=== PATIENT | male | born 1945 | race Caucasian/White ===

== ENCOUNTER 2016-06-12 14:10 | Inpatient (IN) ==
--- NOTE | 2016-06-12 14:24 | Emergency Department Note ---
Disposition Clinical Impression: Chest pain, Pleural effusion, Renal failure, CHF (congestive heart failure), Obesity, CAD (coronary artery disease), Atrial fibrillation, Elevated INR Disposition: Admitted As Inpatient Referrals: Latosha Mitchell MD [Primary Care Provider] - Forms: ED Satisfaction Letter General Adult HPI - General Chief complaint: ED Chest Pain Stated complaint: Chest Pain Time Seen by Provider: 06/12/16 14:23 Source: patient, family, EMS Limitations: no limitations - History of Present Illness HPI Narrative: 71-year-old male with a history of coronary disease previous bypass with AICD in situ with a history of CHF and currently on Coumadin reports to the emergency department complaining of shortness of breath which has been progressive over the last 2 days. He has also been experiencing intermittent left chest pain over the last few weeks. He called his primary care physician' s office and they recommended he come to the ED. The patient denies any vomiting or diarrhea or abdominal pain no syncope or unilateral leg swelling. He describes bilateral increasing edema. There is been no fall or injury noted trouble moving the arms or legs independently. No history of fever or significant cough. No confusion. The patient has had no bleeding. His AICD has not fired. The patient reports he had a cardiac catheterization about a year ago which revealed a nondistended palpable lesion. The patient's chest pain has abated. He came in by EMS. Pain Scale: 0 - Related Data Home Medications Medication Instructions Recorded Confirmed Aspirin Enteric Coated [Aspirin EC] 81 mg PO QAM 04/19/15 09/10/15 Atorvastatin [Lipitor] 40 mg PO HS 04/19/15 09/10/15 Budesonide/Formoterol 160/4.5 2 puff IH BIDR 04/19/15 09/10/15 [Symbicort] Fluticasone Propionate [Flovent 1 puff IH DAILY PRN 04/19/15 09/10/15 Hfa] HYDROcodone/Acet 5/325 mg [[place] 1 tab PO DAILY PRN 04/19/15 09/10/15 5-325 mg] Insulin ASPART [NovoLOG] 2 - 12 unit SQ TIDWM 04/19/15 09/10/15 Levothyroxine [Synthroid] 25 mcg PO QAM 04/19/15 09/10/15 Magnesium Oxide [Magnesium] 400 mg PO BID 04/19/15 09/10/15 Montelukast [Singulair] 10 mg PO DAILY 04/19/15 09/10/15 Multivit-Min/FA/Lycopen/Lutein 1 tab PO QAM 04/19/15 09/10/15 [Centrum Silver Tablet] Niacin [Niaspan] 500 mg PO HS 04/19/15 09/10/15 Nitroglycerin [Nitrostat] 0.4 mg SL AD PRN 04/19/15 09/10/15 Omeprazole [PriLOSEC] 40 mg PO QPM 04/19/15 09/10/15 Ondansetron [Zofran] 8 mg PO Q8HR PRN 04/19/15 09/10/15 Ranitidine HCl [Zantac] 150 mg PO BID 04/19/15 09/10/15 [place] Oil/[place]-3 Fatty Acids 1,000 mg PO QAM 04/19/15 09/10/15 [Fish Oil 500 mg Softgel] Warfarin [Coumadin] 7.5 mg PO 4XW 04/19/15 09/10/15 Zolpidem [Ambien] 10 mg PO HS 04/19/15 09/10/15 Furosemide [Lasix] 20 mg PO DAILY 07/11/15 09/10/15 Insulin Glargine [Lantus] 25 unit SQ BID 07/11/15 09/10/15 Ranolazine [Ranexa] 500 mg PO BID 07/11/15 09/10/15 Warfarin [Coumadin] 5 mg PO 3XW 07/11/15 09/10/15 Gluc/Miguel Angel-MSM#1/C/Epifanio/[place]/Bor 1 each PO BID 09/10/15 09/10/15 [Osteo Bi-Flex Caplet] Previous Rx's Medication Instructions Recorded Isosorbide MONOnitrate (24 HR) 120 mg PO QAM #60 tab.er.24h 04/25/15 [Imdur] Carvedilol [Coreg] 25 mg PO BID #60 tablet 04/30/15 Allergies Allergy/AdvReac Type Severity Reaction Status Date / Time codeine Allergy Difficulty Verified 04/19/15 10:03 Breathing promethazine [From Phenergan] Allergy Dizziness Verified 04/19/15 10:03 ibuprofen AdvReac Nausea Verified 04/19/15 12:02 All systems ED: reviewed and negative except as stated. Past Medical History - Past Medical History Medical history: Reports: arthritis, atrial fibrillation, cancer, CHF, coronary artery disease, diabetes, GERD, hyperlipidemia, hypertension, myocardial infarction, renal disease, thyroid disease, TIA Surgical history: Reports: angioplasty/stent, appendectomy, cholecystectomy, colostomy, coronary bypass (CABG), pacemaker/AICD Psychiatric history: Reports: no psych history - Social History Smoking Status: Never smoker Smokeless Tobacco Status: No Alcohol use: Reports: none Drug use: Reports: none Physical Exam - General Limitations: no limitations General appearance: alert, in no apparent distress - Head Head exam: atraumatic, normocephalic, normal inspection - Eye Eye exam: Present: normal appearance, PERRL, EOMI - ENT ENT exam: normal exam, normal oropharynx, mucous membranes moist, normal external ear exam - Neck Neck exam: Present: normal inspection, full ROM, trachea midline. Absent: tenderness - Chest Chest inspection: Present: symmetric chest wall rise. Absent: tenderness - Respiratory Respiratory exam: Present: normal lung sounds bilaterally. Absent: respiratory distress - Cardiovascular Cardiovascular exam: Present: regular rate, normal rhythm, normal heart sounds - Abdominal Exam Abdominal exam: Present: soft, Non-Tender. Absent: tenderness, distention, guarding, rebound, rigidity - Extremities Exam Extremities exam: Present: normal inspection, full ROM, pedal edema. Absent: tenderness, joint swelling, calf tenderness - Expanded Lower Extremity Exam Hip/Pelvis exam: Absent: tenderness Knee exam: Absent: tenderness Lower leg exam: Present: swelling. Absent: tenderness, Homans' sign Neurovascular/Tendon exam: Absent: motor deficit, sensory deficit, tendon deficit - Back Exam Back exam: Present: normal inspection, full ROM. Absent: tenderness, CVA tenderness (R), CVA tenderness (L), vertebral tenderness - Neurological Exam Neurological exam: Present: alert, oriented X3, CN II-XII intact. Absent: motor sensory deficit - Psychiatric Psychiatric exam: Present: normal affect, normal mood - Skin Skin exam: Present: warm, dry, intact, normal color. Absent: rash, cyanosis, diaphoresis, erythema, pallor, mottled Course Vital Signs Temperature 98.2 F 06/12/16 14:12 Pulse Rate 82 06/12/16 14:12 Respiratory Rate 18 06/12/16 14:12 Blood Pressure 148/92 06/12/16 14:12 O2 Sat by Pulse Oximetry 97 06/12/16 14:12 Temperature 98.2 F 06/12/16 14:12 Pulse Rate 70 06/12/16 16:50 Respiratory Rate 16 06/12/16 16:50 Blood Pressure 143/60 06/12/16 16:50 O2 Sat by Pulse Oximetry 98 06/12/16 16:50 Oxygen Delivery Oxygen Delivery Nasal Cannula Medical Decision Making - [facility] Narrative Medical decision making narrative: The patient is not febrile, his lactic acid is negative, the patient's white count is normal, he does not appear to be septic. The patient has a pleural effusion likely secondary to CHF. He has been symptomatic from a dyspnea standpoint, is also complaining of intermittent chest pain and has known CAD. The patient is anticoagulated on Coumadin, he was given aspirin in the ED as well as nitroglycerin and Lasix. Based on his multiple comorbidities, acute radiographic findings, and symptomatology including chest pain and shortness of breath, I thought it would be appropriate to admit the patient to the hospital. I discussed the case with the hospitalist on-call who has accepted the patient to their care. - Lab Data Lab results reviewed: Yes I reviewed the patient's lab results. Result diagrams: 06/12/16 14:54 06/12/16 14:54 Lab Results 06/12/16 06/12/16 06/12/16 Range/Units 14:54 14:54 14:54 WBC 9.9 (4.3-11.1) K/mcL RBC 5.39 (4.19-5.50) M/mcL Hgb 14.9 (12.9-16.9) g/dL Hct 46.3 (37.5-50.1) % MCV 85.9 (83.0-100.0) fL MCH 27.6 L (28.0-33.3) pg MCHC 32.2 (31.6-35.5) g/dL RDW 15.9 H (11.5-14.5) % Plt Count 188 (140-400) K/mcL MPV 8.5 L (9.4-12.4) fL Immature Gran % 0.4 (0-4) % Seg Neutrophils % 77.4 % Lymphocytes % 8.3 % Monocytes % 10.7 % Eosinophils % 2.6 % Basophils % 0.6 % Neutrophils # 7.7 (1.6-8.9) K/mcL Lymphocytes # 0.8 (0.6-4.6) K/mcL Monocytes # 1.1 (0.0-1.3) K/mcL Eosinophils # 0.3 (0.0-0.6) K/mcL Basophils # 0.1 (0.0-0.2) K/mcL PT 35.9 H (9.4-12.1) Seconds INR 3.2 APTT 45.8 H (26.0-36.0) Seconds Sodium (136-145) mEq/L Potassium (3.5-4.5) mEq/L Chloride (98-109) mEq/L Carbon Dioxide (19-29) mEq/L BUN (8-26) mg/dL Creatinine (0.72-1.25) mg/dL Est GFR ( Amer) (> 60) Est GFR (Non-Af Amer) (> 60) BUN/Creatinine Ratio (6-26) Glucose (70-99) mg/dL Calculated Osmolality (280-300) Lactic Acid (0.5-2.2) mmol/L Calcium (8.6-10.8) mg/dL Total Bilirubin 1.0 (0.2-1.2) mg/dL Direct Bilirubin 0.5 (0.0-0.5) mg/dL Indirect Bilirubin 0.5 (0.0-1.2) mg/dL AST 19 (5-34) Units/L ALT 18 (0-55) Units/L Alkaline Phosphatase 71 (38-126) Units/L Troponin I (0-0.03) ng/mL C-Reactive Protein 17 H (Less than 5) mg/L B-Natriuretic Peptide (0-100) pg/mL Serum Total Protein 6.7 (6.0-8.3) g/dL Albumin 3.0 L (3.5-5.0) g/dL Globulin 3.7 H (2.4-3.5) g/dL Albumin/Globulin Ratio 0.8 L (1.1-2.2) Lipase 40 (8-78) Units/L 06/12/16 06/12/16 06/12/16 Range/Units 14:54 14:54 14:54 WBC (4.3-11.1) K/mcL RBC (4.19-5.50) M/mcL Hgb (12.9-16.9) g/dL Hct (37.5-50.1) % MCV (83.0-100.0) fL MCH (28.0-33.3) pg MCHC (31.6-35.5) g/dL RDW (11.5-14.5) % Plt Count (140-400) K/mcL MPV (9.4-12.4) fL Immature Gran % (0-4) % Seg Neutrophils % % Lymphocytes % % Monocytes % % Eosinophils % % Basophils % % Neutrophils # (1.6-8.9) K/mcL Lymphocytes # (0.6-4.6) K/mcL Monocytes # (0.0-1.3) K/mcL Eosinophils # (0.0-0.6) K/mcL Basophils # (0.0-0.2) K/mcL PT (9.4-12.1) Seconds INR APTT (26.0-36.0) Seconds Sodium 138 (136-145) mEq/L Potassium 4.1 (3.5-4.5) mEq/L Chloride 103 (98-109) mEq/L Carbon Dioxide 26 (19-29) mEq/L BUN 46 H (8-26) mg/dL Creatinine 1.89 H (0.72-1.25) mg/dL Est GFR ( Amer) 43 L (> 60) Est GFR (Non-Af Amer) 36 L (> 60) BUN/Creatinine Ratio 24 (6-26) Glucose 161 H (70-99) mg/dL Calculated Osmolality 301 H (280-300) Lactic Acid (0.5-2.2) mmol/L Calcium 9.5 (8.6-10.8) mg/dL Total Bilirubin (0.2-1.2) mg/dL Direct Bilirubin (0.0-0.5) mg/dL Indirect Bilirubin (0.0-1.2) mg/dL AST (5-34) Units/L ALT (0-55) Units/L Alkaline Phosphatase (38-126) Units/L Troponin I 0.02 (0-0.03) ng/mL C-Reactive Protein (Less than 5) mg/L B-Natriuretic Peptide 886 H (0-100) pg/mL Serum Total Protein (6.0-8.3) g/dL Albumin (3.5-5.0) g/dL Globulin (2.4-3.5) g/dL Albumin/Globulin Ratio (1.1-2.2) Lipase (8-78) Units/L 06/12/16 Range/Units 16:14 WBC (4.3-11.1) K/mcL RBC (4.19-5.50) M/mcL Hgb (12.9-16.9) g/dL Hct (37.5-50.1) % MCV (83.0-100.0) fL MCH (28.0-33.3) pg MCHC (31.6-35.5) g/dL RDW (11.5-14.5) % Plt Count (140-400) K/mcL MPV (9.4-12.4) fL Immature Gran % (0-4) % Seg Neutrophils % % Lymphocytes % % Monocytes % % Eosinophils % % Basophils % % Neutrophils # (1.6-8.9) K/mcL Lymphocytes # (0.6-4.6) K/mcL Monocytes # (0.0-1.3) K/mcL Eosinophils # (0.0-0.6) K/mcL Basophils # (0.0-0.2) K/mcL PT (9.4-12.1) Seconds INR APTT (26.0-36.0) Seconds Sodium (136-145) mEq/L Potassium (3.5-4.5) mEq/L Chloride (98-109) mEq/L Carbon Dioxide (19-29) mEq/L BUN (8-26) mg/dL Creatinine (0.72-1.25) mg/dL Est GFR ( Amer) (> 60) Est GFR (Non-Af Amer) (> 60) BUN/Creatinine Ratio (6-26) Glucose (70-99) mg/dL Calculated Osmolality (280-300) Lactic Acid 0.8 (0.5-2.2) mmol/L Calcium (8.6-10.8) mg/dL Total Bilirubin (0.2-1.2) mg/dL Direct Bilirubin (0.0-0.5) mg/dL Indirect Bilirubin (0.0-1.2) mg/dL AST (5-34) Units/L ALT (0-55) Units/L Alkaline Phosphatase (38-126) Units/L Troponin I (0-0.03) ng/mL C-Reactive Protein (Less than 5) mg/L B-Natriuretic Peptide (0-100) pg/mL Serum Total Protein (6.0-8.3) g/dL Albumin (3.5-5.0) g/dL Globulin (2.4-3.5) g/dL Albumin/Globulin Ratio (1.1-2.2) Lipase (8-78) Units/L
[2016-06-12 15:03] LABS: Basophils # 0.1 K/mcL (0.0-0.2); Basophils % 0.6 %; Eosinophils # 0.3 K/mcL (0.0-0.6); Eosinophils % 2.6 %; Hematocrit 46.3 % (37.5-50.1); Hemoglobin 14.9 g/dL (12.9-16.9); Immature Granulocytes % 0.4 % (0-4); Lymphocytes # 0.8 K/mcL (0.6-4.6); Lymphocytes % 8.3 %; Mean Corpuscular HGB Conc 32.2 g/dL (31.6-35.5); Mean Corpuscular Hemoglobin 27.6 pg (28.0-33.3); Mean Corpuscular Volume 85.9 fL (83.0-100.0); Mean Platelet Volume 8.5 fL (9.4-12.4); Monocytes # 1.1 K/mcL (0.0-1.3); Monocytes % 10.7 %; Neutrophils # 7.7 K/mcL (1.6-8.9); Platelet Count 188 K/mcL (140-400); Red Blood Count 5.39 M/mcL (4.19-5.50); Red Cell Distribution Width 15.9 % (11.5-14.5); Segmented Neutrophils % 77.4 %
[2016-06-12 15:09] LABS: INR 3.2; Prothrombin Time 35.9 Seconds (9.4-12.1)
[2016-06-12 15:12] LABS: Activated Partial Thrombo Time 45.8 Seconds (26.0-36.0)
[2016-06-12 15:17] LABS: Calcium 9.5 mg/dL (8.6-10.8); Potassium 4.1 mEq/L (3.5-4.5)
[2016-06-12 15:20] LABS: Albumin/Globulin Ratio 0.8 (1.1-2.2); Bilirubin,Direct 0.5 mg/dL (0.0-0.5); Bilirubin,Indirect 0.5 mg/dL (0.0-1.2); Globulin 3.7 g/dL (2.4-3.5); Total Protein 6.7 g/dL (6.0-8.3)
[2016-06-12] MEDS ORDERED: Nitroglycerin 1 INCH/GM PACKET TP ONE (15:46)
[2016-06-12] MEDS ORDERED: Aspirin 325 MG TABLET PO ONE (15:46)
[2016-06-12] MEDS ORDERED: Furosemide 40 MG in 0.9 % Sodium Chloride 50 ML IVPB ONE (15:46)
[2016-06-12] MEDS ORDERED: Furosemide 40 MG/4 ML VIAL IVP ONE (16:02)
[2016-06-12] MEDS ORDERED: Naloxone 0.4 MG/ML INJ IVP PRN (18:33)
[2016-06-12] MEDS ORDERED: Nitroglycerin 0.4 MG TAB.SUBL SL PRN (18:36)
[2016-06-12] MEDS ORDERED: *HR* HYDROcodone/Acet 5/325 mg TABLET PO PRN (18:36)
--- NOTE | 2016-06-12 18:45 | Internal Med History&Physical ---
Date of Encounter: 06/12/16 Time of Encounter: 18:45 Assessment and Plan (1) Acute exacerbation of CHF (congestive heart failure) Current visit: Yes Status: Acute uncertain etiology but likely due to ischemia; Telemetry monitoring and trend Troponins; start IV Lasix and monitor urine output, daily weights along with fluid restriction and low sodium diet; Echocardiogram from 2 months back reviewed, no change in EF 15-20% with global hypokinesis of LV; will get repeat Echo with limited views; Cardiology consult; Qualifiers: Congestive heart failure type: systolic Qualified Code(s): I50.23 - Acute on chronic systolic (congestive) heart failure (2) Pleural effusion Current visit: Yes Status: Acute Patient likely has a left-sided transudative pleural effusion; plan for IR thoracentesis for symptomatic relief; IV diuresis as above; PRN supplemental O2; (3) Atrial fibrillation Current visit: Yes Status: Chronic continue beta-erlinda and usp anticoagulation with Coumadin; currently rate-controlled; Qualifiers: Atrial fibrillation type: chronic Qualified Code(s): I48.2 - Chronic atrial fibrillation (4) CAD (coronary artery disease) Current visit: Yes Status: Chronic continue home meds; patient is noted to have coronary atherosclerosis, not amenable to revascularization/stent placement on his recent cath per him; Qualifiers: Coronary Disease-Associated Artery/Lesion type: bypass graft [place] vs. transplanted heart: tribe heart Associated angina: with stable angina Qualified Code(s): I25.708 - Atherosclerosis of coronary artery bypass graft(s) , unspecified, with other forms of angina pectoris (5) Obesity Current visit: Yes Status: Chronic Qualifiers: Obesity type: due to excess calories Obesity severity: non-morbid Qualified Code(s): E66.09 - Other obesity due to excess calories (6) CKD (chronic kidney disease) stage 3, GFR 30-59 ml/min Current visit: Yes Status: Chronic monitor serum creatinine cloely; at risk for worsening due to diuresis; avoid contrast and new nephrotoxic agents; (7) Cardiomyopathy, ischemic Current visit: Yes Status: Chronic (8) Colon cancer Current visit: Yes Status: Inactive in remission; s/p partial colectomy and colostomy; Qualifiers: Colon location: unspecified part of colon Qualified Code(s): C18.9 - Malignant neoplasm of colon, unspecified (9) Dyslipidemia Current visit: Yes Status: Chronic (10) Hypertension Current visit: Yes Status: Chronic Qualifiers: Hypertension type: essential hypertension Qualified Code(s): I10 - Essential (primary) hypertension (11) TR on CPAP Current visit: Yes Status: Chronic resume CPAP at night; (12) Type 2 diabetes mellitus Current visit: Yes Status: Chronic Accucheck blood glucose monitoring with basal bolus insulin regimen; diabetic diet; Qualifiers: Diabetes mellitus complication status: with kidney complications Diabetes mellitus complication detail: with chronic kidney disease Diabetes mellitus superintendent terminal insulin use: with usp use Chronic kidney disease stage: stage 3 (moderate) Qualified Code(s): E11.22 - Type 2 diabetes mellitus with diabetic chronic kidney disease; N18.3 - Chronic kidney disease, stage 3 ( moderate); 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 Ellis is a 71 year old male with multiple medical problems, presents with c/ o- worsening shortness of breath for the last 2 weeks. He has been in contact with his Residential Living Assistant's office and has been recommended to present to ER for worsening symptoms. Patient reports having undergone 2 bypass surgeries and 3 stents placed, the last one about 2-3 years back. He has been doing well since then and he has no chest pain usually but does have some exertional dyspnea at baseline due to CHF.This has been getting worse for the last 2 weeks, associated with intermittent retrosternal nonradiating, mild chest pain/pressure , orthopnea, leg swelling. He reports compliance to dietary/fluid restrictions, medications. He underwent heart cath about a year ago, which showed some blockages that could not be stented per patient and his . Past Med Surg Social Fam HX - Past Medical History Medical history: arthritis, atrial fibrillation, cancer (colon cancer, in remission), CHF (ischemic cardiomyopathy), COPD, coronary artery disease, diabetes, GERD, hyperlipidemia, hypertension, myocardial infarction, renal disease, thyroid disease, TIA, other (TR) Psychiatric history: no psych history - Past Surgical History Surgical History: angioplasty/stent, appendectomy, cholecystectomy, colectomy ( partial), colostomy, coronary bypass (CABG), pacemaker/AICD, AICD - Social History Smoking Status: Never smoker Smokeless Tobacco Status: No Alcohol use: none Drug use: none Occupational status: retired Current living situation: Home, With Family Activity Level: Uses cane/walker Recent Out of Country Travel Within the Last 8 Weeks: No Exposure or Possible Exposure to Illness During Travel: No - Family History Father Family Member Ethnicity: Non- Living Status: Hx Family Cardiac Disorders: Yes Mother Adopted: No Family Member Ethnicity: Non- Living Status: Hx Family Cardiac Disorders: Yes Hx Family Respiratory Disorders: Yes Hx Family Cancer: No Hx Family GI Disorders: Yes Hx Family Endocrine Disorder: Yes Internal Medicine - H&P: Meds Aspirin Enteric Coated [Aspirin EC] 81 mg PO QAM 04/19/15 [History] Atorvastatin [Lipitor] 40 mg PO HS 04/19/15 [History] Budesonide/Formoterol 160/4.5 [Symbicort] 2 puff IH BIDR 04/19/15 [History] Fluticasone Propionate [Flovent Hfa] 1 puff IH DAILY PRN 04/19/15 [History] HYDROcodone/Acet 5/325 mg [[place] 5-325 mg] 1 tab PO DAILY PRN 04/19/15 [History] Insulin ASPART [NovoLOG] 10 - 18 unit SQ TIDWM 04/19/15 [History] Levothyroxine [Synthroid] 25 mcg PO QAM 04/19/15 [History] Magnesium Oxide [Magnesium] 400 mg PO BID 04/19/15 [History] Montelukast [Singulair] 10 mg PO QPM 04/19/15 [History] Multivit-Min/FA/Lycopen/Lutein [Centrum Silver Tablet] 1 tab PO QAM 04/19/15 [ History] Niacin [Niaspan] 500 mg PO HS 04/19/15 [History] Nitroglycerin [Nitrostat] 0.4 mg SL AD PRN 04/19/15 [History] Omeprazole [PriLOSEC] 40 mg PO QPM 04/19/15 [History] Ondansetron [Zofran] 8 mg PO Q8HR PRN 04/19/15 [History] Ranitidine HCl [Zantac] 150 mg PO BID 04/19/15 [History] [place] Oil/[place]-3 Fatty Acids [Fish Oil 500 mg Softgel] 1,000 mg PO QAM [History] Warfarin [Coumadin] 7.5 mg PO MOWEFR 04/19/15 [History] Zolpidem [Ambien] 10 mg PO HS 04/19/15 [History] Isosorbide MONOnitrate (24 HR) [Imdur] 120 mg PO QAM #60 tab.er.24h 04/25/15 [Rx ] Furosemide [Lasix] 20 mg PO QPM 07/11/15 [History] Insulin Glargine [Lantus] 25 unit SQ BID 07/11/15 [History] Ranolazine [Ranexa] 500 mg PO BID 07/11/15 [History] Warfarin [Coumadin] 5 mg PO SUTUTHSA 07/11/15 [History] Gluc/Miguel Angel-MSM#1/C/Epifanio/[place]/Bor [Osteo Bi-Flex Caplet] 1 tab PO BID 09/10/15 [ History] Carvedilol [Coreg] 37.5 mg PO BID 06/12/16 [History] Furosemide [Lasix] 40 mg PO QAM 06/12/16 [History] Sucralfate [Carafate] 1 gm PO BID 06/12/16 [History] Allergies codeine Allergy (Verified 04/19/15 10:03) Difficulty Breathing promethazine [From Phenergan] Allergy (Verified 04/19/15 10:03) Dizziness ibuprofen Adverse Reaction (Verified 04/19/15 12:02) Nausea All Systems PM: A 10-system review of systems was performed and is negative for pertinent findings except as documented above in the HPI. - Constitutional Constitutional: no chills, no fever(s), no night sweats - EENT Eyes: no change in vision, no discharge, no pain, no photophobia Ears: no ear discharge, no ear pain, no tinnitus Nose, mouth and throat: no dysphagia, no nasal discharge, no neck pain, no sore throat - Cardiovascular Cardiovascular ROS IM: chest pain, dyspnea, dyspnea on exertion, edema, orthopnea - Respiratory Respiratory: cough, no dyspnea, no wheezing, no excessive phlegm production - Gastrointestinal Gastrointestinal: no abdominal pain, no diarrhea, no hematemesis, no hematochezia, no melena, no nausea, no vomiting - Musculoskeletal Musculoskeletal ROS IM: no numbness, no tingling - Integumentary Integumentary IM: no rash, no unusual bruising - Neurological Neurological ROS: no confusion, no convulsions, no focal weakness, no numbness, no tingling, no tremor(s) - Hematologic/Lymphatic Hematologic/Lymphatic: no easy bruising - Constitutional Vitals: Temp Pulse Resp BP Pulse Ox 97.9 F 70 18 137/104 98 06/12/16 18:10 06/12/16 18:10 06/12/16 18:10 06/12/16 18:10 06/12/16 18:10 General appearance: Present: A&O X 3, answers questions appropriately - Head Head exam: Present: atraumatic, normocephalic - Neck Neck exam general surgery: Present: supple, trachea midline. Absent: lymphadenopathy - Respiratory Respiratory exam: Present: decreased breath sounds (at left base). Absent: accessory muscle use, rales, rhonchi, wheezes - Cardiovascular Cardiovascular exam: Present: irregular rhythm, +S1, +S2. Absent: diastolic murmur, gallop, rubs, systolic murmur - GI/Abdominal GI/Abdominal exam: Present: normal bowel sounds, soft, no peritoneal signs. Absent: distended, tenderness - Extremities Exam Extremities exam: Present: full ROM, pedal edema (1+ pedal edema B/L lower legs) , warm, radial pulses palpable and symetrical. Absent: calf tenderness, cyanotic - Neurological Exam Neurological exam: Present: CN II-XII intact, oriented X3, no focal deficits. Absent: pronater drift, facial droop, speech deficit - Skin Skin exam: Present: dry, intact Internal Med - H&P Results - Labs CBC & Chem 7: 06/13/16 01:10 06/13/16 01:10
[2016-06-12] MEDS: Budesonide/Formoterol 160/4.5 MDI IH SCH (20:22)
[2016-06-12] MEDS: Niacin (24 HR) 500 MG TAB.ER.24H PO SCH (20:46)
[2016-06-12] MEDS: Ranolazine 500 MG TAB.ER.12H PO SCH (20:46)
[2016-06-12] MEDS: Furosemide 40 MG/4 ML VIAL IVP SCH (20:46)
[2016-06-12] MEDS: Magnesium Oxide 400 MG TABLET PO SCH (20:46)
[2016-06-12] MEDS: [UNRECOGNIZED DRUG - OTHER] PO SCH (20:47)
[2016-06-12] MEDS ORDERED: NON-FORMULARY MEDICATION 1 EACH EACH (Insulin Glargine [Lantus] 25 UNIT) SQ SCH (21:00)
[2016-06-12] MEDS: Insulin DETEMIR 100 UNIT/ML X5UNITS SQ SCH (21:01)
[2016-06-13 01:24] LABS: Basophils # 0.1 K/mcL (0.0-0.2); Basophils % 0.6 %; Eosinophils # 0.3 K/mcL (0.0-0.6); Eosinophils % 3.4 %; Hematocrit 43.8 % (37.5-50.1); Hemoglobin 14.1 g/dL (12.9-16.9); Immature Granulocytes % 0.3 % (0-4); Lymphocytes # 1.1 K/mcL (0.6-4.6); Lymphocytes % 11.9 %; Mean Corpuscular HGB Conc 32.2 g/dL (31.6-35.5); Mean Corpuscular Hemoglobin 27.8 pg (28.0-33.3); Mean Corpuscular Volume 86.2 fL (83.0-100.0); Mean Platelet Volume 8.7 fL (9.4-12.4); Monocytes # 1.1 K/mcL (0.0-1.3); Neutrophils # 6.4 K/mcL (1.6-8.9); Platelet Count 167 K/mcL (140-400); Red Blood Count 5.08 M/mcL (4.19-5.50); Red Cell Distribution Width 15.9 % (11.5-14.5); Segmented Neutrophils % 71.8 %
[2016-06-13 01:37] LABS: Calcium 9.1 mg/dL (8.6-10.8); Magnesium 1.6 mg/dL (1.6-2.6); Phosphorous 3.9 mg/dL (2.3-4.7)
[2016-06-13] MEDS: Budesonide/Formoterol 160/4.5 MDI IH SCH ×2 (08:01→19:45)
[2016-06-13 08:39] LABS: INR 3.2; Prothrombin Time 35.7 Seconds (9.4-12.1)
--- NOTE | 2016-06-13 09:56 | Internal Med Progress Note ---
<Gaston Arthur - Last Filed: 06/13/16 17:15> Date of Encounter: 06/13/16 Time of Encounter: 09:55 - Assessment and plan (1) Acute exacerbation of CHF (congestive heart failure) Current Visit: Yes Status: Acute Assessment and plan: Pt. with worsening dyspnea on exertion x 2 -3 weeks. Significant hx of CAD s/p CABG and stents, has an AICD, Hx of HRrEF, last EF two months ago 15-20% with global hypokineses, repeat echo pending. Troponins negative Cardiology consulted. Appreciate their input. start IV Lasix and monitor I/O and daily weight fluid restriction and cardiac diet Qualifiers: Congestive heart failure type: systolic Qualified Code(s): I50.23 - Acute on chronic systolic (congestive) heart failure (2) Pleural effusion Current Visit: Yes Status: Acute Assessment and plan: Left sided pleural effusion Likely 2/2 CHF exacerbation IR consulted for thoracentesis but INR 3.2 today as patient has Afib a/c on coumadin. Will hold coumadin and plan for thoracentesis when INR is in acceptable range. Chest X-Ray 06/12/16 14:23 IMPRESSION: Opacity in the left lung base, suggestive of large pleural effusion. Mild atelectasis in the right lung base. Cardiomegaly and AICD are noted. D/ / Jone Gaspar MD / Jone Gaspar MD Interpreting Provider: Jone Gaspar MD (3) Atrial fibrillation Current Visit: Yes Status: Chronic Assessment and plan: chronic, stable, AICD in place continue Coreg 37.5 PO BID, on coumadin, but will hold as INR is supratherapeutic at 3.2 and he will likely need thoracentesis Qualifiers: Atrial fibrillation type: chronic Qualified Code(s): I48.2 - Chronic atrial fibrillation (4) CAD (coronary artery disease) Current Visit: Yes Status: Chronic Assessment and plan: Hx of CAD CABG and Stents continue home meds Qualifiers: Coronary Disease-Associated Artery/Lesion type: bypass graft [place] vs. transplanted heart: [place] heart Associated angina: with stable angina Qualified Code(s): I25.708 - Atherosclerosis of coronary artery bypass graft(s) , unspecified, with other forms of angina pectoris (5) CKD (chronic kidney disease) stage 3, GFR 30-59 ml/min Current Visit: Yes Status: Chronic Assessment and plan: chronic, stable here for CHF exacerbation and will be diuresed. May develop HARMEET on CKD. Monitor renal function closely. (6) Cardiomyopathy, ischemic Current Visit: Yes Status: Chronic (7) Dyslipidemia Current Visit: Yes Status: Chronic (8) Hypertension Current Visit: Yes Status: Chronic Qualifiers: Hypertension type: essential hypertension Qualified Code(s): I10 - Essential (primary) hypertension (9) TR on CPAP Current Visit: Yes Status: Chronic Assessment and plan: cpap at night (10) Colon cancer Current Visit: Yes Status: Inactive Assessment and plan: s/p partial colectomy w/ colostomy bag Qualifiers: Colon location: unspecified part of colon Qualified Code(s): C18.9 - Malignant neoplasm of colon, unspecified (11) DVT prophylaxis Current Visit: No Status: Acute Assessment and plan: on coumadin, INR currently 3.2 - Subjective Interval history: patient seen and examined. he has a history of CHF with his most recent EF of 10 to 15%, a fib on Coumadin, coronary artery disease status post CABG, with an AICD, and chronic kidney disease stage 3. Sitting up in bed, comfortable, conversational. He has severe orthopnea. No dyspnea at rest, but sever dyspnea with exertion. Trace b/l le edema. crackles auscultated on the left lung alfonso. Admits to sob w/exertion on laying flat, and nausea. Denies cp/ sob at rest/abd pain/vomiting/diarrhea/fever. - Constitutional Vitals: Temp Pulse Resp BP Pulse Ox 97.7 F 73 16 143/96 97 06/13/16 07:26 06/13/16 07:26 06/13/16 08:02 06/13/16 07:26 06/13/16 08:02 General appearance: Present: A&O X 3, answers questions appropriately - Head Head exam: Present: atraumatic, normocephalic - Eye Eye exam: Present: conjunctival injection, PERRL. Absent: normal appearance ( rt eye blood) - Neck Neck exam general surgery: Present: supple, trachea midline. Absent: lymphadenopathy - Respiratory Respiratory exam: Present: decreased breath sounds, rales (left lower lobe). Absent: respiratory distress - Cardiovascular Cardiovascular exam: Present: RRR (ventricular paced, AICD), +S1, +S2 - GI/Abdominal GI/Abdominal exam: Present: normal bowel sounds, soft, no peritoneal signs. Absent: distended, tenderness Additional comments: colostomy bag - Extremities Exam Extremities exam: Present: pedal edema (trace), warm, radial pulses palpable and symetrical. Absent: calf tenderness, cyanotic - Neurological Exam Neurological exam: Present: CN II-XII intact, oriented X3, no focal deficits. Absent: facial droop, speech deficit - Skin Skin exam: Present: dry, intact Internal Medicine: Result - Labs CBC & Chem 7: 06/13/16 01:10 06/13/16 01:10 Labs: Short CBC 06/13/16 Range/Units 01:10 WBC 8.9 (4.3-11.1) K/mcL Hgb 14.1 (12.9-16.9) g/dL Hct 43.8 (37.5-50.1) % Plt Count 167 (140-400) K/mcL Neutrophils # 6.4 (1.6-8.9) K/mcL BMP 06/13/16 01:10 Sodium 140 Potassium 4.0 Chloride 103 Carbon Dioxide 26 BUN 44 H Creatinine 1.95 H Glucose 164 H Calcium 9.1 Cardiac Enzymes 06/12/16 06/13/16 06/13/16 Range/Units 20:56 01:10 07:07 Troponin I 0.01 0.01 0.02 (0-0.03) ng/mL - ABG Interpretation ABG results: PT/INR, D-dimer PT 35.7 Seconds (9.4-12.1) H 06/13/16 08:26 Consult Discharge Plan - Plan Instructions: Heart Failure (DC), Atrial Fibrillation (DC), Chest Pain (DC), Diabetes Mellitus Type 2 in Adults (DC), Chronic Hypertension (DC) Referrals: Latosha Mitchell MD [Primary Care Provider] - <Vikram Krishnamurthy - Last Filed: 06/13/16 18:32> Date of Encounter: 06/13/16 - Constitutional Vitals: Temp Pulse Resp BP Pulse Ox 97.3 F L 73 16 117/77 95 06/13/16 16:00 06/13/16 16:00 06/13/16 16:00 06/13/16 16:00 06/13/16 16:00 Internal Medicine: Result - Labs CBC & Chem 7: 06/13/16 01:10 06/13/16 01:10 Labs: Short CBC 06/13/16 Range/Units 01:10 WBC 8.9 (4.3-11.1) K/mcL Hgb 14.1 (12.9-16.9) g/dL Hct 43.8 (37.5-50.1) % Plt Count 167 (140-400) K/mcL Neutrophils # 6.4 (1.6-8.9) K/mcL BMP 06/13/16 01:10 Sodium 140 Potassium 4.0 Chloride 103 Carbon Dioxide 26 BUN 44 H Creatinine 1.95 H Glucose 164 H Calcium 9.1 Cardiac Enzymes 06/12/16 06/13/16 06/13/16 Range/Units 20:56 01:10 07:07 Troponin I 0.01 0.01 0.02 (0-0.03) ng/mL - ABG Interpretation ABG results: PT/INR, D-dimer PT 35.7 Seconds (9.4-12.1) H 06/13/16 08:26 - Impressions Impressions Head CT 06/13/16 12:15 IMPRESSION: 1. No intracranial hemorrhage. No definite infarct. 2. Small focus of low attenuation in the right centrum semiovale, likely secondary to chronic small vessel ischemic disease. Given the history, further evaluation with MRI should be considered. Results of this examination were verbally communicated to Dr. Krishnamurthy at 13:00 on 06/13/2016. D/ : / 06/13/2016 12:54:53 Claude Chawla MD / earnold Interpreting Provider: Claude Chawla MD - Attending Attestation I examined this patient and my medical decision-making was reviewed with the AIRPLANE TESTER/PA/Advanced Practice Nurse/Resident Physician. I agree with the documented findings, disposition and treatment plan as described except to the extent set forth below.
[2016-06-13] MEDS: Multivit/Ca/Min/Fe/FA 1 TAB TABLET PO SCH (10:52)
[2016-06-13] MEDS: Furosemide 40 MG/4 ML VIAL IVP SCH ×2 (10:52→20:49)
[2016-06-13] MEDS: Magnesium Oxide 400 MG TABLET PO SCH ×2 (10:52→20:48)
[2016-06-13] MEDS: Ranolazine 500 MG TAB.ER.12H PO SCH ×2 (10:53→20:49)
[2016-06-13] MEDS: (Salmon Oil/Omega-3 Fatty Acids [Fish Oil 500 Mg Soft PO SCH (10:53)
[2016-06-13] MEDS: [UNRECOGNIZED DRUG - OTHER] PO SCH ×2 (10:53→20:54)
[2016-06-13] MEDS: Aspirin Enteric Coated 81 MG Tablet PO SCH (10:53)
[2016-06-13] MEDS: Isosorbide MONOnitrate (24 HR) 60 MG TAB.ER.24H PO SCH (10:53)
[2016-06-13] MEDS: Acetaminophen 325 MG TABLET PO PRN (11:04)
[2016-06-13] MEDS: Insulin DETEMIR 100 UNIT/ML X5UNITS SQ SCH ×2 (11:05→21:03)
--- NOTE | 2016-06-13 14:11 | Cardiology Consult Note ---
<Renaldo Johnson - Last Filed: 06/13/16 14:37> Date of Encounter: 06/13/16 Time of Encounter: 14:10 Assessment and Plan (1) Acute exacerbation of CHF (congestive heart failure) Current Visit: Yes Status: Acute Known EF of 15-20% on echo 04/2016. EF has been this low since April 2015-- C at that time showed occluded SVG-Ramus graft. Despite medical management, EF has remained low, s/p dual chamber ICD. Dyspnea worsening over the past 2 weeks associated with orthopnea and lower extremity edema. Large left pleural effusion on CXR. Current INR 3.2--plan for thoracentesis with INR is in acceptable range. BNP 886. Being diuresed on IV Lasix 40mg BID. Agree with IV diuresis. I/O negative -600mL so far. Recommend strict I/O, daily weights, sodium and fluid restriction. Monitor renal function closely. Currently creatinine 1.95--slightly above baseline, but does fluctuate. Qualifiers: Congestive heart failure type: systolic Qualified Code(s): I50.23 - Acute on chronic systolic (congestive) heart failure (2) Pleural effusion Current Visit: Yes Status: Acute Patient likely has a left-sided large pleural effusion on CXR; plan for IR thoracentesis for symptomatic relief; IV diuresis as above; PRN supplemental O2 ; INR supratherapeutic currently 3.2. Waiting for it to decrease. (3) Atrial fibrillation Current Visit: Yes Status: Chronic Rate controlled on BB. Anticoagulated on Coumadin. Head CT shows chronic microvascular ischemia changes. MRI to be considered. Will defer to hospitalist. Qualifiers: Atrial fibrillation type: chronic Qualified Code(s): I48.2 - Chronic atrial fibrillation (4) CAD (coronary artery disease) Current Visit: Yes Status: Chronic Known CAD--s/p 2 vessel CABG 07/2014 with occluded SVG-Ramus on [facility] 04/2015. Pt denies chest pain. Continue ASA, Statin, BB, Nitrates. Qualifiers: Coronary Disease-Associated Artery/Lesion type: bypass graft [place] vs. transplanted heart: [place] heart Associated angina: with stable angina Qualified Code(s): I25.708 - Atherosclerosis of coronary artery bypass graft(s) , unspecified, with other forms of angina pectoris (5) Cardiomyopathy, ischemic Current Visit: Yes Status: Chronic EF 15-20%. Continue BB. No SWETHA-I due to renal function. (6) CKD (chronic kidney disease) stage 3, GFR 30-59 ml/min Current Visit: Yes Status: Chronic Monitor renal function closely with diuresis. (7) ICD (implantable cardioverter-defibrillator) in place Current Visit: Yes Status: Chronic Dual chamber ICD. Follows with device clinic. Discussion w patient/family: The assessment and plan as outlined above was discussed with the patient and/or family members who expressed understanding and agreement. All questions were answered. Thank you for involving us in the care of your patient. Please call with any questions. I will discuss all the above with Dr. Brock and make changes as necessary. History of Present Illness Consult date: 06/13/16 Requesting physician: Elly Dumont Consult reason: CHF Chief complaint: dyspnea History of present illness: Mr. Ellis is a 71 year old male with PMH of CAD status post CABG 2 on 07/18/2014 , (SVG-ramus and SVG-OM), a modified maze procedure and left atrial appendage stapling, ischemic cardiomyopathy with an EF of 15% diagnosed in April 2015 now s/p dual chamber ICD, hypertension, hyperlipidemia, diabetes, atrial fibrillation on Coumadin, obstructive sleep apnea on CPAP. He presents with c/o worsening shortness of breath for the last 2 weeks associated with orthopnea and leg swelling. He reports compliance to dietary/fluid restrictions, medications. LHC April 2015 found to have 1/2 bypass grafts patent. SVG - ramus was occluded. His EF dropped from 50% to 15%. Pt has been found to have probable large left pleural effusion on CXR, plan to have thoracentesis once INR is in acceptable range. Per pt, has referral set up with Dr. Cervantes at [facility] advanced heart failure clinic. Past Med Surg Social Fam HX - Past Medical History Medical history: arthritis, atrial fibrillation, cancer (colon cancer, in remission), CHF (ischemic cardiomyopathy), COPD, coronary artery disease, diabetes, GERD, hyperlipidemia, hypertension, myocardial infarction, renal disease, thyroid disease, TIA, other (TR) Psychiatric history: no psych history - Past Surgical History Surgical History: angioplasty/stent, appendectomy, cholecystectomy, colectomy ( partial), colostomy, coronary bypass (CABG), pacemaker/AICD, AICD - Social History Smoking Status: Never smoker Smokeless Tobacco Status: No Alcohol use: none Drug use: none - Family History Father Family Member Ethnicity: Non- Living Status: Hx Family Cardiac Disorders: Yes Mother Adopted: No Family Member Ethnicity: Non- Living Status: Hx Family Cardiac Disorders: Yes Hx Family Respiratory Disorders: Yes Hx Family Cancer: No Hx Family GI Disorders: Yes Hx Family Endocrine Disorder: Yes Medications and Allergies Aspirin Enteric Coated [Aspirin EC] 81 mg PO QAM 04/19/15 [History] Atorvastatin [Lipitor] 40 mg PO HS 04/19/15 [History] Budesonide/Formoterol 160/4.5 [Symbicort] 2 puff IH BIDR 04/19/15 [History] Fluticasone Propionate [Flovent Hfa] 1 puff IH DAILY PRN 04/19/15 [History] HYDROcodone/Acet 5/325 mg [[place] 5-325 mg] 1 tab PO DAILY PRN 04/19/15 [History] Insulin ASPART [NovoLOG] 10 - 18 unit SQ TIDWM 04/19/15 [History] Levothyroxine [Synthroid] 25 mcg PO QAM 04/19/15 [History] Magnesium Oxide [Magnesium] 400 mg PO BID 04/19/15 [History] Montelukast [Singulair] 10 mg PO QPM 04/19/15 [History] Multivit-Min/FA/Lycopen/Lutein [Centrum Silver Tablet] 1 tab PO QAM 04/19/15 [ History] Niacin [Niaspan] 500 mg PO HS 04/19/15 [History] Nitroglycerin [Nitrostat] 0.4 mg SL AD PRN 04/19/15 [History] Omeprazole [PriLOSEC] 40 mg PO QPM 04/19/15 [History] Ondansetron [Zofran] 8 mg PO Q8HR PRN 04/19/15 [History] Ranitidine HCl [Zantac] 150 mg PO BID 04/19/15 [History] [place] Oil/[place]ange-3 Fatty Acids [Fish Oil 500 mg Softgel] 1,000 mg PO QAM [History] Warfarin [Coumadin] 7.5 mg PO MOWEFR 04/19/15 [History] Zolpidem [Ambien] 10 mg PO HS 04/19/15 [History] Isosorbide MONOnitrate (24 HR) [Imdur] 120 mg PO QAM #60 tab.er.24h 04/25/15 [Rx ] Furosemide [Lasix] 20 mg PO QPM 07/11/15 [History] Insulin Glargine [Lantus] 25 unit SQ BID 07/11/15 [History] Ranolazine [Ranexa] 500 mg PO BID 07/11/15 [History] Warfarin [Coumadin] 5 mg PO SUTUTHSA 07/11/15 [History] Gluc/Miguel Angel-MSM#1/C/Epifanio/Manfred/Bor [Osteo Bi-Flex Caplet] 1 tab PO BID 09/10/15 [ History] Carvedilol [Coreg] 37.5 mg PO BID 06/12/16 [History] Furosemide [Lasix] 40 mg PO QAM 06/12/16 [History] Sucralfate [Carafate] 1 gm PO BID 06/12/16 [History] Allergies codeine Allergy (Verified 04/19/15 10:03) Difficulty Breathing promethazine [From Phenergan] Allergy (Verified 04/19/15 10:03) Dizziness ibuprofen Adverse Reaction (Verified 04/19/15 12:02) Nausea All Systems Review: A 10-system review of systems was performed and is negative for pertinent findings except as documented above in the HPI. Physical Examination Vital Signs, Last 4 Hours Temp Pulse Resp BP Pulse Ox 06/13/16 11:20 97.7 F 80 16 118/79 97 Vital Signs Temp Pulse Resp BP Pulse Ox 06/13/16 11:20 97.7 F 80 16 118/79 97 06/13/16 08:02 16 97 06/13/16 07:26 97.7 F 73 18 143/96 98 06/13/16 05:54 98 06/13/16 04:00 98.1 F 70 16 111/86 98 06/13/16 00:10 98.2 F 68 16 112/87 99 06/12/16 20:23 18 97 06/12/16 18:10 97.9 F 70 18 137/104 98 06/12/16 17:55 98 06/12/16 17:31 16 134/74 06/12/16 16:50 70 16 143/60 98 06/12/16 16:10 75 16 136/107 99 06/12/16 15:06 78 20 133/89 99 Intake and Output 06/12/16 06/13/16 06/13/16 23:59 07:59 15:59 Intake Total 150 / 150 360 / 360 Output Total 1125 / 1125 Balance -975 / -975 360 / 360 Intake: Oral 150 / 150 360 / 360 Output: Catheter 1125 / 1125 Other: Meal Breakfast Percent of Meal Consumed 100% Weight 101.7 kg Blood Glucose* 130 107 177 Patient Weight 06/13/16 23:59 Weight 101.7 kg General: Conversant, No Apparent Distress HEENT: Atraumatic, Normocephaly, Mucus Membranes Moist Neck: No JVD, Normal carotid pulses Cardiac: Other (irregularly irregular ) Lungs: Other (diminished) Neuro: Alert and responsive, No focal deficits noted Abdomen: Soft, Non-Tender Skin: No rashes noted on visualized skin Musculoskeletal: No Chest Wall Tenderness Extremities: No Clubbing, No Cyanosis, Other (mild BLE edema) Results 06/13/16 01:10 06/13/16 01:10 Lab Results 06/12/16 06/13/16 06/13/16 20:56 01:10 01:10 WBC 8.9 Hgb 14.1 Hct 43.8 Plt Count 167 INR Sodium Potassium Chloride Carbon Dioxide BUN Creatinine Glucose Calcium Magnesium Troponin I 0.01 0.01 06/13/16 06/13/16 06/13/16 01:10 07:07 08:26 WBC Hgb Hct Plt Count INR 3.2 Sodium 140 Potassium 4.0 Chloride 103 Carbon Dioxide 26 BUN 44 H Creatinine 1.95 H Glucose 164 H Calcium 9.1 Magnesium 1.6 Troponin I 0.02 Short CBC 06/13/16 06/12/16 Range/Units 01:10 14:54 WBC 8.9 9.9 (4.3-11.1) K/mcL Hgb 14.1 14.9 (12.9-16.9) g/dL Hct 43.8 46.3 (37.5-50.1) % Plt Count 167 188 (140-400) K/mcL Neutrophils # 6.4 7.7 (1.6-8.9) K/mcL BMP 06/1306/12/16 Range/Units 01:10 14:54 Sodium 140 138 (136-145) mEq/L Potassium 4.0 4.1 (3.5-4.5) mEq/L Chloride 103 103 (98-109) mEq/L Carbon Dioxide 26 26 (19-29) mEq/L BUN 44 H 46 H (8-26) mg/dL Creatinine 1.95 H 1.89 H (0.72-1.25) mg/dL Glucose 164 H 161 H (70-99) mg/dL Calcium 9.1 9.5 (8.6-10.8) mg/dL Cardiac Enzymes 06/13/16 06/13/16 06/12/16 Range/Units 07:07 01:10 20:56 Troponin I 0.02 0.01 0.01 (0-0.03) ng/mL 06/12/16 Range/Units 14:54 Troponin I 0.02 (0-0.03) ng/mL Liver Function 06/12/16 Range/Units 14:54 Total Bilirubin 1.0 (0.2-1.2) mg/dL Direct Bilirubin 0.5 (0.0-0.5) mg/dL AST 19 (5-34) Units/L ALT 18 (0-55) Units/L Alkaline Phosphatase 71 (38-126) Units/L Albumin 3.0 L (3.5-5.0) g/dL Impressions Chest X-Ray 06/12/16 14:23 IMPRESSION: Opacity in the left lung base, suggestive of large pleural effusion. Mild atelectasis in the right lung base. Cardiomegaly and AICD are noted. D/ / Jone Gaspar MD / Jone Gaspar MD Interpreting Provider: Jone Gaspar MD Head CT 06/13/16 12:15 IMPRESSION: 1. No intracranial hemorrhage. No definite infarct. 2. Small focus of low attenuation in the right centrum semiovale, likely secondary to chronic small vessel ischemic disease. Given the history, further evaluation with MRI should be considered. Results of this examination were verbally communicated to Dr. Krishnamurthy at 13:00 on 06/13/2016. D/ / 06/13/2016 12:54:53 Claude Chawla MD / earno Interpreting Provider: Claude Chawla MD Active Medications Acetaminophen (Tylenol) 650 mg PO Q6HR PRN PRN Reason: Mild Pain (1-3) Stop: 12/12/16 18:34 Last Admin: 06/13/16 11:04 Dose: 650 mg Acetaminophen/Hydrocodone Bitart ([place] 5-325 Mg) 1 tab PO DAILY PRN PRN Reason: Pain Stop: 12/12/16 18:37 Aspirin (Aspirin Ec) 81 mg PO QAM [facility] Stop: 12/13/16 09:01 Last Admin: 06/13/16 10:53 Dose: 81 mg Atorvastatin Calcium (Lipitor) 40 mg PO HS [facility] Stop: 12/12/16 21:01 Last Admin: 06/12/16 20:46 Dose: 40 mg Budesonide/Formoterol Fumarate (Symbicort) 2 puff IH BIDR SRIRAM PRN Reason: Protocol Stop: 12/12/16 22:01 Last Admin: 06/13/16 08:01 Dose: 2 puff Carvedilol (Coreg) 37.5 mg PO BID SRIRAM PRN Reason: Protocol Stop: 12/12/16 21:01 Last Admin: 06/13/16 10:52 Dose: 37.5 mg Furosemide (Lasix) 40 mg IVP BID [facility] Stop: 12/12/16 21:01 Last Admin: 06/13/16 10:52 Dose: 40 mg Insulin Detemir (Levemir) 25 unit SQ BID [facility] Stop: 12/12/16 21:01 Last Admin: 06/13/16 11:05 Dose: 25 unit Isosorbide Mononitrate (Imdur) 120 mg PO QAM [facility] Stop: 12/13/16 09:01 Last Admin: 06/13/16 10:53 Dose: 120 mg Levothyroxine Sodium (Synthroid) 25 mcg PO 0630 [facility] Stop: 12/13/16 06:31 Last Admin: 06/13/16 05:05 Dose: 25 mcg Magnesium Oxide (Mag-Ox) 400 mg PO BID [facility] PRN Reason: Protocol Stop: 12/12/16 21:01 Last Admin: 06/13/16 10:52 Dose: 400 mg Montelukast Sodium (Singulair) 10 mg PO QPM [facility] Stop: 12/13/16 18:01 Multivitamins/Calcium (Thera M Plus) 1 tab PO QAM SRIRMA Stop: 12/13/16 09:01 Last Admin: 06/13/16 10:52 Dose: 1 tab Naloxone HCl (Narcan) 0.4 mg IVP Q2MIN PRN PRN Reason: Opioid Reversal Stop: 12/12/16 18:34 Niacin (Niaspan) 500 mg PO HS [facility] Stop: 12/12/16 21:01 Last Admin: 06/12/16 20:46 Dose: 500 mg Nitroglycerin (Nitroglycerin) 0.4 mg SL AD PRN PRN Reason: Chest Pain Stop: 12/12/16 18:37 Omeprazole (Prilosec) 20 mg PO DAILY@0630 SRIRAM PRN Reason: Protocol Stop: 12/13/16 06:31 Last Admin: 06/13/16 05:05 Dose: 20 mg Ondansetron HCl (Zofran) 4 mg IVP Q8HR PRN PRN Reason: Nausea And Vomiting Stop: 12/12/16 18:34 Pharmacy Profile Note (Patient Taking Own Medication) 0 each PO BID [facility] Stop: 12/12/16 21:01 Last Admin: 06/13/16 10:53 Dose: Not Given Pharmacy Profile Note (Patient Taking Own Medication) 0 each PO QAM [facility] Stop: 12/13/16 09:01 Last Admin: 06/13/16 10:53 Dose: Not Given Ranolazine (Ranexa) 500 mg PO BID [facility] Stop: 12/12/16 21:01 Last Admin: 06/13/16 10:53 Dose: 500 mg Sucralfate (Carafate) 1 gm PO BID [facility] Stop: 12/12/16 21:01 Last Admin: 06/13/16 10:51 Dose: 1 gm Zolpidem Tartrate (Ambien) 10 mg PO HS SRIRAM PRN Reason: Protocol Stop: 12/12/16 21:01 Last Admin: 06/12/16 20:46 Dose: 10 mg - Imaging and Cardiology Chest Xray: report reviewed (large left pleural effusion) Echo: report reviewed (04/2016 limited EF 15-20%.) - EKG Interpretation EKG results cardiology: personally reviewed (A-Fib), other (12 hour tele AVG HR 76, A-Fib.) Consult Discharge Plan - Plan Instructions: Heart Failure (DC), Atrial Fibrillation (DC), Chest Pain (DC), Diabetes Mellitus Type 2 in Adults (DC), Chronic Hypertension (DC) Referrals: Latosha Mitchell MD [Primary Care Provider] - <SophiajaelynKaryn - Last Filed: 06/13/16 16:06> Date of Encounter: 06/13/16 Assessment and Plan Discussion w patient/family: The assessment and plan as outlined above was discussed with the patient and/or family members who expressed understanding and agreement. All questions were answered. Thank you for involving us in the care of your patient. Please call with any questions. History of Present Illness History of present illness: Mr. Ellis is a 71 year old male All Systems Review: A 10-system review of systems was performed and is negative for pertinent findings except as documented above in the HPI. Results 06/13/16 01:10 06/13/16 01:10 Lab Results 06/12/16 06/13/16 06/13/16 20:56 01:10 01:10 WBC 8.9 Hgb 14.1 Hct 43.8 Plt Count 167 INR Sodium Potassium Chloride Carbon Dioxide BUN Creatinine Glucose Calcium Magnesium Troponin I 0.01 0.01 06/13/16 06/13/16 06/13/16 01:10 07:07 08:26 WBC Hgb Hct Plt Count INR 3.2 Sodium 140 Potassium 4.0 Chloride 103 Carbon Dioxide 26 BUN 44 H Creatinine 1.95 H Glucose 164 H Calcium 9.1 Magnesium 1.6 Troponin I 0.02 - Attending Attestation I examined this patient and my medical decision-making was reviewed with the GRAIN MILLER HELPER/PA/Advanced Practice Nurse/Resident Physician. I agree with the documented findings, disposition and treatment plan. Mr. Ellis presents with acute decompensated systolic heart failure probably in part due to dietary sodium indiscretion. He has a large left pleural effusion. The primary team has plans to perform thoracentesis when INR lowers. Otherwise, I agree with IV diuresis. Continue statin and BB.
--- NOTE | 2016-06-13 14:22 | Event Note ---
<JersonGaston Bro - Last Filed: 06/13/16 14:17> Date of Encounter: 06/13/16 Time of Encounter: 12:10 Was paged by RN for new onset facial drooping. Pt. was found to have mild left sided facial drooping. Per this is new to him. He was also previously complaining of headache. Pt. is Afib on coumadin with supratherapeutic INR currently 3.2. Pt. had symmetrical facial muscles movements, symmetrical facial sensation, no focal defecits noted. Pt. denied change in vision, n/v, CP , SOB. Will get head CT to r/o CVA. <Vikram Krishnamurthy - Last Filed: 06/13/16 18:31> Date of Encounter: 06/13/16 I examined this patient and my medical decision-making was reviewed with the TELECOMMUNICATIONS REPAIRER/PA/Advanced Practice Nurse/Resident Physician. I agree with the documented findings, disposition and treatment plan as described except to the extent set forth below. CT scan of the head was performed as continuation of the treatment from above. There was a area of low attenuation was noted. I spoke with the radiologist in person. Dr. Chawla is a radiologist extrusion machine operator. As per Dr. Chawla, this is most likely a chronic issue and unlikely any acute event. Neurology was consulted. Neurologic does not think there is a possibility of a stroke. We will follow the recommendations from neurology.
--- NOTE | 2016-06-13 15:30 | Neurology - Consult Note ---
<Brent Lucia - Last Filed: 06/13/16 15:48> Date of Encounter: 06/13/16 Time of Encounter: 15:26 Assessment and Plan (1) CVA (cerebral vascular accident) Current Visit: Yes Status: Chronic Patient reports left-sided facial droop that has been present for the last year he believes. There was concern that he had worsening of his facial droop today. Patient did have a CT scan of the head with concerns for a possible small ischemic event with recommended MRI follow-up. However his history, physical exam and CT findings suggest that this is a chronic problem. Patient has a pacemaker which precludes him from an MRI study. He is currently on Coumadin for atrial fibrillation and has a supratherapeutic INR 3.2. At this point, we will recommend no further workup from a neurologic standpoint and he is to continue his Coumadin for anticoagulation. Qualifiers: CVA mechanism: unspecified Qualified Code(s): I63.9 - Cerebral infarction, unspecified History of Present Illness Chief complaint: Possible stroke HPI: Mr. Ellis is a 71 year old male history of hypertension, hyperlipidemia, CHF, CAD, atrial fibrillation on Coumadin who initially presented to the hospital and was admitted for CHF exacerbation. Patient reports dyspnea on exertion at home which intensified to the point that required him to come to the hospital. Neurology was consulted due to possible stroke while in the hospital. Patient reports that this morning he woke up with a right sided headache described as a dull ache. He reports that it went away with some Tylenol. He states that the nurse taking care of him thought that his left-sided facial droop looked worse when she saw him again that afternoon. He reports having the left mouth droop for the last year. Due to this the patient had a CT scan which showed concern for possible ischemic event and recommended MRI. reports that he does not look that much different to her. He denies any headaches visual changes numbness tingling weakness neck pain or chest pain. He reports having a TIA in 1987 with his symptoms being expressive aphasia at that time. He currently reports that he feels back to normal. He has no other complaints. Patient is on Coumadin for atrial fibrillation with his last INR being 3.2. There was an order in for the patient to undergo an MRI of the brain however he does report having a pacemaker so this may complicate matters. Past Med Surg Social Fam HX - Past Medical History Attestation: Yes The following information was validated with the patient. Source: patient Medical history: arthritis, atrial fibrillation, cancer (colon cancer, in remission), CHF (ischemic cardiomyopathy), COPD, coronary artery disease, diabetes, GERD, hyperlipidemia, hypertension, myocardial infarction, renal disease, thyroid disease, TIA, other (TR) Psychiatric history: no psych history - Past Surgical History Surgical History: angioplasty/stent, appendectomy, cholecystectomy, colectomy ( partial), colostomy, coronary bypass (CABG), pacemaker/AICD, AICD - Social History Smoking Status: Never smoker Smokeless Tobacco Status: No Alcohol use: none Drug use: none - Family History Father Family Member Ethnicity: Non- Living Status: Hx Family Cardiac Disorders: Yes Mother Adopted: No Family Member Ethnicity: Non- Living Status: Hx Family Cardiac Disorders: Yes Hx Family Respiratory Disorders: Yes Hx Family Cancer: No Hx Family GI Disorders: Yes Hx Family Endocrine Disorder: Yes Medications and Allergies Aspirin Enteric Coated [Aspirin EC] 81 mg PO QAM 04/19/15 [History] Atorvastatin [Lipitor] 40 mg PO HS 04/19/15 [History] Budesonide/Formoterol 160/4.5 [Symbicort] 2 puff IH BIDR 04/19/15 [History] Fluticasone Propionate [Flovent Hfa] 1 puff IH DAILY PRN 04/19/15 [History] HYDROcodone/Acet 5/325 mg [[place] 5-325 mg] 1 tab PO DAILY PRN 04/19/15 [History] Insulin ASPART [NovoLOG] 10 - 18 unit SQ TIDWM 04/19/15 [History] Levothyroxine [Synthroid] 25 mcg PO QAM 04/19/15 [History] Magnesium Oxide [Magnesium] 400 mg PO BID 04/19/15 [History] Montelukast [Singulair] 10 mg PO QPM 04/19/15 [History] Multivit-Min/FA/Lycopen/Lutein [Centrum Silver Tablet] 1 tab PO QAM 04/19/15 [ History] Niacin [Niaspan] 500 mg PO HS 04/19/15 [History] Nitroglycerin [Nitrostat] 0.4 mg SL AD PRN 04/19/15 [History] Omeprazole [PriLOSEC] 40 mg PO QPM 04/19/15 [History] Ondansetron [Zofran] 8 mg PO Q8HR PRN 04/19/15 [History] Ranitidine HCl [Zantac] 150 mg PO BID 04/19/15 [History] Rochert Oil/[place]-3 Fatty Acids [Fish Oil 500 mg Softgel] 1,000 mg PO QAM [History] Warfarin [Coumadin] 7.5 mg PO MOWEFR 04/19/15 [History] Zolpidem [Ambien] 10 mg PO HS 04/19/15 [History] Isosorbide MONOnitrate (24 HR) [Imdur] 120 mg PO QAM #60 tab.er.24h 04/25/15 [Rx ] Furosemide [Lasix] 20 mg PO QPM 07/11/15 [History] Insulin Glargine [Lantus] 25 unit SQ BID 07/11/15 [History] Ranolazine [Ranexa] 500 mg PO BID 07/11/15 [History] Warfarin [Coumadin] 5 mg PO SUTUTHSA 07/11/15 [History] Gluc/Miguel Angel-MSM#1/C/Epifanio/Manfred/Bor [Osteo Bi-Flex Caplet] 1 tab PO BID 09/10/15 [ History] Carvedilol [Coreg] 37.5 mg PO BID 06/12/16 [History] Furosemide [Lasix] 40 mg PO QAM 06/12/16 [History] Sucralfate [Carafate] 1 gm PO BID 06/12/16 [History] Allergies codeine Allergy (Verified 04/19/15 10:03) Difficulty Breathing promethazine [From Phenergan] Allergy (Verified 04/19/15 10:03) Dizziness ibuprofen Adverse Reaction (Verified 04/19/15 12:02) Nausea All Systems: A 10-system review of systems was performed and is negative for pertinent findings except as documented above in the HPI. - Constitutional Constitutional ROS IM: headache(s), weakness (chronic), no fever(s) - Nose, Mouth, Throat Nose, mouth and throat: no dizziness - Cardiovascular Cardiovascular ROS IM: no chest pain - Respiratory Respiratory IM: no cough, no dyspnea - Neurological Neurological ROS: headache(s), no abnormal speech, no confusion, no focal weakness, no loss of vision, no numbness, no paresthesias, no sensory deficit, no tingling Physical Examination - Vital Signs Vital Signs: Initial Vital Signs Temp Pulse Resp BP Pulse Ox 98.2 F 82 18 148/92 97 06/12/16 14:12 06/12/16 14:12 06/12/16 14:12 06/12/16 14:12 06/12/16 14:12 - Constitutional General appearance: comfortable - Neurologic Sensorimotor examination: intact Motor examination - right side: 4/5: triceps, 5/5: deltoids, biceps, quadriceps , plantarflexion Motor examination - left side: 4/5: triceps, 5/5: deltoids, biceps, tibialis Anterior, plantarflexion Detailed sensory examination: intact Mental Status Examination: awake, alert, oriented to person, oriented to place, oriented to time, follows commands appropriately, no aphasia, no aproxia, makes eye contact Cranial nerve examination: PERRL, EOMI, sensory to face intact, mastication intact, no dysarthria, hearing is intact symmetrically Cranial Nerve Exam: facial droop: Left (slight left droop of the left mouth) Cerebellar examination: no dysmetria, performs finger to nose and heel to taylor symmetrically without ataxia Results - Laboratory Findings CBC and BMP: 06/13/16 01:10 06/13/16 01:10 Abnormal lab findings: Abnormal lab results MCH 27.8 pg (28.0-33.3) L 06/13/16 01:10 RDW 15.9 % (11.5-14.5) H 06/13/16 01:10 MPV 8.7 fL (9.4-12.4) L 06/13/16 01:10 PT 35.7 Seconds (9.4-12.1) H 06/13/16 08:26 APTT 45.8 Seconds (26.0-36.0) H 06/12/16 14:54 BUN 44 mg/dL (8-26) H 06/13/16 01:10 Creatinine 1.95 mg/dL (0.72-1.25) H 06/13/16 01:10 Est GFR ( Amer) 42 (> 60) L 06/13/16 01:10 Est GFR (Non-Af Amer) 34 (> 60) L 06/13/16 01:10 Glucose 164 mg/dL (70-99) H 06/13/16 01:10 POC Glucose 107 (58-89) H 06/13/16 07:29 Calculated Osmolality 305 (280-300) H 06/13/16 01:10 C-Reactive Protein 17 mg/L (Less than 5) H 06/12/16 14:54 B-Natriuretic Peptide 886 pg/mL (0-100) H 06/12/16 14:54 Albumin 3.0 g/dL (3.5-5.0) L 06/12/16 14:54 Globulin 3.7 g/dL (2.4-3.5) H 06/12/16 14:54 Albumin/Globulin Ratio 0.8 (1.1-2.2) L 06/12/16 14:54 - Diagnostic Findings Additional findings: CT scan head Consult Discharge Plan - Plan Instructions: Heart Failure (DC), Atrial Fibrillation (DC), Chest Pain (DC), Diabetes Mellitus Type 2 in Adults (DC), Chronic Hypertension (DC) Referrals: Latosha Mitchell MD [Primary Care Provider] - <Dacia Barrios I - Last Filed: 06/14/16 13:08> Date of Encounter: 06/13/16 Assessment and Plan (1) Facial droop Current Visit: Yes Status: Acute (2) CVA (cerebral vascular accident) Current Visit: Yes Status: Chronic agree with Dr Lucia assessment and findings. CT findings could be old, as at times it difficult to see on ct if its new of old,clinically no significant change in exam, already on coumadin with inr 3.2, dont think any other treatment options, even if its a new infarct, adding any thing else with increase risk of bleeding complication he has lot of risk factors for stroke, suggest to continue on same meds and follow cardiology recommendations. Dacia Barrios MD Qualifiers: CVA mechanism: unspecified Qualified Code(s): I63.9 - Cerebral infarction, unspecified History of Present Illness HPI: Mr. Ellis is a 71 year old male All Systems: A 10-system review of systems was performed and is negative for pertinent findings except as documented above in the HPI. Physical Examination - Vital Signs Vital Signs: Initial Vital Signs Temp Pulse Resp BP Pulse Ox 98.2 F 82 18 148/92 97 06/12/16 14:12 06/12/16 14:12 06/12/16 14:12 06/12/16 14:12 06/12/16 14:12 Results - Laboratory Findings CBC and BMP: 06/14/16 06:19 06/14/16 06:19 Abnormal lab findings: Abnormal lab results RDW 15.8 % (11.5-14.5) H 06/14/16 06:19 MPV 9.2 fL (9.4-12.4) L 06/14/16 06:19 PT 24.6 Seconds (9.4-12.1) H 06/14/16 08:36 APTT 45.8 Seconds (26.0-36.0) H 06/12/16 14:54 BUN 46 mg/dL (8-26) H 06/14/16 06:19 Creatinine 1.93 mg/dL (0.72-1.25) H 06/14/16 06:19 Est GFR ( Amer) 42 (> 60) L 06/14/16 06:19 Est GFR (Non-Af Amer) 35 (> 60) L 06/14/16 06:19 POC Glucose 126 (58-89) H 06/14/16 09:49 C-Reactive Protein 17 mg/L (Less than 5) H 06/12/16 14:54 B-Natriuretic Peptide 886 pg/mL (0-100) H 06/12/16 14:54 Albumin 3.0 g/dL (3.5-5.0) L 06/12/16 14:54 Globulin 3.7 g/dL (2.4-3.5) H 06/12/16 14:54 Albumin/Globulin Ratio 0.8 (1.1-2.2) L 06/12/16 14:54
--- NOTE | 2016-06-13 16:32 | Electrocardiograph Report ---
[facility] Test Date: 2016-06-12 Pat Name: Roman Ellis Department: 104 Room: 2NE30 Gender: M Group Billing Coordinator: ZI : 1945 Requested By: Jose Heredia Order Number: [id number] Reading MD: Medardo Rodriguez DO Measurements Intervals [place] Rate: 79 P: CO: 0 QRS: -10 QRSD: 111 T: 98 QT: 412 QTc: 447 Interpretive Statements Atrial fibrillation Possible previous anterior myocardial infarction Demand ventricular pacing noted Electronically Signed On 06-13-16 16:31:30 EST by Medardo Rodriguez DO
[2016-06-13] MEDS: Niacin (24 HR) 500 MG TAB.ER.24H PO SCH (20:48)
[2016-06-14 07:09] LABS: Calcium 9.1 mg/dL (8.6-10.8); Potassium 3.7 mEq/L (3.5-4.5)
[2016-06-14 07:23] LABS: Basophils # 0.1 K/mcL (0.0-0.2); Basophils % 0.5 %; Eosinophils # 0.3 K/mcL (0.0-0.6); Hematocrit 45.8 % (37.5-50.1); Hemoglobin 14.9 g/dL (12.9-16.9); Immature Granulocytes % 0.5 % (0-4); Lymphocytes # 1.1 K/mcL (0.6-4.6); Lymphocytes % 11.1 %; Mean Corpuscular HGB Conc 32.5 g/dL (31.6-35.5); Mean Corpuscular Volume 86.1 fL (83.0-100.0); Mean Platelet Volume 9.2 fL (9.4-12.4); Monocytes # 1.1 K/mcL (0.0-1.3); Monocytes % 11.4 %; Neutrophils # 7.1 K/mcL (1.6-8.9); Platelet Count 186 K/mcL (140-400); Red Blood Count 5.32 M/mcL (4.19-5.50); Red Cell Distribution Width 15.8 % (11.5-14.5); Segmented Neutrophils % 73.5 %
[2016-06-14 09:06] LABS: INR 2.2; Prothrombin Time 24.6 Seconds (9.4-12.1)
[2016-06-14] MEDS: Multivit/Ca/Min/Fe/FA 1 TAB TABLET PO SCH (09:44)
[2016-06-14] MEDS: Ranolazine 500 MG TAB.ER.12H PO SCH ×2 (09:44→21:43)
[2016-06-14] MEDS: Furosemide 40 MG/4 ML VIAL IVP SCH ×2 (09:45→21:48)
[2016-06-14] MEDS: (Salmon Oil/Omega-3 Fatty Acids [Fish Oil 500 Mg Soft PO SCH (09:45)
[2016-06-14] MEDS: Insulin DETEMIR 100 UNIT/ML X5UNITS SQ SCH ×2 (09:45→21:58)
[2016-06-14] MEDS: [UNRECOGNIZED DRUG - OTHER] PO SCH ×2 (09:45→21:42)
[2016-06-14] MEDS: Magnesium Oxide 400 MG TABLET PO SCH ×2 (09:45→21:42)
[2016-06-14] MEDS: Aspirin Enteric Coated 81 MG Tablet PO SCH (09:45)
[2016-06-14] MEDS: Isosorbide MONOnitrate (24 HR) 60 MG TAB.ER.24H PO SCH (09:45)
[2016-06-14] MEDS ORDERED: *HR* Warfarin 5 MG TABLET PO SCH (10:30)
--- NOTE | 2016-06-14 10:30 | Internal Med Progress Note ---
Date of Encounter: 06/15/16 Time of Encounter: 10:26 - Assessment and plan (1) Acute exacerbation of CHF (congestive heart failure) Current Visit: Yes Status: Acute Assessment and plan: Pt. with worsening dyspnea on exertion x 2 -3 weeks. Significant hx of CAD s/p CABG and stents, has an AICD, Hx of HRrEF, last EF two months ago 15-20% with global hypokineses, repeat echo pending. Troponins negative Cardiology consulted. Appreciate their input. start IV Lasix and monitor I/O and daily weight fluid restriction and cardiac diet 06/14/2016 Balance : negative 1260 creat 1.93 eating well no orthopnea/PND will continue present treatment. home soon Qualifiers: Qualified Code(s): I50.23 - Acute on chronic systolic (congestive) heart failure (2) Facial droop Current Visit: Yes Status: Acute Assessment and plan: noted that patient had facial droop yesterday and CT head was done along with neuro opinion. Unlikely CVA/TIA will repeat CT head in 24 hours. (3) Atrial fibrillation Current Visit: Yes Status: Chronic Assessment and plan: chronic, stable, AICD in place continue Coreg 37.5 PO BID, on coumadin, but will hold as INR is supratherapeutic at 3.2 and he will likely need thoracentesis 06/14/2016 will restart coumadin as his INR is 2.2 Qualifiers: Qualified Code(s): I48.2 - Chronic atrial fibrillation (4) CAD (coronary artery disease) Current Visit: Yes Status: Chronic Assessment and plan: Hx of CAD CABG and Stents continue home meds Qualifiers: Qualified Code(s): I25.708 - Atherosclerosis of coronary artery bypass graft( s), unspecified, with other forms of angina pectoris (5) Cardiomyopathy, ischemic Current Visit: Yes Status: Chronic Assessment and plan: EF 15-20%. Continue BB. No SWETHA-I due to renal function. (6) DVT prophylaxis Current Visit: No Status: Acute Assessment and plan: on coumadin, INR 2.2 - Subjective Interval history: patient seen and examined. no new complaints. - Constitutional Vitals: Temp Pulse Resp BP Pulse Ox 98.2 F 72 16 142/97 98 06/14/16 07:21 06/14/16 07:21 06/14/16 07:21 06/14/16 07:21 06/14/16 07:21 General appearance: Present: A&O X 3, answers questions appropriately - Head Head exam: Present: atraumatic, normocephalic - Eye Eye exam: Present: PERRL, conjuntiva pink, sclera anicteric Pupils: Present: PERRL - Neck Neck exam general surgery: Present: supple, trachea midline. Absent: lymphadenopathy - Respiratory Respiratory exam: Present: CTAB. Absent: accessory muscle use, rales, rhonchi, wheezes - Cardiovascular Cardiovascular exam: Present: RRR, +S1, +S2. Absent: diastolic murmur, gallop, rubs, systolic murmur - GI/Abdominal GI/Abdominal exam: Present: normal bowel sounds, soft, no peritoneal signs. Absent: distended, tenderness - Extremities Exam Extremities exam: Present: warm, radial pulses palpable and symetrical. Absent : calf tenderness, cyanotic, pedal edema - Neurological Exam Neurological exam: Present: CN II-XII intact, oriented X3, no focal deficits. Absent: pronater drift, facial droop, speech deficit - Skin Skin exam: Present: dry, intact Internal Medicine: Result - Labs CBC & Chem 7: 06/15/16 09:43 06/15/16 09:43 Labs: Short CBC 06/14/16 Range/Units 06:19 WBC 9.7 (4.3-11.1) K/mcL Hgb 14.9 (12.9-16.9) g/dL Hct 45.8 (37.5-50.1) % Plt Count 186 (140-400) K/mcL Neutrophils # 7.1 (1.6-8.9) K/mcL BMP 06/14/16 06:19 Sodium 139 Potassium 3.7 Chloride 103 Carbon Dioxide 29 BUN 46 H Creatinine 1.93 H Glucose 91 Calcium 9.1 discussed briefly with patient. - ABG Interpretation ABG results: PT/INR, D-dimer PT 24.6 Seconds (9.4-12.1) H 06/14/16 08:36 - Impressions Impressions Head CT 06/13/16 12:15 IMPRESSION: 1. No intracranial hemorrhage. No definite infarct. 2. Small focus of low attenuation in the right centrum semiovale, likely secondary to chronic small vessel ischemic disease. Given the history, further evaluation with MRI should be considered. Results of this examination were verbally communicated to Dr. Krishnamurthy at 13:00 on 06/13/2016. D/ / 06/13/2016 12:54:53 [facility] Interpreting Provider: Claude Chawla MD Consult Discharge Plan - Plan Instructions: Heart Failure (DC), Atrial Fibrillation (DC), Chest Pain (DC), Diabetes Mellitus Type 2 in Adults (DC), Chronic Hypertension (DC) Referrals: Latosha Mitchell MD [Primary Care Provider] -
--- NOTE | 2016-06-14 10:33 | Cardiology Progress Note ---
<Abhinav Petersen - Last Filed: 06/14/16 10:53> Date of Encounter: 06/14/16 Time of Encounter: 10:30 Assessment and Plan Discussion w patient/family: The assessment and plan as outlined above was discussed with the patient and/or family members who expressed understanding and agreement. All questions were answered. Thank you for involving us in the care of your patient. Please call with any questions. Subjective Principal diagnosis: CHF Interval history: Seen by Dr. Brock. Objective Vital Signs, Last 4 Hours Temp Pulse Resp BP Pulse Ox 06/14/16 07:21 98.2 F 72 16 142/97 98 Results 06/14/16 06:19 06/14/16 06:19 Lab Results Laboratory Tests 06/12/16 06/12/16 06/12/16 14:54 14:54 14:54 INR Creatinine 1.89 H Est GFR (Non-Af Amer) 36 L Magnesium AST 19 ALT 18 Troponin I 0.02 B-Natriuretic Peptide 06/12/16 06/12/16 06/13/16 14:54 20:56 01:10 INR Creatinine Est GFR (Non-Af Amer) Magnesium AST ALT Troponin I 0.01 0.01 B-Natriuretic Peptide 886 H 06/13/16 06/13/16 06/14/16 01:10 07:07 06:19 INR Creatinine 1.93 H Est GFR (Non-Af Amer) 35 L Magnesium 1.6 AST ALT Troponin I 0.02 B-Natriuretic Peptide 06/14/16 08:36 INR 2.2 Creatinine Est GFR (Non-Af Amer) Magnesium AST ALT Troponin I B-Natriuretic Peptide ITS Impressions Chest X-Ray 06/12/16 14:23 IMPRESSION: Opacity in the left lung base, suggestive of large pleural effusion. Mild atelectasis in the right lung base. Cardiomegaly and AICD are noted. D/ / Jone Gaspar MD / Jone Gaspar MD Interpreting Provider: Jone Gaspar MD Head CT 06/13/16 12:15 IMPRESSION: 1. No intracranial hemorrhage. No definite infarct. 2. Small focus of low attenuation in the right centrum semiovale, likely secondary to chronic small vessel ischemic disease. Given the history, further evaluation with MRI should be considered. Results of this examination were verbally communicated to Dr. Krishnamurthy at 13:00 on 06/13/2016. D/ / 06/13/2016 12:54:53 Claude [facility] MD / [facility] Interpreting Provider: Claude Chawla MD Intake & Output 06/11/16 06/12/16 06/13/16 06/14/16 23:59 23:59 23:59 23:59 Intake Total 990 / 990 240 / 240 Output Total 1775 / 1775 1500 / 1500 Balance -785 / -785 -1260 / -1260 Weight 102.058 kg 101.7 kg 101.5 kg Active Medications Acetaminophen (Tylenol) 650 mg PO Q6HR PRN PRN Reason: Mild Pain (1-3) Stop: 12/12/16 18:34 Last Admin: 06/13/16 11:04 Dose: 650 mg Acetaminophen/Hydrocodone Bitart ([place] 5-325 Mg) 1 tab PO DAILY PRN PRN Reason: Pain Stop: 12/12/16 18:37 Aspirin (Aspirin Ec) 81 mg PO QAM [facility] Stop: 12/13/16 09:01 Last Admin: 06/14/16 09:45 Dose: 81 mg Atorvastatin Calcium (Lipitor) 40 mg PO HS [facility] Stop: 12/12/16 21:01 Last Admin: 06/13/16 20:49 Dose: 40 mg Budesonide/Formoterol Fumarate (Symbicort) 2 puff IH BIDR SRIRAM PRN Reason: Protocol Stop: 12/12/16 22:01 Last Admin: 06/13/16 19:45 Dose: 2 puff Carvedilol (Coreg) 37.5 mg PO BID SRIRAM PRN Reason: Protocol Stop: 12/12/16 21:01 Last Admin: 06/14/16 09:43 Dose: 37.5 mg Furosemide (Lasix) 40 mg IVP BID [facility] Stop: 12/12/16 21:01 Last Admin: 06/14/16 09:45 Dose: 40 mg Insulin Detemir (Levemir) 25 unit SQ BID [facility] Stop: 12/12/16 21:01 Last Admin: 06/14/16 09:45 Dose: 25 unit Isosorbide Mononitrate (Imdur) 120 mg PO QAM [facility] Stop: 12/13/16 09:01 Last Admin: 06/14/16 09:45 Dose: 120 mg Levothyroxine Sodium (Synthroid) 25 mcg PO 0630 [facility] Stop: 12/13/16 06:31 Last Admin: 06/14/16 06:13 Dose: 25 mcg Magnesium Oxide (Mag-Ox) 400 mg PO BID [facility] PRN Reason: Protocol Stop: 12/12/16 21:01 Last Admin: 06/14/16 09:45 Dose: 400 mg Montelukast Sodium (Singulair) 10 mg PO QPM [facility] Stop: 12/13/16 18:01 Last Admin: 06/13/16 17:38 Dose: 10 mg Multivitamins/Calcium (Thera M Plus) 1 tab PO QAM [facility] Stop: 12/13/16 09:01 Last Admin: 06/14/16 09:44 Dose: 1 tab Naloxone HCl (Narcan) 0.4 mg IVP Q2MIN PRN PRN Reason: Opioid Reversal Stop: 12/12/16 18:34 Niacin (Niaspan) 500 mg PO HS [facility] Stop: 12/12/16 21:01 Last Admin: 06/13/16 20:48 Dose: 500 mg Nitroglycerin (Nitroglycerin) 0.4 mg SL AD PRN PRN Reason: Chest Pain Stop: 12/12/16 18:37 Omeprazole (Prilosec) 20 mg PO DAILY@0630 [facility] PRN Reason: Protocol Stop: 12/13/16 06:31 Last Admin: 06/14/16 06:12 Dose: 20 mg Ondansetron HCl (Zofran) 4 mg IVP Q8HR PRN PRN Reason: Nausea And Vomiting Stop: 12/12/16 18:34 Pharmacy Profile Note (Patient Taking Own Medication) 0 each PO BID [facility] Stop: 12/12/16 21:01 Last Admin: 06/14/16 09:45 Dose: Not Given Pharmacy Profile Note (Patient Taking Own Medication) 0 each PO QAM [facility] Stop: 12/13/16 09:01 Last Admin: 06/14/16 09:45 Dose: Not Given Ranolazine (Ranexa) 500 mg PO BID [facility] Stop: 12/12/16 21:01 Last Admin: 06/14/16 09:44 Dose: 500 mg Sucralfate (Carafate) 1 gm PO BID [facility] Stop: 12/12/16 21:01 Last Admin: 06/14/16 09:44 Dose: 1 gm Warfarin Sodium (Coumadin) 5 mg PO SUTUTHSA [facility] Stop: 12/14/16 10:31 Warfarin Sodium (Coumadin) 7.5 mg PO MOWEFR [facility] Stop: 12/16/16 10:25 Zolpidem Tartrate (Ambien) 10 mg PO HS [facility] PRN Reason: Protocol Stop: 12/12/16 21:01 Last Admin: 06/13/16 20:49 Dose: 10 mg - Imaging and Cardiology Chest Xray: report reviewed Consult Discharge Plan - Plan Instructions: Heart Failure (DC), Atrial Fibrillation (DC), Chest Pain (DC), Diabetes Mellitus Type 2 in Adults (DC), Chronic Hypertension (DC) Referrals: Latosha Mitchell MD [Primary Care Provider] - <Karyn Brock - Last Filed: 06/14/16 11:25> Date of Encounter: 06/14/16 Assessment and Plan (1) Acute exacerbation of CHF (congestive heart failure) Current Visit: Yes Status: Acute Mr. Ellis presents with acute systolic heart failure exacerbation. EF is known to be 15-20% on echo 04/2016 which was also previously seen in April 2015. LHC at that time showed occluded SVG-Ramus graft. Despite medical management, EF has remained low. He is s/p dual chamber ICD. He is feeling better today and is net negative 2L. Recommend continuing IV diuresis. He is already on aspirin, statin, BB, Imdur and ranexa. He is presumably not on ACEI/ARB due to fluctuating renal dysfunction. Qualifiers: Congestive heart failure type: systolic Qualified Code(s): I50.23 - Acute on chronic systolic (congestive) heart failure (2) Atrial fibrillation Current Visit: Yes Status: Chronic Patient is rate controlled on BB. His coumadin is on hold for thoracentesis- large left pleural effusion. Qualifiers: Atrial fibrillation type: chronic Qualified Code(s): I48.2 - Chronic atrial fibrillation Discussion w patient/family: Plan of care was discussed with the patient and his . Subjective Interval history: Mr. Ellis has no new complaints today. In fact, his breathing has somewhat improved. Objective Vital Signs, Last 4 Hours Temp Pulse Resp BP Pulse Ox 06/14/16 10:57 16 98 06/14/16 10:46 97.5 F L 76 17 116/96 94 L 06/14/16 08:00 96 06/14/16 07:21 98.2 F 72 16 142/97 98 General: Conversant, No Apparent Distress HEENT: Mucus Membranes Moist Cardiac: Reg Rate and Rhythm, Normal S1 and S2, No Murmur Lungs: Other (diminished breath sounds over left) Neuro: Alert and responsive, No focal deficits noted Abdomen: Soft, Other (bowel sounds present) Extremities: Other (Bilateral LE edema) Results 06/14/16 06:19 06/14/16 06:19 Lab Results 06/14/16 06/14/16 06/14/16 06:19 06:19 08:36 WBC 9.7 Hgb 14.9 Hct 45.8 Plt Count 186 INR 2.2 Sodium 139 Potassium 3.7 Chloride 103 Carbon Dioxide 29 BUN 46 H Creatinine 1.93 H Glucose 91 Calcium 9.1 - Imaging and Cardiology Chest Xray: report reviewed - EKG Interpretation EKG results cardiology: other (24h telemetry was reviewed; average heart rate 79 bpm, occasional PVCs or aberrancy in setting of AF)
[2016-06-14] MEDS: Budesonide/Formoterol 160/4.5 MDI IH SCH ×2 (10:55→19:49)
[2016-06-14] MEDS: Niacin (24 HR) 500 MG TAB.ER.24H PO SCH (21:42)
[2016-06-14] MEDS: Acetaminophen 325 MG TABLET PO PRN (21:43)
[2016-06-14] MEDS: Artificial Tears SOLN 15 ML BOTTLE RIGHT EYE SCH ×2 (21:45→21:46)
[2016-06-15] MEDS: Isosorbide MONOnitrate (24 HR) 60 MG TAB.ER.24H PO SCH (09:18)
[2016-06-15] MEDS: Artificial Tears SOLN 15 ML BOTTLE RIGHT EYE SCH ×4 (09:18→22:15)
[2016-06-15] MEDS: Aspirin Enteric Coated 81 MG Tablet PO SCH (09:21)
[2016-06-15] MEDS: Ranolazine 500 MG TAB.ER.12H PO SCH ×2 (09:21→22:09)
[2016-06-15] MEDS: [UNRECOGNIZED DRUG - OTHER] PO SCH ×2 (09:22→22:10)
[2016-06-15] MEDS: Multivit/Ca/Min/Fe/FA 1 TAB TABLET PO SCH (09:22)
[2016-06-15] MEDS: Furosemide 40 MG/4 ML VIAL IVP SCH ×2 (09:22→22:17)
[2016-06-15] MEDS: Magnesium Oxide 400 MG TABLET PO SCH ×2 (09:22→21:59)
[2016-06-15] MEDS: (Salmon Oil/Omega-3 Fatty Acids [Fish Oil 500 Mg Soft PO SCH (09:23)
[2016-06-15] MEDS: Insulin DETEMIR 100 UNIT/ML X5UNITS SQ SCH ×2 (09:28→22:16)
[2016-06-15 10:20] LABS: Basophils # 0.1 K/mcL (0.0-0.2); Basophils % 0.5 %; Eosinophils # 0.3 K/mcL (0.0-0.6); Eosinophils % 2.7 %; Immature Granulocytes % 0.4 % (0-4); Lymphocytes # 0.9 K/mcL (0.6-4.6); Lymphocytes % 8.6 %; Mean Corpuscular HGB Conc 31.9 g/dL (31.6-35.5); Mean Corpuscular Hemoglobin 27.5 pg (28.0-33.3); Mean Corpuscular Volume 86.1 fL (83.0-100.0); Monocytes # 1.1 K/mcL (0.0-1.3); Monocytes % 10.2 %; Neutrophils # 8.3 K/mcL (1.6-8.9); Platelet Count 190 K/mcL (140-400); Red Blood Count 5.46 M/mcL (4.19-5.50); Segmented Neutrophils % 77.6 %
[2016-06-15 10:26] LABS: INR 1.8; Prothrombin Time 19.4 Seconds (9.4-12.1)
[2016-06-15 10:33] LABS: Calcium 9.2 mg/dL (8.6-10.8); Potassium 3.6 mEq/L (3.5-4.5)
[2016-06-15] MEDS: Budesonide/Formoterol 160/4.5 MDI IH SCH ×2 (10:37→20:17)
--- NOTE | 2016-06-15 11:01 | Cardiology Progress Note ---
Date of Encounter: 06/15/16 Time of Encounter: 11:00 Assessment and Plan Discussion w patient/family: [facility] would not allow me to complete A&P section. See below for A&P: Assessment and Plan (1) Acute exacerbation of CHF (congestive heart failure) Current Visit: Yes Status: Acute Mr. Ellis presents with acute systolic heart failure exacerbation. EF is known to be 15-20% on echo 04/2016 which was also previously seen in April 2015. LHC at that time showed occluded SVG-Ramus graft. Despite medical management, EF has remained low. He is s/p dual chamber ICD. He is continues to feel better today and is net negative 2575 according to medical records. On IV Lasix 40mg IV BID-- recommend continuing IV diuresis. His kidney function remains around baseline. On aspirin, statin, BB, Imdur and ranexa. He is presumably not on ACEI/ARB due to fluctuating renal dysfunction. Discussed and reviewed with Dr. Brock, will continue to follow. Qualifiers: Congestive heart failure type: systolic Qualified Code(s): I50.23 - Acute on chronic systolic (congestive) heart failure (2) Atrial fibrillation Current Visit: Yes Status: Chronic Patient is rate controlled on BB. His coumadin is on hold for thoracentesis- large left pleural effusion. INR down to 1.8. Has R scleral hemorrhage which developed a few days prior to hospitalization with coughing. Reports brief episode of bright red blood in [place] bag is now resolved. We'll need to continue to monitor closely prior to resumption of Coumadin. Qualifiers: Atrial fibrillation type: chronic Qualified Code(s): I48.2 - Chronic atrial fibrillation The assessment and plan as outlined above was discussed with the patient and/or family members who expressed understanding and agreement. All questions were answered. Thank you for involving us in the care of your patient. Please call with any questions. Subjective Principal diagnosis: CHF Interval history: Patient reports shortness of breath and lower extremity swelling has improved. He denies any chest pain or palpitations. Reports noticing bright red blood in his [place] yesterday that has now resolved. Objective Vital Signs, Last 4 Hours Temp Pulse Resp BP Pulse Ox 06/15/16 07:21 97.6 F 81 16 117/79 99 General: Conversant, No Apparent Distress HEENT: Atraumatic, Normocephaly, Mucus Membranes Moist Cardiac: No Murmur, Other (Irregular irregular) Lungs: Other (Diminished bilateral bases) Neuro: Alert and responsive, No focal deficits noted Abdomen: Soft, Non-Tender, Other (Has colostomy bag) Skin: No rashes noted on visualized skin Extremities: Other (Trace bilateral nonpitting lower extremity edema) Results 06/15/16 09:43 06/15/16 09:43 Lab Results Laboratory Tests 06/12/16 06/12/16 06/12/16 14:54 14:54 14:54 INR Creatinine 1.89 H Est GFR (Non-Af Amer) 36 L Troponin I 0.02 B-Natriuretic Peptide 886 H 06/12/16 06/13/16 06/13/16 20:56 01:10 07:07 INR Creatinine Est GFR (Non-Af Amer) Troponin I 0.01 0.01 0.02 B-Natriuretic Peptide 06/15/16 06/15/16 09:43 09:43 INR 1.8 Creatinine 1.97 H Est GFR (Non-Af Amer) 34 L Troponin I B-Natriuretic Peptide Impressions Head CT 06/14/16 12:30 IMPRESSION: 1. No significant change. D/ / David Calvo MD / David Calvo MD Interpreting Provider: David Calvo MD Intake & Output 06/12/16 06/13/16 06/14/16 06/15/16 23:59 23:59 23:59 23:59 Intake Total 990 / 990 1170 / 1170 240 / 240 Output Total 1775 / 1775 2350 / 2350 850 / 850 Balance -785 / -785 -1180 / -1180 -610 / -610 Weight 102.058 kg 101.7 kg 101.5 kg Active Medications Acetaminophen (Tylenol) 650 mg PO Q6HR PRN PRN Reason: Mild Pain (1-3) Stop: 12/12/16 18:34 Last Admin: 06/14/16 21:43 Dose: 650 mg Acetaminophen/Hydrocodone Bitart ([place] 5-325 Mg) 1 tab PO DAILY PRN PRN Reason: Pain Stop: 12/12/16 18:37 Artificial Tears (Akwa Tears) 1 drop RIGHT EYE QID [facility] PRN Reason: Protocol Stop: 12/14/16 18:01 Last Admin: 06/15/16 09:18 Dose: 1 drop Aspirin (Aspirin Ec) 81 mg PO QAM [facility] Stop: 12/13/16 09:01 Last Admin: 06/15/16 09:21 Dose: 81 mg Atorvastatin Calcium (Lipitor) 40 mg PO HS [facility] Stop: 12/12/16 21:01 Last Admin: 06/14/16 21:41 Dose: 40 mg Budesonide/Formoterol Fumarate (Symbicort) 2 puff IH BIDR [facility] PRN Reason: Protocol Stop: 12/12/16 22:01 Last Admin: 06/15/16 10:37 Dose: 2 puff Carvedilol (Coreg) 37.5 mg PO BID [facility] PRN Reason: Protocol Stop: 12/12/16 21:01 Last Admin: 06/15/16 09:21 Dose: 37.5 mg Furosemide (Lasix) 40 mg IVP BID [facility] Stop: 12/12/16 21:01 Last Admin: 06/15/16 09:22 Dose: 40 mg Insulin Detemir (Levemir) 25 unit SQ BID [facility] Stop: 12/12/16 21:01 Last Admin: 06/15/16 09:28 Dose: 25 unit Isosorbide Mononitrate (Imdur) 120 mg PO QAM [facility] Stop: 12/13/16 09:01 Last Admin: 06/15/16 09:18 Dose: 120 mg Levothyroxine Sodium (Synthroid) 25 mcg PO 0630 [facility] Stop: 12/13/16 06:31 Last Admin: 06/15/16 05:53 Dose: 25 mcg Magnesium Oxide (Mag-Ox) 400 mg PO BID [facility] PRN Reason: Protocol Stop: 12/12/16 21:01 Last Admin: 06/15/16 09:22 Dose: 400 mg Montelukast Sodium (Singulair) 10 mg PO QPM [facility] Stop: 12/13/16 18:01 Last Admin: 06/14/16 17:48 Dose: 10 mg Multivitamins/Calcium (Thera M Plus) 1 tab PO QAM [facility] Stop: 12/13/16 09:01 Last Admin: 06/15/16 09:22 Dose: 1 tab Naloxone HCl (Narcan) 0.4 mg IVP Q2MIN PRN PRN Reason: Opioid Reversal Stop: 12/12/16 18:34 Niacin (Niaspan) 500 mg PO HS [facility] Stop: 12/12/16 21:01 Last Admin: 06/14/16 21:42 Dose: 500 mg Nitroglycerin (Nitroglycerin) 0.4 mg SL AD PRN PRN Reason: Chest Pain Stop: 12/12/16 18:37 Omeprazole (Prilosec) 20 mg PO DAILY@0630 [facility] PRN Reason: Protocol Stop: 12/13/16 06:31 Last Admin: 06/15/16 05:53 Dose: 20 mg Ondansetron HCl (Zofran) 4 mg IVP Q8HR PRN PRN Reason: Nausea And Vomiting Stop: 12/12/16 18:34 Pharmacy Profile Note (Patient Taking Own Medication) 0 each PO BID [facility] Stop: 12/12/16 21:01 Last Admin: 06/15/16 09:22 Dose: Not Given Pharmacy Profile Note (Patient Taking Own Medication) 0 each PO QAM [facility] Stop: 12/13/16 09:01 Last Admin: 06/15/16 09:23 Dose: Not Given Ranolazine (Ranexa) 500 mg PO BID [facility] Stop: 12/12/16 21:01 Last Admin: 06/15/16 09:21 Dose: 500 mg Sucralfate (Carafate) 1 gm PO BID [facility] Stop: 12/12/16 21:01 Last Admin: 06/15/16 09:21 Dose: 1 gm Zolpidem Tartrate (Ambien) 10 mg PO [facility] PRN Reason: Protocol Stop: 12/12/16 21:01 Last Admin: 06/14/16 21:39 Dose: 10 mg - EKG Interpretation EKG results cardiology: other (avg hr 82, afib on tele past 24 hrs) - VTE Documentation of Mechanical Device: Intermittent pneumatic compression device Consult Discharge Plan - Plan Instructions: Heart Failure (DC), Atrial Fibrillation (DC), Chest Pain (DC), Diabetes Mellitus Type 2 in Adults (DC), Chronic Hypertension (DC) Referrals: Latosha Mitchell MD [Primary Care Provider] -
--- NOTE | 2016-06-15 13:18 | Internal Med Progress Note ---
Date of Encounter: 06/15/16 Time of Encounter: 13:16 - Assessment and plan (1) Acute exacerbation of CHF (congestive heart failure) Current Visit: Yes Status: Acute Assessment and plan: Pt. with worsening dyspnea on exertion x 2 -3 weeks. Significant hx of CAD s/p CABG and stents, has an AICD, Hx of HRrEF, last EF two months ago 15-20% with global hypokineses, repeat echo pending. Troponins negative Cardiology consulted. Appreciate their input. start IV Lasix and monitor I/O and daily weight fluid restriction and cardiac diet 06/14/2016 Balance : negative 1260 creat 1.93 eating well no orthopnea/PND will continue present treatment. home soon 06/15/2016. Negative balance: 1060 mL Creatinine 1.95, potassium 3.6 Cardiology on the board. No new issues. Scheduled for thoracentesis tomorrow. Possible home tomorrow. Qualifiers: Qualified Code(s): I50.23 - Acute on chronic systolic (congestive) heart failure (2) Facial droop Current Visit: Yes Status: Acute Assessment and plan: noted that patient had facial droop yesterday and CT head was done along with neuro opinion. Unlikely CVA/TIA will repeat CT head in 24 hours. 06/15/2015. Repeat CT in 24 hours shows no infarct. I personally discussed this case with neurologist. There is definitely no stroke. (3) Atrial fibrillation Current Visit: Yes Status: Chronic Assessment and plan: chronic, stable, AICD in place continue Coreg 37.5 PO BID, on coumadin, but will hold as INR is supratherapeutic at 3.2 and he will likely need thoracentesis 06/14/2016 will restart coumadin as his INR is 2.2 Qualifiers: Qualified Code(s): I48.2 - Chronic atrial fibrillation (4) CAD (coronary artery disease) Current Visit: Yes Status: Chronic Assessment and plan: Hx of CAD CABG and Stents continue home meds Qualifiers: Qualified Code(s): I25.708 - Atherosclerosis of coronary artery bypass graft( s), unspecified, with other forms of angina pectoris (5) Cardiomyopathy, ischemic Current Visit: Yes Status: Chronic Assessment and plan: EF 15-20%. Continue BB. No SWETHA-I due to renal function. (6) DVT prophylaxis Current Visit: No Status: Acute Assessment and plan: on coumadin, INR 2.2 - Subjective Interval history: patient seen and examined. no new complaints. 06/15/2016. Patient seen and examined. Comfortably lying in bed. No new complaints. His at bedside and appreciate the treatment so far. - Constitutional Vitals: Temp Pulse Resp BP Pulse Ox 97.5 F L 70 16 128/78 97 06/15/16 11:27 06/15/16 11:27 06/15/16 11:27 06/15/16 11:27 06/15/16 11:27 General appearance: Present: A&O X 3, answers questions appropriately - Head Head exam: Present: atraumatic, normocephalic - Eye Eye exam: Present: PERRL, conjuntiva pink, sclera anicteric Pupils: Present: PERRL - Neck Neck exam general surgery: Present: supple, trachea midline. Absent: lymphadenopathy - Respiratory Respiratory exam: Present: CTAB. Absent: accessory muscle use, rales, rhonchi, wheezes - Cardiovascular Cardiovascular exam: Present: RRR, +S1, +S2. Absent: diastolic murmur, gallop, rubs, systolic murmur - GI/Abdominal GI/Abdominal exam: Present: normal bowel sounds, soft, no peritoneal signs. Absent: distended, tenderness - Extremities Exam Extremities exam: Present: warm, radial pulses palpable and symetrical. Absent : calf tenderness, cyanotic, pedal edema - Neurological Exam Neurological exam: Present: CN II-XII intact, oriented X3, no focal deficits. Absent: pronater drift, facial droop, speech deficit - Skin Skin exam: Present: dry, intact Internal Medicine: Result - Labs CBC & Chem 7: 06/15/16 09:43 06/15/16 09:43 Labs: Short CBC 06/15/16 Range/Units 09:43 WBC 10.7 (4.3-11.1) K/mcL Hgb 15.0 (12.9-16.9) g/dL Hct 47.0 (37.5-50.1) % Plt Count 190 (140-400) K/mcL Neutrophils # 8.3 (1.6-8.9) K/mcL BMP 06/15/16 09:43 Sodium 138 Potassium 3.6 Chloride 101 Carbon Dioxide 25 BUN 47 H Creatinine 1.97 H Glucose 163 H Calcium 9.2 - ABG Interpretation ABG results: PT/INR, D-dimer PT 19.4 Seconds (9.4-12.1) H 06/15/16 09:43 - Impressions Impressions Head CT 06/14/16 12:30 IMPRESSION: 1. No significant change. D/ / David Calvo MD / David Calvo MD Interpreting Provider: David Calvo MD - VTE Documentation of Mechanical Device: Intermittent pneumatic compression device Consult Discharge Plan - Plan Instructions: Heart Failure (DC), Atrial Fibrillation (DC), Chest Pain (DC), Diabetes Mellitus Type 2 in Adults (DC), Chronic Hypertension (DC) Referrals: Latosha Mitchell MD [Primary Care Provider] -
[2016-06-15 16:32] LABS: INR 1.7; Prothrombin Time 18.1 Seconds (9.4-12.1)
[2016-06-15] MEDS: Niacin (24 HR) 500 MG TAB.ER.24H PO SCH (22:11)
[2016-06-15] MEDS: Acetaminophen 325 MG TABLET PO PRN (22:12)
[2016-06-16 05:13] LABS: Basophils # 0.1 K/mcL (0.0-0.2); Basophils % 0.5 %; Eosinophils # 0.3 K/mcL (0.0-0.6); Eosinophils % 3.4 %; Hematocrit 44.1 % (37.5-50.1); Hemoglobin 14.3 g/dL (12.9-16.9); Immature Granulocytes % 0.9 % (0-4); Lymphocytes % 10.1 %; Mean Corpuscular HGB Conc 32.4 g/dL (31.6-35.5); Mean Corpuscular Hemoglobin 27.8 pg (28.0-33.3); Mean Corpuscular Volume 85.8 fL (83.0-100.0); Mean Platelet Volume 8.9 fL (9.4-12.4); Monocytes % 10.9 %; Neutrophils # 7.1 K/mcL (1.6-8.9); Platelet Count 171 K/mcL (140-400); Red Blood Count 5.14 M/mcL (4.19-5.50); Red Cell Distribution Width 15.9 % (11.5-14.5); Segmented Neutrophils % 74.2 %
[2016-06-16 05:26] LABS: Albumin 2.6 g/dL (3.5-5.0); Albumin/Globulin Ratio 0.8 (1.1-2.2); Bilirubin,Total 1.4 mg/dL (0.2-1.2); Calcium 8.8 mg/dL (8.6-10.8); Globulin 3.4 g/dL (2.4-3.5); Potassium 3.6 mEq/L (3.5-4.5)
--- NOTE | 2016-06-16 08:52 | Cardiology Progress Note ---
Date of Encounter: 06/16/16 Time of Encounter: 09:30 Assessment and Plan (1) Acute exacerbation of CHF (congestive heart failure) Current Visit: Yes Status: Acute Per Cardiology: Presented with acute systolic heart failure exacerbation. EF is known to be 15- 20% on echo 04/2016 which was also previously seen in April 2015. LHC at that time showed occluded SVG-- Ramus graft. Despite medical management, EF has remained low. He is s/p dual chamber ICD. He is continues to feel better today and is net negative 3820 according medical records. He reports baseline weight about 225 pounds. Wts. reviewed and currently 223.5 pounds, was 224 pounds on admission according to records. On IV Lasix 40mg IV BID, his kidney function remains around baseline. Home dose of Lasix was 40 mg by mouth every morning and 20 mg by mouth every evening. Will DC IV Lasix and start 40 mg by mouth twice a day. Planned thoracentesis today. On aspirin, statin, BB, Imdur and ranexa. He is presumably not on ACEI/ARB due to fluctuating renal dysfunction. We'll sign off, reconsult as needed, follow-up as outpatient. Qualifiers: Congestive heart failure type: systolic Qualified Code(s): I50.23 - Acute on chronic systolic (congestive) heart failure (2) Atrial fibrillation Current Visit: Yes Status: Chronic Per Cardiology: Patient is rate controlled on BB. His coumadin is on hold for thoracentesis- large left pleural effusion. INR down to 1.7 last pm. Has R scleral hemorrhage which developed a few days prior to hospitalization with coughing. Reports brief episode of bright red blood in [place] bag is now resolved. We'll need to continue to monitor closely prior to resumption of Coumadin. Qualifiers: Atrial fibrillation type: chronic Qualified Code(s): I48.2 - Chronic atrial fibrillation (3) Facial droop Current Visit: Yes Status: Acute Per Cardiology: Appears resolved. Head CT -. Management per primary service. Discussion w patient/family: The assessment and plan as outlined above was discussed with the patient and/or family members who expressed understanding and agreement. All questions were answered. Thank you for involving us in the care of your patient. Please call with any questions. Subjective Principal diagnosis: CHF Interval history: Patient reports shortness of breath and lower extremity swelling has improved. He denies any chest pain or palpitations. Reports pending thoracentesis today. Objective Vital Signs, Last 4 Hours Temp Pulse Resp BP Pulse Ox 06/16/16 07:42 97.8 F 74 16 130/84 100 06/16/16 06:03 97.8 F 68 16 129/54 99 General: Conversant, No Apparent Distress HEENT: Atraumatic, Normocephaly Cardiac: No Murmur, Other (Irregular irregular) Lungs: Other (Slightly diminished basis, clear to all lobes) Neuro: Alert and responsive, No focal deficits noted Abdomen: Soft, Non-Tender Skin: No rashes noted on visualized skin Extremities: Other (+1 nonpitting edema to bilateral lower extremities) Results 06/16/16 04:40 06/16/16 04:40 Lab Results Intake & Output 06/13/16 06/14/16 06/15/16 06/16/16 23:59 23:59 23:59 23:59 Intake Total 990 / 990 1170 / 1170 720 / 720 360 / 360 Output Total 1775 / 1775 2350 / 2350 1700 / 1700 875 / 875 Balance -785 / -785 -1180 / -1180 -980 / -980 -515 / -515 Weight 101.7 kg 101.5 kg 101.6 kg ITS Impressions Chest X-Ray 06/12/16 14:23 IMPRESSION: Opacity in the left lung base, suggestive of large pleural effusion. Mild atelectasis in the right lung base. Cardiomegaly and AICD are noted. D/ / Jone Gaspar MD / Jone Gaspar MD Interpreting Provider: Jone Gaspar MD Head CT 06/13/16 12:15 IMPRESSION: 1. No intracranial hemorrhage. No definite infarct. 2. Small focus of low attenuation in the right centrum semiovale, likely secondary to chronic small vessel ischemic disease. Given the history, further evaluation with MRI should be considered. Results of this examination were verbally communicated to Dr. Krishnamurthy at 13:00 on 06/13/2016. D/ / 06/13/2016 12:54:53 Claude Chawla MD / earnold Interpreting Provider: Claude Chawla MD Head CT 06/14/16 12:30 IMPRESSION: 1. No significant change. D/ / David Calvo MD / David Calvo MD Interpreting Provider: David Calvo MD Active Medications Acetaminophen (Tylenol) 650 mg PO Q6HR PRN PRN Reason: Mild Pain (1-3) Stop: 12/12/16 18:34 Last Admin: 06/15/16 22:12 Dose: 650 mg Acetaminophen/Hydrocodone Bitart ([place] 5-325 Mg) 1 tab PO DAILY PRN PRN Reason: Pain Stop: 12/12/16 18:37 Artificial Tears (Akwa Tears) 1 drop RIGHT EYE QID [facility] PRN Reason: Protocol Stop: 12/14/16 18:01 Last Admin: 06/15/16 22:15 Dose: 1 drop Aspirin (Aspirin Ec) 81 mg PO QAM [facility] Stop: 12/13/16 09:01 Last Admin: 06/15/16 09:21 Dose: 81 mg Atorvastatin Calcium (Lipitor) 40 mg PO HS [facility] Stop: 12/12/16 21:01 Last Admin: 06/15/16 21:59 Dose: 40 mg Budesonide/Formoterol Fumarate (Symbicort) 2 puff IH BIDR [facility] PRN Reason: Protocol Stop: 12/12/16 22:01 Last Admin: 06/15/16 20:17 Dose: 2 puff Carvedilol (Coreg) 37.5 mg PO BID [facility] PRN Reason: Protocol Stop: 12/12/16 21:01 Last Admin: 06/15/16 21:58 Dose: 37.5 mg Furosemide (Lasix) 40 mg IVP BID [facility] Stop: 12/12/16 21:01 Last Admin: 06/15/16 22:17 Dose: 40 mg Insulin Detemir (Levemir) 25 unit SQ BID [facility] Stop: 12/12/16 21:01 Last Admin: 06/15/16 22:16 Dose: 25 unit Isosorbide Mononitrate (Imdur) 120 mg PO QAM [facility] Stop: 12/13/16 09:01 Last Admin: 06/15/16 09:18 Dose: 120 mg Levothyroxine Sodium (Synthroid) 25 mcg PO 0630 [facility] Stop: 12/13/16 06:31 Last Admin: 06/16/16 06:27 Dose: 25 mcg Magnesium Oxide (Mag-Ox) 400 mg PO BID [facility] PRN Reason: Protocol Stop: 12/12/16 21:01 Last Admin: 06/15/16 21:59 Dose: 400 mg Montelukast Sodium (Singulair) 10 mg PO QPM [facility] Stop: 12/13/16 18:01 Last Admin: 06/15/16 17:54 Dose: 10 mg Multivitamins/Calcium (Thera M Plus) 1 tab PO QAM [facility] Stop: 12/13/16 09:01 Last Admin: 06/15/16 09:22 Dose: 1 tab Naloxone HCl (Narcan) 0.4 mg IVP Q2MIN PRN PRN Reason: Opioid Reversal Stop: 12/12/16 18:34 Niacin (Niaspan) 500 mg PO HS [facility] Stop: 12/12/16 21:01 Last Admin: 06/15/16 22:11 Dose: 500 mg Nitroglycerin (Nitroglycerin) 0.4 mg SL AD PRN PRN Reason: Chest Pain Stop: 12/12/16 18:37 Omeprazole (Prilosec) 20 mg PO DAILY@0630 [facility] PRN Reason: Protocol Stop: 12/13/16 06:31 Last Admin: 06/16/16 06:26 Dose: 20 mg Ondansetron HCl (Zofran) 4 mg IVP Q8HR PRN PRN Reason: Nausea And Vomiting Stop: 12/12/16 18:34 Pharmacy Profile Note (Patient Taking Own Medication) 0 each PO BID [facility] Stop: 12/12/16 21:01 Last Admin: 06/15/16 22:10 Dose: Not Given Pharmacy Profile Note (Patient Taking Own Medication) 0 each PO QAM [facility] Stop: 12/13/16 09:01 Last Admin: 06/15/16 09:23 Dose: Not Given Ranolazine (Ranexa) 500 mg PO BID [facility] Stop: 12/12/16 21:01 Last Admin: 06/15/16 22:09 Dose: 500 mg Sucralfate (Carafate) 1 gm PO BID [facility] Stop: 12/12/16 21:01 Last Admin: 06/15/16 22:13 Dose: 1 gm Zolpidem Tartrate (Ambien) 10 mg PO HS [facility] PRN Reason: Protocol Stop: 12/12/16 21:01 Last Admin: 06/15/16 21:57 Dose: 10 mg - EKG Interpretation EKG results cardiology: other (Atrial fibrillation 70s on telemetry) - VTE Documentation of Mechanical Device: Intermittent pneumatic compression device Consult Discharge Plan - Plan Instructions: Heart Failure (DC), Atrial Fibrillation (DC), Chest Pain (DC), Diabetes Mellitus Type 2 in Adults (DC), Chronic Hypertension (DC) Referrals: Latosha Mitchell MD [Primary Care Provider] -
[2016-06-16] MEDS: Ranolazine 500 MG TAB.ER.12H PO SCH ×2 (09:58→21:04)
[2016-06-16] MEDS: Aspirin Enteric Coated 81 MG Tablet PO SCH (09:58)
[2016-06-16] MEDS: Furosemide 40 MG/4 ML VIAL IVP SCH (09:58)
[2016-06-16] MEDS: Isosorbide MONOnitrate (24 HR) 60 MG TAB.ER.24H PO SCH (09:58)
[2016-06-16] MEDS: Multivit/Ca/Min/Fe/FA 1 TAB TABLET PO SCH (09:59)
[2016-06-16] MEDS: Artificial Tears SOLN 15 ML BOTTLE RIGHT EYE SCH ×4 (09:59→21:04)
[2016-06-16] MEDS: Magnesium Oxide 400 MG TABLET PO SCH ×2 (09:59→21:04)
[2016-06-16] MEDS: (Salmon Oil/Omega-3 Fatty Acids [Fish Oil 500 Mg Soft PO SCH (10:02)
[2016-06-16] MEDS: Insulin DETEMIR 100 UNIT/ML X5UNITS SQ SCH ×2 (10:02→21:04)
[2016-06-16] MEDS: [UNRECOGNIZED DRUG - OTHER] PO SCH (10:02)
[2016-06-16] MEDS ORDERED: *HR* Warfarin 7.5 MG TABLET PO SCH (10:24)
[2016-06-16] MEDS: Budesonide/Formoterol 160/4.5 MDI IH SCH ×2 (11:18→20:57)
--- NOTE | 2016-06-16 12:55 | Pulmonology Consult Note ---
Date of Encounter: 06/16/16 Time of Encounter: 12:53 Assessment and Plan (1) Pleural effusion Current Visit: Yes Status: Acute Chest x-ray reveals a large left-sided pleural effusion. Differential includes infection, malignancy, underlying systemic disorder such as heart failure renal disease. Given the patient's severe systolic heart failure, this is the most likely underlying cause. Discussed thoracentesis with the patient including the risk and benefits and he is agreed to proceed, we will consult interventional radiology for this procedure. I do believe this will give the patient some symptomatic relief and also send the fluid for analysis. Would also agree with aggressive treatment of the patient's underlying comorbidities including heart failure. (2) TR on CPAP Current Visit: Yes Status: Chronic Patient reports obstructive sleep apnea treated with CPAP at home. He states he is On CPAP. Continue with CPAP, hospital and at discharge, patient should follow-up to monitor compliance. (3) Restrictive lung disease Current Visit: Yes Status: Acute Patient had PFTs in 2013 which revealed a restrictive lung disorder. The patient was initially evaluated for amiodarone toxicity at he been on amiodarone for 4-5 years prior to these PFTs being performed. Patient had a CT scan at that time that did not reveal fibrosis so amiodarone toxicity appears less likely, regardless he has been off amiodarone since that time. Most likely caused this time appears to be obesity as further workup by physical fitness teacher did not reveal any other cause. Patient does use Symbicort twice a day and a rescue inhaler rarely. Patient should have repeat PFTs outpatient for further characterization of this restrictive lung disease. History of Present Illness Consult date: 06/16/16 Requesting physician: Rigoberto Lyle Reason for consult: dyspnea Chief complaint: Dyspnea History of present illness: Patient is a 71-year-old male with history of severe systolic heart failure who presents with shortness of breath. Patient states his shortness of breath is gradually getting worse, he states worse with exertion. He also reports a dry cough. He states he is unable to get anything up. Patient states that since he has been in the hospital received treatment he does feel little better. He denies any fever, chills, chest pain, nausea, vomiting, diarrhea, lower extremity swelling. Past Med Surg Social Fam HX - Past Medical History Medical history: arthritis, atrial fibrillation, cancer (colon cancer, in remission), CHF (ischemic cardiomyopathy), COPD, coronary artery disease, diabetes, GERD, hyperlipidemia, hypertension, myocardial infarction, renal disease, thyroid disease, TIA, other (TR) Psychiatric history: no psych history - Past Surgical History Surgical History: angioplasty/stent, appendectomy, cholecystectomy, colectomy ( partial), colostomy, coronary bypass (CABG), pacemaker/AICD, AICD - Social History Smoking Status: Never smoker Smokeless Tobacco Status: No Alcohol use: none Drug use: none - Family History Father Family Member Ethnicity: Non- Living Status: Hx Family Cardiac Disorders: Yes Mother Adopted: No Family Member Ethnicity: Non- Living Status: Hx Family Cardiac Disorders: Yes Hx Family Respiratory Disorders: Yes Hx Family Cancer: No Hx Family GI Disorders: Yes Hx Family Endocrine Disorder: Yes Medications and Allergies Aspirin Enteric Coated [Aspirin EC] 81 mg PO QAM 04/19/15 [History] Atorvastatin [Lipitor] 40 mg PO HS 04/19/15 [History] Budesonide/Formoterol 160/4.5 [Symbicort] 2 puff IH BIDR 04/19/15 [History] Fluticasone Propionate [Flovent Hfa] 1 puff IH DAILY PRN 04/19/15 [History] HYDROcodone/Acet 5/325 mg [[place] 5-325 mg] 1 tab PO DAILY PRN 04/19/15 [History] Insulin ASPART [NovoLOG] 10 - 18 unit SQ TIDWM 04/19/15 [History] Levothyroxine [Synthroid] 25 mcg PO QAM 04/19/15 [History] Magnesium Oxide [Magnesium] 400 mg PO BID 04/19/15 [History] Montelukast [Singulair] 10 mg PO QPM 04/19/15 [History] Multivit-Min/FA/Lycopen/Lutein [Centrum Silver Tablet] 1 tab PO QAM 04/19/15 [ History] Niacin [Niaspan] 500 mg PO HS 04/19/15 [History] Nitroglycerin [Nitrostat] 0.4 mg SL AD PRN 04/19/15 [History] Omeprazole [PriLOSEC] 40 mg PO QPM 04/19/15 [History] Ondansetron [Zofran] 8 mg PO Q8HR PRN 04/19/15 [History] Ranitidine HCl [Zantac] 150 mg PO BID 04/19/15 [History] Ida Oil/Kiefer-3 Fatty Acids [Fish Oil 500 mg Softgel] 1,000 mg PO QAM [History] Warfarin [Coumadin] 7.5 mg PO MOWEFR 04/19/15 [History] Zolpidem [Ambien] 10 mg PO HS 04/19/15 [History] Isosorbide MONOnitrate (24 HR) [Imdur] 120 mg PO QAM #60 tab.er.24h 04/25/15 [Rx ] Furosemide [Lasix] 20 mg PO QPM 07/11/15 [History] Insulin Glargine [Lantus] 25 unit SQ BID 07/11/15 [History] Ranolazine [Ranexa] 500 mg PO BID 07/11/15 [History] Warfarin [Coumadin] 5 mg PO SUTUTHSA 07/11/15 [History] Gluc/Miguel Angel-MSM#1/C/Epifanio/Manfred/Bor [Osteo Bi-Flex Caplet] 1 tab PO BID 09/10/15 [ History] Carvedilol [Coreg] 37.5 mg PO BID 06/12/16 [History] Furosemide [Lasix] 40 mg PO QAM 06/12/16 [History] Sucralfate [Carafate] 1 gm PO BID 06/12/16 [History] Allergies codeine Allergy (Verified 04/19/15 10:03) Difficulty Breathing promethazine [From Phenergan] Allergy (Verified 04/19/15 10:03) Dizziness ibuprofen Adverse Reaction (Verified 04/19/15 12:02) Nausea All Systems: A 10-system review of systems was performed and is negative for pertinent findings except as documented above in the HPI. - Constitutional Constitutional: no chills, no fever(s) - EENT Nose, mouth and throat: no sinus pain, no sinus pressure - Cardiovascular Cardiovascular: dyspnea, dyspnea on exertion, no chest pain - Respiratory Respiratory: cough, dyspnea, no hemoptysis, no wheezing, no chest congestion, no excessive phlegm production, no change in phlegm color - Gastrointestinal Gastrointestinal: no abdominal pain, no diarrhea, no nausea, no vomiting - Genitourinary Genitourinary: no dysuria - Musculoskeletal Musculoskeletal: no weakness, no numbness, no tingling - Neurological Neurological: no convulsions, no dizziness, no focal weakness, no syncope - Hematologic/Lymphatic Hematologic/Lymphatic: no easy bleeding, no easy bruising Physical Examination Vital Signs: Vital Signs, Last 4 Hours Temp Pulse Resp BP Pulse Ox 06/16/16 11:22 97.3 F L 75 15 135/95 98 06/16/16 11:18 16 100 06/16/16 10:14 100 General appearance: no acute distress ENT: oropharynx moist Effort: normal Auscultation: left: diminished breath sounds (Posteriorly) Percussion: left: dull, right: not dull Cardiovascular: irregular rhythm Gastrointestinal: normoactive bowel sounds, soft, non-tender, non-distended Extremities: no cyanosis, no clubbing, edema (1+) normal mental status, non-focal exam Results - Laboratory Findings CBC and BMP: 06/16/16 04:40 06/16/16 04:40 PT/INR, D-dimer PT 18.1 Seconds (9.4-12.1) H 06/15/16 16:08 Abnormal lab findings: Abnormal lab results MCH 27.8 pg (28.0-33.3) L 06/16/16 04:40 RDW 15.9 % (11.5-14.5) H 06/16/16 04:40 MPV 8.9 fL (9.4-12.4) L 06/16/16 04:40 PT 18.1 Seconds (9.4-12.1) H 06/15/16 16:08 APTT 45.8 Seconds (26.0-36.0) H 06/12/16 14:54 BUN 51 mg/dL (8-26) H 06/16/16 04:40 Creatinine 1.98 mg/dL (0.72-1.25) H 06/16/16 04:40 Est GFR ( Amer) 41 (> 60) L 06/16/16 04:40 Est GFR (Non-Af Amer) 34 (> 60) L 06/16/16 04:40 Glucose 114 mg/dL (70-99) H 06/16/16 04:40 POC Glucose 235 (58-89) H 06/15/16 20:10 Calculated Osmolality 301 (280-300) H 06/16/16 04:40 Total Bilirubin 1.4 mg/dL (0.2-1.2) H 06/16/16 04:40 C-Reactive Protein 17 mg/L (Less than 5) H 06/12/16 14:54 B-Natriuretic Peptide 886 pg/mL (0-100) H 06/12/16 14:54 Albumin 2.6 g/dL (3.5-5.0) L 06/16/16 04:40 Albumin/Globulin Ratio 0.8 (1.1-2.2) L 06/16/16 04:40 - Clinical Findings Intake & Output: Intake & Output 06/15/16 06/16/16 06/16/16 23:59 07:59 15:59 Intake Total 240 / 240 0 / 0 360 / 360 Output Total 0 / 0 875 / 875 Balance 240 / 240 -875 / -875 360 / 360 Weight 101.6 kg Consult Discharge Plan - Plan Instructions: Heart Failure (DC), Atrial Fibrillation (DC), Chest Pain (DC), Diabetes Mellitus Type 2 in Adults (DC), Chronic Hypertension (DC) Referrals: Latosha Mitchell MD [Primary Care Provider] - 06/25/16 1:30 pm
[2016-06-16 13:20] LABS: INR 1.5; Prothrombin Time 16.5 Seconds (9.4-12.1)
[2016-06-16] MEDS ORDERED: Dextrose Gel 15 GM PO PRN ×2 (13:56)
[2016-06-16] MEDS ORDERED: *HR* Dextrose 50 % in Water (Syg) 50 ML SYRINGE IVP PRN (13:56)
[2016-06-16] MEDS ORDERED: D5% in Water 1,000 ML IV PRN (13:56)
--- NOTE | 2016-06-16 14:20 | Internal Med Progress Note ---
<Rigoberto Lyle - Last Filed: 06/16/16 14:18> Date of Encounter: 06/16/16 Time of Encounter: 13:30 - Assessment and plan (1) Acute exacerbation of CHF (congestive heart failure) Current Visit: Yes Status: Acute Assessment and plan: Pt. with worsening dyspnea on exertion x 2 -3 weeks Significant hx of CAD s/p CABG and stents, has an AICD Hx of HRrEF, last EF two months ago 15-20% with global hypokineses, repeat echo pending. Troponins negative Cardiology following and appreciate recommendations on continued management/care Continue IV Lasix and monitor I/O and daily weight fluid restriction and cardiac diet 06/14/2016 Balance : negative 1260 creat 1.93 eating well no orthopnea/PND will continue present treatment. home soon 06/15/2016 Negative balance: 1060 mL Creatinine 1.95, potassium 3.6 Cardiology on the board. No new issues. Scheduled for thoracentesis tomorrow. 06/16/16 Net -3.1 L Fluid balance so far Creatinine 1.98, potassium 3.6 Cardiology following Thoracentesis plan for today Possible home tomorrow Qualifiers: Congestive heart failure type: systolic Qualified Code(s): I50.23 - Acute on chronic systolic (congestive) heart failure (2) Facial droop Current Visit: Yes Status: Acute Assessment and plan: noted that patient had facial droop on 06/13/[address] head was done along with neuro consult. Unlikely CVA/TIA Repeat head CT performed on 06/14/16 did not show any significant change or infarct Per neurology no stroke occurred (3) Atrial fibrillation Current Visit: No Status: Chronic Assessment and plan: On Coumadin normally, currently subtherapeutic. We will continue home Coumadin (currently on hold given planned thoracentesis today) We will start subcutaneous heparin until patient therapeutic on INR Qualifiers: Atrial fibrillation type: chronic Qualified Code(s): I48.2 - Chronic atrial fibrillation (4) CAD (coronary artery disease) Current Visit: No Status: Chronic Qualifiers: Coronary Disease-Associated Artery/Lesion type: bypass graft [place] vs. transplanted heart: [place] heart Associated angina: angina presence unspecified Qualified Code(s): I25.810 - Atherosclerosis of coronary artery bypass graft(s) without angina pectoris (5) Cardiomyopathy, ischemic Current Visit: Yes Status: Chronic Assessment and plan: EF 15-20%. Continue BB. No SWETHA-I due to renal function. (6) DVT prophylaxis Current Visit: No Status: Acute Assessment and plan: On Coumadin for atrial fibrillation, subtherapeutic INR. Coumadin being held for thoracentesis later this afternoon. We will add subcutaneous heparin 5000 units twice a day after patient procedure today when cleared by pulmonology Continue Coumadin until therapeutic - Subjective Interval history: Patient reports that he is comfortable at this time. He reports some continued shortness of breath, but states overall has been some improvement. He denies cough, denies pleuritic chest pain. He reports that he had a momentary twinge of chest pain, but it went away in less than a couple seconds. He denies fever/ chills, denies abdominal pain, denies nausea or vomiting. - Constitutional Vitals: Temp Pulse Resp BP Pulse Ox 97.3 F L 75 15 135/95 98 06/16/16 11:22 06/16/16 11:22 06/16/16 11:22 06/16/16 11:22 06/16/16 11:22 General appearance: Present: A&O X 3, answers questions appropriately Exam: General: Cooperative, pleasant, no acute distress, alert and oriented 3, answers questions appropriately Head: Normocephalic, atraumatic Eye: Conjunctiva pink, sclera anicteric, EOMI, PERRL Neck: Supple, trachea midline Respiratory: No accessory muscle usage, decreased breath sounds on the left lower and middle lobe of lung, no wheezes/rhonchi/rales appreciated Cardiovascular: Normal rate, regular rhythm, S1 and S2 present, no murmurs/rubs/ gallops/clicks appreciated GI/abdominal: Nondistended, nontender, soft, normal bowel sounds, no peritoneal signs Extremities: No calf tenderness, noncyanotic, no pedal edema appreciated, warm, lower extremity pulses palpable and symmetrical Neurological: Alert and oriented 3, no facial droop, no focal deficits Skin: Dry, intact, normal color Internal Medicine: Result - Labs CBC & Chem 7: 06/16/16 04:40 06/16/16 04:40 Labs: Short CBC 06/16/16 Range/Units 04:40 WBC 9.5 (4.3-11.1) K/mcL Hgb 14.3 (12.9-16.9) g/dL Hct 44.1 (37.5-50.1) % Plt Count 171 (140-400) K/mcL Neutrophils # 7.1 (1.6-8.9) K/mcL BMP 06/16/16 04:40 Sodium 138 Potassium 3.6 Chloride 102 Carbon Dioxide 27 BUN 51 H Creatinine 1.98 H Glucose 114 H Calcium 8.8 Liver Function 06/16/16 Range/Units 04:40 Total Bilirubin 1.4 H (0.2-1.2) mg/dL AST 16 (5-34) Units/L ALT 12 (0-55) Units/L Alkaline Phosphatase 66 (38-126) Units/L Albumin 2.6 L (3.5-5.0) g/dL - ABG Interpretation ABG results: PT/INR, D-dimer PT 16.5 Seconds (9.4-12.1) H 06/16/16 13:05 - VTE Documentation of Mechanical Device: Intermittent pneumatic compression device Consult Discharge Plan - Plan Instructions: Heart Failure (DC), Atrial Fibrillation (DC), Chest Pain (DC), Diabetes Mellitus Type 2 in Adults (DC), Chronic Hypertension (DC) Referrals: Latosha Mitchell MD [Primary Care Provider] - 06/25/16 1:30 pm <Vikram Krishnamurthy P - Last Filed: 06/16/16 18:21> - Assessment and plan (1) Acute exacerbation of CHF (congestive heart failure) Current Visit: Yes Status: Acute Qualifiers: Congestive heart failure type: systolic Qualified Code(s): I50.23 - Acute on chronic systolic (congestive) heart failure (2) Facial droop Current Visit: Yes Status: Acute (3) Atrial fibrillation Current Visit: Yes Status: Chronic Qualifiers: Atrial fibrillation type: chronic Qualified Code(s): I48.2 - Chronic atrial fibrillation (4) CAD (coronary artery disease) Current Visit: Yes Status: Chronic Qualifiers: Coronary Disease-Associated Artery/Lesion type: bypass graft [place] vs. transplanted heart: [place] heart Associated angina: with stable angina Qualified Code(s): I25.708 - Atherosclerosis of coronary artery bypass graft(s) , unspecified, with other forms of angina pectoris (5) Cardiomyopathy, ischemic Current Visit: Yes Status: Chronic (6) DVT prophylaxis Current Visit: No Status: Acute - Constitutional Vitals: Temp Pulse Resp BP Pulse Ox 98.1 F 56 15 113/77 98 06/16/16 15:00 06/16/16 15:00 06/16/16 15:00 06/16/16 15:00 06/16/16 15:00 Internal Medicine: Result - Labs CBC & Chem 7: 06/16/16 04:40 06/16/16 16:51 Labs: Short CBC 06/16/16 Range/Units 04:40 WBC 9.5 (4.3-11.1) K/mcL Hgb 14.3 (12.9-16.9) g/dL Hct 44.1 (37.5-50.1) % Plt Count 171 (140-400) K/mcL Neutrophils # 7.1 (1.6-8.9) K/mcL BMP 06/16/16 06/16/16 04:40 16:51 Sodium 138 138 Potassium 3.6 3.7 Chloride 102 103 Carbon Dioxide 27 26 BUN 51 H 52 H Creatinine 1.98 H 1.99 H Glucose 114 H 175 H Calcium 8.8 8.8 Liver Function 06/16/16 06/16/16 Range/Units 04:40 16:51 Total Bilirubin 1.4 H 1.1 (0.2-1.2) mg/dL AST 16 18 (5-34) Units/L ALT 12 16 (0-55) Units/L Alkaline Phosphatase 66 71 (38-126) Units/L Albumin 2.6 L 2.5 L (3.5-5.0) g/dL - ABG Interpretation ABG results: PT/INR, D-dimer PT 16.5 Seconds (9.4-12.1) H 06/16/16 13:05 - Impressions Impressions Chest CT 06/16/16 17:00 IMPRESSION: 1. Moderate to large left pleural effusion, without definite loculations. It causes extensive compressive atelectasis of the left lung. Layering hyperdensity within the effusion suggests proteinaceous or hemorrhagic contents. 2. Moderate cardiomegaly. 3. Evidence of prior granulomatous disease. D/ / 06/16/2016 18:07:04 Jose Cisse MD / yrn Interpreting Provider: Jose Cisse MD - Attending Attestation I examined this patient and my medical decision-making was reviewed with the SALES EFFECTIVENESS MANAGER/PA/Advanced Practice Nurse/Resident Physician. I agree with the documented findings, disposition and treatment plan as described except to the extent set forth below.
--- NOTE | 2016-06-16 16:38 | IR Procedure Note ---
Date of procedure: 06/16/16 Consent Obtained: Verbal consent, Written consent Timeout: Correct patient and procedure verified, Correct site verified, Time out performed, Skin prep completed Local anesthetic: Lidocaine 1% Indications: left pleural effusion Procedure Performed: thoracentesis Site/Technique: left Results/Findings: small complex left effusion, trace fluid able to be aspirated Estimated blood loss (cc): 1 Complications: None; Tolerated procedure well Post Procedure Treatment Plan: CXR pending
[2016-06-16 17:38] LABS: Albumin 2.5 g/dL (3.5-5.0); Albumin/Globulin Ratio 0.7 (1.1-2.2); Bilirubin,Total 1.1 mg/dL (0.2-1.2); Calcium 8.8 mg/dL (8.6-10.8); Globulin 3.6 g/dL (2.4-3.5); Potassium 3.7 mEq/L (3.5-4.5); Total Protein 6.1 g/dL (6.0-8.3)
[2016-06-16] MEDS: Furosemide 40 MG TABLET PO SCH (18:13)
[2016-06-16] MEDS: Niacin (24 HR) 500 MG TAB.ER.24H PO SCH (21:04)
[2016-06-17] MEDS: Ondansetron 4 MG/2 ML VIAL IVP PRN ×2 (03:25→14:58)
[2016-06-17 05:14] LABS: Basophils # 0.1 K/mcL (0.0-0.2); Basophils % 0.5 %; Eosinophils # 0.5 K/mcL (0.0-0.6); Eosinophils % 4.8 %; Hematocrit 44.1 % (37.5-50.1); Hemoglobin 14.1 g/dL (12.9-16.9); Immature Granulocytes % 0.5 % (0-4); Lymphocytes # 0.8 K/mcL (0.6-4.6); Lymphocytes % 7.9 %; Mean Corpuscular Hemoglobin 27.3 pg (28.0-33.3); Mean Corpuscular Volume 85.3 fL (83.0-100.0); Mean Platelet Volume 8.9 fL (9.4-12.4); Monocytes # 1.1 K/mcL (0.0-1.3); Monocytes % 11.2 %; Neutrophils # 7.4 K/mcL (1.6-8.9); Platelet Count 176 K/mcL (140-400); Red Blood Count 5.17 M/mcL (4.19-5.50); Red Cell Distribution Width 15.9 % (11.5-14.5); Segmented Neutrophils % 75.1 %
[2016-06-17 05:17] LABS: INR 1.5
[2016-06-17 05:30] LABS: Albumin 2.7 g/dL (3.5-5.0); Albumin/Globulin Ratio 0.8 (1.1-2.2); Bilirubin,Total 1.6 mg/dL (0.2-1.2); Calcium 8.9 mg/dL (8.6-10.8); Globulin 3.4 g/dL (2.4-3.5); Potassium 3.6 mEq/L (3.5-4.5); Total Protein 6.1 g/dL (6.0-8.3)
[2016-06-17] MEDS: Budesonide/Formoterol 160/4.5 MDI IH SCH ×2 (08:01→19:47)
--- NOTE | 2016-06-17 08:38 | Internal Med Progress Note ---
<Rigoberto Lyle - Last Filed: 06/17/16 10:12> Date of Encounter: 06/17/16 Time of Encounter: 08:30 - Assessment and plan (1) Acute exacerbation of CHF (congestive heart failure) Current Visit: Yes Status: Acute Assessment and plan: Pt. with worsening dyspnea on exertion x 2 -3 weeks Significant hx of CAD s/p CABG and stents, has an AICD Hx of HRrEF, last EF two months ago 15-20% with global hypokineses, repeat echo pending. Troponins negative C Medardo cardiac diet Cardiology has signed off We will continue by mouth Lasix 06/14/2016 Balance : negative 1260 creat 1.93 eating well no orthopnea/PND will continue present treatment. home soon 06/15/2016 Negative balance: 1060 mL Creatinine 1.95, potassium 3.6 Cardiology on the board. No new issues. Scheduled for thoracentesis tomorrow. 06/16/16 Net -3.1 L Fluid balance so far Creatinine 1.98, potassium 3.6 Cardiology following Thoracentesis plan for today Possible home tomorrow 06/17/16 Net -3.8 L fluid balance so far Creatinine 1.90 potassium Cardiology stop IV Lasix and will start oral Lasix 40 mg, they have signed off and will follow as outpatient Thoracentesis attempted yesterday but could not be performed due to loculated nature of patient pleural effusion We will reassess with possible pulmonology consultation for possible need of inpatient evaluation of pleural effusion Qualifiers: Congestive heart failure type: systolic Qualified Code(s): I50.23 - Acute on chronic systolic (congestive) heart failure (2) Facial droop Current Visit: Yes Status: Acute Assessment and plan: noted that patient had facial droop on 06/13/[address] head was done along with neuro consult. Unlikely CVA/TIA Repeat head CT performed on 06/14/16 did not show any significant change or infarct Per neurology no stroke occurred (3) Atrial fibrillation Current Visit: No Status: Chronic Assessment and plan: On Coumadin normally, currently subtherapeutic with INR 1.5 We will continue home Coumadin We will start subcutaneous heparin until patient therapeutic on INR Qualifiers: Atrial fibrillation type: chronic Qualified Code(s): I48.2 - Chronic atrial fibrillation (4) CAD (coronary artery disease) Current Visit: No Status: Chronic Qualifiers: Coronary Disease-Associated Artery/Lesion type: bypass graft [place] vs. transplanted heart: [place] heart Associated angina: angina presence unspecified Qualified Code(s): I25.810 - Atherosclerosis of coronary artery bypass graft(s) without angina pectoris (5) Cardiomyopathy, ischemic Current Visit: Yes Status: Chronic Assessment and plan: EF 15-20%. Continue BB. No SWETHA-I due to renal function. AICD in place, cardiology will follow as outpatient (6) DVT prophylaxis Current Visit: No Status: Acute Assessment and plan: On Coumadin for atrial fibrillation, subtherapeutic INR. Coumadin being held for thoracentesis later this afternoon. We will add subcutaneous heparin 5000 units twice a day after patient procedure today when cleared by pulmonology Continue Coumadin until therapeutic - Subjective Interval history: Patient reports he is doing well today. He states he is on his baseline turns breathing and overall state of health. He states he has not having increased difficulty breathing as fact sitting comfortably without supplemental oxygen. He denies chest pain, denies shortness of breath, denies fever/chills, denies cough. - Constitutional Vitals: Temp Pulse Resp BP Pulse Ox 98.4 F 73 15 132/85 98 06/17/16 06:00 06/17/16 06:00 06/17/16 08:01 06/17/16 06:00 06/17/16 08:01 General appearance: Present: A&O X 3, answers questions appropriately Exam: General: Cooperative, pleasant, no acute distress, alert and oriented 3, answers questions appropriately Head: Normocephalic, atraumatic Eye: Conjunctiva pink, sclera anicteric, EOMI, PERRL Neck: Supple, trachea midline Respiratory: No accessory muscle usage, decreased breath sounds left lower and middle lung alfonso, no wheezes/rhonchi/rales appreciated Cardiovascular: Regular rate and rhythm, S1 and S2 present, no murmurs/rubs/ gallops/clicks appreciated GI/abdominal: Nondistended, nontender, soft, normal bowel sounds, no peritoneal signs Extremities: No calf tenderness, noncyanotic, 1+ pedal edema appreciated, warm, lower extremity pulses palpable and symmetrical Neurological: Alert and oriented 3, no facial droop, no focal deficits Skin: Dry, intact, normal color Internal Medicine: Result - Labs CBC & Chem 7: 06/17/16 05:00 06/17/16 05:00 Labs: Short CBC 06/17/16 Range/Units 05:00 WBC 9.9 (4.3-11.1) K/mcL Hgb 14.1 (12.9-16.9) g/dL Hct 44.1 (37.5-50.1) % Plt Count 176 (140-400) K/mcL Neutrophils # 7.4 (1.6-8.9) K/mcL BMP 06/16/16 06/17/16 16:51 05:00 Sodium 138 141 Potassium 3.7 3.6 Chloride 103 102 Carbon Dioxide 26 31 H BUN 52 H 54 H Creatinine 1.99 H 1.90 H Glucose 175 H 134 H Calcium 8.8 8.9 Liver Function 06/16/16 06/17/16 Range/Units 16:51 05:00 Total Bilirubin 1.1 1.6 H (0.2-1.2) mg/dL AST 18 20 (5-34) Units/L ALT 16 15 (0-55) Units/L Alkaline Phosphatase 71 67 (38-126) Units/L Albumin 2.5 L 2.7 L (3.5-5.0) g/dL - ABG Interpretation ABG results: PT/INR, D-dimer PT 16.0 Seconds (9.4-12.1) H 06/17/16 05:00 - Impressions Impressions Chest CT 06/16/16 17:00 IMPRESSION: 1. Moderate to large left pleural effusion, without definite loculations. It causes extensive compressive atelectasis of the left lung. Layering hyperdensity within the effusion suggests proteinaceous or hemorrhagic contents. 2. Moderate cardiomegaly. 3. Evidence of prior granulomatous disease. D/ / 06/16/2016 18:07:04 Jose Cisse MD / yrn Interpreting Provider: Jose Cisse MD Chest X-Ray 06/16/16 17:08 IMPRESSION: No pneumothorax visible, status post left thoracentesis. D/ / Chris Limon MD / Chris Limon MD Interpreting Provider: Chris Limon MD - VTE Documentation of Mechanical Device: Intermittent pneumatic compression device Consult Discharge Plan - Plan Instructions: Heart Failure (DC), Atrial Fibrillation (DC), Chest Pain (DC), Diabetes Mellitus Type 2 in Adults (DC), Chronic Hypertension (DC) Referrals: Latosha Mitchell MD [Primary Care Provider] - 06/25/16 1:30 pm <Vikram Krishnamurthy P - Last Filed: 06/17/16 16:49> - Assessment and plan (1) Acute exacerbation of CHF (congestive heart failure) Current Visit: Yes Status: Acute Qualifiers: Congestive heart failure type: systolic Qualified Code(s): I50.23 - Acute on chronic systolic (congestive) heart failure (2) Facial droop Current Visit: Yes Status: Acute (3) Atrial fibrillation Current Visit: Yes Status: Chronic Qualifiers: Atrial fibrillation type: chronic Qualified Code(s): I48.2 - Chronic atrial fibrillation (4) CAD (coronary artery disease) Current Visit: Yes Status: Chronic Qualifiers: Coronary Disease-Associated Artery/Lesion type: bypass graft [place] vs. transplanted heart: [place] heart Associated angina: with stable angina Qualified Code(s): I25.708 - Atherosclerosis of coronary artery bypass graft(s) , unspecified, with other forms of angina pectoris (5) Cardiomyopathy, ischemic Current Visit: Yes Status: Chronic (6) DVT prophylaxis Current Visit: No Status: Acute - Constitutional Vitals: Temp Pulse Resp BP Pulse Ox 97.9 F 87 16 107/79 95 06/17/16 16:01 06/17/16 16:01 06/17/16 16:01 06/17/16 16:01 06/17/16 16:01 Internal Medicine: Result - Labs CBC & Chem 7: 06/17/16 05:00 06/17/16 05:00 Labs: Short CBC 06/17/16 Range/Units 05:00 WBC 9.9 (4.3-11.1) K/mcL Hgb 14.1 (12.9-16.9) g/dL Hct 44.1 (37.5-50.1) % Plt Count 176 (140-400) K/mcL Neutrophils # 7.4 (1.6-8.9) K/mcL BMP 06/16/16 06/17/16 16:51 05:00 Sodium 138 141 Potassium 3.7 3.6 Chloride 103 102 Carbon Dioxide 26 31 H BUN 52 H 54 H Creatinine 1.99 H 1.90 H Glucose 175 H 134 H Calcium 8.8 8.9 Liver Function 06/16/16 06/17/16 Range/Units 16:51 05:00 Total Bilirubin 1.1 1.6 H (0.2-1.2) mg/dL AST 18 20 (5-34) Units/L ALT 16 15 (0-55) Units/L Alkaline Phosphatase 71 67 (38-126) Units/L Albumin 2.5 L 2.7 L (3.5-5.0) g/dL - ABG Interpretation ABG results: PT/INR, D-dimer PT 16.0 Seconds (9.4-12.1) H 06/17/16 05:00 - Impressions Impressions Chest CT 06/16/16 17:00 IMPRESSION: 1. Moderate to large left pleural effusion, without definite loculations. It causes extensive compressive atelectasis of the left lung. Layering hyperdensity within the effusion suggests proteinaceous or hemorrhagic contents. 2. Moderate cardiomegaly. 3. Evidence of prior granulomatous disease. D/ / 06/16/2016 18:07:04 Jose Cisse MD / yrn Interpreting Provider: Jose Cisse MD Chest X-Ray 06/16/16 17:08 IMPRESSION: No pneumothorax visible, status post left thoracentesis. D/ / Chris Limon MD / Chris Limon MD Interpreting Provider: Chris Limon MD Thoracentesis Ultrasound 06/17/16 00:00 IMPRESSION: Successful ultrasound guided thoracentesis. D/ / Mirta Enriquez MD / Mirta Enriquez MD Interpreting Provider: Mirta Enriquez MD Chest X-Ray 06/17/16 14:37 IMPRESSION: 1. Persistent though decreased left pleural effusion status post left thoracentesis with no definite left pneumothorax. 2. Persistent though decreased left basilar atelectasis and/or pneumonia. 3. Pulmonary vascular congestion and moderate cardiomegaly. D/ / Valentin Galvin MD / Valentin Galvin MD Interpreting Provider: Valentin Galvin MD - Attending Attestation I examined this patient and my medical decision-making was reviewed with the TERMITE CONTROL SERVICER/PA/Advanced Practice Nurse/Resident Physician. I agree with the documented findings, disposition and treatment plan as described except to the extent set forth below.
[2016-06-17] MEDS: Ranolazine 500 MG TAB.ER.12H PO SCH ×2 (09:15→22:03)
[2016-06-17] MEDS: Insulin DETEMIR 100 UNIT/ML X5UNITS SQ SCH ×2 (09:15→22:02)
[2016-06-17] MEDS: Magnesium Oxide 400 MG TABLET PO SCH ×2 (09:16→22:04)
[2016-06-17] MEDS: Multivit/Ca/Min/Fe/FA 1 TAB TABLET PO SCH (09:16)
[2016-06-17] MEDS: Aspirin Enteric Coated 81 MG Tablet PO SCH (09:16)
[2016-06-17] MEDS: Furosemide 40 MG TABLET PO SCH ×2 (09:16→18:18)
[2016-06-17] MEDS: Isosorbide MONOnitrate (24 HR) 60 MG TAB.ER.24H PO SCH (09:16)
[2016-06-17] MEDS: Artificial Tears SOLN 15 ML BOTTLE RIGHT EYE SCH ×4 (09:17→22:03)
[2016-06-17] MEDS ORDERED: *HR* HYDROcodone/Acet 5/325 mg TABLET PO PRN (14:48)
--- NOTE | 2016-06-17 14:51 | IR Procedure Note ---
Date of procedure: 06/17/16 Consent Obtained: Written consent Timeout: Correct patient and procedure verified, Correct site verified, Time out performed, Skin prep completed Indications: left effusion Procedure Performed: thoracentesis Site/Technique: lt, 8F sheath Results/Findings: 1.5 liters of bloody fluid removed Estimated blood loss (cc): 2 Complications: None; Tolerated procedure well Post Procedure Treatment Plan: CXR
[2016-06-17] MEDS: GLUCOSAMINE PO SCH ×2 (14:58→22:04)
[2016-06-17] MEDS: CHONDROITIN PO SCH ×2 (14:58→22:04)
[2016-06-17] MEDS: FISH OIL/OMEGA-3 PO SCH (14:58)
[2016-06-17] MEDS ORDERED: GuaiFENesin Liq 200 MG/10 ML UDC PO PRN (18:38)
[2016-06-17 18:59] LABS: RBC,Pleural Fluid 0.127 M/mcL
[2016-06-17 20:12] LABS: Appearance of Pleural Fl Bloody (Clear)
[2016-06-17 20:28] LABS: Glucose,Pleural Fluid 155 mg/dL (No Ref Range); LDH,Pleural Fluid 413 Units/L (No Ref Range)
[2016-06-17 20:31] LABS: Total Protein,Pleural Fluid 3.9 g/dL (No Ref Range)
[2016-06-17] MEDS: Niacin (24 HR) 500 MG TAB.ER.24H PO SCH (22:02)
[2016-06-17] MEDS: *HR* Heparin 5,000 UNIT/ML VIAL SQ SCH (22:04)
[2016-06-18 05:36] LABS: INR 1.4; Prothrombin Time 15.6 Seconds (9.4-12.1)
[2016-06-18 07:18] LABS: Basophils # 0.1 K/mcL (0.0-0.2); Basophils % 0.5 %; Eosinophils # 0.6 K/mcL (0.0-0.6); Eosinophils % 5.6 %; Hematocrit 44.5 % (37.5-50.1); Hemoglobin 14.3 g/dL (12.9-16.9); Immature Granulocytes % 0.5 % (0-4); Lymphocytes % 9.4 %; Mean Corpuscular HGB Conc 32.1 g/dL (31.6-35.5); Mean Corpuscular Hemoglobin 27.7 pg (28.0-33.3); Mean Corpuscular Volume 86.1 fL (83.0-100.0); Mean Platelet Volume 8.9 fL (9.4-12.4); Monocytes # 1.1 K/mcL (0.0-1.3); Monocytes % 10.4 %; Neutrophils # 7.5 K/mcL (1.6-8.9); Platelet Count 177 K/mcL (140-400); Red Blood Count 5.17 M/mcL (4.19-5.50); Red Cell Distribution Width 15.9 % (11.5-14.5); Segmented Neutrophils % 73.6 %
[2016-06-18 07:26] LABS: Calcium 8.7 mg/dL (8.6-10.8); Potassium 3.6 mEq/L (3.5-4.5)
[2016-06-18] MEDS: Aspirin Enteric Coated 81 MG Tablet PO SCH (07:48)
[2016-06-18] MEDS: Magnesium Oxide 400 MG TABLET PO SCH ×2 (07:48→20:35)
[2016-06-18] MEDS: Furosemide 40 MG TABLET PO SCH ×2 (07:48→17:06)
[2016-06-18] MEDS: Ranolazine 500 MG TAB.ER.12H PO SCH ×2 (07:48→20:35)
[2016-06-18] MEDS: CHONDROITIN PO SCH ×2 (07:49→20:33)
[2016-06-18] MEDS: Artificial Tears SOLN 15 ML BOTTLE RIGHT EYE SCH ×4 (07:49→20:34)
[2016-06-18] MEDS: Isosorbide MONOnitrate (24 HR) 60 MG TAB.ER.24H PO SCH (07:49)
[2016-06-18] MEDS: *HR* Heparin 5,000 UNIT/ML VIAL SQ SCH ×2 (07:49→20:36)
[2016-06-18] MEDS: GLUCOSAMINE PO SCH ×2 (07:49→20:33)
[2016-06-18] MEDS: Multivit/Ca/Min/Fe/FA 1 TAB TABLET PO SCH (07:49)
[2016-06-18] MEDS: FISH OIL/OMEGA-3 PO SCH (07:50)
[2016-06-18] MEDS: Budesonide/Formoterol 160/4.5 MDI IH SCH ×2 (08:10→20:16)
--- NOTE | 2016-06-18 10:25 | Internal Med Progress Note ---
<Rigoberto Lyle - Last Filed: 06/18/16 10:19> Date of Encounter: 06/18/16 Time of Encounter: 09:10 - Assessment and plan (1) Acute exacerbation of CHF (congestive heart failure) Current Visit: Yes Status: Acute Assessment and plan: Pt. with worsening dyspnea on exertion x 2 -3 weeks Significant hx of CAD s/p CABG and stents, has an AICD Hx of HRrEF, last EF two months ago 15-20% with global hypokineses, repeat echo pending. Troponins negative C Medardo cardiac diet Cardiology has signed off We will continue by mouth Lasix 06/14/2016 Balance : negative 1260 creat 1.93 eating well no orthopnea/PND will continue present treatment. home soon 06/15/2016 Negative balance: 1060 mL Creatinine 1.95, potassium 3.6 Cardiology on the board. No new issues. Scheduled for thoracentesis tomorrow. 06/16/16 Net -3.1 L Fluid balance so far Creatinine 1.98, potassium 3.6 Cardiology following Thoracentesis plan for today Possible home tomorrow 06/17/16 Net -3.8 L fluid balance so far Creatinine 1.90 potassium Cardiology stop IV Lasix and will start oral Lasix 40 mg, they have signed off and will follow as outpatient Thoracentesis attempted yesterday but could not be performed due to loculated nature of patient pleural effusion We will reassess with possible pulmonology consultation for possible need of inpatient evaluation of pleural effusion 06/18/16 Net -4.2 L so far Creatinine 1.86 potassium 3.6 Patient doing well on by mouth Lasix, will continue Thoracentesis resulted grossly bloody fluid exudative and quality basal much criteria Will obtain chest x-ray and a free space has occurred will obtain CT to further evaluate patient's lung Will wait for cytology from thoracentesis Qualifiers: Congestive heart failure type: systolic Qualified Code(s): I50.23 - Acute on chronic systolic (congestive) heart failure (2) Atrial fibrillation Current Visit: No Status: Chronic Assessment and plan: On Coumadin normally, currently subtherapeutic with INR 1.4 We will continue home Coumadin We will start subcutaneous heparin until patient therapeutic on INR Qualifiers: Atrial fibrillation type: chronic Qualified Code(s): I48.2 - Chronic atrial fibrillation (3) Facial droop Current Visit: Yes Status: Resolved Assessment and plan: noted that patient had facial droop on 06/13/[address] head was done along with neuro consult. Unlikely CVA/TIA Repeat head CT performed on 06/14/16 did not show any significant change or infarct Per neurology no stroke occurred (4) CAD (coronary artery disease) Current Visit: No Status: Chronic Qualifiers: Coronary Disease-Associated Artery/Lesion type: bypass graft [place] vs. transplanted heart: [place] heart Associated angina: angina presence unspecified Qualified Code(s): I25.810 - Atherosclerosis of coronary artery bypass graft(s) without angina pectoris (5) Cardiomyopathy, ischemic Current Visit: Yes Status: Chronic Assessment and plan: EF 15-20%. Continue BB. No SWETHA-I due to renal function. AICD in place, cardiology will follow as outpatient (6) DVT prophylaxis Current Visit: No Status: Acute Assessment and plan: On Coumadin for atrial fibrillation, subtherapeutic INR. Coumadin being held for thoracentesis later this afternoon. We will add subcutaneous heparin 5000 units twice a day after patient procedure today when cleared by pulmonology Continue Coumadin until therapeutic - Subjective Interval history: Patient is doing well this morning, reports he is breathing better than he has been after the procedure yesterday. He states he initially had a significant cough causing him discomfort after the procedure, but as of last site improved and he has limited a cough today. He denies other chest pain, shortness of breath, fever/chills, abdominal pain, nausea or vomiting. - Constitutional Vitals: Temp Pulse Resp BP Pulse Ox 97.6 F 77 16 132/86 98 06/18/16 07:20 06/18/16 07:20 06/18/16 08:11 06/18/16 07:20 06/18/16 08:11 General appearance: Present: A&O X 3, answers questions appropriately Exam: General: Cooperative, pleasant, no acute distress, alert and oriented 3, answers questions appropriately Head: Normocephalic, atraumatic Eye: Conjunctiva pink, sclera anicteric, EOMI, PERRL Neck: Supple, trachea midline Respiratory: No accessory muscle usage, increased air movement in left lung today, rales auscultated left lung Cardiovascular: Regular rhythm, S1 and S2 present, no murmurs/rubs/gallops/ clicks appreciated GI/abdominal: Nondistended, nontender, soft, normal bowel sounds, no peritoneal signs Extremities: No calf tenderness, noncyanotic, no pedal edema appreciated, warm, lower extremity pulses palpable and symmetrical Neurological: Alert and oriented 3, no facial droop, no focal deficits Skin: Dry, intact, normal color Internal Medicine: Result - Labs CBC & Chem 7: 06/18/16 05:10 06/18/16 05:10 Labs: Short CBC 06/18/16 Range/Units 05:10 WBC 10.2 (4.3-11.1) K/mcL Hgb 14.3 (12.9-16.9) g/dL Hct 44.5 (37.5-50.1) % Plt Count 177 (140-400) K/mcL Neutrophils # 7.5 (1.6-8.9) K/mcL BMP 06/18/16 05:10 Sodium 140 Potassium 3.6 Chloride 104 Carbon Dioxide 26 BUN 50 H Creatinine 1.86 H Glucose 101 H Calcium 8.7 - ABG Interpretation ABG results: PT/INR, D-dimer PT 15.6 Seconds (9.4-12.1) H 06/18/16 05:10 - Impressions Impressions Thoracentesis Ultrasound 06/17/16 00:00 IMPRESSION: Successful ultrasound guided thoracentesis. D/ / Mirta Enriquez MD / Mirta Enriquez MD Interpreting Provider: Mirta Enriquez MD Chest X-Ray 06/17/16 14:37 IMPRESSION: 1. Persistent though decreased left pleural effusion status post left thoracentesis with no definite left pneumothorax. 2. Persistent though decreased left basilar atelectasis and/or pneumonia. 3. Pulmonary vascular congestion and moderate cardiomegaly. D/ / Valentin Galvin MD / Valentin Galvin MD Interpreting Provider: Valentin Galvin MD - VTE Documentation of Mechanical Device: Intermittent pneumatic compression device Consult Discharge Plan - Plan Instructions: Heart Failure (DC), Atrial Fibrillation (DC), Chest Pain (DC), Diabetes Mellitus Type 2 in Adults (DC), Chronic Hypertension (DC) Referrals: Latosha Mitchell MD [Primary Care Provider] - 06/25/16 1:30 pm <Vikram Krishnamurthy P - Last Filed: 06/18/16 18:02> - Assessment and plan (1) Acute exacerbation of CHF (congestive heart failure) Current Visit: Yes Status: Acute Qualifiers: Congestive heart failure type: systolic Qualified Code(s): I50.23 - Acute on chronic systolic (congestive) heart failure (2) Facial droop Current Visit: Yes Status: Resolved (3) Atrial fibrillation Current Visit: Yes Status: Chronic Qualifiers: Atrial fibrillation type: chronic Qualified Code(s): I48.2 - Chronic atrial fibrillation (4) CAD (coronary artery disease) Current Visit: Yes Status: Chronic Qualifiers: Coronary Disease-Associated Artery/Lesion type: bypass graft [place] vs. transplanted heart: [place] heart Associated angina: with stable angina Qualified Code(s): I25.708 - Atherosclerosis of coronary artery bypass graft(s) , unspecified, with other forms of angina pectoris (5) Cardiomyopathy, ischemic Current Visit: Yes Status: Chronic (6) DVT prophylaxis Current Visit: No Status: Acute - Constitutional Vitals: Temp Pulse Resp BP Pulse Ox 98.1 F 75 16 125/95 100 06/18/16 15:51 06/18/16 15:51 06/18/16 15:51 06/18/16 15:51 06/18/16 15:51 Internal Medicine: Result - Labs CBC & Chem 7: 06/18/16 05:10 06/18/16 05:10 Labs: Short CBC 06/18/16 Range/Units 05:10 WBC 10.2 (4.3-11.1) K/mcL Hgb 14.3 (12.9-16.9) g/dL Hct 44.5 (37.5-50.1) % Plt Count 177 (140-400) K/mcL Neutrophils # 7.5 (1.6-8.9) K/mcL BMP 06/18/16 05:10 Sodium 140 Potassium 3.6 Chloride 104 Carbon Dioxide 26 BUN 50 H Creatinine 1.86 H Glucose 101 H Calcium 8.7 - ABG Interpretation ABG results: PT/INR, D-dimer PT 15.6 Seconds (9.4-12.1) H 06/18/16 05:10 - Impressions Impressions Chest X-Ray 06/18/16 10:25 IMPRESSION: Tiny 2-3 mm superior medial left apical pneumothorax, following thoracentesis 1 day earlier. Moderate left lower lobe airspace disease however there is improved aeration, following removal of the large amount of the pleural effusion. The findings were sent to the Radiology Results Communication Center at 3:43 pm on 06/18/2016to be communicated to a licensed caregiver. D/ / Clifford Sanderson MD / Clifford Sanderson MD Interpreting Provider: Clifford Sanderson MD - Attending Attestation I examined this patient and my medical decision-making was reviewed with the PRODUCT LINE MANAGER/PA/Advanced Practice Nurse/Resident Physician. I agree with the documented findings, disposition and treatment plan as described except to the extent set forth below. CT chest tomorrow. Pulmonary consult tomorrow.
[2016-06-18] MEDS: Insulin DETEMIR 100 UNIT/ML X5UNITS SQ SCH ×2 (13:01→22:14)
--- NOTE | 2016-06-18 13:28 | Electrocardiograph Report ---
[facility] Test Date: 2016-06-18 Pat Name: NAOMI GLASS Department: 111 Room: 2NE30 Gender: M [employer]: [facility] : 1945 Requested By: Vikram Krishnamurthy Order Number: [id number] Reading MD: Jeanette Soto Measurements Intervals [place] Rate: 76 P: CO: 0 QRS: 22 QRSD: 108 T: 82 QT: 420 QTc: 451 Interpretive Statements ATRIAL FIBRILLATION WITH ABERRANT CONDUCTION OR VENTRICULAR PREMATURE COMPLEXES POSSIBLE ANTERIOR MYOCARDIAL INFARCTION, PROBABLY OLD ABNORMAL RHYTHM ECG Electronically Signed On 06-18-16 13:27:00 EST by Jeanette Soto
[2016-06-18] MEDS: Niacin (24 HR) 500 MG TAB.ER.24H PO SCH (20:35)
[2016-06-19 05:15] LABS: Basophils % 0.4 %; Eosinophils # 0.5 K/mcL (0.0-0.6); Eosinophils % 4.7 %; Hematocrit 44.1 % (37.5-50.1); Hemoglobin 14.2 g/dL (12.9-16.9); Immature Granulocytes % 0.5 % (0-4); Lymphocytes % 9.7 %; Mean Corpuscular HGB Conc 32.2 g/dL (31.6-35.5); Mean Corpuscular Hemoglobin 27.9 pg (28.0-33.3); Mean Corpuscular Volume 86.6 fL (83.0-100.0); Mean Platelet Volume 8.7 fL (9.4-12.4); Monocytes # 1.1 K/mcL (0.0-1.3); Monocytes % 11.2 %; Neutrophils # 7.3 K/mcL (1.6-8.9); Platelet Count 160 K/mcL (140-400); Red Blood Count 5.09 M/mcL (4.19-5.50); Red Cell Distribution Width 15.8 % (11.5-14.5); Segmented Neutrophils % 73.5 %
[2016-06-19 05:17] LABS: INR 1.4; Prothrombin Time 14.7 Seconds (9.4-12.1)
[2016-06-19 05:31] LABS: Calcium 8.7 mg/dL (8.6-10.8); Potassium 3.8 mEq/L (3.5-4.5)
[2016-06-19] MEDS: Furosemide 40 MG TABLET PO SCH ×2 (08:07→17:08)
[2016-06-19] MEDS: Aspirin Enteric Coated 81 MG Tablet PO SCH (08:07)
[2016-06-19] MEDS: Isosorbide MONOnitrate (24 HR) 60 MG TAB.ER.24H PO SCH (08:08)
[2016-06-19] MEDS: Magnesium Oxide 400 MG TABLET PO SCH ×2 (08:09→20:04)
[2016-06-19] MEDS: Ranolazine 500 MG TAB.ER.12H PO SCH ×2 (08:09→20:04)
[2016-06-19] MEDS: *HR* Heparin 5,000 UNIT/ML VIAL SQ SCH ×2 (08:09→20:05)
[2016-06-19] MEDS: Multivit/Ca/Min/Fe/FA 1 TAB TABLET PO SCH (08:09)
[2016-06-19] MEDS: Insulin DETEMIR 100 UNIT/ML X5UNITS SQ SCH ×2 (08:10→20:05)
[2016-06-19] MEDS: Artificial Tears SOLN 15 ML BOTTLE RIGHT EYE SCH ×4 (08:10→20:05)
[2016-06-19] MEDS: GLUCOSAMINE PO SCH ×2 (08:11→20:07)
[2016-06-19] MEDS: FISH OIL/OMEGA-3 PO SCH (08:11)
[2016-06-19] MEDS: CHONDROITIN PO SCH ×2 (08:11→20:07)
--- NOTE | 2016-06-19 11:24 | Internal Med Progress Note ---
<Rigoberto Lyle - Last Filed: 06/19/16 15:39> Date of Encounter: 06/19/16 Time of Encounter: 08:30 - Assessment and plan (1) Pleural effusion Current Visit: Yes Status: Acute Assessment and plan: Left sided pleural effusion. Underwent thoracentesis on 06/17/16, analysis of pleural fluid was grossly bloody and exudative in quality by light criteria. Patient reports breathing better after thoracentesis We will obtain CT of chest Await pathology report on pleural fluid We will consult pulmonology and appreciate recommendations for continued management/care (2) Acute exacerbation of CHF (congestive heart failure) Current Visit: Yes Status: Chronic Assessment and plan: Pt. with worsening dyspnea on exertion x 2 -3 weeks Significant hx of CAD s/p CABG and stents, has an AICD Hx of HRrEF, last EF two months ago 15-20% with global hypokineses, repeat echo pending. Troponins negative Increased amount of PVCs seen on telemetry and EKG, patient asymptomatic We will reconsult cardiology in regards to concern for recent increase in PVCs Net -5.5 L so far Continue by mouth Lasix Creatinine mildly improving at 1.78 potassium 3.8 Patient doing well on by mouth Lasix, will continue Thoracentesis resulted grossly bloody fluid, exudativein quality by light's criteria Will obtain CT chest today Will wait for cytology from thoracentesis Qualifiers: Congestive heart failure type: systolic Qualified Code(s): I50.23 - Acute on chronic systolic (congestive) heart failure (3) Atrial fibrillation Current Visit: No Status: Chronic Assessment and plan: On Coumadin normally, currently subtherapeutic with INR 1.4 We will continue home Coumadin We will start subcutaneous heparin until patient therapeutic on INR Qualifiers: Atrial fibrillation type: chronic Qualified Code(s): I48.2 - Chronic atrial fibrillation (4) Facial droop Current Visit: Yes Status: Resolved Assessment and plan: noted that patient had facial droop on 06/13/[address] head was done along with neuro consult. Unlikely CVA/TIA Repeat head CT performed on 06/14/16 did not show any significant change or infarct Per neurology no stroke occurred (5) CAD (coronary artery disease) Current Visit: No Status: Chronic Qualifiers: Coronary Disease-Associated Artery/Lesion type: bypass graft [place] vs. transplanted heart: [place] heart Associated angina: angina presence unspecified Qualified Code(s): I25.810 - Atherosclerosis of coronary artery bypass graft(s) without angina pectoris (6) Cardiomyopathy, ischemic Current Visit: Yes Status: Chronic Assessment and plan: EF 15-20%. Continue BB. No SWETHA-I due to renal function. AICD in place, cardiology will follow as outpatient (7) DVT prophylaxis Current Visit: No Status: Acute Assessment and plan: On Coumadin for atrial fibrillation, subtherapeutic INR. Coumadin being held for thoracentesis later this afternoon. We will add subcutaneous heparin 5000 units twice a day after patient procedure today when cleared by pulmonology Continue Coumadin until therapeutic - Subjective Interval history: Patient reports continuing to do well. He has no complaints of shortness of breath or chest pain today. Though he does state he has continued coughing even reports having coughed up some blood earlier today. He denies fever/ chills he denies abdominal pain, he denies nausea or vomiting. - Constitutional Vitals: Temp Pulse Resp BP Pulse Ox 97.9 F 92 16 116/74 93 L 06/19/16 07:00 06/19/16 07:00 06/19/16 07:00 06/19/16 07:00 06/19/16 07:00 General appearance: Present: A&O X 3, answers questions appropriately Exam: General: Cooperative, pleasant, no acute distress, alert and oriented 3, answers questions appropriately Head: Normocephalic, atraumatic Eye: Conjunctiva pink, sclera anicteric, EOMI, PERRL Neck: Supple, trachea midline Respiratory: No accessory muscle usage, slightly decreased breath sounds over left lung, Rales auscultated left lung Cardiovascular: Regular rate, irregular rhythm, S1 and S2 present, no murmurs/ rubs/gallops/clicks appreciated GI/abdominal: Nondistended, nontender, soft, normal bowel sounds, no peritoneal signs Extremities: No calf tenderness, noncyanotic, trace pedal edema appreciated, warm, lower extremity pulses palpable and symmetrical Neurological: Alert and oriented 3, no facial droop, no focal deficits Skin: Dry, intact, normal color Internal Medicine: Result - Labs CBC & Chem 7: 06/19/16 04:58 06/19/16 04:58 Labs: Short CBC 06/19/16 Range/Units 04:58 WBC 9.9 (4.3-11.1) K/mcL Hgb 14.2 (12.9-16.9) g/dL Hct 44.1 (37.5-50.1) % Plt Count 160 (140-400) K/mcL Neutrophils # 7.3 (1.6-8.9) K/mcL BMP 06/19/16 04:58 Sodium 143 Potassium 3.8 Chloride 105 Carbon Dioxide 29 BUN 46 H Creatinine 1.78 H Glucose 115 H Calcium 8.7 - ABG Interpretation ABG results: PT/INR, D-dimer PT 14.7 Seconds (9.4-12.1) H 06/19/16 04:58 - Impressions Impressions Chest X-Ray 06/18/16 10:25 IMPRESSION: Tiny 2-3 mm superior medial left apical pneumothorax, following thoracentesis 1 day earlier. Moderate left lower lobe airspace disease however there is improved aeration, following removal of the large amount of the pleural effusion. The findings were sent to the Radiology Results Communication [facility] at 3:43 pm on 06/18/2016to be communicated to a licensed caregiver. D/ / Clifford Sanderson MD / Clifford Sanderson MD Interpreting Provider: Clifford Sanderson MD - VTE Documentation of Mechanical Device: Intermittent pneumatic compression device Consult Discharge Plan - Plan Instructions: Heart Failure (DC), Atrial Fibrillation (DC), Chest Pain (DC), Diabetes Mellitus Type 2 in Adults (DC), Chronic Hypertension (DC) Referrals: Latosha Mitchell MD [Primary Care Provider] - 06/25/16 1:30 pm <Vikram Krishnamurthy P - Last Filed: 06/19/16 18:42> - Assessment and plan (1) Acute exacerbation of CHF (congestive heart failure) Current Visit: Yes Status: Chronic Qualifiers: Congestive heart failure type: systolic Qualified Code(s): I50.23 - Acute on chronic systolic (congestive) heart failure (2) Facial droop Current Visit: Yes Status: Resolved (3) Atrial fibrillation Current Visit: Yes Status: Chronic Qualifiers: Atrial fibrillation type: chronic Qualified Code(s): I48.2 - Chronic atrial fibrillation (4) CAD (coronary artery disease) Current Visit: Yes Status: Chronic Qualifiers: Coronary Disease-Associated Artery/Lesion type: bypass graft [place] vs. transplanted heart: [place] heart Associated angina: with stable angina Qualified Code(s): I25.708 - Atherosclerosis of coronary artery bypass graft(s) , unspecified, with other forms of angina pectoris (5) Cardiomyopathy, ischemic Current Visit: Yes Status: Chronic (6) DVT prophylaxis Current Visit: No Status: Acute - Constitutional Vitals: Temp Pulse Resp BP Pulse Ox 98.1 F 64 16 124/72 97 06/19/16 15:00 06/19/16 15:00 06/19/16 15:00 06/19/16 15:00 06/19/16 15:00 Internal Medicine: Result - Labs CBC & Chem 7: 06/19/16 04:58 06/19/16 04:58 Labs: Short CBC 06/19/16 Range/Units 04:58 WBC 9.9 (4.3-11.1) K/mcL Hgb 14.2 (12.9-16.9) g/dL Hct 44.1 (37.5-50.1) % Plt Count 160 (140-400) K/mcL Neutrophils # 7.3 (1.6-8.9) K/mcL BMP 06/19/16 04:58 Sodium 143 Potassium 3.8 Chloride 105 Carbon Dioxide 29 BUN 46 H Creatinine 1.78 H Glucose 115 H Calcium 8.7 - ABG Interpretation ABG results: PT/INR, D-dimer PT 14.7 Seconds (9.4-12.1) H 06/19/16 04:58 - Impressions Impressions Chest CT 06/19/16 13:30 IMPRESSION: 1. Status post left thoracentesis. Small hydropneumothorax persists. Of note, high density is seen in the residual pleural effusion, likely representing blood products. 2. Lingular and left base compressive atelectasis. 3. Severe atherosclerosis. 4. Cardiomegaly. D/ / 06/19/2016 14:46:24 Debra Thakur MD / agatha Interpreting Provider: Debra Thakur MD - Attending Attestation I examined this patient and my medical decision-making was reviewed with the METAL BENDING MACHINE OPERATOR/PA/Advanced Practice Nurse/Resident Physician. I agree with the documented findings, disposition and treatment plan as described except to the extent set forth below.
[2016-06-19] MEDS: Budesonide/Formoterol 160/4.5 MDI IH SCH ×2 (11:25→19:52)
[2016-06-19] MEDS: Acetaminophen 325 MG TABLET PO PRN (11:34)
--- NOTE | 2016-06-19 15:13 | Cardiology Progress Note ---
Date of Encounter: 06/19/16 Time of Encounter: 15:10 Assessment and Plan (1) PVCs (premature ventricular contractions) Current Visit: Yes Status: Chronic Reconsulted for frequent PVCs on tele. Pt asymptomatic--denies chest pain, dizziness or lightheadedness. Known EF 15-20%. Referred to [facility] advanced heart failure clinic. On high dose BB Coreg 37.5mg BID. ICD in place for primary prevention. Per pt, he has always been told that he has frequent PVCs. No changes to meds and no further cardiac work-up necessary at this time. Continue high dose BB. Cardiology signing off. Follow-up with Dr. Rodriguez as outpt and with [facility] heart failure clinic as planned. (2) Acute exacerbation of CHF (congestive heart failure) Current Visit: Yes Status: Acute Per Cardiology: Presented with acute systolic heart failure exacerbation. EF is known to be 15- 20% on echo 04/2016 which was also previously seen in April 2015. LHC at that time showed occluded SVG-- Ramus graft. Despite medical management, EF has remained low. He is s/p dual chamber ICD. He is continues to feel better and is net negative -5160mL. Symptoms now near baseline. On aspirin, statin, BB, Imdur and ranexa. He is presumably not on ACEI/ARB due to fluctuating renal dysfunction. Qualifiers: Qualified Code(s): I50.23 - Acute on chronic systolic (congestive) heart failure (3) Pleural effusion Current Visit: Yes Status: Acute Left-sided large pleural effusion on CXR on presentation s/p thoracentesis --1.5L of bloody fluid removed. (4) Atrial fibrillation Current Visit: Yes Status: Chronic Per Cardiology: Patient is rate controlled on BB. H&H stable. Would recommend resuming Coumadin when able. Qualifiers: Qualified Code(s): I48.2 - Chronic atrial fibrillation (5) CAD (coronary artery disease) Current Visit: Yes Status: Chronic Known CAD--s/p 2 vessel CABG 07/2014 with occluded SVG-Ramus on LHC 04/2015. Pt denies chest pain. Continue ASA, Statin, BB, Nitrates. Qualifiers: Qualified Code(s): I25.708 - Atherosclerosis of coronary artery bypass graft( s), unspecified, with other forms of angina pectoris (6) Cardiomyopathy, ischemic Current Visit: Yes Status: Chronic EF 15-20%. Continue BB. No SWETHA-I due to renal function. ICD in place. (7) CKD (chronic kidney disease) stage 3, GFR 30-59 ml/min Current Visit: Yes Status: Chronic Near baseline. (8) ICD (implantable cardioverter-defibrillator) in place Current Visit: Yes Status: Chronic Dual chamber ICD. Follows with device clinic. Discussion w patient/family: The assessment and plan as outlined above was discussed with the patient and/or family members who expressed understanding and agreement. All questions were answered. Thank you for involving us in the care of your patient. Please call with any questions. I will discuss all the above with Dr. Herzog and make changes as necessary. Subjective Principal diagnosis: CHF Interval history: Cardiology has been reconsulted for frequent PVCs. Pt is asymptomatic. Reports he is feeling much better than he did on presentation. He had a thoracentesis 03/24 and 1.5 L of bloody fluid was removed. Cumulative I/O -5160mL. Denies chest pain or palpitations, dizziness or lightheadedness. Dyspnea and lower extremity edema at baseline. Objective Vital Signs, Last 4 Hours Resp Pulse Ox 06/19/16 11:25 16 95 Vital Signs Temp Pulse Resp BP Pulse Ox 06/19/16 11:25 16 95 06/19/16 07:00 97.9 F 92 16 116/74 93 L 06/19/16 03:00 97.9 F 79 20 120/88 18 L 06/18/16 20:16 16 97 06/18/16 15:51 98.1 F 75 16 125/95 100 Intake and Output 06/18/16 06/19/16 06/19/16 23:59 07:59 15:59 Intake Total 120 / 120 360 / 360 Output Total 1100 / 1100 300 / 300 Balance -980 / -980 -300 / -300 360 / 360 Intake: Oral 120 / 120 360 / 360 Output: Catheter 1100 / 1100 300 / 300 Other: Meal Dinner Lunch Percent of Meal Consumed 95% 100% Weight 100.1 kg Blood Glucose* 251 95 174 Patient Weight 06/19/16 23:59 Weight 100.1 kg General: Conversant, No Apparent Distress HEENT: Atraumatic, Normocephaly, Mucus Membranes Moist Neck: No JVD, Normal carotid pulses Cardiac: Other (irregularly irregular) Lungs: Other (diminished) Neuro: Alert and responsive, No focal deficits noted Abdomen: Soft, Non-Tender Skin: No rashes noted on visualized skin Musculoskeletal: No Chest Wall Tenderness Extremities: Other (mild LE edema) Results 06/19/16 04:58 06/19/16 04:58 Lab Results 06/19/16 06/19/16 06/19/16 04:58 04:58 04:58 WBC 9.9 Hgb 14.2 Hct 44.1 Plt Count 160 INR 1.4 Sodium 143 Potassium 3.8 Chloride 105 Carbon Dioxide 29 BUN 46 H Creatinine 1.78 H Glucose 115 H Calcium 8.7 - Imaging and Cardiology Chest Xray: report reviewed Echo: report reviewed - EKG Interpretation EKG results cardiology: other (12 hour tele AVG 80, A-Fib, frequent PVCs.) - VTE Documentation of Mechanical Device: Intermittent pneumatic compression device Consult Discharge Plan - Plan Instructions: Heart Failure (DC), Atrial Fibrillation (DC), Chest Pain (DC), Diabetes Mellitus Type 2 in Adults (DC), Chronic Hypertension (DC) Referrals: Latosha Mitchell MD [Primary Care Provider] - 06/25/16 1:30 pm
--- NOTE | 2016-06-19 15:52 | Pulmonology Consult Note ---
Date of Encounter: 06/19/16 Time of Encounter: 15:52 Assessment and Plan (1) Pleural effusion Current Visit: Yes Status: Acute Exudative Lymphocytic predominant sanguinous exudate effusion in the context of a long-standing pleural effusion which I feel is possibly related to patient's history of CABG and is on the spectrum of lung entrapment/trapped lung less likely trauma related to procedure caused bloody effusion. OBviously malignancy remains in differentail to to my interpretation (pending final radiology read) no obvious mass in LLL s/p drainage. Status post drainage there is evidence of a small pneumothorax ex vacuo which I would treat conservatively. We will follow-up cytology which is pending interpretation If cytology negative could consider repeat thoracentesis down the road. (2) Hemoptysis Current Visit: Yes Status: Acute monitor for further episodes if so keep NPO could consider bronch (3) Acute exacerbation of CHF (congestive heart failure) Current Visit: Yes Status: Chronic defer to primary team/cardiology for ongoing mngt Qualifiers: Congestive heart failure type: systolic Qualified Code(s): I50.23 - Acute on chronic systolic (congestive) heart failure (4) Atrial fibrillation Current Visit: Yes Status: Chronic rate controlled considering restarting LTA would hold full anticoagulation pending results of cytology (or bridge with heparin) for possible repeat procedure Qualifiers: Atrial fibrillation type: chronic Qualified Code(s): I48.2 - Chronic atrial fibrillation (5) TR on CPAP Current Visit: Yes Status: Chronic continual CPAP nightly (long standing diagnosis of TR) (6) Hx of CABG Current Visit: No Status: Chronic History of Present Illness Consult date: 06/19/16 Requesting physician: Vikram Krishnamurthy Reason for consult: pleural effusion Chief complaint: Shortness of breath History of present illness: This is a 71-year-old gentleman who was admitted with acutely decompensated chronic systolic heart failure noted to have a large left pleural effusion status post IR guided drainage yesterday. Pleural effusion was notable for exudative lymphocytic predominant and was empirically bloody per report. Pulmonology was consulted to further evaluate this pleural effusion. Patient has a history of colon cancer greater than 15 years in remission status post resection by Dr. padron at this hospital he has a permanent colostomy for which he cares for. He is a lifelong nonsmoker no significant industrial/ environmental exposures no other history of malignancy outside of colorectal cancer or significant family history of lung cancer. He denies weight loss fevers chills fatigue or night sweats. Additionally earlier this morning the patient noticed that he had a coughing paroxysm and which he may have coughed up some blood. This is not happening subsequently and this may have been related to having eaten salsa at the same time and he was unclear if he coughed up salsa or blood. Past Med Surg Social Fam HX - Past Medical History Medical history: arthritis, atrial fibrillation, cancer (colon cancer, in remission), CHF (ischemic cardiomyopathy), COPD, coronary artery disease, diabetes, GERD, hyperlipidemia, hypertension, myocardial infarction, renal disease, thyroid disease, TIA, other (TR) Psychiatric history: no psych history - Past Surgical History Surgical History: angioplasty/stent, appendectomy, cholecystectomy, colectomy ( partial), colostomy, coronary bypass (CABG), pacemaker/AICD, AICD - Social History Smoking Status: Never smoker Smokeless Tobacco Status: No Alcohol use: none Drug use: none - Family History Father Family Member Ethnicity: Non- Living Status: Hx Family Cardiac Disorders: Yes Mother Adopted: No Family Member Ethnicity: Non- Living Status: Hx Family Cardiac Disorders: Yes Hx Family Respiratory Disorders: Yes Hx Family Cancer: No Hx Family GI Disorders: Yes Hx Family Endocrine Disorder: Yes Medications and Allergies Aspirin Enteric Coated [Aspirin EC] 81 mg PO QAM 04/19/15 [History] Atorvastatin [Lipitor] 40 mg PO HS 04/19/15 [History] Budesonide/Formoterol 160/4.5 [Symbicort] 2 puff IH BIDR 04/19/15 [History] Fluticasone Propionate [Flovent Hfa] 1 puff IH DAILY PRN 04/19/15 [History] HYDROcodone/Acet 5/325 mg [[place] 5-325 mg] 1 tab PO DAILY PRN 04/19/15 [History] Insulin ASPART [NovoLOG] 10 - 18 unit SQ TIDWM 04/19/15 [History] Levothyroxine [Synthroid] 25 mcg PO QAM 04/19/15 [History] Magnesium Oxide [Magnesium] 400 mg PO BID 04/19/15 [History] Montelukast [Singulair] 10 mg PO QPM 04/19/15 [History] Multivit-Min/FA/Lycopen/Lutein [Centrum Silver Tablet] 1 tab PO QAM 04/19/15 [ History] Niacin [Niaspan] 500 mg PO HS 04/19/15 [History] Nitroglycerin [Nitrostat] 0.4 mg SL AD PRN 04/19/15 [History] Omeprazole [PriLOSEC] 40 mg PO QPM 04/19/15 [History] Ondansetron [Zofran] 8 mg PO Q8HR PRN 04/19/15 [History] Ranitidine HCl [Zantac] 150 mg PO BID 04/19/15 [History] [place] Oil/[place]-3 Fatty Acids [Fish Oil 500 mg Softgel] 1,000 mg PO QAM [History] Warfarin [Coumadin] 7.5 mg PO MOWEFR 04/19/15 [History] Zolpidem [Ambien] 10 mg PO HS 04/19/15 [History] Isosorbide MONOnitrate (24 HR) [Imdur] 120 mg PO QAM #60 tab.er.24h 04/25/15 [Rx ] Furosemide [Lasix] 20 mg PO QPM 07/11/15 [History] Insulin Glargine [Lantus] 25 unit SQ BID 07/11/15 [History] Ranolazine [Ranexa] 500 mg PO BID 07/11/15 [History] Warfarin [Coumadin] 5 mg PO SUTUTHSA 07/11/15 [History] Gluc/Miguel Angel-MSM#1/C/Epifanio/Manfred/Bor [Osteo Bi-Flex Caplet] 1 tab PO BID 09/10/15 [ History] Carvedilol [Coreg] 37.5 mg PO BID 06/12/16 [History] Furosemide [Lasix] 40 mg PO QAM 06/12/16 [History] Sucralfate [Carafate] 1 gm PO BID 06/12/16 [History] Allergies codeine Allergy (Verified 04/19/15 10:03) Difficulty Breathing promethazine [From Phenergan] Allergy (Verified 04/19/15 10:03) Dizziness ibuprofen Adverse Reaction (Verified 04/19/15 12:02) Nausea All Systems: A 10-system review of systems was performed and is negative for pertinent findings except as documented above in the HPI. Physical Examination General appearance: no acute distress Eyes: nonicteric ENT: oropharynx moist Neck: supple Effort: normal Auscultation: left: diminished breath sounds, right: rales Cardiovascular: regular rate and rhythm Gastrointestinal: normoactive bowel sounds, other (colostomy is full of gas and stool ) Extremities: no cyanosis, no clubbing, edema Musculoskeletal: no deformities normal mental status, non-focal exam mood appropriate Results - Laboratory Findings CBC and BMP: 06/19/16 04:58 06/19/16 04:58 PT/INR, D-dimer PT 14.7 Seconds (9.4-12.1) H 06/19/16 04:58 Abnormal lab findings: Abnormal lab results MCH 27.9 pg (28.0-33.3) L 06/19/16 04:58 RDW 15.8 % (11.5-14.5) H 06/19/16 04:58 MPV 8.7 fL (9.4-12.4) L 06/19/16 04:58 PT 14.7 Seconds (9.4-12.1) H 06/19/16 04:58 APTT 45.8 Seconds (26.0-36.0) H 06/12/16 14:54 BUN 46 mg/dL (8-26) H 06/19/16 04:58 Creatinine 1.78 mg/dL (0.72-1.25) H 06/19/16 04:58 Est GFR ( Amer) 46 (> 60) L 06/19/16 04:58 Est GFR (Non-Af Amer) 38 (> 60) L 06/19/16 04:58 Glucose 115 mg/dL (70-99) H 06/19/16 04:58 POC Glucose 241 (58-89) H 06/18/16 16:50 Calculated Osmolality 309 (280-300) H 06/19/16 04:58 Total Bilirubin 1.6 mg/dL (0.2-1.2) H 06/17/16 05:00 C-Reactive Protein 17 mg/L (Less than 5) H 06/12/16 14:54 B-Natriuretic Peptide 886 pg/mL (0-100) H 06/12/16 14:54 Albumin 2.7 g/dL (3.5-5.0) L 06/17/16 05:00 Albumin/Globulin Ratio 0.8 (1.1-2.2) L 06/17/16 05:00 Pleural Appearance Bloody (Clear) A 06/13/16 12:10 Pleural RBC 0.127 M/mcL (0.000-0.002) H 06/13/16 12:10 - Microbiology Findings Microbiology Findings: Microbiology, Last 48 Hours 06/13/16 12:10 Body Fluid Culture - Preliminary Pleural Fluid - Clinical Findings Intake & Output: Intake & Output 06/18/16 06/19/16 06/19/16 23:59 07:59 15:59 Intake Total 120 / 120 360 / 360 Output Total 1100 / 1100 300 / 300 Balance -980 / -980 -300 / -300 360 / 360 Weight 100.1 kg Consult Discharge Plan - Plan Instructions: Heart Failure (DC), Atrial Fibrillation (DC), Chest Pain (DC), Diabetes Mellitus Type 2 in Adults (DC), Chronic Hypertension (DC) Referrals: Latosha Mitchell MD [Primary Care Provider] - 06/25/16 1:30 pm
--- NOTE | 2016-06-19 16:13 | Electrocardiograph Report ---
[facility] Test Date: 2016-06-19 Pat Name: NAOMI GLASS Department: 111 Room: 2NE30 Gender: M Personal Secretary: JAH : [id number] Requested By: Vikram Krishnamurthy Order Number: [id number] Reading MD: Albin Herzog MD Measurements Intervals [place] Rate: 80 P: [place]: 0 QRS: 77 QRSD: 157 T: -78 QT: 465 QTc: 500 Interpretive Statements ATRIAL FIBRILLATION WITH ABERRANT CONDUCTION OR PVCS DEMAND VENTRICULAR PACING Electronically Signed On 06-19-16 16:12:32 EST by Albin Herzog MD
[2016-06-19] MEDS: Niacin (24 HR) 500 MG TAB.ER.24H PO SCH (20:04)
[2016-06-20 05:12] LABS: Basophils # 0.1 K/mcL (0.0-0.2); Basophils % 0.6 %; Eosinophils # 0.4 K/mcL (0.0-0.6); Hematocrit 41.7 % (37.5-50.1); Hemoglobin 13.5 g/dL (12.9-16.9); INR 1.3; Immature Granulocytes % 0.4 % (0-4); Lymphocytes # 0.8 K/mcL (0.6-4.6); Lymphocytes % 8.3 %; Mean Corpuscular HGB Conc 32.4 g/dL (31.6-35.5); Mean Corpuscular Volume 86.5 fL (83.0-100.0); Mean Platelet Volume 8.8 fL (9.4-12.4); Monocytes # 1.1 K/mcL (0.0-1.3); Monocytes % 11.3 %; Neutrophils # 7.3 K/mcL (1.6-8.9); Platelet Count 169 K/mcL (140-400); Prothrombin Time 14.2 Seconds (9.4-12.1); Red Blood Count 4.82 M/mcL (4.19-5.50); Red Cell Distribution Width 15.8 % (11.5-14.5); Segmented Neutrophils % 75.4 %
[2016-06-20 05:59] LABS: Calcium 8.8 mg/dL (8.6-10.8); Potassium 4.1 mEq/L (3.5-4.5)
--- NOTE | 2016-06-20 07:29 | Pulmonology Progress Note ---
Date of Encounter: 06/20/16 Time of Encounter: 07:26 Assessment and Plan (1) Pleural effusion Current Visit: Yes Status: Acute CHF with history of CABG. Exudative lymphocytic HIgh LDH all c/w bloody effusion and can be c/w with CABG effusion. Repeat CT after imaging w/o evidence of tumor on left side. F/u Pleural fluid cytology. Will need to f/u CT scan. Possible Serial THoracentesis for comfort. (2) Hemoptysis Current Visit: Yes Status: Acute no further episodes cont to monitor (3) Acute exacerbation of CHF (congestive heart failure) Current Visit: Yes Status: Chronic mngt per Cards and primary service Qualifiers: Congestive heart failure type: systolic Qualified Code(s): I50.23 - Acute on chronic systolic (congestive) heart failure (4) Atrial fibrillation Current Visit: Yes Status: Chronic on LTA could be restarted after official read on cytology from pleural effusion stable primary service to mng Qualifiers: Atrial fibrillation type: chronic Qualified Code(s): I48.2 - Chronic atrial fibrillation (5) TR on CPAP Current Visit: Yes Status: Chronic cont nightly PAP (6) Hx of CABG Current Visit: No Status: Chronic Subjective Principal diagnosis: CHF Interval history: Did well overnight No further episodes of hemoptysis breathing much improved after thoracentesis Objective PUL Vital signs: Last Vital Signs Temp 97.6 F 06/20/16 06:59 Pulse 83 06/20/16 06:59 Resp 20 06/20/16 06:59 BP 140/90 06/20/16 06:59 Pulse Ox 99 06/20/16 06:59 General appearance: no acute distress Neck: supple Effort: normal Auscultation: bilateral: diminished breath sounds, rales Cardiovascular: irregular rhythm Gastrointestinal: soft, non-tender Extremities: edema Results - Laboratory Findings CBC and BMP: 06/20/16 04:49 06/20/16 04:49 PT/INR, D-dimer PT 14.2 Seconds (9.4-12.1) H 06/20/16 04:49 Abnormal lab findings: Abnormal lab results RDW 15.8 % (11.5-14.5) H 06/20/16 04:49 MPV 8.8 fL (9.4-12.4) L 06/20/16 04:49 PT 14.2 Seconds (9.4-12.1) H 06/20/16 04:49 APTT 45.8 Seconds (26.0-36.0) H 06/12/16 14:54 BUN 41 mg/dL (8-26) H 06/20/16 04:49 Creatinine 1.85 mg/dL (0.72-1.25) H 06/20/16 04:49 Est GFR ( Amer) 44 (> 60) L 06/20/16 04:49 Est GFR (Non-Af Amer) 36 (> 60) L 06/20/16 04:49 Glucose 113 mg/dL (70-99) H 06/20/16 04:49 POC Glucose 258 (58-89) H 06/19/16 20:12 Calculated Osmolality 303 (280-300) H 06/20/16 04:49 Total Bilirubin 1.6 mg/dL (0.2-1.2) H 06/17/16 05:00 C-Reactive Protein 17 mg/L (Less than 5) H 06/12/16 14:54 B-Natriuretic Peptide 886 pg/mL (0-100) H 06/12/16 14:54 Albumin 2.7 g/dL (3.5-5.0) L 06/17/16 05:00 Albumin/Globulin Ratio 0.8 (1.1-2.2) L 06/17/16 05:00 Pleural Appearance Bloody (Clear) A 06/13/16 12:10 Pleural RBC 0.127 M/mcL (0.000-0.002) H 06/13/16 12:10 - Microbiology Findings Microbiology Findings: Microbiology, Last 48 Hours 06/13/16 12:10 Body Fluid Culture - Final Pleural Fluid - Diagnostic Findings Chest x-ray: report reviewed CT scan - chest: image reviewed - Clinical Findings Intake & Output: Intake & Output 06/19/16 06/19/16 06/20/16 15:59 23:59 07:59 Intake Total 360 / 360 760 / 760 300 / 300 Output Total 850 / 850 600 / 600 Balance 360 / 360 -90 / -90 -300 / -300 Weight 102.1 kg - VTE Documentation of Mechanical Device: Intermittent pneumatic compression device Consult Discharge Plan - Plan Instructions: Heart Failure (DC), Atrial Fibrillation (DC), Chest Pain (DC), Diabetes Mellitus Type 2 in Adults (DC), Chronic Hypertension (DC) Referrals: Latosha Mitchell MD [Primary Care Provider] - 06/25/16 1:30 pm
[2016-06-20] MEDS: Furosemide 40 MG TABLET PO SCH (09:28)
[2016-06-20] MEDS: Aspirin Enteric Coated 81 MG Tablet PO SCH (09:29)
[2016-06-20] MEDS: Isosorbide MONOnitrate (24 HR) 60 MG TAB.ER.24H PO SCH (09:30)
[2016-06-20] MEDS: Magnesium Oxide 400 MG TABLET PO SCH (09:31)
[2016-06-20] MEDS: Multivit/Ca/Min/Fe/FA 1 TAB TABLET PO SCH (09:31)
[2016-06-20] MEDS: GLUCOSAMINE PO SCH (09:31)
[2016-06-20] MEDS: Ranolazine 500 MG TAB.ER.12H PO SCH (09:31)
[2016-06-20] MEDS: CHONDROITIN PO SCH (09:31)
[2016-06-20] MEDS: FISH OIL/OMEGA-3 PO SCH (09:32)
[2016-06-20] MEDS: *HR* Heparin 5,000 UNIT/ML VIAL SQ SCH (09:43)
[2016-06-20] MEDS: Insulin DETEMIR 100 UNIT/ML X5UNITS SQ SCH (09:43)
[2016-06-20] MEDS: Artificial Tears SOLN 15 ML BOTTLE RIGHT EYE SCH ×2 (09:45→13:43)
--- NOTE | 2016-06-20 09:45 | Internal Med Progress Note ---
<Rigoberto Lyle - Last Filed: 06/20/16 09:41> Date of Encounter: 06/20/16 Time of Encounter: 09:30 - Assessment and plan (1) Pleural effusion Status: Acute Assessment and plan: Left sided pleural effusion. Underwent thoracentesis on 06/17/16, analysis of pleural fluid was grossly bloody and exudative in quality by light criteria. Patient reports breathing better after thoracentesis. Awaiting final pathology No alarming adenopathy found in chest CT Await pathology report on pleural fluid Pulmonology following and appreciate recommendations for continued management/ care (2) Acute exacerbation of CHF (congestive heart failure) Status: Chronic Assessment and plan: Pt. with worsening dyspnea on exertion x 2 -3 weeks prior to presentation Significant hx of CAD s/p CABG and stents, has an AICD Hx of HRrEF, last EF two months ago 15-20% with global hypokineses Troponins negative Increased amount of PVCs seen on telemetry and EKG, patient asymptomatic Patient seen by cardiology yesterday, alarmed by increased number of PVCs will continue current management and follow-up as scheduled Net -5.5 L so far Continue by mouth Lasix Creatinine stable with mild fluctuations in serum creatinine around 1.8 ( baseline) Patient doing well on by mouth Lasix, will continue Thoracentesis resulted grossly bloody fluid, exudativein quality by light's criteria Will wait for cytology from thoracentesis Qualifiers: Congestive heart failure type: systolic Qualified Code(s): I50.23 - Acute on chronic systolic (congestive) heart failure (3) Atrial fibrillation Status: Chronic Assessment and plan: On Coumadin normally, currently subtherapeutic with INR 1.3 We will continue consider restarting home Coumadin We will start subcutaneous heparin until patient therapeutic on INR Qualifiers: Atrial fibrillation type: chronic Qualified Code(s): I48.2 - Chronic atrial fibrillation (4) Facial droop Status: Resolved Assessment and plan: noted that patient had facial droop on 06/13/[address] head was done along with neuro consult. Unlikely CVA/TIA Repeat head CT performed on 06/14/16 did not show any significant change or infarct Per neurology no stroke occurred (5) CAD (coronary artery disease) Status: Chronic Qualifiers: Coronary Disease-Associated Artery/Lesion type: bypass graft [place] vs. transplanted heart: [place] heart Associated angina: angina presence unspecified Qualified Code(s): I25.810 - Atherosclerosis of coronary artery bypass graft(s) without angina pectoris (6) Cardiomyopathy, ischemic Status: Chronic Assessment and plan: EF 15-20%. Continue BB. No SWETHA-I due to renal function. AICD in place, cardiology will follow as outpatient (7) DVT prophylaxis Status: Acute Assessment and plan: On Coumadin for atrial fibrillation, subtherapeutic INR. We will add subcutaneous heparin 5000 units twice a day We will consider continuation of outpatient Coumadin - Subjective Interval history: Patient reports continuing to do well today. He is having no shortness of breath, and reports minimal cough. He thinks it yesterday when he had the one episode of hemoptysis that there was actually salsa that he was coughing up. He reports no subjective fever/chills, reports no chest pain, reports no shortness of breath, reports no abdominal pain, reports no nausea or vomiting. - Constitutional Vitals: Temp Pulse Resp BP Pulse Ox 97.6 F 83 20 140/90 99 06/20/16 06:59 06/20/16 06:59 06/20/16 06:59 06/20/16 06:59 06/20/16 06:59 General appearance: Present: A&O X 3, answers questions appropriately Exam: General: Cooperative, pleasant, no acute distress, alert and oriented 3, answers questions appropriately Head: Normocephalic, atraumatic Eye: Conjunctiva pink, sclera anicteric, EOMI, PERRL Neck: Supple, trachea midline Respiratory: No accessory muscle usage, decreased breath sounds in left lung, slight Rales auscultated on left side, increased air movement overall Cardiovascular: Regular rate and rhythm, S1 and S2 present, no murmurs/rubs/ gallops/clicks appreciated GI/abdominal: Nondistended, nontender, soft, normal bowel sounds, no peritoneal signs Extremities: No calf tenderness, noncyanotic, no pedal edema appreciated, warm, lower extremity pulses palpable and symmetrical Neurological: Alert and oriented 3, no facial droop, no focal deficits Skin: Dry, intact, normal color Internal Medicine: Result - Labs CBC & Chem 7: 06/20/16 04:49 06/20/16 04:49 Labs: Short CBC 06/20/16 Range/Units 04:49 WBC 9.6 (4.3-11.1) K/mcL Hgb 13.5 (12.9-16.9) g/dL Hct 41.7 (37.5-50.1) % Plt Count 169 (140-400) K/mcL Neutrophils # 7.3 (1.6-8.9) K/mcL BMP 06/20/16 04:49 Sodium 141 Potassium 4.1 Chloride 104 Carbon Dioxide 29 BUN 41 H Creatinine 1.85 H Glucose 113 H Calcium 8.8 - ABG Interpretation ABG results: PT/INR, D-dimer PT 14.2 Seconds (9.4-12.1) H 06/20/16 04:49 - Impressions Impressions Chest CT 06/19/16 13:30 IMPRESSION: 1. Status post left thoracentesis. Small hydropneumothorax persists. Of note, high density is seen in the residual pleural effusion, likely representing blood products. 2. Lingular and left base compressive atelectasis. 3. Severe atherosclerosis. 4. Cardiomegaly. D/ / 06/19/2016 14:46:24 Debra Thakur MD / [facility] Interpreting Provider: Debra Thakur MD - VTE Documentation of Mechanical Device: Intermittent pneumatic compression device Consult Discharge Plan - Plan Instructions: Warfarin (By mouth), Heart Failure (DC), Atrial Fibrillation (DC) , Chest Pain (DC), Diabetes Mellitus Type 2 in Adults (DC), Ischemic Stroke (DC) , Ischemic Stroke (GEN), Chronic Hypertension (DC) Additional Instructions: Continue home medications Follow-up with PCP as scheduled Follow-up with pulmonology for continued management/care and culture results Follow-up with cardiology per normal routine Follow-up with Coumadin clinic as scheduled Follow-up with neurology for concerns of episode of facial drooping Return to emergency room if return of shortness breath, continued hemoptysis, development of chest pain, increased palpitations, lightheadedness or dizziness Referrals: Marco Solano CNP [Advanced Practice Nurse] - 07/14/16 3:00 pm Latosha Mitchell MD [Primary Care Provider] - 06/25/16 1:30 pm <Vikram Krishnamurthy P - Last Filed: 06/20/16 18:27> - Assessment and plan (1) Acute exacerbation of CHF (congestive heart failure) Status: Chronic Qualifiers: Congestive heart failure type: systolic Qualified Code(s): I50.23 - Acute on chronic systolic (congestive) heart failure (2) Facial droop Status: Resolved (3) Atrial fibrillation Status: Chronic Qualifiers: Atrial fibrillation type: chronic Qualified Code(s): I48.2 - Chronic atrial fibrillation (4) CAD (coronary artery disease) Status: Chronic Qualifiers: Coronary Disease-Associated Artery/Lesion type: bypass graft [place] vs. transplanted heart: [place] heart Associated angina: with stable angina Qualified Code(s): I25.708 - Atherosclerosis of coronary artery bypass graft(s) , unspecified, with other forms of angina pectoris (5) Cardiomyopathy, ischemic Status: Chronic (6) DVT prophylaxis Status: Acute - Constitutional Vitals: Temp Pulse Resp BP Pulse Ox 97.6 F 80 16 140/83 99 06/20/16 06:59 06/20/16 11:00 06/20/16 11:17 06/20/16 11:00 06/20/16 11:17 Internal Medicine: Result - Labs CBC & Chem 7: 06/20/16 04:49 06/20/16 04:49 Labs: Short CBC 06/20/16 Range/Units 04:49 WBC 9.6 (4.3-11.1) K/mcL Hgb 13.5 (12.9-16.9) g/dL Hct 41.7 (37.5-50.1) % Plt Count 169 (140-400) K/mcL Neutrophils # 7.3 (1.6-8.9) K/mcL BMP 06/20/16 04:49 Sodium 141 Potassium 4.1 Chloride 104 Carbon Dioxide 29 BUN 41 H Creatinine 1.85 H Glucose 113 H Calcium 8.8 - ABG Interpretation ABG results: PT/INR, D-dimer PT 14.2 Seconds (9.4-12.1) H 06/20/16 04:49 - Impressions Impressions Thoracentesis Ultrasound 06/16/16 00:00 IMPRESSION: Successful ultrasound guided thoracentesis. D/ / Jose Cisse MD / Jose Cisse MD Interpreting Provider: Jose Cisse MD Chest CT 06/16/16 17:00 IMPRESSION: 1. Moderate to large left pleural effusion, without definite loculations. It causes extensive compressive atelectasis of the left lung. A small amount of layering hyperdensity within the effusion suggests proteinaceous or hemorrhagic contents. 2. Moderate cardiomegaly. 3. Evidence of prior granulomatous disease. D/ / 06/16/2016 18:07:04 Jose Cisse MD / yrn Interpreting Provider: Jose Cisse MD - Attending Attestation I examined this patient and my medical decision-making was reviewed with the SECRETARY OF STATE/PA/Advanced Practice Nurse/Resident Physician. I agree with the documented findings, disposition and treatment plan as described except to the extent set forth below.
[2016-06-20] MEDS: Budesonide/Formoterol 160/4.5 MDI IH SCH (11:17)
[2016-06-20 11:49] VITALS: BP 140/83
--- NOTE | 2016-06-20 15:57 | Discharge Summary ---
<DarielaRigoberto - Last Filed: 06/20/16 16:56> Date of Encounter: 06/20/16 Time of Encounter: 11:30 - Discharge Diagnosis (1) Pleural effusion Priority: Primary Status: Acute (2) Acute exacerbation of CHF (congestive heart failure) Priority: Primary Status: Chronic Qualifiers: Congestive heart failure type: systolic Qualified Code(s): I50.23 - Acute on chronic systolic (congestive) heart failure (3) Atrial fibrillation Priority: Primary Status: Chronic Qualifiers: Atrial fibrillation type: chronic Qualified Code(s): I48.2 - Chronic atrial fibrillation (4) Facial droop Priority: Secondary Status: Resolved (5) CAD (coronary artery disease) Priority: Secondary Status: Chronic Qualifiers: Coronary Disease-Associated Artery/Lesion type: bypass graft [place] vs. transplanted heart: [place] heart Associated angina: angina presence unspecified Qualified Code(s): I25.810 - Atherosclerosis of coronary artery bypass graft(s) without angina pectoris (6) Cardiomyopathy, ischemic Priority: Secondary Status: Chronic (7) DVT prophylaxis Priority: Secondary Status: Acute - Discharge Medications Home Medications: Aspirin Enteric Coated [Aspirin EC] 81 mg PO QAM 04/19/15 [History] Atorvastatin [Lipitor] 40 mg PO HS 04/19/15 [History] Budesonide/Formoterol 160/4.5 [Symbicort] 2 puff IH BIDR 04/19/15 [History] Fluticasone Propionate [Flovent Hfa] 1 puff IH DAILY PRN 04/19/15 [History] HYDROcodone/Acet 5/325 mg [[place] 5-325 mg] 1 tab PO DAILY PRN 04/19/15 [History] Insulin ASPART [NovoLOG] 10 - 18 unit SQ TIDWM 04/19/15 [History] Levothyroxine [Synthroid] 25 mcg PO QAM 04/19/15 [History] Magnesium Oxide [Magnesium] 400 mg PO BID 04/19/15 [History] Montelukast [Singulair] 10 mg PO QPM 04/19/15 [History] Multivit-Min/FA/Lycopen/Lutein [Centrum Silver Tablet] 1 tab PO QAM 04/19/15 [ History] Niacin [Niaspan] 500 mg PO HS 04/19/15 [History] Nitroglycerin [Nitrostat] 0.4 mg SL AD PRN 04/19/15 [History] Omeprazole [PriLOSEC] 40 mg PO QPM 04/19/15 [History] Ondansetron [Zofran] 8 mg PO Q8HR PRN 04/19/15 [History] Ranitidine HCl [Zantac] 150 mg PO BID 04/19/15 [History] [place] Oil/[place]-3 Fatty Acids [Fish Oil 500 mg Softgel] 1,000 mg PO QAM [History] Warfarin [Coumadin] 7.5 mg PO MOWEFR 04/19/15 [History] Zolpidem [Ambien] 10 mg PO HS 04/19/15 [History] Isosorbide MONOnitrate (24 HR) [Imdur] 120 mg PO QAM #60 tab.er.24h 04/25/15 [Rx ] Furosemide [Lasix] 20 mg PO QPM 07/11/15 [History] Insulin Glargine [Lantus] 25 unit SQ BID 07/11/15 [History] Ranolazine [Ranexa] 500 mg PO BID 07/11/15 [History] Warfarin [Coumadin] 5 mg PO SUTUTHSA 07/11/15 [History] Gluc/Miguel Angel-MSM#1/C/Epifanio/Manfred/Bor [Osteo Bi-Flex Caplet] 1 tab PO BID 09/10/15 [ History] Carvedilol [Coreg] 37.5 mg PO BID 06/12/16 [History] Furosemide [Lasix] 40 mg PO QAM 06/12/16 [History] Sucralfate [Carafate] 1 gm PO BID 06/12/16 [History] Patient Taking Own Medication 0 each PO DAILY each 06/20/16 [Rx] Patient Taking Own Medication 1 each PO BID each 06/20/16 [Rx] Warfarin [Coumadin] 5 mg PO SUTUTHSA tablet 06/20/16 [Rx] Warfarin [Coumadin] 7.5 mg PO MOWEFR tablet 06/20/16 [Rx] Allergies/Adverse Reactions: Allergies codeine Allergy (Verified 04/19/15 10:03) Difficulty Breathing promethazine [From Phenergan] Allergy (Verified 04/19/15 10:03) Dizziness ibuprofen Adverse Reaction (Verified 11/12/15 12:02) Nausea Procedures/tests Complete & Pending: Procedures Performed prior 72 hours Category Date Time Status CT chest wo con [CT] Routine Cat Scan 06/19/16 13:30 Completed ECG 12 lead ECG [ECG] Routine Y 06/18/16 12:00 Completed ECG 12 lead ECG [ECG] Routine Y 06/19/16 04:55 Completed Date of admission: 06/12/16 18:33 Primary care physician: Latosha Mitchell, Consults: 06/13/16 11:29 Consult to Cardiology [CONS] Routine Comment: Consulting Provider: Cardiology [facility] Reason for Consult: Dr. Soto patient with AICD, HRrEF (10-15%), Afib ( on coumadin), CAD s/p CABG and stents, admitted for SOB. Severe orthopnea. Large Left sided pleural effusion Call Completed: No 06/13/16 14:19 Consult to Neurology [CONS] Routine Consulting Provider: [facility] Reason for Consult: Worsening left facial droop. Possible small ischemia on CT head. Call Completed: Yes 06/16/16 11:49 Consult to Pulmonology [CONS] Routine Consulting Provider: [facility] Reason for Consult: Concern for pleural effusion. Concern for thoracentesis Call Completed: Yes 06/16/16 15:31 Consult to Interventional Radiology [CONS] Routine Consulting Provider: [facility]iology [facility] Reason for Consult: In need of thoracentesis Call Completed: Yes 06/17/16 13:03 Consult to Interventional Radiology [CONS] Routine Consulting Provider: [facility] Reason for Consult: Patient needs CT-guided thoracentesis Call Completed: Yes 06/19/16 11:14 Consult to Pulmonology [CONS] Routine Consulting Provider: [facility] Reason for Consult: Concern for possible cancer, with exudative/hemorrhagic thora, history of cancer Call Completed: Yes 06/19/16 14:41 Consult to Cardiology [CONS] Routine Comment: Consulting Provider: Card[facility] Reason for Consult: Concern for increased load of PVCs, he has been asymptomatic. Call Completed: Yes Discharging clinician: Rigoberto Lyle Anticipated date of discharge: 06/20/16 - Patient Status Disposition: Home, Self-Care Condition: Good Functional capacity at discharge: independent ambulation Overall status at discharge: patient is progressing back to baseline - Discharge Instructions Instructions: Warfarin (By mouth), Heart Failure (DC), Atrial Fibrillation (DC) , Chest Pain (DC), Diabetes Mellitus Type 2 in Adults (DC), Ischemic Stroke (DC) , Ischemic Stroke (GEN), Chronic Hypertension (DC) Follow Up With: Marco Solano CNP [Advanced Practice Nurse] - 07/14/16 3:00 pm Latosha Mitchell MD [Primary Care Provider] - 06/25/16 1:30 pm Additional Instructions: Continue home medications Follow-up with PCP as scheduled Follow-up with pulmonology for continued management/care and culture results Follow-up with cardiology per normal routine Follow-up with Coumadin clinic as scheduled Follow-up with neurology for concerns of episode of facial drooping Return to emergency room if return of shortness breath, continued hemoptysis, development of chest pain, increased palpitations, lightheadedness or dizziness - Diet and Activity Activity: increase activity as tolerated Diet: advance to your usual diet, low fat, low cholesterol, low salt diet Interval History: Patient reports he is doing well today, no concerns. He states his cough is much improved and the one episode where his cuff up to read yesterday he attributes to salsa. Is chills, no chest, no shortness of breath. He is doing well overall and hospital exam. Hospital course: Mr. Ellis is a 71 year old male who presented to [facility] with chief concern: Acute Exacerbation of CHF and Pleural Effusion Comorbidities would include: arthritis, atrial fibrillation, cancer (colon cancer, in remission), CHF (ischemic cardiomyopathy), COPD, coronary artery disease, diabetes, GERD, hyperlipidemia, hypertension, myocardial infarction, renal disease, thyroid disease, TIA, other (TR) @ Hospital course: Mr. Ellis originally presented to the hospital of the with acute shortness of breath for 2-3 weeks prior to presentation. He was aggressively diuresed and a total of 5.5 L were successfully diuresis from the patient. During the process of diuresis, patient reported some facial drooping. He was evaluated by CT scan (MRI could not be obtained because of patient pacemaker/AICD) and he was seen by neurology. Was determined that he had not suffered a stroke and patient symptoms resolved shortly after presentation. Patient reported improvement in many of his breathing symptoms, but he continued to have persistent pleural effusion located on the left side of his chest. He underwent thoracentesis on 06/17/16 and 1.5 L of grossly bloody fluid was successfully removed. This fluid was exudative in character after analysis and sent for cytology. Although preliminary reports show no abnormal/atypical cells, final pathology has not yet returned. After the thoracentesis, there were increased number of PVCs noted on telemetry and EKG, cardiology was reconsulted and they determined that these were nonsignificant given patient current medications and that he artery has a pacemaker in place. As of 06/20/16 patient is a/stable for discharge with follow-up with cardiology, pulmonology, neurology, his PCP, in Coumadin clinic. @ At time of discharge, patient was clinically improved, hemodynamically stable, progressing to baseline, and agreeable with plan of care. Patient was advised to seek immediate medical attention for any new or worsening symptoms including but not limited to fever, chills, chest pain, chest pressure, dyspnea, cough, abdominal pain, nausea, vomiting, diarrhea, bloody stool, urine and the patient voiced understanding. Patient will follow-up with primary care physician: - Time Spent with Patient Total time spent providing and/or coordinating discharge services: - Constitutional Vitals: Temp Pulse Resp BP Pulse Ox 97.6 F 80 16 140/83 99 06/20/16 06:59 06/20/16 11:00 06/20/16 11:17 06/20/16 11:00 06/20/16 11:17 General appearance: Present: A&O X 3, answers questions appropriately Exam: General: Cooperative, pleasant, no acute distress, alert and oriented 3, answers questions appropriately Head: Normocephalic, atraumatic Eye: Conjunctiva pink, sclera anicteric, EOMI, PERRL Neck: Supple, trachea midline Respiratory: No accessory muscle usage, decreased air movement auscultated in left lung, rales auscultated, increased air movement overall Cardiovascular: Regular rate and rhythm, S1 and S2 present, no murmurs/rubs/ gallops/clicks appreciated GI/abdominal: Nondistended, nontender, soft, normal bowel sounds, no peritoneal signs Extremities: No calf tenderness, noncyanotic, trace pedal edema appreciated, warm, lower extremity pulses palpable and symmetrical Neurological: Alert and oriented 3, no facial droop, no focal deficits Skin: Dry, intact, normal color - VTE Documentation of Mechanical Device: Intermittent pneumatic compression device <Vikram Krishnamurthy P - Last Filed: 06/20/16 18:28> - Discharge Diagnosis (1) Acute exacerbation of CHF (congestive heart failure) Status: Chronic Qualifiers: Congestive heart failure type: systolic Qualified Code(s): I50.23 - Acute on chronic systolic (congestive) heart failure (2) Facial droop Status: Resolved (3) Atrial fibrillation Status: Chronic Qualifiers: Atrial fibrillation type: chronic Qualified Code(s): I48.2 - Chronic atrial fibrillation (4) CAD (coronary artery disease) Status: Chronic Qualifiers: Coronary Disease-Associated Artery/Lesion type: bypass graft [place] vs. transplanted heart: [place] heart Associated angina: with stable angina Qualified Code(s): I25.708 - Atherosclerosis of coronary artery bypass graft(s) , unspecified, with other forms of angina pectoris (5) Cardiomyopathy, ischemic Status: Chronic (6) DVT prophylaxis Status: Acute Procedures/tests Complete & Pending: Procedures Performed prior 72 hours Category Date Time Status CT chest wo con [CT] Routine Cat Scan 06/19/16 13:30 Completed ECG 12 lead ECG [ECG] Routine Y 06/18/16 12:00 Completed ECG 12 lead ECG [ECG] Routine Y 06/19/16 04:55 Completed Date of admission: 06/12/16 18:33 Primary care physician: Latosha Mitchell, Consults: 06/13/16 11:29 Consult to Cardiology [CONS] Routine Comment: Consulting Provider: Cardiology [facility] Reason for Consult: Dr. Soto patient with AICD, HRrEF (10-15%), Afib ( on coumadin), CAD s/p CABG and stents, admitted for SOB. Severe orthopnea. Large Left sided pleural effusion Call Completed: No 06/13/16 14:19 Consult to Neurology [CONS] Routine Consulting Provider: [facility] Reason for Consult: Worsening left facial droop. Possible small ischemia on CT head. Call Completed: Yes 06/16/16 11:49 Consult to Pulmonology [CONS] Routine Consulting Provider: [facility] Reason for Consult: Concern for pleural effusion. Concern for thoracentesis Call Completed: Yes 06/16/16 15:31 Consult to Interventional Radiology [CONS] Routine Consulting Provider: [facility] Reason for Consult: In need of thoracentesis Call Completed: Yes 06/17/16 13:03 Consult to Interventional Radiology [CONS] Routine Consulting Provider: Radiology [facility] Reason for Consult: Patient needs CT-guided thoracentesis Call Completed: Yes 06/19/16 11:14 Consult to Pulmonology [CONS] Routine Consulting Provider: [facility] Reason for Consult: Concern for possible cancer, with exudative/hemorrhagic thora, history of cancer Call Completed: Yes 06/19/16 14:41 Consult to Cardiology [CONS] Routine Comment: Consulting Provider: Cardiology [facility] Reason for Consult: Concern for increased load of PVCs, he has been asymptomatic. Call Completed: Yes Hospital course: Mr. Ellis is a 71 year old male - Time Spent with Patient Total time spent providing and/or coordinating discharge services: - Constitutional Vitals: Temp Pulse Resp BP Pulse Ox 97.6 F 80 16 140/83 99 06/20/16 06:59 06/20/16 11:00 06/20/16 11:17 06/20/16 11:00 06/20/16 11:17 - Attending Attestation I examined this patient and my medical decision-making was reviewed with the [employer]ER/PA/Advanced Practice Nurse/Resident Physician. I agree with the documented findings, disposition and treatment plan as described except to the extent set forth below. Follow-up with cardiology, pulmonology, neurology and primary care physician.
[2016-06-20] MEDS ORDERED: Warfarin perPT PO PRN (18:00)
[2016-06-20] MEDS ORDERED: *HR* Warfarin 7.5 MG TABLET PO SCH (18:00)
[2016-06-21] MEDS ORDERED: *HR* Warfarin 5 MG TABLET PO SCH (18:00)
== END 2016-06-20 18:00 | disposition home or self-care (01) | DRG 291 ==
LOC: 2NENU 14:10 → EMEROO 14:10 → 2NENU 17:49
PROVIDERS: ADMIT Internal Medicine; ATTEND Internal Medicine

== ENCOUNTER 2017-09-25 06:25 | Observation (INO) ==
[2017-09-25] MEDS ORDERED: *HR* FentaNYL (PF) 100 MCG/2 ML VIAL IVP ONE (06:34)
[2017-09-25] MEDS ORDERED: 0.9 % Sodium Chloride 1,000 ML IVC ONE (06:35)
--- NOTE | 2017-09-25 06:39 | Emergency Department Note ---
Disposition Clinical Impression: Nausea and vomiting Abdominal pain Qualifiers: Abdominal location: unspecified location Qualified Code(s): R10.9 - Unspecified abdominal pain Disposition: Still a Patient Condition: Undetermined Forms: ED Satisfaction Letter, Work/School Release Time of Disposition: 06:41 Abdominal Pain HPI - General Chief Complaint: ED Abdominal Pain Stated Complaint: Abd pain Time Seen by Provider: 09/25/17 06:26 Source: patient, EMS Mode of arrival: ambulatory Limitations: no limitations Nursing Notes Reviewed: Yes Vital Signs Reviewed: Yes - History of Present Illness HPI Narrative: Patient is a 72-year-old male with past medical history of A. fib, pacemaker defibrillator placement, previous colon cancer with ostomy and multiple previous bowel surgeries, cholecystectomy. He presents today due to lower abdominal pain that he is constantly a sharp shooting pain that radiates into his back. He also has had nausea and vomiting. Denies any history of aneurysms. He also admits to coughing up phlegm and some mild shortness of breath. Denies any overt chest pain. Denies any fevers, diarrhea, blood in the stool. He states that his surgeon is Dr. Velazquez has performed most of his abdominal surgeries in the past. Pain Scale: 9 - Related Data Home Medications Medication Instructions Recorded Confirmed Aspirin Enteric Coated [Aspirin EC] 81 mg PO QAM 04/19/15 06/12/16 Atorvastatin [Lipitor] 40 mg PO HS 04/19/15 06/12/16 Budesonide/Formoterol 160/4.5 2 puff IH BIDR 04/19/15 06/12/16 [Symbicort] Fluticasone Propionate [Flovent 1 puff IH DAILY PRN 04/19/15 06/12/16 Hfa] HYDROcodone/Acet 5/325 mg [[place] 1 tab PO DAILY PRN 04/19/15 06/12/16 5-325 mg] Insulin ASPART [NovoLOG] 10 - 18 unit SQ TIDWM 04/19/15 06/12/16 Levothyroxine [Synthroid] 25 mcg PO QAM 04/19/15 06/12/16 Magnesium Oxide [Magnesium] 400 mg PO BID 04/19/15 06/12/16 Montelukast [Singulair] 10 mg PO QPM 04/19/15 06/12/16 Multivit-Min/FA/Lycopen/Lutein 1 tab PO QAM 04/19/15 06/12/16 [Centrum Silver Tablet] Niacin [Niaspan] 500 mg PO HS 04/19/15 06/12/16 Nitroglycerin [Nitrostat] 0.4 mg SL AD PRN 04/19/15 06/12/16 Omeprazole [PriLOSEC] 40 mg PO QPM 04/19/15 06/12/16 Ondansetron [Zofran] 8 mg PO Q8HR PRN 04/19/15 06/12/16 Ranitidine HCl [Zantac] 150 mg PO BID 04/19/15 06/12/16 [place] Oil/[place]-3 Fatty Acids 1,000 mg PO QAM 04/19/15 06/12/16 [Fish Oil 500 mg Softgel] Warfarin [Coumadin] 7.5 mg PO MOWEFR 04/19/15 06/12/16 Zolpidem [Ambien] 10 mg PO HS 04/19/15 06/12/16 Furosemide [Lasix] 20 mg PO QPM 07/11/15 06/12/16 Insulin Glargine [Lantus] 25 unit SQ BID 07/11/15 06/12/16 Ranolazine [Ranexa] 500 mg PO BID 07/11/15 06/12/16 Warfarin [Coumadin] 5 mg PO SUTUTHSA 07/11/15 06/12/16 Gluc/Miguel Angel-MSM#1/C/Epifanio/[place]/Bor 1 tab PO BID 09/10/15 06/12/16 [Osteo Bi-Flex Caplet] Carvedilol [Coreg] 37.5 mg PO BID 06/12/16 06/12/16 Furosemide [Lasix] 40 mg PO QAM 06/12/16 06/12/16 Sucralfate [Carafate] 1 gm PO BID 06/12/16 06/12/16 Previous Rx's Medication Instructions Recorded Isosorbide MONOnitrate (24 HR) 120 mg PO QAM #60 tab.er.24h 04/25/15 [Imdur] Patient Taking Own Medication 0 each PO DAILY each 06/20/16 Patient Taking Own Medication 1 each PO BID each 06/20/16 Warfarin [Coumadin] 5 mg PO SUTUTHSA tablet 06/20/16 Warfarin [Coumadin] 7.5 mg PO MOWEFR tablet 06/20/16 Allergies Allergy/AdvReac Type Severity Reaction Status Date / Time codeine Allergy Difficulty Verified 04/19/15 10:03 Breathing promethazine [From Phenergan] Allergy Dizziness Verified 04/19/15 10:03 ibuprofen AdvReac Nausea Verified 04/19/15 12:02 All systems ED: reviewed and negative except as stated. Constitutional: Denies: fever Cardiovascular: Denies: chest pain Respiratory: Reports: cough, dyspnea, sputum production Gastrointestinal: Reports: abdominal pain, nausea, vomiting. Denies: diarrhea, constipation, hematemesis, melena, hematochezia Genitourinary: Denies: urgency, dysuria, frequency, hematuria Neurological: Denies: headache, weakness, numbness, paresthesias Abdominal Pain PMH - Past Medical History Medical history: Reports: arthritis, atrial fibrillation, cancer, CHF, coronary artery disease, diabetes, GERD, hyperlipidemia, hypertension, myocardial infarction, renal disease, thyroid disease, TIA Psychiatric history: Reports: no psych history - Social History Smoking status: Never smoker Alcohol use: Reports: none Drug use: Reports: none Physical Exam - General Limitations: no limitations General appearance: alert - Head Head exam: atraumatic, normocephalic, normal inspection - Eye Eye exam: Present: normal appearance, PERRL, EOMI - ENT ENT exam: normal exam, normal oropharynx, mucous membranes moist - Neck Neck exam: Present: normal inspection, full ROM, trachea midline - Chest Chest inspection: Present: normal inspection, symmetric chest wall rise - Respiratory Respiratory exam: Present: normal lung sounds bilaterally - Cardiovascular Cardiovascular exam: Present: regular rate, normal rhythm, normal heart sounds - Abdominal Exam Abdominal exam: Present: soft, tenderness (Tenderness of the suprapubic region and bilateral lower quadrants), other (Ostomy located on left side of her abdomen, pink, appears viable, mild amount of stool in ostomy bag). Absent: distention, guarding, rebound, rigidity, Richards's sign, Rovsing's sign, tenderness at McBurney's Point - Extremities Exam Extremities exam: Present: normal inspection, full ROM. Absent: tenderness, pedal edema - Neurological Exam Neurological exam: Present: alert, oriented X3 - Psychiatric Psychiatric exam: Present: normal affect, normal mood - Skin Skin exam: Present: warm, dry, intact, normal color Course Course Narrative: Patient normally hypertensive, likely secondary to pain. Rest of vitals within normal limits. Patient has had multiple abdominal surgeries in the past. He presented with abdominal pain and nausea and vomiting. Currently concern for bowel structure in. Patient was given Zofran by EMS squad and states that his nausea is controlled at this time. We will give the patient and offer pain control. Also obtain basic labs, LFTs, lipase, chest x-ray to assess for sputum production and possible pneumonia, CT abdomen and pelvis to assess for bowel obstruction, urinalysis to assess for UTI. Will sign out to Dr. Lopez and Dr. Hunt for further care. Vital Signs Temperature 98.7 F 09/25/17 06:30 Pulse Rate 75 09/25/17 06:30 Respiratory Rate 20 09/25/17 06:30 Blood Pressure 144/87 09/25/17 06:30 O2 Sat by Pulse Oximetry 99 09/25/17 06:30 Temperature 98.7 F 09/25/17 06:30 Pulse Rate 75 09/25/17 06:30 Respiratory Rate 20 09/25/17 06:30 Blood Pressure 144/87 09/25/17 06:30 O2 Sat by Pulse Oximetry 99 09/25/17 06:30 Oxygen Delivery Oxygen Delivery Room Air Abdominal Pain - MDM Narrative Medical decision making narrative: Patient normally hypertensive, likely secondary to pain. Rest of vitals within normal limits. Patient has had multiple abdominal surgeries in the past. He presented with abdominal pain and nausea and vomiting. Currently concern for bowel structure in. Patient was given Zofran by EMS squad and states that his nausea is controlled at this time. We will give the patient and offer pain control. Also obtain basic labs, LFTs, lipase, chest x-ray to assess for sputum production and possible pneumonia, CT abdomen and pelvis to assess for bowel obstruction, urinalysis to assess for UTI. Will sign out to Dr. Lopez and Dr. Hunt for further care. - Medical Records Medical records reviewed: Yes I reviewed the patient's medical records. S.B.AJodi - S.B.A.Delfino. Situation: Demographics, MOA Background: Presenting Complaint, Relevant PMH, Meds, & Allergies Assessment: Vital Signs, Course and respsone to treatment, Exam Concerns, Patient/Family Expectation, Pertinant Lab Results, Outstanding Labs Recommendation: Barrier(s) to disposition, Recommendation based on pending studies, treatments, or consults S.B.A.R. Report Given to: Dr. Hunt and Dr. Lopez Attestation Statement - Attestation Attestation: DR Garcia note: Pt seen in conjunction w/ resident Dr Koroma; Please see his chart for complete documentation; I spent face to face time w/ the patient and agree w/ the pt's treatment and disposition; patient concerning for small bowel obstruction. Multiple prior surgeries. We will have imaging and blood work to rule out surgical emergency. Will be signed out to the day shift attending. Care transferred in stable condition.
[2017-09-25 06:51] LABS: Bilirubin,Urine Negative (Negative); Blood,Urine Small (Negative); Clarity,Urine Cloudy (Clear); Color,Urine Yellow (Yellow); Glucose,Urine (UA) Normal (Normal); Ketones,Urine Negative (Negative); Leukocyte Esterase,Urine Large (Negative); Nitrite,Urine Negative (Negative); Protein,Urine 100 mg/dL (Neg-Trace); Specific Gravity,Urine 1.018 (1.010-1.025); Urobilinogen,Urine Normal (Normal)
[2017-09-25 06:54] LABS: Bacteria,Urine Many per hpf (None-Few); Hyaline Casts,Urine None Seen per lpf (None-Few); Squamous Epithelial Cell,Urine Few per lpf (None-Few); WBC,Urine TNTC per hpf (0-3)
[2017-09-25 07:32] LABS: Basophils % 0.4 %; Eosinophils # 0.1 K/mcL (0.0-0.6); Eosinophils % 1.2 %; Hematocrit 44.6 % (37.5-50.1); Hemoglobin 14.3 g/dL (12.9-16.9); Immature Granulocytes % 0.5 % (0-4); Lymphocytes # 0.6 K/mcL (0.6-4.6); Lymphocytes % 5.9 %; Mean Corpuscular HGB Conc 32.1 g/dL (31.6-35.5); Mean Corpuscular Hemoglobin 27.8 pg (28.0-33.3); Mean Corpuscular Volume 86.6 fL (83.0-100.0); Mean Platelet Volume 9.3 fL (9.4-12.4); Monocytes # 0.8 K/mcL (0.0-1.3); Monocytes % 7.9 %; Neutrophils # 8.5 K/mcL (1.6-8.9); Platelet Count 154 K/mcL (140-400); Red Blood Count 5.15 M/mcL (4.19-5.50); Red Cell Distribution Width 15.9 % (11.5-14.5); Segmented Neutrophils % 84.1 %
[2017-09-25 08:10] LABS: Troponin I < 0.03 ng/mL (< 0.04)
[2017-09-25 08:11] LABS: Alanine Aminotransferase 15 Units/L (7-52); Albumin 3.6 g/dL (3.5-5.7); Albumin/Globulin Ratio 1.4 (1.1-2.2); Alkaline Phosphatase 49 Units/L (34-104); Aspartate Amino Transferase 17 Units/L (13-39); BUN/Creatinine Ratio 20 (6-26); Bilirubin,Direct 0.3 mg/dL (0.0-0.2); Bilirubin,Indirect 0.6 mg/dL (0.0-1.2); Bilirubin,Total 0.9 mg/dL (0.3-1.0); Blood Urea Nitrogen 42 mg/dL (8-23); Carbon Dioxide 24 mEq/L (23-29); Chloride 106 mEq/L (98-107); Globulin 2.6 g/dL (2.4-3.5); Glucose 185 mg/dL (70-105); Lipase 35 Units/L (11-82); Osmolality,Calculated 305 (280-300); Potassium 4.3 mEq/L (3.5-5.1); Sodium 140 mEq/L (136-145); Total Protein 6.2 g/dL (6.4-8.9); eGFR For African Americans 39 (> 60); eGFR For Non-African Americans 32 (> 60)
--- NOTE | 2017-09-25 08:29 | Emergency Department Note ---
Disposition Clinical Impression: Ileus Abdominal pain Qualifiers: Abdominal location: unspecified location Qualified Code(s): R10.9 - Unspecified abdominal pain Nausea and vomiting Qualifiers: Vomiting Intractability: non-intractable Disposition: Admitted As Inpatient Condition: Undetermined Referrals: Latosha Mitchell MD [Primary Care Provider] - Time of Disposition: 10:48 General Adult HPI - General Chief complaint: ED Abdominal Pain Stated complaint: Abd pain Time Seen by Provider: 09/25/17 06:26 Source: patient, EMS Mode of arrival: ambulatory Limitations: no limitations Nursing Notes Reviewed: Yes Vital Signs Reviewed: Yes - History of Present Illness HPI Narrative: Abdominal pain in his right lower quadrant as well as his suprapubic area that is also in his lower back. He describes the pain is all around not necessarily radiates. Has had a decrease in stool output none since last night. One episode of nausea and vomiting this morning. Did get some mild relief with Tylenol but the pain returned. 10 out of 10. He describes it as a "hot poker" sensation Pain Scale: 9 - Related Data Home Medications Medication Instructions Recorded Confirmed Aspirin Enteric Coated [Aspirin EC] 81 mg PO QAM 04/19/15 06/12/16 Atorvastatin [Lipitor] 40 mg PO HS 04/19/15 06/12/16 HYDROcodone/Acet 5/325 mg [[place] 1 tab PO DAILY PRN 04/19/15 06/12/16 5-325 mg] Levothyroxine [Synthroid] 25 mcg PO QAM 04/19/15 06/12/16 Magnesium Oxide [Magnesium] 400 mg PO BID 04/19/15 06/12/16 Montelukast [Singulair] 10 mg PO QPM 04/19/15 06/12/16 Multivit-Min/FA/Lycopen/Lutein 1 tab PO QAM 04/19/15 06/12/16 [Centrum Silver Tablet] Niacin [Niaspan] 500 mg PO HS 04/19/15 06/12/16 Nitroglycerin [Nitrostat] 0.4 mg SL AD PRN 04/19/15 06/12/16 Omeprazole [PriLOSEC] 40 mg PO QPM 04/19/15 06/12/16 Ondansetron [Zofran] 8 mg PO Q8HR PRN 04/19/15 06/12/16 Ranitidine HCl [Zantac] 150 mg PO BID 04/19/15 06/12/16 [place]/Only-3 Fatty Acids 1,000 mg PO QAM 04/19/15 06/12/16 [Fish Oil 500 mg Softgel] Furosemide [Lasix] 20 mg PO QPM 07/11/15 06/12/16 Insulin Glargine [Lantus] 25 unit SQ BID 07/11/15 06/12/16 Gluc/Miguel Angel-MSM#1/C/Epifanio/[place]/Bor 1 tab PO BID 09/10/15 06/12/16 [Osteo Bi-Flex Caplet] Carvedilol [Coreg] 37.5 mg PO BID 06/12/16 06/12/16 Furosemide [Lasix] 40 mg PO QAM 06/12/16 06/12/16 Albuterol Sulfate [Proair Hfa] 2 puff IH Q4H PRN 09/25/17 09/25/17 Budesonide/Formoterol 80/4.5 2 puff IH BID 09/25/17 09/25/17 [Symbicort 80/4.5] Cholecalciferol (D-3) [Vitamin D] 3,000 unit PO QAM 09/25/17 09/25/17 Insulin LISPRO [Humalog Kwikpen 12 unit SQ TID PRN 09/25/17 09/25/17 U-100] Lisinopril 2.5 mg PO QAM 09/25/17 09/25/17 Warfarin [Coumadin] 5 mg PO MOFR 09/25/17 09/25/17 Warfarin [Coumadin] 7.5 mg PO SUTUWETHSA 09/25/17 09/25/17 traZODone [TraZODone] 50 mg PO HS 09/25/17 09/25/17 Previous Rx's Medication Instructions Recorded Isosorbide MONOnitrate (24 HR) 120 mg PO QAM #60 tab.er.24h 04/25/15 [Imdur] Allergies Allergy/AdvReac Type Severity Reaction Status Date / Time codeine Allergy Difficulty Verified 04/19/15 10:03 Breathing promethazine [From Phenergan] Allergy Dizziness Verified 04/19/15 10:03 ibuprofen AdvReac Nausea Verified 04/19/15 12:02 All systems ED: reviewed and negative except as stated. Constitutional: Denies: fever Cardiovascular: Denies: chest pain Respiratory: Reports: cough, dyspnea, sputum production Gastrointestinal: Reports: abdominal pain, nausea, vomiting. Denies: diarrhea, constipation, hematemesis, melena, hematochezia Genitourinary: Denies: urgency, dysuria, frequency, hematuria Neurological: Denies: headache, weakness, numbness, paresthesias Past Medical History - Past Medical History Attestation: Yes The following information was validated with the patient. Source: patient Medical history: Reports: arthritis, atrial fibrillation, cancer, CHF, coronary artery disease, diabetes, GERD, hyperlipidemia, hypertension, myocardial infarction, renal disease, thyroid disease, TIA Surgical history: Reports: angioplasty/stent, appendectomy, cholecystectomy, colostomy, coronary bypass (CABG), pacemaker/AICD Psychiatric history: Reports: no psych history - Social History Smoking Status: Never smoker Smokeless Tobacco Status: No Alcohol use: Reports: none Drug use: Reports: none Physical Exam - General Limitations: no limitations General appearance: alert, in no apparent distress - Head Head exam: atraumatic, normocephalic, normal inspection - Eye Eye exam: Present: normal appearance, PERRL, EOMI. Absent: scleral icterus - ENT ENT exam: normal exam, normal oropharynx, mucous membranes moist - Neck Neck exam: Present: normal inspection, full ROM, trachea midline - Chest Chest inspection: Present: normal inspection, symmetric chest wall rise. Absent : tenderness - Respiratory Respiratory exam: Present: normal lung sounds bilaterally. Absent: respiratory distress, wheezes, accessory muscle use - Cardiovascular Cardiovascular exam: Present: regular rate, normal rhythm, normal heart sounds - Abdominal Exam Abdominal exam: Present: soft, distention, scar (Extensive scarring to abdomen.) , other (Ostomy. Appears to be perfusing appropriately.). Absent: rigidity - Extremities Exam Extremities exam: Present: normal inspection, normal capillary refill. Absent: tenderness, pedal edema - Back Exam Back exam: Present: normal inspection. Absent: CVA tenderness (R), CVA tenderness (L) - Neurological Exam Neurological exam: Present: alert, oriented X3 - Psychiatric Psychiatric exam: Present: normal affect, normal mood - Skin Skin exam: Present: warm, dry, intact, normal color. Absent: rash, cyanosis Course Course Narrative: Male patient presenting to the emergency department complaining of lower abdominal pain. Does have an extensive abdominal surgery history by Dr. padron. States that he has had a small bowel obstructive before and this feels about the same. Also has an ostomy at this time. Reports decreased output since last night. Did get some relief with Tylenol last night. However the pain was very significant this morning. He states it did still hurt all night. At times it was a 10 out of 10. He reports his right lower quadrant and suprapubic area. His abdomen is distended but soft on palpation. He does not grimace to pain on deep palpation. He does have a large amount of scarring to his abdomen from previous surgeries. His ostomy is pink and appears to be perfusing adequately however there is no stool in his bag. Patient's vitals are stable. He is not febrile he is not tachycardic. Patient's lab work is unremarkable however he does have a UTI. CT of his abdomen shows possible ileus versus small bowel obstruction. Due to patient's significant medical history and abdominal surgeries we will admit patient to the hospital. We will start antibiotics for his UTI. We will consult Dr. padron as he is his surgeon. - Reevaluation(s) Reevaluation #1: Patient admitted to the hospital. He did subsequently ended up having a soft bowel movement in his ostomy while here in the emergency department. We have started patient on Rocephin for his UTI. He states he has not had a history of this previously. No signs of obstructing renal colliculi on his CT abdomen. - Consultations Consultation #1: I spoke with Dr. padron. He is requesting we admitted to the hospitalist and have him as a consult her. I feel this is reasonable. He states another option would be to discharge patient home and have him follow-up with him on Thursday however we discussed the patient's comorbid conditions and he expressed understanding that we are here visualizing the patient and he is giving a consult over the phone so he is agreeable with admission. Time: 08:53 Consultation #2: Dr Luther accepted Pt in stable condiition. Time: 09:08 Vital Signs Temperature 98.7 F 09/25/17 06:30 Pulse Rate 75 09/25/17 06:30 Respiratory Rate 20 09/25/17 06:30 Blood Pressure 144/87 09/25/17 06:30 O2 Sat by Pulse Oximetry 99 09/25/17 06:30 Temperature 98.7 F 09/25/17 06:30 Pulse Rate 82 09/25/17 10:31 Respiratory Rate 18 09/25/17 10:31 Blood Pressure 126/93 09/25/17 10:31 O2 Sat by Pulse Oximetry 97 09/25/17 10:31 Oxygen Delivery Oxygen Delivery Room Air Medical Decision Making - Medical Records Medical records reviewed: Yes I reviewed the patient's medical records. - Lab Data Lab results reviewed: Yes I reviewed the patient's lab results. Result diagrams: 09/25/17 07:19 09/25/17 07:19 Lab Results 09/25/17 09/25/17 09/25/17 Range/Units 06:35 07:19 07:19 WBC 10.1 (4.3-11.1) K/mcL RBC 5.15 (4.19-5.50) M/mcL Hgb 14.3 (12.9-16.9) g/dL Hct 44.6 (37.5-50.1) % MCV 86.6 (83.0-100.0) fL MCH 27.8 L (28.0-33.3) pg MCHC 32.1 (31.6-35.5) g/dL RDW 15.9 H (11.5-14.5) % Plt Count 154 (140-400) K/mcL MPV 9.3 L (9.4-12.4) fL Immature Gran % 0.5 (0-4) % Seg Neutrophils % 84.1 % Lymphocytes % 5.9 % Monocytes % 7.9 % Eosinophils % 1.2 % Basophils % 0.4 % Neutrophils # 8.5 (1.6-8.9) K/mcL Lymphocytes # 0.6 (0.6-4.6) K/mcL Monocytes # 0.8 (0.0-1.3) K/mcL Eosinophils # 0.1 (0.0-0.6) K/mcL Basophils # 0.0 (0.0-0.2) K/mcL Sodium 140 (136-145) mEq/L Potassium 4.3 (3.5-5.1) mEq/L Chloride 106 (98-107) mEq/L Carbon Dioxide 24 (23-29) mEq/L BUN 42 H (8-23) mg/dL Creatinine 2.06 H (0.70-1.30) mg/dL Est GFR ( Amer) 39 L (> 60) Est GFR (Non-Af Amer) 32 L (> 60) BUN/Creatinine Ratio 20 (6-26) Glucose 185 H (70-105) mg/dL POC Glucose (70-99) mg/dL Calculated Osmolality 305 H (280-300) Lactic Acid (0.5-2.2) mmol/L Calcium 9.0 (8.6-10.3) mg/dL Total Bilirubin 0.9 (0.3-1.0) mg/dL Direct Bilirubin 0.3 H (0.0-0.2) mg/dL Indirect Bilirubin 0.6 (0.0-1.2) mg/dL AST 17 (13-39) Units/L ALT 15 (7-52) Units/L Alkaline Phosphatase 49 (34-104) Units/L Troponin I < 0.03 (< 0.04) ng/mL Serum Total Protein 6.2 L (6.4-8.9) g/dL Albumin 3.6 (3.5-5.7) g/dL Globulin 2.6 (2.4-3.5) g/dL Albumin/Globulin Ratio 1.4 (1.1-2.2) Lipase 35 (11-82) Units/L Urine Color Yellow (Yellow) Urine Clarity Cloudy A (Clear) Urine pH 6.0 (5.0-8.0) pH Units Ur Specific [place] 1.018 (1.010-1.025) Urine Protein 100 H (Neg-Trace) mg/dL Urine Glucose (UA) Normal (Normal) mg/dL Urine Ketones Negative (Negative) mg/dL Urine Blood Small H (Negative) Urine Nitrite Negative (Negative) Urine Bilirubin Negative (Negative) Urine Urobilinogen Normal (Normal) mg/dL Ur Leukocyte Esterase Large H (Negative) Urine Microscopic RBC 5-15 H (0-3) per hpf Urine Microscopic WBC TNTC H (0-3) per hpf Ur Squamous Epith Cells Few (None-Few) per lpf Urine Bacteria Many H (None-Few) per hpf Hyaline Casts None Seen (None-Few) per lpf Ur Culture Indicated? YES A (NO) 09/25/17 09/25/17 Range/Units 08:44 08:47 WBC (4.3-11.1) K/mcL RBC (4.19-5.50) M/mcL Hgb (12.9-16.9) g/dL Hct (37.5-50.1) % MCV (83.0-100.0) fL MCH (28.0-33.3) pg MCHC (31.6-35.5) g/dL RDW (11.5-14.5) % Plt Count (140-400) K/mcL MPV (9.4-12.4) fL Immature Gran % (0-4) % Seg Neutrophils % % Lymphocytes % % Monocytes % % Eosinophils % % Basophils % % Neutrophils # (1.6-8.9) K/mcL Lymphocytes # (0.6-4.6) K/mcL Monocytes # (0.0-1.3) K/mcL Eosinophils # (0.0-0.6) K/mcL Basophils # (0.0-0.2) K/mcL Sodium (136-145) mEq/L Potassium (3.5-5.1) mEq/L Chloride (98-107) mEq/L Carbon Dioxide (23-29) mEq/L BUN (8-23) mg/dL Creatinine (0.70-1.30) mg/dL Est GFR ( Amer) (> 60) Est GFR (Non-Af Amer) (> 60) BUN/Creatinine Ratio (6-26) Glucose (70-105) mg/dL POC Glucose 194 H (70-99) mg/dL Calculated Osmolality (280-300) Lactic Acid 1.2 (0.5-2.2) mmol/L Calcium (8.6-10.3) mg/dL Total Bilirubin (0.3-1.0) mg/dL Direct Bilirubin (0.0-0.2) mg/dL Indirect Bilirubin (0.0-1.2) mg/dL AST (13-39) Units/L ALT (7-52) Units/L Alkaline Phosphatase (34-104) Units/L Troponin I (< 0.04) ng/mL Serum Total Protein (6.4-8.9) g/dL Albumin (3.5-5.7) g/dL Globulin (2.4-3.5) g/dL Albumin/Globulin Ratio (1.1-2.2) Lipase (11-82) Units/L Urine Color (Yellow) Urine Clarity (Clear) Urine pH (5.0-8.0) pH Units Ur Specific [place] (1.010-1.025) Urine Protein (Neg-Trace) mg/dL Urine Glucose (UA) (Normal) mg/dL Urine Ketones (Negative) mg/dL Urine Blood (Negative) Urine Nitrite (Negative) Urine Bilirubin (Negative) Urine Urobilinogen (Normal) mg/dL Ur Leukocyte Esterase (Negative) Urine Microscopic RBC (0-3) per hpf Urine Microscopic WBC (0-3) per hpf Ur Squamous Epith Cells (None-Few) per lpf Urine Bacteria (None-Few) per hpf Hyaline Casts (None-Few) per lpf Ur Culture Indicated? (NO) - Radiology Data Radiology results reviewed: Yes I reviewed the patient's radiology results. Chest X-Ray 09/25/17 06:34 IMPRESSION: Stable cardiomegaly, chronic bibasilar scarring. D/ / Diego Vallejo MD / Diego Vallejo MD Interpreting Provider: Diego Vallejo MD Abdomen/Pelvis CT 09/25/17 06:35 IMPRESSION: Mildly dilated small bowel loops measuring up to 3.5 cm, without focal transition point. This could be related to a focal ileus or partial obstruction. Postsurgical changes related to left hemicolectomy and diverting left abdominal colostomy. No postoperative complication is identified. Severe atherosclerotic disease with coronary involvement. Trace bilateral pleural effusions with bibasilar atelectasis. D/ / Diego Vallejo MD / Diego Vallejo MD Interpreting Provider: Diego Vallejo MD
[2017-09-25] MEDS ORDERED: cefTRIAXone 1,000 MG in Water for inj. (sterile) 20 ML 10 ML IVP ONE (08:41)
[2017-09-25] MEDS ORDERED: OXYCODONE Oral CONC 10 MG/0.5 ML ORAL.SYG SL PRN ×2 (11:04)
[2017-09-25] MEDS ORDERED: Naloxone 0.4 MG/ML INJ IVP PRN (11:04)
[2017-09-25] MEDS ORDERED: *HR* FentaNYL (PF) 100 MCG/2 ML VIAL IVP PRN (11:04)
[2017-09-25] MEDS ORDERED: Ondansetron 4 MG/2 ML VIAL IVP PRN (11:04)
[2017-09-25] MEDS ORDERED: Albuterol 2.5 MG/3 ML NEBULIZER IH PRN (11:14)
[2017-09-25] MEDS ORDERED: Nitroglycerin 0.4 MG TAB.SUBL SL PRN (11:14)
[2017-09-25] MEDS ORDERED: 0.9 % Sodium Chloride 1,000 ML IVC SCH ×2 (11:15→12:15)
[2017-09-25] MEDS ORDERED: D5% in Water 1,000 ML IVC PRN (11:15)
[2017-09-25] MEDS ORDERED: Dextrose Gel 15 GM/37.5 ML TUBE PO PRN ×2 (11:15)
[2017-09-25] MEDS ORDERED: *HR* Dextrose 50 % in Water (Syg) 50 ML SYRINGE IVP PRN (11:15)
--- NOTE | 2017-09-25 11:24 | Internal Med History&Physical ---
Date of Encounter: 09/25/17 Time of Encounter: 11:24 Internal Medicine - H&P: HPI Chief complaint: Abdominal Pain, Nausea, Vomiting Admitted From: Emergency Dept Plans for Post Hospital Care: Home History of present illness: Mr. Ellis is a 72 year old white male with PMH of colon cancer s/p total colectomy who presented to ED this morning with abdominal pain, nausea, vomiting , and decreased output through colostomy. He states that he went to bed last night and woke up this morning with severe pain. Pain is located in his lower abdomen and is "sharp" and radiating into his back. He denies any fever, chills , chest pain, SOB, hematochezia, melena, diarrhea, or dysuria. In the ED, CT abdomen/pelvis showed mildly dilated small bowel loops measuing up to 3.5 cm, possibly related to focal ileus or partial SBO. During my interview, patient states that his abdominal pain is completely resolved. He states that he also has no more nausea or vomiting. He states that he has started to notice some stool starting to come into his ostomy bag a little while ago. He has no other complaints at this time. Past Med Surg Social Fam HX - Past Medical History Attestation: Yes The following information was validated with the patient. Source: patient Medical history: arthritis, atrial fibrillation, cancer, CHF, coronary artery disease, diabetes, GERD, hyperlipidemia, hypertension, myocardial infarction, renal disease, thyroid disease, TIA Psychiatric history: no psych history - Past Surgical History Surgical History: angioplasty/stent, appendectomy, cholecystectomy, colostomy, coronary bypass (CABG), pacemaker/AICD - Social History Smoking Status: Never smoker Smokeless Tobacco Status: No Alcohol use: none Drug use: none - Family History Father Family Member Ethnicity: Non- Living Status: Hx Family Cardiac Disorders: Yes Mother Adopted: No Family Member Ethnicity: Non- Living Status: Hx Family Cardiac Disorders: Yes Hx Family Respiratory Disorders: Yes Hx Family Cancer: No Hx Family GI Disorders: Yes Hx Family Endocrine Disorder: Yes Internal Medicine - H&P: Meds Aspirin Enteric Coated [Aspirin EC] 81 mg PO QAM 04/19/15 [History] Atorvastatin [Lipitor] 40 mg PO HS 04/19/15 [History] HYDROcodone/Acet 5/325 mg [[place] 5-325 mg] 1 tab PO DAILY PRN 04/19/15 [History] Levothyroxine [Synthroid] 25 mcg PO QAM 04/19/15 [History] Magnesium Oxide [Magnesium] 400 mg PO BID 04/19/15 [History] Montelukast [Singulair] 10 mg PO QPM 04/19/15 [History] Multivit-Min/FA/Lycopen/Lutein [Centrum Silver Tablet] 1 tab PO QAM 04/19/15 [ History] Niacin [Niaspan] 500 mg PO HS 04/19/15 [History] Nitroglycerin [Nitrostat] 0.4 mg SL AD PRN 04/19/15 [History] Omeprazole [PriLOSEC] 40 mg PO QPM 04/19/15 [History] Ondansetron [Zofran] 8 mg PO Q8HR PRN 04/19/15 [History] Ranitidine HCl [Zantac] 150 mg PO BID 04/19/15 [History] [place] Oil/[place]-3 Fatty Acids [Fish Oil 500 mg Softgel] 1,000 mg PO QAM [History] Isosorbide MONOnitrate (24 HR) [Imdur] 120 mg PO QAM #60 tab.er.24h 04/25/15 [Rx ] Furosemide [Lasix] 20 mg PO QPM 07/11/15 [History] Insulin Glargine [Lantus] 42 unit SQ BID 07/11/15 [History] Gluc/Miguel Angel-MSM#1/C/Epifanio/Manfred/Bor [Osteo Bi-Flex Caplet] 1 tab PO BID 09/10/15 [ History] Carvedilol [Coreg] 50 mg PO BID 06/12/16 [History] Furosemide [Lasix] 40 mg PO QAM 06/12/16 [History] Albuterol Sulfate [Proair Hfa] 2 puff IH Q4H PRN 09/25/17 [History] Budesonide/Formoterol 80/4.5 [Symbicort 80/4.5] 2 puff IH BID 09/25/17 [History ] Cholecalciferol (D-3) [Vitamin D] 3,000 unit PO QAM 09/25/17 [History] Insulin LISPRO [Humalog Kwikpen U-100] 12 unit SQ TID PRN 09/25/17 [History] Lisinopril 2.5 mg PO QAM 09/25/17 [History] Warfarin [Coumadin] 5 mg PO MOFR 09/25/17 [History] Warfarin [Coumadin] 7.5 mg PO SUTUWETHSA 09/25/17 [History] traZODone [TraZODone] 50 mg PO HS 09/25/17 [History] 3 Allergy/AdvReac Type Severity Reaction Status Date / Time codeine Allergy Difficulty Verified 04/19/15 10:03 Breathing promethazine [From Phenergan] Allergy Dizziness Verified 04/19/15 10:03 ibuprofen AdvReac Nausea Verified 04/19/15 12:02 - Constitutional Constitutional: anorexia, no chills, no fatigue, no fever(s), no lethargy, no malaise, no weakness, no weight gain, no weight loss - EENT Eyes: no blurry vision, no diplopia, no loss of vision, no pain, no other visual disturbances Nose, mouth and throat: no dry mouth, no dysphagia, no mouth lesions, no mouth pain, no nasal congestion, no nasal discharge, no sinus pain, no sore throat - Cardiovascular Cardiovascular ROS IM: no chest pain, no diaphoresis, no dyspnea, no dyspnea on exertion, no edema, no lightheadedness, no palpitations, no syncope - Respiratory Respiratory: no cough, no dyspnea, no hemoptysis, no dyspnea on exertion, no wheezing, no chest congestion - Gastrointestinal Gastrointestinal: abdominal pain, change in bowel habits, nausea, vomiting, no dysphagia, no heartburn, no hematemesis, no hematochezia, no melena - Genitourinary Genitourinary ROS male: no difficulty urinating, no dysuria, no hematuria, no urinary frequency - Musculoskeletal Musculoskeletal ROS IM: no arthralgias, no joint swelling, no muscle weakness, no myalgias - Integumentary Integumentary IM: no erythema, no rash, no skin ulcer, no jaundice - Neurological Neurological ROS: no abnormal gait, no abnormal speech, no behavioral changes, no confusion, no dizziness, no focal weakness, no headache(s), no vertigo, no weakness - Psychiatric Psychiatric: no anxiety, no behavioral changes, no confusion, no depression, no hallucinations - Endocrine Endocrine IM: no cold intolerance, no fatigue, no heat intolerance, no polydipsia, no polyphagia, no polyuria - Constitutional Vitals: Temp Pulse Resp BP Pulse Ox 98.7 F 82 18 126/93 97 09/25/17 06:30 09/25/17 10:31 09/25/17 10:31 09/25/17 10:31 09/25/17 10:31 General appearance: Present: cooperative, A&O X 3, pleasant, no acute distress, obese, answers questions appropriately - Head Head exam: Present: atraumatic, normocephalic - Eye Eye exam: Present: EOMI, PERRL. Absent: conjunctival injection, nystagmus, scleral icterus - ENT ENT exam: Present: mucous membranes moist, normal external ear exam, normal oropharynx - Neck Neck exam general surgery: Present: supple, trachea midline. Absent: lymphadenopathy, tenderness, thyromegaly - Respiratory Respiratory exam: Present: CTAB. Absent: accessory muscle use, rales, rhonchi, wheezes Additional comments: Normal WOB - Cardiovascular Cardiovascular exam: Present: RRR, +S1, +S2. Absent: diastolic murmur, gallop, rubs, systolic murmur Additional comments: No BLE edema - GI/Abdominal GI/Abdominal exam: Present: distended (Mild distension), normal bowel sounds, soft, tenderness. Absent: guarding, hepatomegaly, mass, rebound, splenomegaly Additional comments: Mild TTP diffusely across abdomen, ostomy in place in LLQ without surrounding erythema, pain, or induration - Extremities Exam Extremities exam: Present: normal capillary refill. Absent: calf tenderness, cyanotic, joint swelling, pedal edema, tenderness - Neurological Exam Neurological exam: Present: alert, CN II-XII intact, oriented X3, no focal deficits, strengths equal and symetr throughout. Absent: facial droop, speech deficit - Psychiatric Psychiatric exam: Present: normal affect, normal mood. Absent: anxious, depressed - Skin Skin exam: Present: dry, intact, warm. Absent: cyanosis, rash Internal Med - H&P Results - Labs CBC & Chem 7: 09/25/17 07:19 09/25/17 07:19 - Assessment and plan (1) Partial small bowel obstruction Current Visit: No Status: Suspected Assessment and plan: Admit inpatient. Surgery consulted; appreciate input. Patient states that pain and N/V are now resolved. He also states that he has started to notice good amount of stool moving into ostomy now. Looks to be resolving. Will hold off on NG tube for now as improving, but will defer definitive placement to surgery. Start NPO, IVF, pain control with oxycodone SL and fentanyl IV PRN, and N/V control with IV zofran PRN. Perform ostomy irrigation per surgery. Will await further recommendations from surgery. (2) Ileus Current Visit: Yes Status: Suspected Assessment and plan: Managment as per above. (3) Abdominal pain Current Visit: Yes Status: Acute Assessment and plan: Pain control as per above. Qualifiers: Abdominal location: generalized Qualified Code(s): R10.84 - Generalized abdominal pain (4) Nausea and vomiting Current Visit: Yes Status: Acute Assessment and plan: Anti-emetics as per above. Qualifiers: Vomiting type: unspecified Vomiting Intractability: non-intractable Qualified Code(s): R11.2 - Nausea with vomiting, unspecified (5) Acute cystitis with hematuria Current Visit: Yes Status: Acute Assessment and plan: Continue IV rocephin 1 gram daily. Follow up on urine culture. (6) Restrictive lung disease Current Visit: Yes Status: Chronic Assessment and plan: Continue home medications. Start albuterol nebs Q4H PRN SOB. (7) Atrial fibrillation Current Visit: Yes Status: Chronic Assessment and plan: Restart home medications once taking PO. Qualifiers: Atrial fibrillation type: chronic Qualified Code(s): I48.2 - Chronic atrial fibrillation (8) CAD (coronary artery disease) Current Visit: Yes Status: Chronic Assessment and plan: Restart home medications once taking PO. Qualifiers: Coronary Disease-Associated Artery/Lesion type: bypass graft [place] vs. transplanted heart: [place] heart Associated angina: angina presence unspecified Qualified Code(s): I25.810 - Atherosclerosis of coronary artery bypass graft(s) without angina pectoris (9) CKD (chronic kidney disease) stage 3, GFR 30-59 ml/min Current Visit: Yes Status: Chronic Assessment and plan: Creatinine at baseline. Avoid nephrotoxins. Continue to monitor. Repeat BMP in AM. (10) Hypertension Current Visit: Yes Status: Chronic Assessment and plan: Resume home medications tomorrow. Will start hydralazine PRN while NPO. Qualifiers: Hypertension type: essential hypertension Qualified Code(s): I10 - Essential (primary) hypertension (11) TR on CPAP Current Visit: Yes Status: Chronic Assessment and plan: Continue home CPAP QHS at home settings. (12) Colon cancer Current Visit: Yes Status: Chronic Assessment and plan: S/P total colectomy. Keep heme/onc and surgery follow up as outpatient. Qualifiers: Colon location: unspecified part of colon Qualified Code(s): C18.9 - Malignant neoplasm of colon, unspecified (13) HLD (hyperlipidemia) Current Visit: Yes Status: Chronic Assessment and plan: Restart home medications once taking PO. Qualifiers: Hyperlipidemia type: mixed hyperlipidemia Qualified Code(s): E78.2 - Mixed hyperlipidemia (14) DVT prophylaxis Current Visit: Yes Status: Acute Assessment and plan: On coumadin at home. Will check coag panel. Will continue PO coumadin if taking PO tomorrow; otherwise will start heparin drip. (15) Type II diabetes mellitus Current Visit: Yes Status: Chronic Assessment and plan: Hold home insulin while NPO. Start accuchecks and low dose SSI Q6H. 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 Diabetes mellitus complication status: with kidney complications Diabetes mellitus complication detail: with chronic kidney disease Chronic kidney disease stage : stage 3 (moderate) Qualified Code(s): E11.22 - Type 2 diabetes mellitus with diabetic chronic kidney disease; N18.3 - Chronic kidney disease, stage 3 ( moderate); N18.3 - Chronic kidney disease, stage 3 (moderate); Z79.4 - senior care (current) use of insulin; Z79.4 - meterman (current) use of insulin; Z79.4 - senior care (current) use of insulin; Z79.4 - senior care (current) use of insulin (16) Obesity Current Visit: Yes Status: Chronic Assessment and plan: Advised on lifestyle modifications. Qualifiers: Obesity type: due to excess calories Obesity classification: unspecified obesity classification Serious obesity comorbidity presence: unspecified whether serious comorbidity present Qualified Code(s): E66.09 - Other obesity due to excess calories (17) CHF (congestive heart failure) Current Visit: Yes Status: Acute Assessment and plan: Euvolemic. Will restart home medications when tolerating PO. Qualifiers: Heart failure type: unspecified Heart failure chronicity: unspecified Qualified Code(s): I50.9 - Heart failure, unspecified - Time Spent With Patient Total time spent is greater than 50% in coordination of care (as documented) at patient's floor/unit and/or counseling patient: 25 - 35 minutes
[2017-09-25 13:15] LABS: INR 2.5; Prothrombin Time 27.6 Seconds (9.4-12.1)
[2017-09-25 13:18] LABS: Activated Partial Thrombo Time 40.5 Seconds (26.0-36.0)
[2017-09-25] MEDS: Pantoprazole 40 MG VIAL IVP SCH (13:20)
[2017-09-25] MEDS: Famotidine 20 MG/2 ML VIAL IVP SCH ×2 (13:20→18:11)
[2017-09-25] MEDS: Insulin LISPRO 300 UNITS/3 ML VIAL SQ SCH ×2 (13:20→18:18)
--- NOTE | 2017-09-25 16:11 | General Surgery Consult Note ---
Date of Encounter: 09/25/17 Time of Encounter: 16:00 History of Present Illness Reason for consult: abdominal pain Requesting physician: Ivett Lopez History of present illness: Surgical Consultation placed for this 72 yo patient after he presented to the ED with approx 24 hour history progressive abd pain, with nausea/vomiting and lack of colostomy output. This patient is well known to me having presented in 1998 with colon cancer. The patient has required additional transabdominal surgeries including emergent surgery to address a disrupted ileocolonic anastomosis with subsequent end colostomy. The patient has required surgery to repair hernias including relocation of his end colostomy. Most recent hernia repair, 07/12/2015, for an incarcerated ventral hernia. Patient has undergone repeated colonoscopies for continued surveillance of his colon cancer. These multiple transabdominal procedures placement risk for developing a bowel obstruction, however, the current CT of the abdomen and pelvis obtained on presentation to the emergency department is more consistent with an ileus. Past medical history is notable for atrial fibrillation, pacemaker/AICD; diabetes, hypertension; CAD with history of prior MS; hyperlipidemia; chronic renal disease; and history of stroke; the patient is chronically anticoagulated with warfarin Surgical history includes those mentioned in the history of present illness, coronary bypass 2; angioplasty with coronary stents; appendectomy; cholecystectomy; colon resection for cancer as noted; additional transabdominal surgeries to address a disrupted ileocolonic anastomosis; pacer/AICD. Multiple colonoscopies. Allergies: Codeine, promethazine, ibuprofen On physical examination: Obese age-appropriate male resting comfortably in his hospital bed. Shortly after presenting to the emergency department the colostomy discharged a large soft bowel movement followed by several semisolid bowel movements filling the ostomy appliance 2-3 times. With this "decompression" the patient's abdominal pain resolved and the patient is no longer complaining of nausea with no recurrent emesis. On examination the patient is age-appropriate in no acute distress He is afebrile, most recently 97.6; pulse 64, respirations 16, blood pressure 130/76. SPO2 on room air 96% Lungs were clear bilaterally; no abdominal pain with deep inspiration Cardiac: Rate was slightly irregular; with heart rate ranging 64-82 Abdomen is obese, protuberant, soft, nontender. There was no detected rebound or peritoneal signs. A healthy-appearing colostomy is evident in th upper anterior abdominal wall. Brown stool is evident within the appliance. Bowel sounds are active. Laboratories reviewed: White count 10.1, hemoglobin 14.3, hematocrit 44.6. Differential was unremarkable PT 27.6, INR 2.5 Electrolytes were normal - sodium 140, potassium 4.3, chloride 106, bicarbonate 24. BUN 42, creatinine 2.06 (BUN and creatinine are essentially baseline with review of labs dating back to 04/2017. Hemoglobin A1c as of 09/17/17 8.6. Lactic acid 1.2; LFTs were within normal range except direct bilirubin 0.3. Urinalysis notable for specific gravity 1.018, protein 100, large leukocyte esterase, 5-15 RBC/hpf; too numerous to count WBC/hpf CT abdomen/pelvis was reviewed with [facility]. Impression: 72-year-old male admitted after presenting to [facility] ED with acute abdominal pain, nausea/vomiting. The acute symptoms have resolved with resumption of colostomy function. It appears that the patient had an ileus, likely triggered by a UTI as evidenced by the abnormal urinalysis that has responded to intervention initiated in the ED. The patient is voicing no complaints at this time. Recommendations: Allow diet - diabetic diet has been ordered Resume/continue the patient's home meds Continue antibiotics for a presumptive UTI pending microbiology results If no recurrent abdominal pain, nausea or vomiting - may discharge home in a.m. I have discussed this in detail with the patient and his was in attendance. In agreement with this treatment plan. I will follow along with you and make further recommendations as the patient condition dictates. At present time the patient does not require surgical intervention. Past Med Surg Social Fam HX - Past Medical History Medical history: arthritis, atrial fibrillation, cancer, CHF, coronary artery disease, diabetes, GERD, hyperlipidemia, hypertension, myocardial infarction, renal disease, thyroid disease, TIA, other Psychiatric history: no psych history - Past Surgical History Surgical History: angioplasty/stent, appendectomy, cholecystectomy, colostomy, coronary bypass (CABG), herniorrhaphy, pacemaker/AICD - Social History Smoking Status: Never smoker Smokeless Tobacco Status: No Alcohol use: none Drug use: none - Family History Father Family Member Ethnicity: Non- Living Status: Hx Family Cardiac Disorders: Yes Mother Adopted: No Family Member Ethnicity: Non- Living Status: Hx Family Cardiac Disorders: Yes Hx Family Respiratory Disorders: Yes Hx Family Cancer: No Hx Family GI Disorders: Yes Hx Family Endocrine Disorder: Yes Medications and Allergies Aspirin Enteric Coated [Aspirin EC] 81 mg PO QAM 04/19/15 [History] Atorvastatin [Lipitor] 40 mg PO HS 04/19/15 [History] HYDROcodone/Acet 5/325 mg [[place] 5-325 mg] 1 tab PO DAILY PRN 04/19/15 [History] Levothyroxine [Synthroid] 25 mcg PO QAM 04/19/15 [History] Magnesium Oxide [Magnesium] 400 mg PO BID 04/19/15 [History] Montelukast [Singulair] 10 mg PO QPM 04/19/15 [History] Multivit-Min/FA/Lycopen/Lutein [Centrum Silver Tablet] 1 tab PO QAM 04/19/15 [ History] Niacin [Niaspan] 500 mg PO HS 04/19/15 [History] Nitroglycerin [Nitrostat] 0.4 mg SL AD PRN 04/19/15 [History] Omeprazole [PriLOSEC] 40 mg PO QPM 04/19/15 [History] Ondansetron [Zofran] 8 mg PO Q8HR PRN 04/19/15 [History] Ranitidine HCl [Zantac] 150 mg PO BID 04/19/15 [History] [place] Oil/[place]-3 Fatty Acids [Fish Oil 500 mg Softgel] 1,000 mg PO QAM [History] Isosorbide MONOnitrate (24 HR) [Imdur] 120 mg PO QAM #60 tab.er.24h 04/25/15 [Rx ] Furosemide [Lasix] 20 mg PO QPM 07/11/15 [History] Insulin Glargine [Lantus] 42 unit SQ BID 07/11/15 [History] Gluc/Miguel Angel-MSM#1/C/Epifanio/Manfred/Bor [Osteo Bi-Flex Caplet] 1 tab PO BID 09/10/15 [ History] Carvedilol [Coreg] 50 mg PO BID 06/12/16 [History] Furosemide [Lasix] 40 mg PO QAM 06/12/16 [History] Albuterol Sulfate [Proair Hfa] 2 puff IH Q4H PRN 09/25/17 [History] Budesonide/Formoterol 80/4.5 [Symbicort 80/4.5] 2 puff IH BID 09/25/17 [History ] Cholecalciferol (D-3) [Vitamin D] 3,000 unit PO QAM 09/25/17 [History] Insulin LISPRO [Humalog Kwikpen U-100] 12 unit SQ TID PRN 09/25/17 [History] Lisinopril 2.5 mg PO QAM 09/25/17 [History] Warfarin [Coumadin] 5 mg PO MOFR 09/25/17 [History] Warfarin [Coumadin] 7.5 mg PO SUTUWETHSA 09/25/17 [History] traZODone [TraZODone] 50 mg PO HS 09/25/17 [History] 3 Allergy/AdvReac Type Severity Reaction Status Date / Time codeine Allergy Difficulty Verified 04/19/15 10:03 Breathing promethazine [From Phenergan] Allergy Dizziness Verified 04/19/15 10:03 ibuprofen AdvReac Nausea Verified 04/19/15 12:02 Review of Systems All systems PM: The remainder of the systems were reviewed and are negative General Surgery Exam Initial Vital Signs Temp Pulse Resp BP Pulse Ox 98.7 F 75 20 144/87 99 09/25/17 06:30 09/25/17 06:30 09/25/17 06:30 09/25/17 06:30 09/25/17 06:30 Exam Initial Vital Signs Temp Pulse Resp BP Pulse Ox 98.7 F 75 20 144/87 99 09/25/17 06:30 09/25/17 06:30 09/25/17 06:30 09/25/17 06:30 09/25/17 06:30 Results - Labs 09/25/17 07:19 09/25/17 07:19 Abnormal lab results MCH 27.8 pg (28.0-33.3) L 09/25/17 07:19 RDW 15.9 % (11.5-14.5) H 09/25/17 07:19 MPV 9.3 fL (9.4-12.4) L 09/25/17 07:19 PT 27.6 Seconds (9.4-12.1) H 09/25/17 11:26 APTT 40.5 Seconds (26.0-36.0) H 09/25/17 11:26 BUN 42 mg/dL (8-23) H 09/25/17 07:19 Creatinine 2.06 mg/dL (0.70-1.30) H 09/25/17 07:19 Est GFR ( Amer) 39 (> 60) L 09/25/17 07:19 Est GFR (Non-Af Amer) 32 (> 60) L 09/25/17 07:19 Glucose 185 mg/dL (70-105) H 09/25/17 07:19 POC Glucose 199 mg/dL (70-99) H 09/25/17 12:45 Calculated Osmolality 305 (280-300) H 09/25/17 07:19 Direct Bilirubin 0.3 mg/dL (0.0-0.2) H 09/25/17 07:19 Serum Total Protein 6.2 g/dL (6.4-8.9) L 09/25/17 07:19 Urine Clarity Cloudy (Clear) A 09/25/17 06:35 Urine Protein 100 mg/dL (Neg-Trace) H 09/25/17 06:35 Urine Blood Small (Negative) H 09/25/17 06:35 Ur Leukocyte Esterase Large (Negative) H 09/25/17 06:35 Urine Microscopic RBC 5-15 per hpf (0-3) H 09/25/17 06:35 Urine Microscopic WBC TNTC per hpf (0-3) H 09/25/17 06:35 Urine Bacteria Many per hpf (None-Few) H 09/25/17 06:35 Ur Culture Indicated? YES (NO) A 09/25/17 06:35 All other labs normal. Consult Discharge Plan - Plan Referrals: Latosha Mitchell MD [Primary Care Provider] -
[2017-09-25] MEDS ORDERED: Furosemide 20 MG TABLET PO SCH (18:00)
[2017-09-25] MEDS ORDERED: *HR* Warfarin 5 MG TABLET PO SCH (18:00)
[2017-09-25] MEDS ORDERED: traZODone 50 MG TABLET PO SCH (21:00)
[2017-09-25] MEDS ORDERED: (Gluc/Chon-Msm#1/C/Mang/Bos/Bor [Osteo Bi-Flex Caplet PO SCH (21:00)
[2017-09-25] MEDS ORDERED: Niacin (24 HR) 500 MG TAB.ER.24H PO SCH (21:00)
[2017-09-25] MEDS: Magnesium Oxide 400 MG TABLET PO SCH (21:26)
[2017-09-25] MEDS: Budesonide/Formoterol 80/4.5 MDI IH SCH (22:17)
[2017-09-26] MEDS: Insulin LISPRO 300 UNITS/3 ML VIAL SQ SCH ×2 (02:40→06:35)
[2017-09-26 05:50] LABS: Basophils % 0.5 %; Eosinophils # 0.2 K/mcL (0.0-0.6); Eosinophils % 2.7 %; Hematocrit 41.1 % (37.5-50.1); Immature Granulocytes % 0.4 % (0-4); Lymphocytes # 0.9 K/mcL (0.6-4.6); Lymphocytes % 15.2 %; Mean Corpuscular HGB Conc 31.6 g/dL (31.6-35.5); Mean Corpuscular Hemoglobin 27.8 pg (28.0-33.3); Mean Platelet Volume 9.4 fL (9.4-12.4); Monocytes # 0.8 K/mcL (0.0-1.3); Monocytes % 14.2 %; Neutrophils # 3.8 K/mcL (1.6-8.9); Platelet Count 125 K/mcL (140-400); Red Blood Count 4.67 M/mcL (4.19-5.50); Red Cell Distribution Width 16.1 % (11.5-14.5)
[2017-09-26 05:55] LABS: INR 2.8; Prothrombin Time 30.9 Seconds (9.4-12.1)
[2017-09-26 05:58] LABS: Activated Partial Thrombo Time 39.8 Seconds (26.0-36.0)
[2017-09-26] MEDS ORDERED: *HR* Enoxaparin 30 MG/0.3 ML SYRINGE SQ SCH (06:00)
[2017-09-26 06:12] LABS: Calcium 8.5 mg/dL (8.6-10.3); Potassium 4.2 mEq/L (3.5-5.1)
[2017-09-26] MEDS ORDERED: Levothyroxine 25 MCG TABLET PO SCH (06:30)
[2017-09-26] MEDS: Famotidine 20 MG/2 ML VIAL IVP SCH (06:34)
[2017-09-26] MEDS: Magnesium Oxide 400 MG TABLET PO SCH (08:27)
[2017-09-26] MEDS: Pantoprazole 40 MG VIAL IVP SCH (08:28)
[2017-09-26] MEDS: Budesonide/Formoterol 80/4.5 MDI IH SCH (08:50)
[2017-09-26] MEDS ORDERED: (Salmon Oil/Omega-3 Fatty Acids [Fish Oil 500 Mg Soft PO SCH (09:00)
[2017-09-26] MEDS ORDERED: Cholecalciferol (D-3) 1,000 UNIT TABLET PO SCH (09:00)
[2017-09-26] MEDS ORDERED: Multivit/Ca/Min/Fe/FA 1 TAB TABLET PO SCH (09:00)
[2017-09-26] MEDS ORDERED: Aspirin Enteric Coated 81 MG Tablet PO SCH (09:00)
[2017-09-26] MEDS ORDERED: Furosemide 40 MG TABLET PO SCH (09:00)
[2017-09-26] MEDS ORDERED: Isosorbide MONOnitrate (24 HR) 60 MG TAB.ER.24H PO SCH (09:00)
[2017-09-26] MEDS ORDERED: cefTRIAXone 1,000 MG in Water for inj. (sterile) 20 ML 10 ML IVP SCH (09:00)
--- NOTE | 2017-09-26 09:34 | General Surgery Progress Note ---
Date of Encounter: 09/26/17 Time of Encounter: 09:30 Subjective Patient reports: feels better, tolerating a regular diet Narrative: General Surgery - patient feeling better; tolerating diet without recurrent abdominal pain. No cramping, nausea, or vomiting. Has remained afebrile, most recently 97.7. Pulse 59, respirations 16, blood pressure 143/88. Abdomen: Soft, nontender with active bowel sounds. Colostomy functioning well output overnight has diminished - it is likely return to baseline after spontaneous decompression following a transient ileus. There are no persisting signs or symptoms of a bowel obstruction. Recommendations: Discharge home. Patient may resume/continue regular diet and his home meds Continue antibiotics for presumed UTI, urine cultures not yet resulted Surgical follow-up as needed. The patient and his are aware of these recommendations. Objective Vital Signs - Last 8 Hours Temp Pulse Resp BP Pulse Ox 09/26/17 08:51 16 99 09/26/17 07:45 97.7 F 59 16 143/88 99 09/26/17 03:53 97.8 F 62 16 142/88 98 Intake and Output 09/25/17 09/26/17 09/26/17 23:59 07:59 15:59 Intake Total 200 / 200 300 / 300 Output Total 200 / 200 0 / 0 Balance 0 / 0 300 / 300 Intake: Oral 200 / 200 300 / 300 Output: Urine 200 / 200 0 / 0 Stool 0 / 0 Other: # Bowel Movements 0 Weight 115.7 kg Blood Glucose* 222 201 Patient Weight 09/26/17 23:59 Weight 115.7 kg - Labs 09/26/17 05:23 09/26/17 05:23 Diabetes panel 09/26/17 Range/Units 05:23 Sodium 139 (136-145) mEq/L Potassium 4.2 (3.5-5.1) mEq/L Chloride 107 (98-107) mEq/L Carbon Dioxide 27 (23-29) mEq/L BUN 36 H (8-23) mg/dL Creatinine 2.02 H (0.70-1.30) mg/dL Glucose 204 H (70-105) mg/dL Calcium 8.5 L (8.6-10.3) mg/dL Calcium panel 09/26/17 Range/Units 05:23 Calcium 8.5 L (8.6-10.3) mg/dL Pituitary panel 09/26/17 Range/Units 05:23 Sodium 139 (136-145) mEq/L Potassium 4.2 (3.5-5.1) mEq/L Chloride 107 (98-107) mEq/L Carbon Dioxide 27 (23-29) mEq/L BUN 36 H (8-23) mg/dL Creatinine 2.02 H (0.70-1.30) mg/dL Glucose 204 H (70-105) mg/dL Calcium 8.5 L (8.6-10.3) mg/dL Adrenal panel 09/26/17 Range/Units 05:23 Sodium 139 (136-145) mEq/L Potassium 4.2 (3.5-5.1) mEq/L Chloride 107 (98-107) mEq/L Carbon Dioxide 27 (23-29) mEq/L BUN 36 H (8-23) mg/dL Creatinine 2.02 H (0.70-1.30) mg/dL Glucose 204 H (70-105) mg/dL Calcium 8.5 L (8.6-10.3) mg/dL Consult Discharge Plan - Plan Referrals: Latosha Mitchell MD [Primary Care Provider] -
[2017-09-26 10:34] VITALS: BP 132/78
--- NOTE | 2017-09-26 10:46 | Discharge Summary ---
<Angela Gilliland - Last Filed: 09/26/17 15:10> Date of Encounter: 09/26/17 Time of Encounter: 10:44 - Discharge Diagnosis (1) Acute cystitis with hematuria Priority: Secondary Status: Acute (2) Nausea and vomiting Priority: Secondary Status: Acute Qualifiers: Vomiting type: unspecified Vomiting Intractability: non-intractable Qualified Code(s): R11.2 - Nausea with vomiting, unspecified (3) Abdominal pain Priority: Primary Status: Acute Qualifiers: Abdominal location: generalized Qualified Code(s): R10.84 - Generalized abdominal pain (4) Partial small bowel obstruction Priority: Primary Status: Suspected (5) Ileus Priority: Secondary Status: Suspected (6) Colon cancer Priority: Secondary Status: Chronic Qualifiers: Colon location: unspecified part of colon Qualified Code(s): C18.9 - Malignant neoplasm of colon, unspecified (7) Restrictive lung disease Priority: Secondary Status: Chronic (8) HLD (hyperlipidemia) Priority: Secondary Status: Chronic Qualifiers: Hyperlipidemia type: mixed hyperlipidemia Qualified Code(s): E78.2 - Mixed hyperlipidemia (9) CHF (congestive heart failure) Priority: Secondary Status: Chronic Qualifiers: Heart failure type: unspecified Heart failure chronicity: unspecified Qualified Code(s): I50.9 - Heart failure, unspecified (10) Type II diabetes mellitus Priority: Secondary Status: Chronic Qualifiers: Diabetes mellitus senior living insulin use: with senior living use Diabetes mellitus complication status: with kidney complications Diabetes mellitus complication detail: with chronic kidney disease Chronic kidney disease stage : stage 3 (moderate) Qualified Code(s): E11.22 - Type 2 diabetes mellitus with diabetic chronic kidney disease; N18.3 - Chronic kidney disease, stage 3 ( moderate); N18.3 - Chronic kidney disease, stage 3 (moderate); Z79.4 - FDC (current) use of insulin; Z79.4 - exterminator (current) use of insulin; Z79.4 - exterminator (current) use of insulin; Z79.4 - FDC (current) use of insulin (11) CAD (coronary artery disease) Priority: Secondary Status: Chronic Qualifiers: Coronary Disease-Associated Artery/Lesion type: bypass graft [place] vs. 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 (12) CKD (chronic kidney disease) stage 3, GFR 30-59 ml/min Priority: Secondary Status: Chronic (13) Hypertension Priority: Secondary Status: Chronic Qualifiers: Hypertension type: essential hypertension Qualified Code(s): I10 - Essential (primary) hypertension (14) TR on CPAP Priority: Secondary Status: Chronic (15) Atrial fibrillation Priority: Secondary Status: Chronic Qualifiers: Atrial fibrillation type: chronic Qualified Code(s): I48.2 - Chronic atrial fibrillation (16) DVT prophylaxis Priority: Secondary Status: Acute (17) Obesity Priority: Secondary Status: Chronic Qualifiers: Obesity type: due to excess calories Obesity classification: unspecified obesity classification Serious obesity comorbidity presence: unspecified whether serious comorbidity present Qualified Code(s): E66.09 - Other obesity due to excess calories Hospital course: Mr. Ellis is a 72 year old male with PMH of colon cancer S/P total colectomy who presented to the ED for complaints of abdominal pain, and/V, and decreased colostomy output. On arrival, patient was afebrile, hemodynamically stable, and saturating 99% on room air. His workup in the ED consisted of blood work, urinalysis, and imaging with CXR and CT abdomen pelvis. CBC unremarkable, INR 2.5, and chemistry with creatinine 2.06 which appears to be around his baseline. UA notable for positive blood, large leukocyte esterase, WBCs too numerous to count, and many urine bacteria. CXR showed stable cardiomegaly and chronic scarring of bilateral lung bases. CT revealed small bowel loops mildly dilated up to 3.5 cm without focal transition point, interpreted as possibly related to a focal ileus or partial obstruction. General surgery was consulted for recommendations. Urine sample sent for urine culture. Preliminary result of gram-negative cristina. IV Rocephin was started for empiric antibiotic therapy of acute cystitis. After presenting to the emergency department, patient's abdomen was "decompressed" after passage of large soft bowel through the colostomy--relieved his abdominal pain. On day of discharge patient reported no further cramping, nausea, or vomiting and was tolerating regular diet without abdominal pain. General surgery felt that there were no persisting signs or symptoms of bowel obstruction and recommended the patient be discharged to home with surgical follow-up as needed. Patient was hemodynamically stable and afebrile throughout his stay. Temp 97.6 F, blood pressure 132/78, pulse 60, 98% oxygen saturation room air. Patient was deemed to be medically stable and safe for discharge to home and was given a prescription for enough Keflex to finish his 5 day antibiotic course. - Time Spent with Patient Total time spent providing and/or coordinating discharge services: - Discharge Medications Prescriptions: cephALEXin [Keflex] 500 mg PO BID 3 Days #6 capsule Home Medications: Aspirin Enteric Coated [Aspirin EC] 81 mg PO QAM 04/19/15 [History] Atorvastatin [Lipitor] 40 mg PO HS 04/19/15 [History] HYDROcodone/Acet 5/325 mg [[place] 5-325 mg] 1 tab PO DAILY PRN 04/19/15 [History] Levothyroxine [Synthroid] 25 mcg PO QAM 04/19/15 [History] Magnesium Oxide [Magnesium] 400 mg PO BID 04/19/15 [History] Montelukast [Singulair] 10 mg PO QPM 04/19/15 [History] Multivit-Min/FA/Lycopen/Lutein [Centrum Silver Tablet] 1 tab PO QAM 04/19/15 [ History] Niacin [Niaspan] 500 mg PO HS 04/19/15 [History] Nitroglycerin [Nitrostat] 0.4 mg SL AD PRN 04/19/15 [History] Omeprazole [PriLOSEC] 40 mg PO QPM 04/19/15 [History] Ondansetron [Zofran] 8 mg PO Q8HR PRN 04/19/15 [History] Ranitidine HCl [Zantac] 150 mg PO BID 04/19/15 [History] [place] Oil/[place]-3 Fatty Acids [Fish Oil 500 mg Softgel] 1,000 mg PO QAM [History] Isosorbide MONOnitrate (24 HR) [Imdur] 120 mg PO QAM #60 tab.er.24h 04/25/15 [Rx ] Furosemide [Lasix] 20 mg PO QPM 07/11/15 [History] Insulin Glargine [Lantus] 42 unit SQ BID 07/11/15 [History] Gluc/Miguel Angel-MSM#1/C/Epifanio/[place]/Bor [Osteo Bi-Flex Caplet] 1 tab PO BID 09/10/15 [ History] Carvedilol [Coreg] 50 mg PO BID 06/12/16 [History] Furosemide [Lasix] 40 mg PO QAM 06/12/16 [History] Albuterol Sulfate [Proair Hfa] 2 puff IH Q4H PRN 09/25/17 [History] Budesonide/Formoterol 80/4.5 [Symbicort 80/4.5] 2 puff IH BID 09/25/17 [History ] Cholecalciferol (D-3) [Vitamin D] 3,000 unit PO QAM 09/25/17 [History] Insulin LISPRO [Humalog Kwikpen U-100] 12 unit SQ TID PRN 09/25/17 [History] Lisinopril 2.5 mg PO QAM 09/25/17 [History] Warfarin [Coumadin] 5 mg PO MOFR 09/25/17 [History] Warfarin [Coumadin] 7.5 mg PO SUTUWETHSA 09/25/17 [History] traZODone [TraZODone] 50 mg PO HS 09/25/17 [History] cephALEXin [Keflex] 500 mg PO BID 3 Days #6 capsule 09/26/17 [Rx] Allergies/Adverse Reactions: 3 Allergy/AdvReac Type Severity Reaction Status Date / Time codeine Allergy Difficulty Verified 04/19/15 10:03 Breathing promethazine [From Phenergan] Allergy Dizziness Verified 04/19/15 10:03 ibuprofen AdvReac Nausea Verified 04/19/15 12:02 Date of admission: 09/25/17 11:04 Primary care physician: Latosha Mitchell, Consults: 09/25/17 12:15 Consult to Wound Care [CONS] Stat Reason for Consult: colostomy irrigation for possible ileus Time Notified: 12:16 Call Completed: Yes Discharging clinician: Angela Gilliland Anticipated date of discharge: 09/26/17 - Constitutional Vitals: Temp Pulse Resp BP Pulse Ox 97.6 F 60 16 132/78 98 09/26/17 10:29 09/26/17 10:29 09/26/17 10:29 09/26/17 10:29 09/26/17 10:29 General appearance: Present: cooperative, A&O X 3, pleasant, no acute distress, obese, answers questions appropriately - Other Additional findings: General: AAOx3, No acute distress, sitting comfortably in bed HEENT: EOMI, moist mucus membranes, non traumatic, normocephalic Neck: Supple Cardio: RRR, no murmurs, S1/S2 Pulm: CTAB, no wheezing, rhonchi, rales. Normal respiratory effort. Abdomen: soft, nontender, BS+, no rebound, rigidity, guarding, distention Extremities: No lower extremitiy edema, spontaneous movement of extremities Neuro: AAOx3, no focal neurological deficit, mentation intact, CN II-XII intact grossly MSK: Strength 5/5 throughout Psych: Appropriate mood and affect. Answers questions appropriately. Cooperative with exam - Patient Status Disposition: Home, Self-Care Condition: Good Functional capacity at discharge: independent ambulation Overall status at discharge: patient is progressing back to baseline - Discharge Instructions Follow Up With: Latosha Mitchell MD [Primary Care Provider] - - Diet and Activity Activity: resume usual activities as tolerated Diet: diabetic diet, low salt diet <Tania Khan - Last Filed: 09/27/17 09:17> Date of Encounter: 09/26/17 - Discharge Diagnosis (1) Hypertension Status: Chronic Qualifiers: Hypertension type: essential hypertension Qualified Code(s): I10 - Essential (primary) hypertension (2) CKD (chronic kidney disease) stage 3, GFR 30-59 ml/min Status: Chronic (3) Atrial fibrillation Status: Chronic Qualifiers: Atrial fibrillation type: chronic Qualified Code(s): I48.2 - Chronic atrial fibrillation (4) CAD (coronary artery disease) Status: Chronic Qualifiers: Coronary Disease-Associated Artery/Lesion type: bypass graft [place] vs. 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 (5) TR on CPAP Status: Chronic (6) DVT prophylaxis Status: Acute (7) Partial small bowel obstruction Status: Suspected (8) Colon cancer Status: Chronic Qualifiers: Colon location: unspecified part of colon Qualified Code(s): C18.9 - Malignant neoplasm of colon, unspecified (9) Restrictive lung disease Status: Chronic (10) Abdominal pain Status: Acute Qualifiers: Abdominal location: generalized Qualified Code(s): R10.84 - Generalized abdominal pain (11) Nausea and vomiting Status: Acute Qualifiers: Vomiting type: unspecified Vomiting Intractability: non-intractable Qualified Code(s): R11.2 - Nausea with vomiting, unspecified (12) Ileus Status: Suspected (13) HLD (hyperlipidemia) Status: Chronic Qualifiers: Hyperlipidemia type: mixed hyperlipidemia Qualified Code(s): E78.2 - Mixed hyperlipidemia (14) Acute cystitis with hematuria Status: Acute (15) CHF (congestive heart failure) Status: Chronic Qualifiers: Heart failure type: unspecified Heart failure chronicity: unspecified Qualified Code(s): I50.9 - Heart failure, unspecified (16) Type II diabetes mellitus Status: Chronic Qualifiers: Diabetes mellitus exterminator insulin use: with exterminator use Diabetes mellitus complication status: with kidney complications Diabetes mellitus complication detail: with chronic kidney disease Chronic kidney disease stage : stage 3 (moderate) Qualified Code(s): E11.22 - Type 2 diabetes mellitus with diabetic chronic kidney disease; N18.3 - Chronic kidney disease, stage 3 ( moderate); N18.3 - Chronic kidney disease, stage 3 (moderate); Z79.4 - FDC (current) use of insulin; Z79.4 - exterminator (current) use of insulin; Z79.4 - FDC (current) use of insulin; Z79.4 - exterminator (current) use of insulin (17) Obesity Status: Chronic Qualifiers: Obesity type: due to excess calories Obesity classification: unspecified obesity classification Serious obesity comorbidity presence: unspecified whether serious comorbidity present Qualified Code(s): E66.09 - Other obesity due to excess calories Hospital course: Mr. Ellis is a 72 year old male - Time Spent with Patient Total time spent providing and/or coordinating discharge services: Date of admission: 09/25/17 11:04 Primary care physician: Latosha Mitchell, Consults: 09/25/17 12:15 Consult to Wound Care [CONS] Stat Reason for Consult: colostomy irrigation for possible ileus Time Notified: 12:16 Call Completed: Yes - Constitutional Vitals: Temp Pulse Resp BP Pulse Ox 97.6 F 60 16 132/78 98 09/26/17 10:29 09/26/17 10:29 09/26/17 10:29 09/26/17 10:29 09/26/17 10:29 - Attending Attestation I examined this patient and my medical decision-making was reviewed with the Resident Physician Dr. Gilliland. I agree with the documented findings, disposition and treatment plan as described except to the extent set forth below. Mr. Ellis is a 72 year old male with PMH of colon cancer S/P total colectomy who presented to the ED for complaints of abdominal pain, and/V, and decreased colostomy output. CT revealed small bowel loops mildly dilated up to 3.5 cm without focal transition point, interpreted as possibly related to a focal ileus or partial obstruction. Pt is alert, awake this morning. denied any abdominal pain and his colostomy is working well too. No fever / chills. Tolerating PO intake well. Gen: A, A, O x 3 Abd: Soft, NT, BS+ a/p 1. Acute partial SBO resolved recommend to continue soft diet for a couple of days 2. Acute UTI UA - abnormal his Urine cx from past grew E. Coli Will d/c him home on Keflex
[2017-09-26] MEDS ORDERED: *HR* Warfarin 7.5 MG TABLET PO SCH (18:00)
== END 2017-09-26 13:30 | disposition home or self-care (01) | DRG 389 ==
LOC: EMEROO 06:25 → 3ANU 06:25
PROVIDERS: ADMIT Family Medicine; ATTEND Family Medicine

== ENCOUNTER 2017-10-08 02:28 | Observation (INO) ==
--- NOTE | 2017-10-08 02:44 | Emergency Department Note ---
Disposition Clinical Impression: Chest pain Qualifiers: Chest pain type: unspecified Qualified Code(s): R07.9 - Chest pain, unspecified Disposition: Admitted As Inpatient Condition: Good Time of Disposition: 03:56 Chest Pain HPI - General Chief Complaint: ED Chest Pain Stated Complaint: CP Time Seen by Provider: 10/08/17 02:33 Vital Signs Reviewed: Yes Nursing Notes Reviewed: Yes - History of Present Illness Severity scale (1-10): 2 - Related Data Home Medications Medication Instructions Recorded Confirmed Albuterol Sulfate [Proair Hfa] 1 puff IH Q4HR PRN 10/08/17 10/08/17 Aspirin 81 mg PO DAILY 10/08/17 10/08/17 Atorvastatin [Lipitor] 40 mg PO HS 10/08/17 10/08/17 Budesonide/Formoterol 80/4.5 2 gm IH BIDR 10/08/17 10/08/17 [Symbicort 80/4.5] Carvedilol [Coreg] 50 mg PO BID 10/08/17 10/08/17 Cholecalciferol (D-3) [Vitamin D] 3,000 unit PO DAILY 10/08/17 10/08/17 Furosemide [Lasix] 40 mg PO BID 10/08/17 10/08/17 Glucosamine/D3/[place] Ele 1 each PO BID 10/08/17 10/08/17 [Osteo Bi-Flex Tablet] Hydrocodone/Acetaminophen 1 tab PO Q6HR PRN 10/08/17 10/08/17 [Hydrocodone-Acetamin 5-300 mg] Insulin Glargine [Lantus] 44 unit SQ BID 10/08/17 10/08/17 Insulin LISPRO [Humalog] 0 unit SQ TIDWM 10/08/17 10/08/17 Isosorbide MONOnitrate (24 HR) 120 mg PO DAILY 10/08/17 10/08/17 [Imdur] Levothyroxine [Synthroid] 25 mcg PO 0630 10/08/17 10/08/17 Lisinopril 2.5 mg PO DAILY 10/08/17 10/08/17 Mag Oxide/D3/[place] Rt Xt 1 each PO BID 10/08/17 10/08/17 [Magnesium-Vit D3-Turmeric Tab] Montelukast [Singulair] 10 mg PO DAILY 10/08/17 10/08/17 Multivitamin/Iron/Folic Acid 1 each PO DAILY 10/08/17 10/08/17 [Centrum Complete Multivit Tab] Niacin [Plain Niacin] 500 mg PO DAILY 10/08/17 10/08/17 [place]-3/Dha/Epa/Fish Oil [Fish Oil 1 each PO DAILY 10/08/17 10/08/17 1,000 mg Softgel] Omeprazole [PriLOSEC] 40 mg PO DAILY 10/08/17 10/08/17 Ondansetron [Zofran ODT] 8 mg SL Q8H PRN 10/08/17 10/08/17 Ranitidine HCl [Zantac] 150 mg PO BID 10/08/17 10/08/17 Warfarin [Coumadin] 5 mg PO 1800 10/08/17 10/08/17 traZODone [TraZODone] 50 mg PO HS 10/08/17 10/08/17 Allergies Allergy/AdvReac Type Severity Reaction Status Date / Time codeine Allergy Difficulty Verified 04/19/15 10:03 Breathing promethazine [From Phenergan] Allergy Dizziness Verified 04/19/15 10:03 ibuprofen AdvReac Nausea Verified 04/19/15 12:02 All systems ED: reviewed and negative except as stated. Constitutional: Denies: fever, chills ENT ED: Denies: congestion Cardiovascular: Reports: chest pain. Denies: palpitations, syncope Respiratory: Denies: cough, dyspnea Gastrointestinal: Denies: abdominal pain, nausea, vomiting, diarrhea Musculoskeletal: Reports: other (Numbness sensation in his left foot. Does have a history of diabetic neuropathy. Consistent with that.). Denies: back pain, neck pain Neurological: Reports: headache Chest Pain PMH - Past Medical History Medical history: Reports: arthritis, atrial fibrillation, cancer, CHF, coronary artery disease, diabetes, GERD, hyperlipidemia, hypertension, myocardial infarction, renal disease, thyroid disease, TIA, other Surgical history: Reports: angioplasty/stent, appendectomy, cholecystectomy, colostomy, coronary bypass (CABG), herniorrhaphy, pacemaker/AICD Psychiatric history: Reports: no psych history - Social History Smoking Status: Never smoker Alcohol use: Reports: none Drug use: Reports: none Physical Exam - General Limitations: no limitations General appearance: alert, in no apparent distress - Head Head exam: atraumatic, normocephalic, normal inspection - Eye Eye exam: Present: normal appearance, PERRL, EOMI - ENT ENT exam: normal exam, normal oropharynx, mucous membranes moist - Neck Neck exam: Present: normal inspection, full ROM, trachea midline - Chest Chest inspection: Present: normal inspection, symmetric chest wall rise - Respiratory Respiratory exam: Present: normal lung sounds bilaterally - Cardiovascular Cardiovascular exam: Present: regular rate, normal rhythm, normal heart sounds - Abdominal Exam Abdominal exam: Present: soft, Non-Tender, other (Ostomy bag). Absent: tenderness, distention, guarding, rebound, rigidity - Extremities Exam Extremities exam: Present: normal inspection, full ROM, pedal edema (Mild bilateral), other (Good sensation to both lower extremities.). Absent: tenderness - Neurological Exam Neurological exam: Present: alert, oriented X3 - Psychiatric Psychiatric exam: Present: normal affect, normal mood - Skin Skin exam: Present: warm, dry, intact, normal color Course Course Narrative: Male patient presenting to emergency department complaining of chest pain. States it woke him from his sleep. States it is in the left side of his chest. Started out on the right side and radiated inset into the left side of his chest. He states that when he woke up he noticed his left leg was tingling however he can feel me touch it. He states he is ambulating without difficulty. He is mentating appropriately. Denies any shortness of breath at this time. States the pain was a 4 out of 10 prior to getting in the ambulance. He was given nitroglycerin as well as 4 baby aspirin. He states his pain as a 2 out of 10 at this time. He does have a history of bypass surgery. He is resting comfortably at this time. We will get a chest x-ray EKG and basic lab workup. - Reevaluation(s) Reevaluation #1: Patient states he is still having some mild chest discomfort on the left side. We will place a triple a in place at this time. He did receive aspirin by EMS prior to arrival here. On conversation with him he states that he has been feeling "funny over the past couple weeks. He describes this as an increasing fatigue whenever he tried to walk around. He states that his ejection fraction is around 15%. We will admit patient to the hospital for ACS rule out. Time: 03:53 - Consultations Consultation #1: Dr Bourne accepted Pt in stable condition. Time: 03:52 Vital Signs Temperature 97.7 F 10/08/17 02:32 Pulse Rate 69 10/08/17 02:32 Respiratory Rate 18 10/08/17 02:32 Blood Pressure 142/85 10/08/17 02:32 O2 Sat by Pulse Oximetry 98 10/08/17 02:32 Temperature 97.4 F L 10/09/17 03:20 Pulse Rate 60 10/09/17 03:20 Respiratory Rate 16 10/09/17 03:20 Blood Pressure 163/50 10/09/17 03:20 O2 Sat by Pulse Oximetry 95 10/09/17 03:20 Oxygen Delivery Oxygen Delivery Room Air Chest Pain - Medical Records Medical records reviewed: Yes I reviewed the patient's medical records. - Lab Data Lab results reviewed: Yes I reviewed the patient's lab results. Result diagrams: 10/08/17 02:35 10/08/17 02:35 Lab Results 10/08/17 10/08/17 10/08/17 Range/Units 02:35 02:35 02:35 WBC 7.5 (4.3-11.1) K/mcL RBC 5.13 (4.19-5.50) M/mcL Hgb 14.3 (12.9-16.9) g/dL Hct 44.4 (37.5-50.1) % MCV 86.5 (83.0-100.0) fL MCH 27.9 L (28.0-33.3) pg MCHC 32.2 (31.6-35.5) g/dL RDW 15.8 H (11.5-14.5) % Plt Count 166 (140-400) K/mcL MPV 9.6 (9.4-12.4) fL Immature Gran % 0.3 (0-4) % Seg Neutrophils % 67.7 % Lymphocytes % 15.4 % Monocytes % 13.6 % Eosinophils % 2.3 % Basophils % 0.7 % Neutrophils # 5.1 (1.6-8.9) K/mcL Lymphocytes # 1.2 (0.6-4.6) K/mcL Monocytes # 1.0 (0.0-1.3) K/mcL Eosinophils # 0.2 (0.0-0.6) K/mcL Basophils # 0.1 (0.0-0.2) K/mcL PT 26.6 H (9.4-12.1) Seconds INR 2.4 APTT 38.6 H (26.0-36.0) Seconds Sodium 137 (136-145) mEq/L Potassium 4.6 (3.5-5.1) mEq/L Chloride 101 (98-107) mEq/L Carbon Dioxide 27 (23-29) mEq/L BUN 50 H (8-23) mg/dL Creatinine 2.30 H (0.70-1.30) mg/dL Est GFR ( Amer) 34 L (> 60) Est GFR (Non-Af Amer) 28 L (> 60) BUN/Creatinine Ratio 22 (6-26) Glucose 226 H (70-105) mg/dL Calculated Osmolality 304 H (280-300) Calcium 9.3 (8.6-10.3) mg/dL Troponin I < 0.03 (< 0.04) ng/mL - Radiology Data Radiology results reviewed: Yes I reviewed the patient's radiology results. Chest X-Ray 10/08/17 02:40 IMPRESSION: Stable chest. D/ / Nawaf Batista MD / Nawaf Batista MD Interpreting Provider: Nawaf Batista MD - EKG Data EKG attestation: Yes I reviewed and interpreted this EKG. EKG results narrative: Ventricularly paced rhythm at a rate of 64. QRS duration is 158. QTC is 455. QTC is 465. Patient does not meet is globose a criteria. No changes from previous EKG dated 05/29/2017. Attestation Statement - Attestation Attestation: I examined this patient and my medical decision-making was reviewed with the Resident Physician. I agree with the documented findings, disposition and treatment plan as described except to the extent set forth below. Findings consistent with chest pain. Patient has known low ejection fraction. Patient multiple risk factors. We will proceed with admission for further evaluation of chest pain and cardiac evaluation.
[2017-10-08 02:50] LABS: Basophils # 0.1 K/mcL (0.0-0.2); Basophils % 0.7 %; Eosinophils # 0.2 K/mcL (0.0-0.6); Eosinophils % 2.3 %; Hematocrit 44.4 % (37.5-50.1); Hemoglobin 14.3 g/dL (12.9-16.9); Immature Granulocytes % 0.3 % (0-4); Lymphocytes # 1.2 K/mcL (0.6-4.6); Lymphocytes % 15.4 %; Mean Corpuscular HGB Conc 32.2 g/dL (31.6-35.5); Mean Corpuscular Hemoglobin 27.9 pg (28.0-33.3); Mean Corpuscular Volume 86.5 fL (83.0-100.0); Mean Platelet Volume 9.6 fL (9.4-12.4); Monocytes % 13.6 %; Neutrophils # 5.1 K/mcL (1.6-8.9); Platelet Count 166 K/mcL (140-400); Red Blood Count 5.13 M/mcL (4.19-5.50); Red Cell Distribution Width 15.8 % (11.5-14.5); Segmented Neutrophils % 67.7 %
[2017-10-08 02:55] LABS: INR 2.4; Prothrombin Time 26.6 Seconds (9.4-12.1)
[2017-10-08 02:58] LABS: Activated Partial Thrombo Time 38.6 Seconds (26.0-36.0)
[2017-10-08 03:04] LABS: BUN/Creatinine Ratio 22 (6-26); Blood Urea Nitrogen 50 mg/dL (8-23); Calcium 9.3 mg/dL (8.6-10.3); Carbon Dioxide 27 mEq/L (23-29); Chloride 101 mEq/L (98-107); Glucose 226 mg/dL (70-105); Osmolality,Calculated 304 (280-300); Potassium 4.6 mEq/L (3.5-5.1); Sodium 137 mEq/L (136-145); eGFR For African Americans 34 (> 60); eGFR For Non-African Americans 28 (> 60)
[2017-10-08 03:05] LABS: Troponin I < 0.03 ng/mL (< 0.04)
[2017-10-08] MEDS ORDERED: Nitroglycerin 1 INCH/GM PACKET TP ONE (03:49)
--- NOTE | 2017-10-08 04:04 | Internal Med History&Physical ---
Date of Encounter: 10/08/17 Time of Encounter: 03:59 Internal Medicine - H&P: HPI Chief complaint: chest pain Admitted From: Emergency Dept Plans for Post Hospital Care: Home History of present illness: Mr. Ellis is a 72 year old male who was recently discharged in September after a stay for SBO and UTI, with PMH of ICM s/p ICD and CABG last [facility] in 2014 with severe 3 vessel disease with 1 of 2 patent bypass graft with an occluded SVG- Ramus. At the time was recommended aggressive medical management. Also history of colon cancer s/p colectomy, CKD3, diabetes, GERD, hyperlipidemia, hypertension, afib on anticoagulation, hypothyroidism. The patient states that he went to bed last night around 11 without any chest pain. He woke up around 1 feeling chest pressure in the mid chest patient to the right show he also experienced diaphoresis and dyspnea as well. The pain at that time was about 5 out of 10 and he took sublingual nitroglycerin that brought down the pain to around 2. EMS were called and the gave him 4 baby aspirin and more sublingual nitroglycerin. Upon arrival to the ED he was hemodynamically stable but he again continued to complain of chest pressure and was given more sublingual nitroglycerin and eventually a nitroglycerin patch was put on. By the time I went down to evaluate the patient is chest pain was at most a 1. The patient says that when he woke up he felt left lower extremity numbness from the knee to the ankle laterally. This resolved within a minute. No other neurological complaints such as dysarthria, facial droop, tingling or numbness in other parts of his body, or weakness. He denies fever, chills, nausea, vomiting, abdominal pain, urinary symptoms, diarrhea, constipation. In the emergency department an EKG was done which was ventricular paced rhythm with no ST or T- wave abnormalities. First set of troponins were not elevated. Past Med Surg Social Fam HX - Past Medical History Medical history: arthritis, atrial fibrillation, cancer, CHF, coronary artery disease, diabetes, GERD, hyperlipidemia, hypertension, myocardial infarction, renal disease, thyroid disease, TIA, other Psychiatric history: no psych history - Past Surgical History Surgical History: angioplasty/stent, appendectomy, cholecystectomy, colostomy, coronary bypass (CABG), herniorrhaphy, pacemaker/AICD - Social History Smoking Status: Never smoker Smokeless Tobacco Status: No Alcohol use: none Drug use: none - Family History Father Family Member Ethnicity: Non- Living Status: Hx Family Cardiac Disorders: Yes Mother Adopted: No Family Member Ethnicity: Non- Living Status: Hx Family Cardiac Disorders: Yes Hx Family Respiratory Disorders: Yes Hx Family Cancer: No Hx Family GI Disorders: Yes Hx Family Endocrine Disorder: Yes Internal Medicine - H&P: Meds Albuterol Sulfate [Proair Hfa] 1 puff IH Q4HR PRN 10/08/17 [History] Aspirin 81 mg PO DAILY 10/08/17 [History] Atorvastatin [Lipitor] 40 mg PO HS 10/08/17 [History] Budesonide/Formoterol 80/4.5 [Symbicort 80/4.5] 2 gm IH BIDR 10/08/17 [History] Carvedilol [Coreg] 50 mg PO BID 10/08/17 [History] Cholecalciferol (D-3) [Vitamin D] 3,000 unit PO DAILY 10/08/17 [History] Furosemide [Lasix] 40 mg PO BID 10/08/17 [History] Glucosamine/D3/Boswellia Ele [Osteo Bi-Flex Tablet] 1 each PO BID 10/08/17 [ History] Hydrocodone/Acetaminophen [Hydrocodone-Acetamin 5-300 mg] 1 tab PO Q6HR PRN 08/23 [History] Insulin Glargine [Lantus] 44 unit SQ BID 10/08/17 [History] Insulin LISPRO [Humalog] 0 unit SQ TIDWM 10/08/17 [History] Isosorbide MONOnitrate (24 HR) [Imdur] 120 mg PO DAILY 10/08/17 [History] Levothyroxine [Synthroid] 25 mcg PO 0630 10/08/17 [History] Lisinopril 2.5 mg PO DAILY 10/08/17 [History] Mag Oxide/D3/Turmeric Rt Xt [Magnesium-Vit D3-Turmeric Tab] 1 each PO BID [History] Montelukast [Singulair] 10 mg PO DAILY 10/08/17 [History] Multivitamin/Iron/Folic Acid [Centrum Complete Multivit Tab] 1 each PO DAILY 08/23 [History] Niacin [Plain Niacin] 500 mg PO DAILY 10/08/17 [History] [place]-3/Dha/Epa/Fish Oil [Fish Oil 1,000 mg Softgel] 1 each PO DAILY 10/08/17 [ History] Omeprazole [PriLOSEC] 40 mg PO DAILY 10/08/17 [History] Ondansetron [Zofran ODT] 8 mg SL Q8H PRN 10/08/17 [History] Ranitidine HCl [Zantac] 150 mg PO BID 10/08/17 [History] Warfarin [Coumadin] 5 mg PO 1800 10/08/17 [History] traZODone [TraZODone] 50 mg PO HS 10/08/17 [History] 3 Allergy/AdvReac Type Severity Reaction Status Date / Time codeine Allergy Difficulty Verified 04/19/15 10:03 Breathing promethazine [From Phenergan] Allergy Dizziness Verified 04/19/15 10:03 ibuprofen AdvReac Nausea Verified 04/19/15 12:02 All Systems PM: A 10-system review of systems was performed and is negative for pertinent findings except as documented above in the HPI. Review of systems: All systems reviewed are negative except for as mentioned above - Constitutional Vitals: Temp Pulse Resp BP Pulse Ox 97.7 F 60 16 119/72 96 10/08/17 02:32 10/08/17 03:29 10/08/17 03:29 10/08/17 03:29 10/08/17 03:29 Exam: GEN: NAD HEENT: AT, NC, No cyanosis, oral mucosa is moist, No JVD Lymphatics: No lymphadenoapthy Eyes: Extrocular muscles intact, anicteric CVS:RRR. S1, S2, No m/r/g RESP: CTAB ABD: Soft, NT, ND, +BS. Surgical scar noted. Colostomy noted with normal color stool. EXT: No edema, No rashes, 2+ DP NEURO: Nonfocal, CN II-XII intact, No focal motor or sensory deficits Psych: Cooperative, Not anxious or depressed Internal Med - H&P Results - Labs CBC & Chem 7: 10/08/17 02:35 10/08/17 02:35 Labs: Short CBC 10/08/17 Range/Units 02:35 WBC 7.5 (4.3-11.1) K/mcL Hgb 14.3 (12.9-16.9) g/dL Hct 44.4 (37.5-50.1) % Plt Count 166 (140-400) K/mcL Neutrophils # 5.1 (1.6-8.9) K/mcL BMP 10/08/17 02:35 Sodium 137 Potassium 4.6 Chloride 101 Carbon Dioxide 27 BUN 50 H Creatinine 2.30 H Glucose 226 H Calcium 9.3 Cardiac Enzymes 10/08/17 Range/Units 02:35 Troponin I < 0.03 (< 0.04) ng/mL - Impressions ITS Impressions Chest X-Ray 10/08/17 02:40 IMPRESSION: Stable chest. D/ / Nawaf Batista MD / Nawaf Batista MD Interpreting Provider: Nawaf Batista MD - Assessment and plan (1) Chest pain Current Visit: No Status: Acute Assessment and plan: Admit the patient to telemetry. Multiple risk factors. Nothing by mouth. Stress test this morning. Trend cardiac enzymes. Patient received 324 mg of aspirin prior to arrival. Continue with home aspirin and statin. No need to repeat hemoglobin A1c or lipid panel is still recently checked. Qualifiers: Chest pain type: unspecified Qualified Code(s): R07.9 - Chest pain, unspecified (2) Leg numbness Current Visit: No Status: Acute Assessment and plan: This was brief on the left lower extremity from the knee down to the left ankle laterally and lasted for a minute. He has no focal deficits on examination. No need for CT had for now. The patient says that his glucose has been uncontrolled at home. A1c checked on 09/17 was 8.6. If symptoms recur consider a CT head. (3) Chronic kidney disease (CKD) Current Visit: No Status: Acute Assessment and plan: Continue to monitor. This is chronic Qualifiers: Chronic kidney disease stage: stage 3 (moderate) Qualified Code(s): N18.3 - Chronic kidney disease, stage 3 (moderate) (4) Atrial fibrillation Current Visit: No Status: Chronic Assessment and plan: Continue Coreg and beta erlinda. Patient has a paced rhythm. Qualifiers: Atrial fibrillation type: chronic Qualified Code(s): I48.2 - Chronic atrial fibrillation (5) CAD (coronary artery disease) Current Visit: No Status: Chronic Assessment and plan: Continue home cardiac meds. Patient is on aspirin, statin, beta erlinda, Imdur , lisinopril. Qualifiers: Coronary Disease-Associated Artery/Lesion type: bypass graft [place] vs. transplanted heart: [place] heart Associated angina: angina presence unspecified Qualified Code(s): I25.810 - Atherosclerosis of coronary artery bypass graft(s) without angina pectoris (6) Cardiomyopathy, ischemic Current Visit: No Status: Chronic Assessment and plan: Continue home cardiac meds. Known EF of around 15%. (7) HLD (hyperlipidemia) Current Visit: No Status: Chronic Assessment and plan: Continue statin Qualifiers: Hyperlipidemia type: mixed hyperlipidemia Qualified Code(s): E78.2 - Mixed hyperlipidemia (8) Hypertension Current Visit: No Status: Chronic Assessment and plan: Resume home antihypertensives. Qualifiers: Hypertension type: essential hypertension Qualified Code(s): I10 - Essential (primary) hypertension (9) Type II diabetes mellitus Current Visit: No Status: Chronic Assessment and plan: Insulin sliding scale. Accu-Cheks. 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: with longterm use Diabetes mellitus complication status: with kidney complications Diabetes mellitus complication detail: with chronic kidney disease Chronic kidney disease stage : stage 3 (moderate) Qualified Code(s): E11.22 - Type 2 diabetes mellitus with diabetic chronic kidney disease; N18.3 - Chronic kidney disease, stage 3 ( moderate); N18.3 - Chronic kidney disease, stage 3 (moderate); Z79.4 - terminal block assembler (current) use of insulin; Z79.4 - terminal block assembler (current) use of insulin; Z79.4 - terminal block assembler (current) use of insulin; Z79.4 - long-term (current) use of insulin (10) DVT prophylaxis Current Visit: No Status: Acute Assessment and plan: The patient is on Coumadin. - Time Spent With Patient Total time spent is greater than 50% in coordination of care (as documented) at patient's floor/unit and/or counseling patient:
[2017-10-08] MEDS ORDERED: Nitroglycerin 0.4 MG TAB.SUBL SL PRN (04:05)
[2017-10-08] MEDS ORDERED: Acetaminophen 325 MG TABLET PO PRN (04:07)
[2017-10-08] MEDS ORDERED: Naloxone 0.4 MG/ML INJ IVP PRN (04:07)
[2017-10-08] MEDS: Levothyroxine 25 MCG TABLET PO SCH (05:19)
[2017-10-08] MEDS ORDERED: Regadenoson 0.4 MG/5 ML SYRINGE IVP ONE (05:41)
[2017-10-08] MEDS ORDERED: Famotidine 20 MG TABLET PO SCH (07:30)
[2017-10-08] MEDS ORDERED: INSULIN GLARGINE 44 UNIT SQ SCH (09:00)
[2017-10-08] MEDS ORDERED: Budesonide/Formoterol 80/4.5 MDI IH SCH (10:00)
[2017-10-08] MEDS: Furosemide 20 MG TABLET PO SCH ×2 (13:52→17:57)
[2017-10-08] MEDS: Aspirin 81 MG TAB.CHEW PO SCH (13:52)
[2017-10-08] MEDS: Multivit/Ca/Min/Fe/FA 1 TAB TABLET PO SCH (13:52)
[2017-10-08] MEDS: Niacin (24 HR) 500 MG TAB.ER.24H PO SCH (13:52)
[2017-10-08] MEDS: Insulin DETEMIR 100 UNIT/ML X5UNITS SQ SCH ×2 (13:52→20:06)
[2017-10-08] MEDS: Isosorbide MONOnitrate (24 HR) 60 MG TAB.ER.24H PO SCH (13:52)
[2017-10-08] MEDS: Cholecalciferol (D-3) 1,000 UNIT TABLET PO SCH (13:52)
--- NOTE | 2017-10-08 16:15 | Electrocardiograph Report ---
[address] [place], [place] [address] Test Date: 2017-10-08 Pat Name: Roman Ellis Department: 103 Room: 3B24 Gender: M Automation Developer: KASI : 1945 Requested By: Ivett Lopez Order Number: [id number] Reading MD: Karyn Brock Measurements Intervals [place] Rate: 64 P: TN: 0 QRS: 113 QRSD: 158 T: -25 QT: 455 QTc: 465 Interpretive Statements ELECTRONIC VENTRICULAR PACEMAKER ABNORMAL RHYTHM ECG Electronically Signed On 10-08-2017 16:13:51 EDT by Karyn Brock
--- NOTE | 2017-10-08 16:45 | Internal Med Progress Note ---
Date of Encounter: 10/08/17 Time of Encounter: 16:36 - Assessment and plan (1) Chest pain Current Visit: Yes Status: Acute Assessment and plan: Patient with significant cardiac history including, HTN, HLD, DM, atrial fibrillation on anticoagulation, ICD, 2 vessel CABG with only 1 of 2 patent bypass graft and an occluded SVG ramus. Severely reduced ejection fraction and global hypokinesis, EF 15% Presented overnight with chest pain in the mid chest with diaphoresis and dyspnea. Chest pain improved with nitroglycerin shortly returned eventually the patient was placed on a nitroglycerin patch with chest pain resolving. Serial troponins were obtained and negative 3. Underwent stage I of today's stress test today. Will undergo stress test tomorrow. Cardiac diet for now, nothing by mouth after midnight Continuous telemetry, continue aspirin and statin No need to repeat hemoglobin A1c or lipid panel is still recently checked Consult cardiology pending results of the second stress test Qualifiers: Chest pain type: unspecified Qualified Code(s): R07.9 - Chest pain, unspecified (2) Cardiomyopathy, ischemic Current Visit: No Status: Chronic Assessment and plan: LVEF 15-20%. Mild to moderately dilated left ventricle. Severe global left ventricular systolic dysfunction. Mildly dilated right ventricle with mildly reduced systolic function. Continue home cardiac medications (3) Leg numbness Current Visit: Yes Status: Acute Assessment and plan: Left lower extremity leg numbness radiating from the left knee down to left ankle laterally. Numbness is intermittent. No focal neurological deficits on examination Continue to monitor (4) Hypertension Current Visit: Yes Status: Chronic Assessment and plan: History of hypertension, currently stable, Resume home antihypertensives and continue to monitor. Qualifiers: Hypertension type: essential hypertension Qualified Code(s): I10 - Essential (primary) hypertension (5) CAD (coronary artery disease) Current Visit: Yes Status: Chronic Assessment and plan: Continue cardiac meds. Patient is on aspirin, statin, beta erlinda, Imdur, and lisinopril. Qualifiers: Coronary Disease-Associated Artery/Lesion type: bypass graft [place] vs. transplanted heart: [place] heart Associated angina: angina presence unspecified Qualified Code(s): I25.810 - Atherosclerosis of coronary artery bypass graft(s) without angina pectoris (6) Atrial fibrillation Current Visit: Yes Status: Chronic Assessment and plan: Rate control, continue anticoagulation, Coumadin with pharmacy to dose Qualifiers: Atrial fibrillation type: chronic Qualified Code(s): I48.2 - Chronic atrial fibrillation (7) HLD (hyperlipidemia) Current Visit: Yes Status: Chronic Assessment and plan: Continue statin Qualifiers: Hyperlipidemia type: mixed hyperlipidemia Qualified Code(s): E78.2 - Mixed hyperlipidemia (8) Type II diabetes mellitus Current Visit: Yes Status: Chronic Assessment and plan: Continue sliding scale and Accu-Cheks. 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 Continue to monitor renal function. Patient making adequate amount of urine (10) DVT prophylaxis Current Visit: Yes Status: Acute Assessment and plan: Continue Coumadin - Time Spent With Patient Total time spent is greater than 50% in coordination of care (as documented) at patient's floor/unit and/or counseling patient: Greater than 35 minutes - Subjective Interval history: Mr. Ellis is a 72 year old male who was recently discharged in September after a stay for SBO and UTI, with PMH of ICM s/p ICD and CABG last [facility] in 2014 with severe 3 vessel disease with 1 of 2 patent bypass graft with an occluded SVG- Ramus. At the time was recommended aggressive medical management. Also, has history of CKD stage III, colon cancer S/P cholectomy, GERD, HTN, HLD, A. fib on anticoagulation, hypothyroidism. Presented overnight due to chest pressure in the mid chest with diaphoresis and dyspnea. Initial EKG showed no ST elevation, depression or T-wave abnormalities. - Constitutional Vitals: Temp Pulse Resp BP Pulse Ox 97.4 F L 60 14 143/85 98 10/08/17 07:15 10/08/17 13:50 10/08/17 13:50 10/08/17 13:50 10/08/17 13:50 General appearance: Present: cooperative, A&O X 3, morbidly obese, no acute distress, answers questions appropriately - Head Head exam: Present: atraumatic, normocephalic - Eye Eye exam: Present: PERRL, conjuntiva pink, sclera anicteric Pupils: Present: PERRL - Neck Neck exam general surgery: Present: supple, trachea midline. Absent: lymphadenopathy - Respiratory Respiratory exam: Present: CTAB. Absent: accessory muscle use, rales, rhonchi, wheezes - Cardiovascular Cardiovascular exam: Present: RRR, +S1, +S2. Absent: diastolic murmur, gallop, rubs, systolic murmur - GI/Abdominal GI/Abdominal exam: Present: normal bowel sounds, soft, no peritoneal signs. Absent: distended, tenderness - Extremities Exam Extremities exam: Present: warm, radial pulses palpable and symmetrical. Absent : calf tenderness, cyanotic, pedal edema - Neurological Exam Neurological exam: Present: CN II-XII intact, oriented X3, no focal deficits. Absent: pronater drift, facial droop, speech deficit - Skin Skin exam: Present: dry, intact Internal Medicine: Result - Labs CBC & Chem 7: 10/08/17 02:35 10/08/17 02:35 Labs: Cardiac Enzymes 10/08/17 Range/Units 07:58 Troponin I < 0.03 (< 0.04) ng/mL - ABG Interpretation ABG results: PT/INR, D-dimer PT 26.6 Seconds (9.4-12.1) H 10/08/17 02:35 Consult Discharge Plan - Plan Referrals: Latosha Mitchell MD [Primary Care Provider] -
[2017-10-08] MEDS ORDERED: Dextrose Gel 15 GM/37.5 ML TUBE PO PRN ×2 (17:42)
[2017-10-08] MEDS ORDERED: D5% in Water 1,000 ML IVC PRN (17:42)
[2017-10-08] MEDS ORDERED: *HR* Dextrose 50 % in Water (Syg) 50 ML SYRINGE IVP PRN (17:42)
[2017-10-08] MEDS: Insulin LISPRO 300 UNITS/3 ML VIAL SQ SCH (17:58)
[2017-10-08] MEDS ORDERED: Warfarin perPT PO PRN (18:00)
[2017-10-08] MEDS ORDERED: *HR* Warfarin 7.5 MG TABLET PO ONE (18:00)
[2017-10-08] MEDS ORDERED: traZODone 50 MG TABLET PO SCH (21:00)
[2017-10-08] MEDS ORDERED: Insulin LISPRO 300 UNITS/3 ML VIAL SQ SCH (21:00)
[2017-10-08] MEDS: Budesonide/Formoterol 80/4.5 MDI IH SCH (21:08)
[2017-10-09] MEDS: Levothyroxine 25 MCG TABLET PO SCH (05:57)
[2017-10-09 06:03] LABS: INR 2.8; Prothrombin Time 30.7 Seconds (9.4-12.1)
[2017-10-09] MEDS: Budesonide/Formoterol 80/4.5 MDI IH SCH (07:45)
[2017-10-09] MEDS: Isosorbide MONOnitrate (24 HR) 60 MG TAB.ER.24H PO SCH (08:49)
[2017-10-09] MEDS: Cholecalciferol (D-3) 1,000 UNIT TABLET PO SCH (08:50)
[2017-10-09] MEDS: Aspirin 81 MG TAB.CHEW PO SCH (08:50)
[2017-10-09] MEDS: Furosemide 20 MG TABLET PO SCH (08:51)
[2017-10-09] MEDS: Multivit/Ca/Min/Fe/FA 1 TAB TABLET PO SCH (08:51)
[2017-10-09] MEDS: Niacin (24 HR) 500 MG TAB.ER.24H PO SCH (08:51)
[2017-10-09] MEDS: Insulin DETEMIR 100 UNIT/ML X5UNITS SQ SCH (08:52)
[2017-10-09] MEDS: Insulin LISPRO 300 UNITS/3 ML VIAL SQ SCH ×2 (08:52→12:11)
[2017-10-09] MEDS ORDERED: Famotidine 20 MG TABLET PO SCH (09:00)
--- NOTE | 2017-10-09 11:16 | Internal Med Progress Note ---
Date of Encounter: 10/09/17 Time of Encounter: 10:35 - Assessment and plan (1) Chest pain Current Visit: Yes Status: Acute Assessment and plan: Presented with chest pain, significant cardiac history including, HTN, HLD, DM, atrial fibrillation on anticoagulation, ICD, 2 vessel CABG with only 1 of 2 patent bypass graft and an occluded SVG ramus. Severely reduced ejection fraction and global hypokinesis, EF 15%. Due to history and presentation patient is ACS rule out. Has remained chest pain free throughout this stay. Serial troponins were obtained and negative 3. Requiring today's stress, Underwent stage I of today's stress test yesterday and stage II of stress test today-awaiting stress test result Continuous telemetry, continue aspirin and statin Consult cardiology pending results of the second stress test If stress test negative today patient may be suitable for discharge this afternoon. (2) Cardiomyopathy, ischemic Current Visit: No Status: Chronic Assessment and plan: LVEF 15-20%. Mild to moderately dilated left ventricle. Severe global left ventricular systolic dysfunction. Mildly dilated right ventricle with mildly reduced systolic function. Continue home cardiac medications (3) Leg numbness Current Visit: Yes Status: Acute Assessment and plan: Improving No focal neurological deficits Continue to monitor (4) Hypertension Current Visit: Yes Status: Chronic Assessment and plan: Has remained stable throughout this stay. Resume home antihypertensives and continue to monitor. Qualifiers: Hypertension type: essential hypertension Qualified Code(s): I10 - Essential (primary) hypertension (5) CAD (coronary artery disease) Current Visit: Yes Status: Chronic Assessment and plan: Continue cardiac medications Qualifiers: Coronary Disease-Associated Artery/Lesion type: bypass graft [place] vs. transplanted heart: [place] heart Associated angina: angina presence unspecified Qualified Code(s): I25.810 - Atherosclerosis of coronary artery bypass graft(s) without angina pectoris (6) Atrial fibrillation Current Visit: Yes Status: Chronic Assessment and plan: Has remained rate controlled throughout this stay., continue anticoagulation, Coumadin with pharmacy to dose Qualifiers: Atrial fibrillation type: chronic Qualified Code(s): I48.2 - Chronic atrial fibrillation (7) HLD (hyperlipidemia) Current Visit: Yes Status: Chronic Assessment and plan: Continue statin Qualifiers: Hyperlipidemia type: mixed hyperlipidemia Qualified Code(s): E78.2 - Mixed hyperlipidemia (8) Type II diabetes mellitus Current Visit: Yes Status: Chronic Assessment and plan: Continue sliding scale insulin coverage Qualifiers: Diabetes mellitus assisted insulin use: with assisted use Diabetes mellitus complication status: with kidney complications Diabetes mellitus complication detail: with chronic kidney disease Chronic kidney disease stage : stage 3 (moderate) Qualified Code(s): E11.22 - Type 2 diabetes mellitus with diabetic chronic kidney disease; N18.3 - Chronic kidney disease, stage 3 ( moderate); N18.3 - Chronic kidney disease, stage 3 (moderate); Z79.4 - roasterman (current) use of insulin; Z79.4 - roasterman (current) use of insulin; Z79.4 - roasterman (current) use of insulin; Z79.4 - senior living (current) use of insulin (9) CKD (chronic kidney disease), stage IV Current Visit: Yes Status: Chronic Assessment and plan: Chronic kidney disease stage IV, BUN, creatinine and a GFR at patient's baseline. Continue to monitor renal function. Continuing to make adequate amount of urine (10) DVT prophylaxis Current Visit: Yes Status: Acute Assessment and plan: Continue Coumadin - Time Spent With Patient Total time spent is greater than 50% in coordination of care (as documented) at patient's floor/unit and/or counseling patient: 25 - 35 minutes - Subjective Interval history: Mr. Ellis is a 72 year old male who was recently discharged in September after a stay for SBO and UTI, with PMH of ICM s/p ICD and CABG last [facility] in 2014 with severe 3 vessel disease with 1 of 2 patent bypass graft with an occluded SVG- Ramus. At the time was recommended aggressive medical management. Also, has history of CKD stage III, colon cancer S/P cholectomy, GERD, HTN, HLD, A. fib on anticoagulation, hypothyroidism. Presented overnight due to chest pressure in the mid chest with diaphoresis and dyspnea. Initial EKG showed no ST elevation, depression or T-wave abnormalities. Patient seen and examined at bedside. Patient is agitated because he is nothing by mouth following a stress test this morning. Denies any current chest pain, underwent stage II of stress test today. Remains hemodynamically stable. Reporting no additional concerns. - Constitutional Vitals: Temp Pulse Resp BP Pulse Ox 97.7 F 60 18 144/87 96 10/09/17 10:49 10/09/17 10:49 10/09/17 10:49 10/09/17 10:49 10/09/17 10:49 General appearance: Present: cooperative, A&O X 3, morbidly obese, no acute distress, answers questions appropriately - Head Head exam: Present: atraumatic, normocephalic - Eye Eye exam: Present: PERRL, conjuntiva pink, sclera anicteric Pupils: Present: PERRL - Neck Neck exam general surgery: Present: supple, trachea midline. Absent: lymphadenopathy - Respiratory Respiratory exam: Present: CTAB. Absent: accessory muscle use, rales, rhonchi, wheezes - Cardiovascular Cardiovascular exam: Present: RRR, +S1, +S2. Absent: diastolic murmur, gallop, rubs, systolic murmur - GI/Abdominal GI/Abdominal exam: Present: normal bowel sounds, soft, no peritoneal signs. Absent: distended, tenderness - Extremities Exam Extremities exam: Present: warm, radial pulses palpable and symmetrical. Absent : calf tenderness, cyanotic, pedal edema - Neurological Exam Neurological exam: Present: CN II-XII intact, oriented X3, no focal deficits. Absent: pronater drift, facial droop, speech deficit - Psychiatric Psychiatric exam: Present: agitated - Skin Skin exam: Present: dry, intact Internal Medicine: Result - Labs CBC & Chem 7: 10/08/17 02:35 10/08/17 02:35 - ABG Interpretation ABG results: PT/INR, D-dimer PT 30.7 Seconds (9.4-12.1) H 10/09/17 05:29 Consult Discharge Plan - Plan Referrals: Latosha Mitchell MD [Primary Care Provider] - 10/16/17 1:30 pm (You will see Dr. Escobar due to Dr. Mitchell being out of office. )
[2017-10-09 14:55] VITALS: BP 127/77
--- NOTE | 2017-10-09 16:47 | Cardiology Consult Note ---
<AlexRenaldo wynn Delfino - Last Filed: 10/09/17 16:44> Date of Encounter: 10/09/17 Time of Encounter: 16:44 Assessment and Plan (1) Abnormal stress test Current Visit: Yes Status: Acute Stress test completed, 2 day study--Perfusion imaging showed evidence of apical anterolateral infarct with trivial periinfarct ischemia. Fixed mild inferior defect with mild hypokinesis maybe artifact or hibernating myocardium. Gated EF = 34%. There is no evidence of TID. The LV is dilated. Known hx of CAD s/p CABG. C 06/24/2014 and demonstrated 1/2 patent bypass grafts (SVG to ramus was occluded). Overall low risk study with only trivial augie-infarct ischemia. Discussed options of medical management vs invasive evaluation--[facility], which is complicated by his CKD (Creatinine 2.30) and being anticoagulated on Coumadin with current INR 2.8. R/B/A to all options were discussed. Pt prefers to try medical management with close outpt follow-up, which is reasonable. Pt has been chest pain free >24 hours, negative troponin. Continue ASA, Statin, BB, Imdur. Will Add Ranexa 500mg BID, discount card given. Anticipate sign off once seen and evaluated by Dr. Brock and will coordinate outpt follow-up in 1-2 weeks. Pt instructed that if he has recurrent chest pain not relieved by nitro, report back to ED. (2) PAF (paroxysmal atrial fibrillation) Current Visit: Yes Status: Acute (3) Ischemic cardiomyopathy Current Visit: Yes Status: Acute Limited TTE 01/2017 LVEF 15-20%. Mild to moderately dilated left ventricle. Severe global left ventricular systolic dysfunction. Atypical septal motion consistent with paced rhythm. Mildly dilated right ventricle with mildly reduced systolic function. Continue BB and ACEi. Euvolemic on exam. ICD in place. (4) CAD (coronary artery disease) Current Visit: Yes Status: Chronic As above, hx CABG, known occluded SVG-Ramus. Continue ASA, Statin, BB, nitrates. Adding Ranexa. Qualifiers: Coronary Disease-Associated Artery/Lesion type: bypass graft [place] vs. transplanted heart: [place] heart Associated angina: angina presence unspecified Qualified Code(s): I25.810 - Atherosclerosis of coronary artery bypass graft(s) without angina pectoris Discussion w patient/family: The assessment and plan as outlined above was discussed with the patient and/or family members who expressed understanding and agreement. All questions were answered. Thank you for involving us in the care of your patient. Please call with any questions. I will discuss all the above with Dr. Brock and make changes as necessary. History of Present Illness Consult date: 10/09/17 Requesting physician: Shaheed Hinkle Consult reason: abnormal stress Chief complaint: chest pressure History of present illness: Mr. Ellis is a 72 year old male with PMH of CAD, prior CABG, CKD, AF on Coumadin , cardiac pacemaker, HTN, and DM. He was originally diagnosed with severe CAD in 2013, but initially declined surgery ([place]). In July 2014, he changed his mind and elected to proceed with surgery. A 2V CABG was performed on 07/18/2014 (SVG-Ramus, SVG-OM). A modified Maze procedure was performed and the left atrial appendage was stapled. Initially, his heart function was preserved with an ejection fraction of 50% (per echocardiogram in September 2014). However, he was diagnosed with a severe cardiomyopathy / EF 15% in April 2015. A left heart catheterization was performed on 04/24/2015 and demonstrated 1/2 patent bypass grafts (SVG to ramus was occluded). Despite medical therapy, a repeat echocardiogram on 06/25/2015 demonstrated a persistently low EF of 15-20 %. Pacemaker upgraded to dual chamber ICD placed on 09/11/2015. He was evaluated by the advanced heart failure therapy physicians at [facility]. Medical therapy was recommended. Pt presented to ED with complaints of chest pressure and right leg numbness/ tingling around 1 AM two nights ago, associated with diaphoresis and dyspnea. Chest pressure improved with SL nitro, relieved after he was given additional SL nitro via EMS, then nitro patch applied in ED. Troponins negative. He been chest pain free for over 24 hours. Stress test completed, 2 day study-- Perfusion imaging showed evidence of apical anterolateral infarct with trivial periinfarct ischemia. Fixed mild inferior defect with mild hypokinesis maybe artifact or hibernating myocardium. Pharmacologic ECG was non diagnostic for ischemia. Patient had no chest pain with stress. Gated EF = 34%. There is no evidence of TID. The LV is dilated. Cardiology consulted for further recs. Past Med Surg Social Fam HX - Past Medical History Medical history: arthritis, atrial fibrillation, cancer, CHF, coronary artery disease, diabetes, GERD, hyperlipidemia, hypertension, myocardial infarction, renal disease, thyroid disease, TIA, other Psychiatric history: no psych history - Past Surgical History Surgical History: angioplasty/stent, appendectomy, cholecystectomy, colostomy, coronary bypass (CABG), herniorrhaphy, pacemaker/AICD - Social History Smoking Status: Never smoker Smokeless Tobacco Status: No Alcohol use: none Drug use: none - Family History Father Family Member Ethnicity: Non- Living Status: Hx Family Cardiac Disorders: Yes Mother Adopted: No Family Member Ethnicity: Non- Living Status: Hx Family Cardiac Disorders: Yes Hx Family Respiratory Disorders: Yes Hx Family Cancer: No Hx Family GI Disorders: Yes Hx Family Endocrine Disorder: Yes Medications and Allergies Aspirin 81 mg PO QAM 10/08/17 [History] Atorvastatin [Lipitor] 40 mg PO HS 10/08/17 [History] Budesonide/Formoterol 80/4.5 [Symbicort 80/4.5] 2 puff IH BIDR 10/08/17 [ History] Carvedilol [Coreg] 50 mg PO BID 10/08/17 [History] Cholecalciferol (D-3) [Vitamin D] 3,000 unit PO QAM 10/08/17 [History] Furosemide [Lasix] 40 mg PO QAM 10/08/17 [History] Glucosamine/D3/Boswellia Ele [Osteo Bi-Flex Tablet] 1 tab PO BID 10/08/17 [ History] Hydrocodone/Acetaminophen [Hydrocodone-Acetamin 5-300 mg] 1 tab PO Q6HR PRN 08/23 [History] Insulin Glargine [Lantus] 44 unit SQ BID 10/08/17 [History] Insulin LISPRO [Humalog] 0 unit SQ TIDWM PRN 10/08/17 [History] Isosorbide MONOnitrate (24 HR) [Imdur] 120 mg PO DAILY 10/08/17 [History] Levothyroxine [Synthroid] 25 mcg PO 0630 10/08/17 [History] Lisinopril 2.5 mg PO QAM 10/08/17 [History] Montelukast [Singulair] 10 mg PO DAILY 10/08/17 [History] Multivitamin/Iron/Folic Acid [Centrum Complete Multivit Tab] 1 tab PO QAM [History] Niacin [Plain Niacin] 500 mg PO DAILY 10/08/17 [History] [place]-3/Dha/Epa/Fish Oil [Fish Oil 1,000 mg Softgel] 1,000 mg PO QAM 10/08/17 [ History] Omeprazole [PriLOSEC] 40 mg PO DAILY 10/08/17 [History] Ondansetron [Zofran ODT] 8 mg SL Q8H PRN 10/08/17 [History] Ranitidine HCl [Zantac] 150 mg PO BID 10/08/17 [History] Warfarin [Coumadin] 5 mg PO MOFR 10/08/17 [History] traZODone [TraZODone] 50 mg PO HS 10/08/17 [History] Furosemide [Lasix] 20 mg PO DAILY PRN 10/09/17 [History] Magnesium Oxide [Magnesium] 400 mg PO BID 10/09/17 [History] Nitroglycerin [Nitrostat] 0.4 mg SL Q5M PRN 10/09/17 [History] Ranolazine [Ranexa] 500 mg PO BID #60 tab.er.12h 10/09/17 [Rx] Warfarin [Coumadin] 7.5 mg PO SUTUWETHSA 10/09/17 [History] 3 Allergy/AdvReac Type Severity Reaction Status Date / Time codeine Allergy Difficulty Verified 10/09/17 11:42 Breathing promethazine [From Phenergan] Allergy Dizziness Verified 10/09/17 11:42 ibuprofen AdvReac Nausea Verified 10/09/17 11:42 All Systems Review: The remainder of the systems were reviewed and are negative - Cardiovascular Cardiovascular: as per HPI, chest pain at rest, chest pain with exertion, diaphoresis, dyspnea on exertion - Respiratory Respiratory: cough Physical Examination Vital Signs, Last 4 Hours Temp Pulse Resp BP Pulse Ox 10/09/17 14:52 97.8 F 65 15 127/77 97 Vital Signs Temp Pulse Resp BP Pulse Ox 10/09/17 14:52 97.8 F 65 15 127/77 97 10/09/17 10:49 97.7 F 60 18 144/87 96 05/04/18 07:45 16 96 10/09/17 06:26 97.9 F 60 14 111/72 97 10/09/17 03:20 97.4 F L 60 16 163/50 95 10/08/17 23:28 97.9 F 60 15 110/62 96 10/08/17 21:08 16 98 10/08/17 20:14 97 10/08/17 18:41 97.3 F L 56 16 112/70 98 Intake and Output 10/09/17 10/09/17 10/09/17 07:59 15:59 23:59 Intake Total 200 / 200 Balance 200 / 200 Intake: Oral 200 / 200 Other: Weight 113.6 kg Blood Glucose* 266 Patient Weight 10/09/17 23:59 Weight 113.6 kg General: Conversant, No Apparent Distress HEENT: Atraumatic, Normocephaly, Mucus Membranes Moist Neck: No JVD, Normal carotid pulses Cardiac: Reg Rate and Rhythm, Normal S1 and S2, No Murmur Lungs: Normal Breath Sounds, No Wheeze, Rales, Rhonchi Neuro: Alert and responsive, No focal deficits noted Abdomen: Soft, Non-Tender Skin: No rashes noted on visualized skin Musculoskeletal: No Chest Wall Tenderness Extremities: No Clubbing, No Cyanosis, No Edema, Normal Pulses Results 10/08/17 02:35 10/08/17 02:35 Lab Results 10/09/17 05:29 INR 2.8 Active Medications Acetaminophen (Tylenol) 650 mg PO Q6HR PRN PRN Reason: Mild Pain/Fever Stop: 04/09/18 04:08 Last Admin: 10/09/17 14:21 Dose: 650 mg Albuterol Sulfate (Albuterol Inhaler) 1 puff IH Q4HR PRN PRN Reason: Dyspnea Stop: 04/09/18 04:36 Aspirin (Aspirin) 81 mg PO DAILY [facility] Stop: 04/09/18 09:01 Last Admin: 10/09/17 08:50 Dose: 81 mg Atorvastatin Calcium (Lipitor) 40 mg PO HS [facility] Stop: 04/09/18 21:01 Last Admin: 10/08/17 20:06 Dose: 40 mg Budesonide/Formoterol Fumarate (Symbicort) 2 puff IH BIDR [facility] PRN Reason: Protocol Stop: 04/09/18 22:01 Last Admin: 10/09/17 07:45 Dose: 2 puff Carvedilol (Coreg) 50 mg PO BIDWM [facility] PRN Reason: Protocol Stop: 04/09/18 08:01 Last Admin: 10/09/17 08:50 Dose: 50 mg Dextrose/Water (Dextrose 50% (Syg)) 25 ml IVP AD PRN PRN Reason: Hypoglycemia Stop: 04/09/18 17:43 Famotidine (Pepcid) 20 mg PO DAILY [facility] Stop: 04/10/18 09:01 Last Admin: 10/09/17 08:50 Dose: 20 mg Furosemide (Lasix) 40 mg PO BIDDIURETIC [facility] Stop: 04/09/18 08:01 Last Admin: 10/09/17 08:51 Dose: 40 mg Glucagon (Glucagen) 1 mg IM ONCE PRN PRN Reason: Hypoglycemia Stop: 04/09/18 17:43 Glucose (Gluctose) 15 gm PO ONCE PRN PRN Reason: Hypoglycemia Stop: 04/09/18 17:43 Glucose (Gluctose) 30 gm PO ONCE PRN PRN Reason: Hypoglycemia Stop: 04/09/18 17:43 Dextrose (Dextrose 5%) 1,000 mls @ 100 mls/hr IVC .Q10H PRN PRN Reason: HYPOGLYCEMIA Stop: 04/09/18 17:43 Insulin Detemir (Levemir) 44 unit SQ BID [facility] Stop: 04/09/18 09:01 Last Admin: 10/09/17 08:52 Dose: 44 unit Insulin Human Lispro (Humalog) 0 units SQ HS [facility] PRN Reason: Protocol Stop: 04/09/18 21:01 Last Admin: 10/08/17 20:06 Dose: 5 units Insulin Human Lispro (Humalog) 0 units SQ TIDAC [facility] PRN Reason: Protocol Stop: 04/09/18 17:46 Last Admin: 10/09/17 12:11 Dose: Not Given Isosorbide Mononitrate (Imdur) 120 mg PO DAILY [facility] Stop: 04/09/18 09:01 Last Admin: 10/09/17 08:49 Dose: 120 mg Levothyroxine Sodium (Synthroid) 25 mcg PO 0630 [facility] Stop: 04/09/18 06:31 Last Admin: 10/09/17 05:57 Dose: 25 mcg Lisinopril (Zestril) 2.5 mg PO DAILY [facility] Stop: 04/09/18 09:01 Last Admin: 10/09/17 08:50 Dose: 2.5 mg Montelukast Sodium (Singulair) 10 mg PO QPM [facility] Stop: 04/09/18 18:01 Last Admin: 10/08/17 17:57 Dose: 10 mg Multivitamins/Calcium (Thera M Plus) 1 tab PO DAILY [facility] Stop: 04/09/18 09:01 Last Admin: 10/09/17 08:51 Dose: 1 tab Naloxone HCl (Narcan) 0.4 mg IVP Q2MIN PRN PRN Reason: SEE COMMENTS Stop: 04/09/18 04:08 Niacin (Niaspan) 500 mg PO DAILY [facility] Stop: 04/09/18 09:01 Last Admin: 10/09/17 08:51 Dose: 500 mg Nitroglycerin (Nitroglycerin) 0.4 mg SL Q5MIN PRN PRN Reason: Chest Pain Stop: 04/09/18 04:06 Omeprazole (Prilosec) 40 mg PO 0630 [facility] Stop: 04/09/18 06:31 Last Admin: 10/09/17 05:57 Dose: 40 mg Trazodone HCl (Trazodone) 50 mg PO HS [facility] Stop: 04/09/18 21:01 Last Admin: 10/08/17 22:06 Dose: 50 mg Vitamin D (Vitamin D) 1,000 unit PO DAILY [facility] Stop: 04/09/18 09:01 Last Admin: 10/09/17 08:50 Dose: 1,000 unit Warfarin Sodium (Coumadin Perpt) 1 each PO DAILY@1800 PRN PRN Reason: SEE COMMENTS Stop: 04/09/18 18:01 Warfarin Sodium (Coumadin) 5 mg PO 1800 ONE Stop: 10/09/17 18:01 - Imaging and Cardiology Stress Test: report reviewed Echo: report reviewed Cardiac cath: report reviewed - EKG Interpretation EKG results cardiology: personally reviewed (paced) Consult Discharge Plan - Plan Instructions: Ranolazine (By mouth), Chest Pain (GEN), Coronary Artery Disease , 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 Escobar due to Dr. Mitchell being out of office. ) Prescriptions: Ranolazine [Ranexa] 500 mg PO BID #60 tab.er.12h <Karyn Brock - Last Filed: 10/09/17 17:51> Date of Encounter: 10/09/17 - Attending Attestation I examined this patient and my medical decision-making was reviewed with the [employer]. I agree with the documented findings, disposition and treatment plan as described. Mr. Ellis presents with atypical chest discomfort. Troponins negative. No acute ECG findings. Stress testing demonstrated apical anterolateral infarct with trivial periinfarct ischemia. These findings were discussed with the patient. Options discussed. Risks of proceeding with LHC were also entertained. The patient declines LHC at this time. He is in favor of medical management. We will Rx Ranexa and give patient coupon card. Continue guideline directed medical therapy. He will follow up with primary manager client support as outpatient. Will sign off. Patient advised to call 911 and seek emergent medical attention should he develop serious or life threatening symptoms. Assessment and Plan Discussion w patient/family: The assessment and plan as outlined above was discussed with the patient and/or family members who expressed understanding and agreement. All questions were answered. Thank you for involving us in the care of your patient. Please call with any questions. History of Present Illness History of present illness: Mr. Ellis is a 72 year old male All Systems Review: The remainder of the systems were reviewed and are negative Physical Examination Vital Signs, Last 4 Hours Temp Pulse Resp BP Pulse Ox 10/09/17 14:52 97.8 F 65 15 127/77 97 Results 10/08/17 02:35 10/08/17 02:35 Lab Results 10/09/17 05:29 INR 2.8
--- NOTE | 2017-10-09 17:05 | Discharge Summary ---
- NOTES TO OUTPATIENT PROVIDER Notes to Outpatient Provider: Patient presented to the hospital with chest pain. Today's stress test completed. Overall low risk study with only trivial augie-Infarct ischemia. Patient was also evaluated by cardiology throughout the stay. There was a discussion of medical management versus invasive evaluation. Due to chronic renal disease was decided that the patient should have optimize medical therapy. 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 Orders not resulted at time of discharge: Pending orders 10/08/17 12:24 NM alicia perf SPECT multi [NM] Routine 10/10/17 04:00 INR/PT [Prothrombin Time INR] [COAG] AM 0400 10/11/17 04:00 INR/PT [Prothrombin Time INR] [COAG] AM 0400 Date of Encounter: 10/09/17 Time of Encounter: 17:02 - Discharge Diagnosis (1) Chest pain Priority: Primary Status: Acute Assessment and Plan: Presented with chest pain, significant cardiac history including, HTN, HLD, DM, atrial fibrillation on anticoagulation, ICD, 2 vessel CABG with only 1 of 2 patent bypass graft and an occluded SVG ramus. Severely reduced ejection fraction and global hypokinesis, EF 15%. Due to history and presentation patient is ACS rule out. Has remained chest pain free throughout this stay. Serial troponins were obtained and negative 3. Requiring today's stress, Underwent stage I of today's stress test yesterday and stage II of stress test today's perfusion imaging showed evidence of apical anterior lateral infarct with trivial augie-infarct ischemia. Fixed mild inferior defect with mild hypokinesis which may be artifact or hibernating myocardium. Gated EF equals 34%. There is no evidence of 3 times a day, the LV is dilated. Overall this is a low risk study with only trivial augie-infarct ischemia Medical management versus invasive evaluation was discussed with the patient. Has a history of CKD with a creatinine of 2.30. It was decided that medical management was most appropriate option at this time as the patient has had negative troponins in the chest pain free for 24 hours. He has had Ranexa 500 mg twice a day added to his home medications. Patient is medically stable and safe for discharge at this time. He has been instructed to follow up with his primary care provider in 1-2 weeks and has been instructed to follow-up with cardiology in 1-2 weeks as well. (2) Cardiomyopathy, ischemic Priority: Secondary Status: Chronic Assessment and Plan: LVEF 15-20%. Mild to moderately dilated left ventricle. Severe global left ventricular systolic dysfunction. Mildly dilated right ventricle with mildly reduced systolic function. Continue home cardiac medications (3) Leg numbness Priority: Secondary Status: Acute Assessment and Plan: Improving No focal neurological deficits Continue to monitor (4) Hypertension Priority: Secondary Status: Chronic Assessment and Plan: Has remained stable throughout this stay. Resume home antihypertensives and continue to monitor. Qualifiers: Hypertension type: essential hypertension Qualified Code(s): I10 - Essential (primary) hypertension (5) CAD (coronary artery disease) Priority: Secondary Status: Chronic Assessment and Plan: Continue cardiac medications Qualifiers: Coronary Disease-Associated Artery/Lesion type: bypass graft [place] vs. transplanted heart: [place] heart Associated angina: angina presence unspecified Qualified Code(s): I25.810 - Atherosclerosis of coronary artery bypass graft(s) without angina pectoris (6) Atrial fibrillation Priority: Secondary Status: Chronic Assessment and Plan: Has remained rate controlled throughout this stay., continue anticoagulation, Coumadin with pharmacy to dose Qualifiers: Atrial fibrillation type: chronic Qualified Code(s): I48.2 - Chronic atrial fibrillation (7) HLD (hyperlipidemia) Priority: Secondary Status: Chronic Assessment and Plan: Continue statin Qualifiers: Hyperlipidemia type: mixed hyperlipidemia Qualified Code(s): E78.2 - Mixed hyperlipidemia (8) Type II diabetes mellitus Priority: Secondary Status: Chronic Assessment and Plan: Continue sliding scale insulin coverage Qualifiers: Diabetes mellitus retirement insulin use: with retirement use Diabetes mellitus complication status: with kidney complications Diabetes mellitus complication detail: with chronic kidney disease Chronic kidney disease stage : stage 3 (moderate) Qualified Code(s): E11.22 - Type 2 diabetes mellitus with diabetic chronic kidney disease; N18.3 - Chronic kidney disease, stage 3 ( moderate); N18.3 - Chronic kidney disease, stage 3 (moderate); 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 Continue to monitor renal function. Continuing to make adequate amount of urine (10) DVT prophylaxis Priority: Secondary Status: Acute Assessment and Plan: Continue Coumadin Hospital course: Mr. Ellis is a 72 year old male who presented with chest pain. Underwent a 2 day stress test. ECG imaging negative for ischemia, however perfusion imaging showed evidence of apical anterior lateral infarct with trivial augie-infarct ischemia. Fixed mild inferior defect with mild hypokinesis may be artifact or hibernating myocardium. Gated ejection fraction of 34%. There is no evidence of 3 times a day. The LV is dilated. Discussed options of medical management versus invasive evaluation however due to chronic kidney disease and elevated creatinine of 2.30 patient has decided to go with medical management at this time overall low risk study with only trivial augie-infarct ischemia. Patient was started on Ranexa 500 mg twice a day. At this time the patient's return to baseline and was chest pain-free for greater than 24 hours. All workups found to be negative with the exception of that mentioned above. He is medically stable and ready for discharge. Discharge discussed with: patient, family, nurse, contaminated land consultant - Time Spent with Patient Total time spent providing and/or coordinating discharge services: Greater than 30 minutes - Discharge Medications Prescriptions: Ranolazine [Ranexa] 500 mg PO BID #60 tab.er.12h Home Medications: Aspirin 81 mg PO QAM 10/08/17 [History] Atorvastatin [Lipitor] 40 mg PO HS 10/08/17 [History] Budesonide/Formoterol 80/4.5 [Symbicort 80/4.5] 2 puff IH BIDR 10/08/17 [ History] Carvedilol [Coreg] 50 mg PO BID 10/08/17 [History] Cholecalciferol (D-3) [Vitamin D] 3,000 unit PO QAM 10/08/17 [History] Furosemide [Lasix] 40 mg PO QAM 10/08/17 [History] Glucosamine/D3/Boswellia Ele [Osteo Bi-Flex Tablet] 1 tab PO BID 10/08/17 [ History] Hydrocodone/Acetaminophen [Hydrocodone-Acetamin 5-300 mg] 1 tab PO Q6HR PRN 05/ 03/18 [History] Insulin Glargine [Lantus] 44 unit SQ BID 10/08/17 [History] Insulin LISPRO [Humalog] 0 unit SQ TIDWM PRN 10/08/17 [History] Isosorbide MONOnitrate (24 HR) [Imdur] 120 mg PO DAILY 10/08/17 [History] Levothyroxine [Synthroid] 25 mcg PO 0630 10/08/17 [History] Lisinopril 2.5 mg PO QAM 10/08/17 [History] Montelukast [Singulair] 10 mg PO DAILY 10/08/17 [History] Multivitamin/Iron/Folic Acid [Centrum Complete Multivit Tab] 1 tab PO QAM [History] Niacin [Plain Niacin] 500 mg PO DAILY 10/08/17 [History] [place]-3/Dha/Epa/Fish Oil [Fish Oil 1,000 mg Softgel] 1,000 mg PO QAM 10/08/17 [ History] Omeprazole [PriLOSEC] 40 mg PO DAILY 10/08/17 [History] Ondansetron [Zofran ODT] 8 mg SL Q8H PRN 10/08/17 [History] Ranitidine HCl [Zantac] 150 mg PO BID 10/08/17 [History] Warfarin [Coumadin] 5 mg PO MOFR 10/08/17 [History] traZODone [TraZODone] 50 mg PO HS 10/08/17 [History] Furosemide [Lasix] 20 mg PO DAILY PRN 10/09/17 [History] Magnesium Oxide [Magnesium] 400 mg PO BID 10/09/17 [History] Nitroglycerin [Nitrostat] 0.4 mg SL Q5M PRN 10/09/17 [History] Ranolazine [Ranexa] 500 mg PO BID #60 tab.er.12h 10/09/17 [Rx] Warfarin [Coumadin] 7.5 mg PO SUTUWETHSA 10/09/17 [History] Allergies/Adverse Reactions: 3 Allergy/AdvReac Type Severity Reaction Status Date / Time codeine Allergy Difficulty Verified 10/09/17 11:42 Breathing promethazine [From Phenergan] Allergy Dizziness Verified 10/09/17 11:42 ibuprofen AdvReac Nausea Verified 10/09/17 11:42 Date of admission: 10/08/17 04:11 Primary care physician: Latosha Mitchell, Consults: 10/09/17 16:21 Consult to Cardiology [CONS] Routine Comment: Consulting Provider: Cardiology Patricia Reason for Consult: Abnormal stress test results Time Notified: 16:22 Call Completed: Yes Discharging clinician: Shaheed Hinkle Anticipated date of discharge: 10/09/17 - Constitutional Vitals: Temp Pulse Resp BP Pulse Ox 97.8 F 65 15 127/77 97 10/09/17 14:52 10/09/17 14:52 10/09/17 14:52 10/09/17 14:52 10/09/17 14:52 General appearance: Present: cooperative, A&O X 3, morbidly obese, no acute distress, answers questions appropriately - Head Head exam: Present: atraumatic, normocephalic - Eye Eye exam: Present: PERRL, conjuntiva pink, sclera anicteric Pupils: Present: PERRL - Neck Neck exam general surgery: Present: supple, trachea midline. Absent: lymphadenopathy - Respiratory Respiratory exam: Present: CTAB. Absent: accessory muscle use, rales, rhonchi, wheezes - Cardiovascular Cardiovascular exam: Present: RRR, +S1, +S2. Absent: diastolic murmur, gallop, rubs, systolic murmur - GI/Abdominal GI/Abdominal exam: Present: normal bowel sounds, soft, no peritoneal signs. Absent: distended, tenderness - Extremities Exam Extremities exam: Present: warm, radial pulses palpable and symmetrical. Absent : calf tenderness, cyanotic, pedal edema - Neurological Exam Neurological exam: Present: CN II-XII intact, oriented X3, no focal deficits. Absent: pronater drift, facial droop, speech deficit - Skin Skin exam: Present: dry, intact - Patient Status Disposition: Home, Self-Care Condition: Good Overall status at discharge: patient is back to baseline - Discharge Instructions Follow Up With: Latosha Mitchell MD [Primary Care Provider] - 10/16/17 1:30 pm (You will see Dr. Escobar due to Dr. Mitchell being out of office. )
[2017-10-09] MEDS ORDERED: *HR* Warfarin 5 MG TABLET PO ONE (18:00)
[2017-10-09] MEDS ORDERED: Ranolazine 500 MG TAB.ER.12H PO SCH (21:00)
== END 2017-10-09 17:58 | disposition home or self-care (01) ==
LOC: EMEROO 02:28 → 3BNU 02:28
PROVIDERS: ADMIT Internal Medicine; ATTEND Internal Medicine

== ENCOUNTER 2018-03-26 11:52 | Observation (INO) ==
[2018-03-26] MEDS ORDERED: Nitroglycerin 0.4 MG TAB.SUBL SL PRN ×2 (12:07→20:39)
--- NOTE | 2018-03-26 12:09 | Emergency Department Note ---
Disposition Clinical Impression: Chest pain Qualifiers: Chest pain type: unspecified Qualified Code(s): R07.9 - Chest pain, unspecified Chronic kidney disease Qualifiers: Chronic kidney disease stage: unspecified stage Qualified Code(s): N18.9 - Chronic kidney disease, unspecified Disposition: Admitted As Inpatient Condition: Fair Time of Disposition: 19:33 General Adult HPI - General Chief complaint: ED Shortness of Breath/Dyspnea Stated complaint: EDGARDO,Chest pressure Time Seen by Provider: 03/26/18 12:04 - History of Present Illness Pain Scale: 3 - Related Data Home Medications Medication Instructions Recorded Confirmed RX: Aspirin 81 mg PO QAM 10/08/17 03/26/18 RX: Atorvastatin [Lipitor] 40 mg PO HS 10/08/17 03/26/18 RX: Budesonide/Formoterol 80/4.5 2 puff IH BIDR 10/08/17 03/26/18 [Symbicort 80/4.5] RX: Carvedilol [Coreg] 50 mg PO BID 10/08/17 03/26/18 RX: Cholecalciferol (D-3) [Vitamin 3,000 unit PO QAM 10/08/17 03/26/18 D] RX: Glucosamine/D3/Boswellia Ele 1 tab PO BID 10/08/17 03/26/18 [Osteo Bi-Flex Tablet] RX: Hydrocodone/Acetaminophen 1 tab PO Q6HR PRN 10/08/17 03/26/18 [Hydrocodone-Acetamin 5-300 mg] RX: Insulin Glargine [Lantus] 52 unit SQ BID 10/08/17 03/26/18 RX: Insulin LISPRO [Humalog] 10 - 18 unit SQ TIDWM 10/08/17 03/26/18 RX: Isosorbide MONOnitrate (24 HR) 120 mg PO DAILY 10/08/17 03/26/18 [Imdur] RX: Levothyroxine [Synthroid] 25 mcg PO 0630 10/08/17 03/26/18 RX: Montelukast [Singulair] 10 mg PO DAILY 10/08/17 03/26/18 RX: Multivitamin/Iron/Folic Acid 1 tab PO QAM 10/08/17 03/26/18 [Centrum Complete Multivit Tab] RX: Niacin [Plain Niacin] 500 mg PO DAILY 10/08/17 03/26/18 RX: [place]-3/Dha/Epa/Fish Oil [Fish 1,000 mg PO QAM 10/08/17 03/26/18 Oil 1,000 mg Softgel] RX: Omeprazole [PriLOSEC] 40 mg PO DAILY 10/08/17 03/26/18 RX: Ondansetron [Zofran ODT] 8 mg SL Q8H PRN 10/08/17 03/26/18 RX: Warfarin [Coumadin] 5 mg PO SUMOWETHFR 10/08/17 03/26/18 RX: traZODone [TraZODone] 50 mg PO HS 10/08/17 03/26/18 RX: Furosemide [Lasix] 20 mg PO QAM 10/09/17 03/26/18 RX: Magnesium Oxide [Magnesium] 400 mg PO BID 10/09/17 03/26/18 RX: Nitroglycerin [Nitrostat] 0.4 mg SL Q5M PRN 10/09/17 03/26/18 RX: Warfarin [Coumadin] 7.5 mg PO TUSA 10/09/17 03/26/18 Oxybutynin [Ditropan] 5 mg PO BID 03/26/18 03/26/18 RX: Furosemide [Lasix] 40 mg PO QPM 03/26/18 03/26/18 RX: Losartan [Cozaar] 12.5 mg PO DAILY 03/26/18 03/26/18 RX: raNITIdine HCl [Ranitidine HCl] 150 mg PO BID 03/26/18 03/26/18 Previous Rx's Medication Instructions Recorded RX: Ranolazine [Ranexa] 500 mg PO BID #60 tab.er.12h 10/09/17 Allergies Allergy/AdvReac Type Severity Reaction Status Date / Time codeine Allergy Difficulty Verified 10/09/17 11:42 Breathing promethazine [From Phenergan] Allergy Dizziness Verified 10/09/17 11:42 ibuprofen AdvReac Nausea Verified 10/09/17 11:42 Past Medical History - Past Medical History Medical history: Reports: arthritis, atrial fibrillation, cancer, CHF, coronary artery disease, diabetes, GERD, hyperlipidemia, hypertension, myocardial infarction, renal disease, thyroid disease, TIA, other Surgical history: Reports: angioplasty/stent, appendectomy, cholecystectomy, colostomy, coronary bypass (CABG), herniorrhaphy, pacemaker/AICD Psychiatric history: Reports: no psych history - Social History Smoking Status: Never smoker Smokeless Tobacco Status: No Alcohol use: Reports: none Drug use: Reports: none Course Vital Signs Temperature 97.9 F 03/26/18 11:56 Pulse Rate 75 03/26/18 11:56 Respiratory Rate 18 03/26/18 11:56 Blood Pressure 144/71 03/26/18 11:56 O2 Sat by Pulse Oximetry 93 03/26/18 11:56 Temperature 98.0 F 03/26/18 19:08 Pulse Rate 69 03/26/18 19:08 Respiratory Rate 16 03/26/18 19:08 Blood Pressure 122/73 03/26/18 19:08 O2 Sat by Pulse Oximetry 96 03/26/18 19:08 Oxygen Delivery Oxygen Delivery Room Air Medical Decision Making - Lab Data Result diagrams: 03/26/18 12:18 03/26/18 12:18 Lab Results 03/26/18 03/26/18 03/26/18 Range/Units 12:18 12:18 12:18 WBC 8.9 (4.3-11.1) K/mcL RBC 5.16 (4.19-5.50) M/mcL Hgb 14.6 (12.9-16.9) g/dL Hct 45.5 (37.5-50.1) % MCV 88.2 (83.0-100.0) fL MCH 28.3 (28.0-33.3) pg MCHC 32.1 (31.6-35.5) g/dL RDW 14.6 H (11.5-14.5) % Plt Count 152 (140-400) K/mcL MPV 9.2 L (9.4-12.4) fL Immature Gran % 0.6 (0-4) % Seg Neutrophils % 75.7 % Lymphocytes % 8.9 % Monocytes % 11.7 % Eosinophils % 2.6 % Basophils % 0.5 % Neutrophils # 6.7 (1.6-8.9) K/mcL Lymphocytes # 0.8 (0.6-4.6) K/mcL Monocytes # 1.0 (0.0-1.3) K/mcL Eosinophils # 0.2 (0.0-0.6) K/mcL Basophils # 0.0 (0.0-0.2) K/mcL PT 28.1 H (9.4-12.1) Seconds INR 2.5 Sodium 135 L (136-145) mEq/L Potassium 4.3 (3.5-5.1) mEq/L Chloride 99 (98-107) mEq/L Carbon Dioxide 28 (23-29) mEq/L BUN 52 H (8-23) mg/dL Creatinine 2.30 H (0.70-1.30) mg/dL Est GFR ( Amer) 34 L (> 60) Est GFR (Non-Af Amer) 28 L (> 60) BUN/Creatinine Ratio 23 (6-26) Glucose 256 H (70-105) mg/dL Calculated Osmolality 303 H (280-300) Calcium 9.5 (8.6-10.3) mg/dL Total Bilirubin 0.8 (0.3-1.0) mg/dL AST 22 (13-39) Units/L ALT 19 (7-52) Units/L Alkaline Phosphatase 57 (34-104) Units/L Troponin I < 0.03 (< 0.04) ng/mL Serum Total Protein 6.3 L (6.4-8.9) g/dL Albumin 3.5 (3.5-5.7) g/dL Globulin 2.8 (2.4-3.5) g/dL Albumin/Globulin Ratio 1.3 (1.1-2.2) Attestation Statement - Attestation Attestation: I examined this patient and my medical decision-making was reviewed with the Resident Physician. I agree with the documented findings, disposition and treatment plan as described except to the extent set forth below. [id number] time provided Patient arrives complaining of 3/10 chest discomfort. He does have a history of coronary artery disease. History of 2 vessel CABG in 2014. History of several coronary stents in early 1999. Patient does have mild discomfort at the time of arrival but has not taken any of his home supply of nitroglycerin. He appears in no acute distress
--- NOTE | 2018-03-26 12:18 | Emergency Department Note ---
Disposition Clinical Impression: Chest pain Qualifiers: Chest pain type: unspecified Qualified Code(s): R07.9 - Chest pain, unspecified Chronic kidney disease Qualifiers: Chronic kidney disease stage: unspecified stage Qualified Code(s): N18.9 - Chronic kidney disease, unspecified Disposition: Admitted As Inpatient Condition: Fair Referrals: Latosha Mitchell MD [Primary Care Provider] - Forms: ED Satisfaction Letter Time of Disposition: 13:10 General Adult HPI - General Chief complaint: ED Shortness of Breath/Dyspnea Stated complaint: EDGARDO,Chest pressure Time Seen by Provider: 03/26/18 12:04 Source: patient Mode of arrival: ambulatory Limitations: no limitations Nursing Notes Reviewed: Yes Vital Signs Reviewed: Yes - History of Present Illness HPI Narrative: 72-year-old male with a history of hypertension, diabetes, CAD status post stents as well as CABG presents for evaluation of chest pain or shortness of breath. Patient was sent over from the cardiology office for admission. Patient describes retrosternal chest pressure over the past 2 days and appears to be intermittent. No aggravating or alleviating factors identified. Does occur at rest. No radiation symptoms. Patient does have some dyspnea associated with this. No fevers, nausea vomiting or diaphoresis. Patient does note a nonproductive cough. States that his stents are placed in 2010 2011. States his bypass was 2-3 years ago. Currently anticoagulated on Coumadin. No abdominal pain. Patient does have a colostomy bag in place from a remote diagnosis of colon cancer. Pain Scale: 3 - Related Data Home Medications Medication Instructions Recorded Confirmed Aspirin 81 mg PO QAM 10/08/17 10/09/17 Atorvastatin [Lipitor] 40 mg PO HS 10/08/17 10/09/17 Budesonide/Formoterol 80/4.5 2 puff IH BIDR 10/08/17 10/09/17 [Symbicort 80/4.5] Carvedilol [Coreg] 50 mg PO BID 10/08/17 10/09/17 Cholecalciferol (D-3) [Vitamin D] 3,000 unit PO QAM 10/08/17 10/09/17 Furosemide [Lasix] 40 mg PO QAM 10/08/17 10/09/17 Glucosamine/D3/Boswellia Ele 1 tab PO BID 10/08/17 10/09/17 [Osteo Bi-Flex Tablet] Hydrocodone/Acetaminophen 1 tab PO Q6HR PRN 10/08/17 10/09/17 [Hydrocodone-Acetamin 5-300 mg] Insulin Glargine [Lantus] 44 unit SQ BID 10/08/17 10/09/17 Insulin LISPRO [Humalog] 0 unit SQ TIDWM PRN 10/08/17 10/09/17 Isosorbide MONOnitrate (24 HR) 120 mg PO DAILY 10/08/17 10/09/17 [Imdur] Levothyroxine [Synthroid] 25 mcg PO 0630 10/08/17 10/09/17 Lisinopril 2.5 mg PO QAM 10/08/17 10/09/17 Montelukast [Singulair] 10 mg PO DAILY 10/08/17 10/09/17 Multivitamin/Iron/Folic Acid 1 tab PO QAM 10/08/17 10/09/17 [Centrum Complete Multivit Tab] Niacin [Plain Niacin] 500 mg PO DAILY 10/08/17 10/09/17 [place]-3/Dha/Epa/Fish Oil [Fish Oil 1,000 mg PO QAM 10/08/17 10/09/17 1,000 mg Softgel] Omeprazole [PriLOSEC] 40 mg PO DAILY 10/08/17 10/09/17 Ondansetron [Zofran ODT] 8 mg SL Q8H PRN 10/08/17 10/09/17 Warfarin [Coumadin] 5 mg PO MOFR 10/08/17 10/09/17 traZODone [TraZODone] 50 mg PO HS 10/08/17 10/09/17 Furosemide [Lasix] 20 mg PO DAILY PRN 10/09/17 10/09/17 Magnesium Oxide [Magnesium] 400 mg PO BID 10/09/17 10/09/17 Nitroglycerin [Nitrostat] 0.4 mg SL Q5M PRN 10/09/17 10/09/17 Warfarin [Coumadin] 7.5 mg PO SUTUWETHSA 10/09/17 10/09/17 raNITIdine HCl [Ranitidine HCl] 150 mg PO BID 03/26/18 03/26/18 Previous Rx's Medication Instructions Recorded Ranolazine [Ranexa] 500 mg PO BID #60 tab.er.12h 10/09/17 Allergies Allergy/AdvReac Type Severity Reaction Status Date / Time codeine Allergy Difficulty Verified 10/09/17 11:42 Breathing promethazine [From Phenergan] Allergy Dizziness Verified 10/09/17 11:42 ibuprofen AdvReac Nausea Verified 10/09/17 11:42 All systems ED: reviewed and negative except as stated. Constitutional: Denies: fever Cardiovascular: Reports: chest pain Respiratory: Reports: cough, dyspnea Gastrointestinal: Denies: abdominal pain, nausea, vomiting, diarrhea, constipation Past Medical History - Past Medical History Source: patient Medical history: Reports: arthritis, atrial fibrillation, cancer, CHF, coronary artery disease, diabetes, GERD, hyperlipidemia, hypertension, myocardial infarction, renal disease, thyroid disease, TIA, other Surgical history: Reports: angioplasty/stent, appendectomy, cholecystectomy, colostomy, coronary bypass (CABG), herniorrhaphy, pacemaker/AICD Psychiatric history: Reports: no psych history - Social History Smoking Status: Never smoker Smokeless Tobacco Status: No Alcohol use: Reports: none Drug use: Reports: none Physical Exam - General Limitations: no limitations General appearance: alert, in no apparent distress - Head Head exam: atraumatic, normocephalic, normal inspection - Eye Eye exam: Present: normal appearance, PERRL, EOMI - ENT ENT exam: normal exam, normal oropharynx, mucous membranes moist - Neck Neck exam: Present: normal inspection, full ROM, trachea midline - Chest Chest inspection: Present: normal inspection, symmetric chest wall rise - Respiratory Respiratory exam: Present: normal lung sounds bilaterally. Absent: respiratory distress - Cardiovascular Cardiovascular exam: Present: regular rate, normal rhythm. Absent: systolic murmur - Abdominal Exam Abdominal exam: Present: soft, Non-Tender, other (Ostomy bag in place.) - Extremities Exam Extremities exam: Present: normal inspection. Absent: pedal edema - Expanded Lower Extremity Exam Neurovascular/Tendon exam: Present: normal capillary refill - Back Exam Back exam: Present: normal inspection, full ROM. Absent: tenderness - Neurological Exam Neurological exam: Present: alert, oriented X3 Course Course Narrative: Patient seen and examined. Patient denies any chest pain currently. Patient does have concerning signs symptoms of unstable angina. Patient will get basic cardiac evaluation and admission. - Reevaluation(s) Reevaluation #1: Patient seen and examined. Patient's resting comfortably. Plan of care discussed. No needs at this time. Time: 13:13 Vital Signs Temperature 97.9 F 03/26/18 11:56 Pulse Rate 75 03/26/18 11:56 Respiratory Rate 18 03/26/18 11:56 Blood Pressure 144/71 03/26/18 11:56 O2 Sat by Pulse Oximetry 93 03/26/18 11:56 Temperature 97.9 F 03/26/18 12:18 Pulse Rate 61 03/26/18 12:18 Respiratory Rate 18 03/26/18 12:18 Blood Pressure 144/71 03/26/18 12:18 O2 Sat by Pulse Oximetry 100 03/26/18 12:18 Oxygen Delivery Oxygen Delivery Room Air Medical Decision Making - MDM Narrative Medical decision making narrative: Patient presents for concerns of chest pain shortness of breath. Patient was evaluated at the cardiology office was told to come to the ED for anticipated admission. Describes nonexertional chest pain and dyspnea over the past couple days. Denies any chest pain during the ED course. Patient had a troponin which was negative as well as basic labs which show chronic kidney disease unchanged from baseline. Chest x-ray shows mild cardiomegaly. Patient does not appear to be in overt congestive heart failure. Patient will be admitted to the hospitalist for continued evaluation of cardiac function with serial troponins and provocative testing. Patient is agreeable with this plan of care. - Lab Data Lab results reviewed: Yes I reviewed the patient's lab results. Result diagrams: 03/26/18 12:18 03/26/18 12:18 Lab Results 03/26/18 03/26/18 03/26/18 Range/Units 12:18 12:18 12:18 WBC 8.9 (4.3-11.1) K/mcL RBC 5.16 (4.19-5.50) M/mcL Hgb 14.6 (12.9-16.9) g/dL Hct 45.5 (37.5-50.1) % MCV 88.2 (83.0-100.0) fL MCH 28.3 (28.0-33.3) pg MCHC 32.1 (31.6-35.5) g/dL RDW 14.6 H (11.5-14.5) % Plt Count 152 (140-400) K/mcL MPV 9.2 L (9.4-12.4) fL Immature Gran % 0.6 (0-4) % Seg Neutrophils % 75.7 % Lymphocytes % 8.9 % Monocytes % 11.7 % Eosinophils % 2.6 % Basophils % 0.5 % Neutrophils # 6.7 (1.6-8.9) K/mcL Lymphocytes # 0.8 (0.6-4.6) K/mcL Monocytes # 1.0 (0.0-1.3) K/mcL Eosinophils # 0.2 (0.0-0.6) K/mcL Basophils # 0.0 (0.0-0.2) K/mcL PT 28.1 H (9.4-12.1) Seconds INR 2.5 Sodium 135 L (136-145) mEq/L Potassium 4.3 (3.5-5.1) mEq/L Chloride 99 (98-107) mEq/L Carbon Dioxide 28 (23-29) mEq/L BUN 52 H (8-23) mg/dL Creatinine 2.30 H (0.70-1.30) mg/dL Est GFR ( Amer) 34 L (> 60) Est GFR (Non-Af Amer) 28 L (> 60) BUN/Creatinine Ratio 23 (6-26) Glucose 256 H (70-105) mg/dL Calculated Osmolality 303 H (280-300) Calcium 9.5 (8.6-10.3) mg/dL Total Bilirubin 0.8 (0.3-1.0) mg/dL AST 22 (13-39) Units/L ALT 19 (7-52) Units/L Alkaline Phosphatase 57 (34-104) Units/L Troponin I < 0.03 (< 0.04) ng/mL Serum Total Protein 6.3 L (6.4-8.9) g/dL Albumin 3.5 (3.5-5.7) g/dL Globulin 2.8 (2.4-3.5) g/dL Albumin/Globulin Ratio 1.3 (1.1-2.2) - Radiology Data Radiology results reviewed: Yes I reviewed the patient's radiology results. Chest X-Ray 03/26/18 12:07 IMPRESSION: Moderate cardiomegaly with associated small right pleural effusion and moderate-sized left pleural effusion. These changes may represent mild CHF. Examination is largely stable. D/ / 03/26/2018 12:59:20 Alfa Montiel MD / [facility] Interpreting Provider: Alfa Montiel MD - EKG Data EKG #1 EKG attestation: Yes I reviewed and interpreted this EKG. EKG shows normal: sinus rhythm Rate: normal Rhythm: NSR [place]/QRS: right axis deviation, LBBB T wave inversions noted in: II, III, aVF Interpretation: no acute changes, unchanged when compared to prior tracing (date), nonspecific ST-T wave changes S.B.AJodyR. - S.NealAJodi Situation: Demographics Background: Presenting Complaint Assessment: Vital Signs, Course and respsone to treatment, Patient/Family Expectation Recommendation: Barrier(s) to disposition, Recommendation based on pending studies, treatments, or consults S.B.A.RJody Report Given to: Hosptialist Eddie Repor Time: 13:13
[2018-03-26 12:29] LABS: Basophils % 0.5 %; Eosinophils # 0.2 K/mcL (0.0-0.6); Eosinophils % 2.6 %; Hematocrit 45.5 % (37.5-50.1); Hemoglobin 14.6 g/dL (12.9-16.9); Immature Granulocytes % 0.6 % (0-4); Lymphocytes # 0.8 K/mcL (0.6-4.6); Lymphocytes % 8.9 %; Mean Corpuscular HGB Conc 32.1 g/dL (31.6-35.5); Mean Corpuscular Hemoglobin 28.3 pg (28.0-33.3); Mean Corpuscular Volume 88.2 fL (83.0-100.0); Mean Platelet Volume 9.2 fL (9.4-12.4); Monocytes % 11.7 %; Neutrophils # 6.7 K/mcL (1.6-8.9); Platelet Count 152 K/mcL (140-400); Red Blood Count 5.16 M/mcL (4.19-5.50); Red Cell Distribution Width 14.6 % (11.5-14.5); Segmented Neutrophils % 75.7 %
[2018-03-26 12:38] LABS: INR 2.5; Prothrombin Time 28.1 Seconds (9.4-12.1)
[2018-03-26 12:55] LABS: Alanine Aminotransferase 19 Units/L (7-52); Albumin 3.5 g/dL (3.5-5.7); Albumin/Globulin Ratio 1.3 (1.1-2.2); Alkaline Phosphatase 57 Units/L (34-104); Aspartate Amino Transferase 22 Units/L (13-39); BUN/Creatinine Ratio 23 (6-26); Bilirubin,Total 0.8 mg/dL (0.3-1.0); Blood Urea Nitrogen 52 mg/dL (8-23); Calcium 9.5 mg/dL (8.6-10.3); Carbon Dioxide 28 mEq/L (23-29); Chloride 99 mEq/L (98-107); Globulin 2.8 g/dL (2.4-3.5); Glucose 256 mg/dL (70-105); Osmolality,Calculated 303 (280-300); Potassium 4.3 mEq/L (3.5-5.1); Sodium 135 mEq/L (136-145); Total Protein 6.3 g/dL (6.4-8.9); Troponin I < 0.03 ng/mL (< 0.04); eGFR For Non-African Americans 28 (> 60)
[2018-03-26] MEDS ORDERED: traMADol 50 MG TABLET PO PRN (14:22)
[2018-03-26] MEDS ORDERED: Naloxone 0.4 MG/ML INJ IVP PRN (14:22)
[2018-03-26] MEDS ORDERED: Acetaminophen 325 MG TABLET PO PRN (14:22)
--- NOTE | 2018-03-26 14:39 | Internal Med History&Physical ---
<Maren Alves - Last Filed: 03/26/18 15:25> Date of Encounter: 03/26/18 Time of Encounter: 14:37 Internal Medicine - H&P: HPI Admitted From: Home Plans for Post Hospital Care: Home History of present illness: Mr. Ellis is a 72 year old male with a history of hypertension, diabetes, CAD status post stents as well as CABG presents for evaluation of chest pain or shortness of breath. Patient was sent over from the cardiology office for admission. Patient describes retrosternal chest pressure over the past 2 days and appears to be intermittent. No aggravating or alleviating factors identified. Does occur at rest. No radiation symptoms. Patient does have some dyspnea associated with this. No fevers, nausea, vomiting, or diaphoresis. Patient does note a nonproductive cough. States that his stents are placed in 2010 and 2011. States his bypass was 2-3 years ago. Currently anticoagulated on Coumadin for afib. No abdominal pain. Patient does have a colostomy bag in place from a remote diagnosis of colon cancer. At the ED, his vital signs were stable. Labs was unremarkable except chronic elevation of BUN and Creatinine ( unchanged from baseline). Troponin was negative. Pt is admitted for further evaluation. Past Med Surg Social Fam HX - Past Medical History Medical history: arthritis, atrial fibrillation, cancer, CHF, coronary artery disease, diabetes, GERD, hyperlipidemia, hypertension, myocardial infarction, renal disease, thyroid disease, TIA, other Additional medical history: colon cancer. Type II Diabetic. Hyperthyroidism Psychiatric history: no psych history - Past Surgical History Surgical History: angioplasty/stent, appendectomy, cholecystectomy, colostomy, coronary bypass (CABG), herniorrhaphy, pacemaker/AICD Additional surgical history: MAZE procedure, left atrial appendage stapling, SBO surgery, 2 cardiac stents, colostomy. - Social History Smoking Status: Never smoker Smokeless Tobacco Status: No Alcohol use: none Drug use: none - Family History Father Family Member Ethnicity: Non- Living Status: Hx Family Cardiac Disorders: Yes Mother Adopted: No Family Member Ethnicity: Non- Living Status: Hx Family Cardiac Disorders: Yes Hx Family Respiratory Disorders: Yes Hx Family Cancer: No Hx Family GI Disorders: Yes Hx Family Endocrine Disorder: Yes Internal Medicine - H&P: Meds Aspirin 81 mg PO QAM 10/08/17 [History] Atorvastatin [Lipitor] 40 mg PO HS 10/08/17 [History] Budesonide/Formoterol 80/4.5 [Symbicort 80/4.5] 2 puff IH BIDR 10/08/17 [History] Carvedilol [Coreg] 50 mg PO BID 10/08/17 [History] Cholecalciferol (D-3) [Vitamin D] 3,000 unit PO QAM 10/08/17 [History] Glucosamine/D3/Boswellia Ele [Osteo Bi-Flex Tablet] 1 tab PO BID 10/08/17 [History] Hydrocodone/Acetaminophen [Hydrocodone-Acetamin 5-300 mg] 1 tab PO Q6HR PRN 10/08/17 [History] Insulin Glargine [Lantus] 52 unit SQ BID 10/08/17 [History] Insulin LISPRO [Humalog] 10 - 18 unit SQ TIDWM 10/08/17 [History] Isosorbide MONOnitrate (24 HR) [Imdur] 120 mg PO DAILY 10/08/17 [History] Levothyroxine [Synthroid] 25 mcg PO 0630 10/08/17 [History] Montelukast [Singulair] 10 mg PO DAILY 10/08/17 [History] Multivitamin/Iron/Folic Acid [Centrum Complete Multivit Tab] 1 tab PO QAM 10/08/17 [History] Niacin [Plain Niacin] 500 mg PO DAILY 10/08/17 [History] Royal-3/Dha/Epa/Fish Oil [Fish Oil 1,000 mg Softgel] 1,000 mg PO QAM 10/08/17 [History] Omeprazole [PriLOSEC] 40 mg PO DAILY 10/08/17 [History] Ondansetron [Zofran ODT] 8 mg SL Q8H PRN 10/08/17 [History] Warfarin [Coumadin] 5 mg PO SUMOWETHFR 10/08/17 [History] traZODone [TraZODone] 50 mg PO HS 10/08/17 [History] Furosemide [Lasix] 20 mg PO QAM 10/09/17 [History] Magnesium Oxide [Magnesium] 400 mg PO BID 10/09/17 [History] Nitroglycerin [Nitrostat] 0.4 mg SL Q5M PRN 10/09/17 [History] Ranolazine [Ranexa] 500 mg PO BID #60 tab.er.12h 10/09/17 [Rx] Warfarin [Coumadin] 7.5 mg PO TUSA 10/09/17 [History] Furosemide [Lasix] 40 mg PO QPM 03/26/18 [History] Losartan [Cozaar] 12.5 mg PO DAILY 03/26/18 [History] Oxybutynin [Ditropan] 5 mg PO BID 03/26/18 [History] raNITIdine HCl [Ranitidine HCl] 150 mg PO BID 03/26/18 [History] Allergy/AdvReac Type Severity Reaction Status Date / Time codeine Allergy Difficulty Verified 10/09/17 11:42 Breathing promethazine [From Phenergan] Allergy Dizziness Verified 10/09/17 11:42 ibuprofen AdvReac Nausea Verified 10/09/17 11:42 All Systems PM: A 10-system review of systems was performed and is negative for pertinent findings except as documented above in the HPI. Review of systems: REVIEW OF SYSTEMS: CONSTITUTIONAL: No weight loss, fever, chills, weakness or fatigue. HEENT: Eyes: No visual loss, blurred vision, double vision or yellow sclerae. Ears, Nose, Throat: No hearing loss, sneezing, congestion, runny nose or sore throat. SKIN: No rash or itching. CARDIOVASCULAR: see HPI. RESPIRATORY: No shortness of breath, cough or sputum. GASTROINTESTINAL: No anorexia, nausea, vomiting or diarrhea. No abdominal pain or blood. GENITOURINARY: No dysuria, urgency, or frequency. NEUROLOGICAL: No headache, dizziness, syncope, paralysis, ataxia, numbness or tingling in the extremities. No change in bowel or bladder control. MUSCULOSKELETAL: No muscle, back pain, joint pain or stiffness. HEMATOLOGIC: No anemia, bleeding or bruising. LYMPHATICS: No enlarged nodes. No history of splenectomy. PSYCHIATRIC: No history of depression or anxiety. ENDOCRINOLOGIC: No reports of sweating, cold or heat intolerance. No polyuria or polydipsia. - Constitutional Vitals: Temp Pulse Resp BP Pulse Ox 97.8 F 68 20 131/80 95 03/26/18 14:27 03/26/18 14:27 03/26/18 14:27 03/26/18 14:27 03/26/18 14:27 General appearance: Present: cooperative, A&O X 3, answers questions appropriately Exam: PHYSICAL EXAMINATION: GENERAL APPEARANCE: The patient is alert, oriented and in no acute distress. HEENT: Head is normocephalic. The sinuses are nontender. Pupils are equal and reactive. The nares are patent. Oropharynx clear without lesions. NECK: Supple without lymphadenopathy. HEART: Regular rate and rhythm. LUNGS: No crackles or wheezes are heard. ABDOMEN: Soft, nontender, nondistended with good bowel sounds heard. Inguinal area is normal. EXTREMITIES: Without cyanosis, clubbing or edema. NEUROLOGICAL: Gross nonfocal. SKIN: Warm and dry without any rash. Internal Med - H&P Results - Labs CBC & Chem 7: 03/26/18 12:18 03/26/18 12:18 Labs: Short CBC 03/26/18 Range/Units 12:18 WBC 8.9 (4.3-11.1) K/mcL Hgb 14.6 (12.9-16.9) g/dL Hct 45.5 (37.5-50.1) % Plt Count 152 (140-400) K/mcL Neutrophils # 6.7 (1.6-8.9) K/mcL BMP 03/26/18 12:18 Sodium 135 L Potassium 4.3 Chloride 99 Carbon Dioxide 28 BUN 52 H Creatinine 2.30 H Glucose 256 H Calcium 9.5 Cardiac Enzymes 03/26/18 Range/Units 12:18 Troponin I < 0.03 (< 0.04) ng/mL Liver Function 03/26/18 Range/Units 12:18 Total Bilirubin 0.8 (0.3-1.0) mg/dL AST 22 (13-39) Units/L ALT 19 (7-52) Units/L Alkaline Phosphatase 57 (34-104) Units/L Albumin 3.5 (3.5-5.7) g/dL - Impressions ITS Impressions Chest X-Ray 03/26/18 12:07 IMPRESSION: Moderate cardiomegaly with associated small right pleural effusion and moderate-sized left pleural effusion. These changes may represent mild CHF. Examination is largely stable. D/ / 03/26/2018 12:59:20 Alfa Montiel MD / [place] Interpreting Provider: Alfa Montiel MD - Assessment and plan (1) Chest pain, rule out acute myocardial infarction Current Visit: Yes Status: Acute Assessment and plan: 72-year-old man with past medical history of CAD status post CABG and a several stents placement, status post ICD/pacemaker presented with subacute chest tightness associated with shortness breath. He also has history of ischemic cardiomyopathy and the severe systolic congestive heart failure with EF 15-20%. Patient was hospitalized in 10/2017 for similar complaints, when the stress test revealed abnormal results. Patient elected medical management and was discharged. - LHC 06/24/2014 demonstrated 1/2 patent bypass grafts (SVG to ramus was occluded). -Recent TTE 01/06/2017 showed EF 15-20%, with severe systolic dysfunction. - Stress test 10/08/2017 Perfusion imaging showed evidence of apical anterolateral infarct with trivial periinfarct ischemia. Fixed mild inferior defect with mild hypokinesis maybe artifact or hibernating myocardium. Gated EF = 34%. There is no evidence of TID. The LV is dilated. - Patient already on standard treatment for CAD including aspirin, beta erlinda, Anthony inhibitors, and statins. he also on Coumadin for chronic atrial fibrillation, INR therapeutic. He takes Ranexa 500 twice a day currently. We will continue current treatment. - First set of troponin was negative, EKG showed paced rhythm without ischemic ST-T change. We will repeat echocardiogram, continue cycling troponin, telemetr y monitoring, EKG as needed. - Cardiology consult. (2) CAD (coronary artery disease) Current Visit: No Status: Chronic Assessment and plan: - same as above. Qualifiers: Coronary Disease-Associated Artery/Lesion type: bypass graft [place] vs. transplanted heart: [place] heart Associated angina: with stable angina Qualified Code(s): I25.708 - Atherosclerosis of coronary artery bypass graft(s), unspecified, with other forms of angina pectoris (3) Atrial fibrillation Current Visit: No Status: Chronic Assessment and plan: Rate controlled by pacemaker, AC with coumadin and INR 2.5 today. Qualifiers: Atrial fibrillation type: chronic Qualified Code(s): I48.2 - Chronic atrial fibrillation (4) CHF (congestive heart failure) Current Visit: No Status: Chronic Assessment and plan: Hx of severe systolic HF, recent TTE 01/06/2017 showed EF 15-20%, severe LV systolic dysfunction. s/p ICD. currently on BB/ ACEI/Lasix/Isosorbide. - BP fairly well controlled, still have room to lower, will adjust meds dose to achieve SBP<110, HR 60-70. - May try Entrestol, but defer to cardiology. - Currently euvolemic, continue current dose of Lasix. - Repeat ECHO. - Cardio following. Qualifiers: Heart failure type: systolic Heart failure chronicity: chronic Qualified Code(s): I50.22 - Chronic systolic (congestive) heart failure (5) Cardiomyopathy, ischemic Current Visit: No Status: Chronic Assessment and plan: same as above. (6) Chronic renal failure Current Visit: No Status: Chronic Assessment and plan: Cr at baseline, monitor. Qualifiers: Chronic kidney disease stage: stage 4 (severe) Qualified Code(s): N18.4 - C hronic kidney disease, stage 4 (severe) (7) Hypertension Current Visit: No Status: Chronic Assessment and plan: BP management as above. Qualifiers: Hypertension type: essential hypertension Qualified Code(s): I10 - Essential (primary) hypertension (8) Dyslipidemia Current Visit: No Status: Chronic Assessment and plan: continue home meds. (9) Colon cancer Current Visit: No Status: Chronic Assessment and plan: stable. Qualifiers: Colon location: unspecified part of colon Qualified Code(s): C18.9 - Malignant neoplasm of colon, unspecified (10) Hx of CABG Current Visit: No Status: Chronic Assessment and plan: - same as above. (11) Pacemaker Current Visit: No Status: Chronic Assessment and plan: - same as above. (12) DVT prophylaxis Current Visit: Yes Status: Acute Assessment and plan: continue home coumadin. (13) Type II diabetes mellitus Current Visit: No Status: Chronic Assessment and plan: Continue home insulin, started on insulin sliding scale. Qualifiers: Diabetes mellitus senior care insulin use: with buttermaker helper use Diabetes mellitus complication status: with unspecified complications Qualified Code(s): E11.8 - Type 2 diabetes mellitus with unspecified complications; Z79.4 - halfway (current) use of insulin - Time Spent With Patient Total time spent is greater than 50% in coordination of care (as documented) at patient's floor/unit and/or counseling patient: Greater than 35 minutes <Marcelino Mcgregor Y - Last Filed: 03/26/18 16:55> Internal Medicine - H&P: HPI History of present illness: Mr. Ellis is a 72 year old male All Systems PM: A 10-system review of systems was performed and is negative for pertinent findings except as documented above in the HPI. - Constitutional Vitals: Temp Pulse Resp BP Pulse Ox 97.8 F 68 20 131/80 95 03/26/18 14:27 03/26/18 14:27 03/26/18 14:27 03/26/18 14:27 03/26/18 14:27 Internal Med - H&P Results - Labs CBC & Chem 7: 03/26/18 12:18 03/26/18 12:18 Labs: Short CBC 03/26/18 Range/Units 12:18 WBC 8.9 (4.3-11.1) K/mcL Hgb 14.6 (12.9-16.9) g/dL Hct 45.5 (37.5-50.1) % Plt Count 152 (140-400) K/mcL Neutrophils # 6.7 (1.6-8.9) K/mcL BMP 03/26/18 12:18 Sodium 135 L Potassium 4.3 Chloride 99 Carbon Dioxide 28 BUN 52 H Creatinine 2.30 H Glucose 256 H Calcium 9.5 Cardiac Enzymes 03/26/18 03/26/18 Range/Units 12:18 15:04 Troponin I < 0.03 < 0.03 (< 0.04) ng/mL Liver Function 03/26/18 Range/Units 12:18 Total Bilirubin 0.8 (0.3-1.0) mg/dL AST 22 (13-39) Units/L ALT 19 (7-52) Units/L Alkaline Phosphatase 57 (34-104) Units/L Albumin 3.5 (3.5-5.7) g/dL - Impressions ITS Impressions Chest X-Ray 03/26/18 12:07 IMPRESSION: Moderate cardiomegaly with associated small right pleural effusion and moderate-sized left pleural effusion. These changes may represent mild CHF. Examination is largely stable. D/ / 03/26/2018 12:59:20 Alfa Montiel MD / [place] Interpreting Provider: Alfa Montiel MD - Assessment and plan (1) Chest pain, rule out acute myocardial infarction Current Visit: Yes Status: Acute (2) Chronic renal failure Current Visit: No Status: Chronic Qualifiers: Chronic kidney disease stage: stage 4 (severe) Qualified Code(s): N18.4 - Chronic kidney disease, stage 4 (severe) (3) Cardiomyopathy, ischemic Current Visit: No Status: Chronic (4) Hypertension Current Visit: No Status: Chronic Qualifiers: Hypertension type: essential hypertension Qualified Code(s): I10 - Essential (primary) hypertension (5) Dyslipidemia Current Visit: No Status: Chronic (6) Atrial fibrillation Current Visit: No Status: Chronic Qualifiers: Atrial fibrillation type: chronic Qualified Code(s): I48.2 - Chronic atrial fibrillation (7) CAD (coronary artery disease) Current Visit: No Status: Chronic Qualifiers: Coronary Disease-Associated Artery/Lesion type: bypass graft [place] vs. transplanted heart: [place] heart Associated angina: with stable angina Qualified Code(s): I25.708 - Atherosclerosis of coronary artery bypass graft(s), unspecified, with other forms of angina pectoris (8) DVT prophylaxis Current Visit: Yes Status: Acute (9) Colon cancer Current Visit: No Status: Chronic Qualifiers: Colon location: unspecified part of colon Qualified Code(s): C18.9 - Malignant neoplasm of colon, unspecified (10) Hx of CABG Current Visit: No Status: Chronic (11) Pacemaker Current Visit: No Status: Chronic (12) CHF (congestive heart failure) Current Visit: No Status: Chronic Qualifiers: Heart failure type: systolic Heart failure chronicity: chronic Qualified Code(s): I50.22 - Chronic systolic (congestive) heart failure (13) Type II diabetes mellitus Current Visit: No Status: Chronic Qualifiers: Diabetes mellitus buttermaker helper insulin use: with senior care use Diabetes mellitus complication status: with unspecified complications Qualified Code(s): E11.8 - Type 2 diabetes mellitus with unspecified complications; Z79.4 - halfway (current) use of insulin - Time Spent With Patient Total time spent is greater than 50% in coordination of care (as documented) at patient's floor/unit and/or counseling patient: - Attending Attestation Patient seen and evaluated at bed side. a complete physical exam was performed. case discussed and plan of care reviewed, agreed with CODING CLERK note.
[2018-03-26] MEDS ORDERED: Perflutren Lipid Microsphere 1.3 ML in 0.9 % Sodium Chloride 8.7 ML IVP ONE (15:13)
[2018-03-26] MEDS ORDERED: *HR* Warfarin 5 MG TABLET PO SCH ×2 (15:15→18:00)
[2018-03-26] MEDS ORDERED: D5% in Water 1,000 ML IVC PRN (15:17)
[2018-03-26] MEDS ORDERED: *HR* Dextrose 50 % in Water (Syg) 50 ML SYRINGE IVP PRN (15:17)
[2018-03-26] MEDS ORDERED: Dextrose Gel 15 GM/37.5 ML TUBE PO PRN ×2 (15:17)
[2018-03-26] MEDS: Insulin LISPRO 300 UNITS/3 ML VIAL SQ SCH ×2 (18:23→21:34)
[2018-03-26] MEDS ORDERED: *HR* HYDROcodone/Acet 5/325 mg TABLET PO PRN (20:39)
[2018-03-26] MEDS ORDERED: Ondansetron ODT 4 MG TAB.RAPDIS SL PRN (20:39)
[2018-03-26] MEDS ORDERED: INSULIN GLARGINE 52 UNIT SQ SCH (21:00)
[2018-03-26] MEDS: traZODone 50 MG TABLET PO SCH (21:30)
[2018-03-26] MEDS: Ranolazine 500 MG TAB.ER.12H PO SCH (21:31)
[2018-03-26] MEDS: Magnesium Oxide 400 MG TABLET PO SCH (21:31)
[2018-03-26] MEDS: Famotidine 20 MG TABLET PO SCH (21:31)
[2018-03-26] MEDS: Insulin DETEMIR 100 UNIT/ML X5UNITS SQ SCH (21:33)
[2018-03-26] MEDS: Budesonide/Formoterol 80/4.5 MDI IH SCH (22:38)
[2018-03-26] MEDS: OSTEO BI FLEX PO SCH (23:42)
[2018-03-27 04:26] LABS: Basophils # 0.1 K/mcL (0.0-0.2); Basophils % 0.7 %; Eosinophils # 0.3 K/mcL (0.0-0.6); Eosinophils % 3.9 %; Hematocrit 40.1 % (37.5-50.1); Hemoglobin 13.1 g/dL (12.9-16.9); Immature Granulocytes % 0.6 % (0-4); Lymphocytes % 13.1 %; Mean Corpuscular HGB Conc 32.7 g/dL (31.6-35.5); Mean Corpuscular Hemoglobin 28.2 pg (28.0-33.3); Mean Corpuscular Volume 86.4 fL (83.0-100.0); Mean Platelet Volume 9.7 fL (9.4-12.4); Monocytes % 14.1 %; Neutrophils # 4.9 K/mcL (1.6-8.9); Platelet Count 164 K/mcL (140-400); Red Blood Count 4.64 M/mcL (4.19-5.50); Red Cell Distribution Width 14.8 % (11.5-14.5); Segmented Neutrophils % 67.6 %
[2018-03-27 04:31] LABS: INR 2.3; Prothrombin Time 26.2 Seconds (9.4-12.1)
[2018-03-27 04:48] LABS: Calcium 8.9 mg/dL (8.6-10.3); Potassium 3.9 mEq/L (3.5-5.1)
[2018-03-27] MEDS: Famotidine 20 MG TABLET PO SCH ×2 (06:11→17:19)
[2018-03-27] MEDS: Levothyroxine 25 MCG TABLET PO SCH (06:11)
[2018-03-27] MEDS: Budesonide/Formoterol 80/4.5 MDI IH SCH ×2 (08:13→20:52)
[2018-03-27] MEDS: Cholecalciferol (D-3) 1,000 UNIT TABLET PO SCH (08:58)
[2018-03-27] MEDS: Ranolazine 500 MG TAB.ER.12H PO SCH ×2 (08:58→21:06)
[2018-03-27] MEDS: Magnesium Oxide 400 MG TABLET PO SCH ×2 (08:58→21:06)
[2018-03-27] MEDS: Niacin (24 HR) 500 MG TAB.ER.24H PO SCH (08:59)
[2018-03-27] MEDS: Multivit/Ca/Min/Fe/FA 1 TAB TABLET PO SCH (08:59)
[2018-03-27] MEDS: Insulin LISPRO 300 UNITS/3 ML VIAL SQ SCH ×4 (08:59→21:07)
[2018-03-27] MEDS: Insulin DETEMIR 100 UNIT/ML X5UNITS SQ SCH ×2 (08:59→21:07)
[2018-03-27] MEDS: Isosorbide MONOnitrate (24 HR) 60 MG TAB.ER.24H PO SCH (08:59)
[2018-03-27] MEDS: Aspirin 81 MG TAB.CHEW PO SCH (08:59)
[2018-03-27] MEDS ORDERED: Furosemide 20 MG TABLET PO SCH ×2 (09:00)
[2018-03-27] MEDS: OSTEO BI FLEX PO SCH ×2 (09:00→21:08)
--- NOTE | 2018-03-27 11:21 | Cardiology Consult Note ---
<Luisa Brar - Last Filed: 03/27/18 11:30> Date of Encounter: 03/27/18 Time of Encounter: 09:30 Assessment and Plan (1) Systolic CHF Current Visit: Yes Status: Acute Per cardiology: -Acute on chronic systolic CHF. Known ICM, reports NYHA class III symptoms. -Chest x-ray with mild CHf, bilateral pleural effusions. -BNP 247. -Known LVEF 20-25%, currently LVEF 20%. -On po lasix, will start 40mg IV lasix BID. -Strict i/os, fluid restrictions, daily weight. -Starting 40mg IV lasix BID. -Will continue to monitor. Qualifiers: Heart failure chronicity: acute on chronic Qualified Code(s): I50.23 - Acute on chronic systolic (congestive) heart failure (2) Chest pain Current Visit: Yes Status: Acute Per cardiology: -REports chest heaviness, atypical and unlike previous angina. -Lexiscan nuclear stress test 10/08/2017: Apical anterolateral infarct with trivial augie-infarct ischemia. Fixed mild inferior defect with mild hypokinesis, may be artifact or hibernating myocardium. Gated EF 34%. -Last C 04/2015 with 1/2 patent bypass grafts. SVG to Ramus occluded. -Limited TTE 01/06/2017: EF 15-20%. Mild to moderately dilated LV. Severe global LV systolic dysfunction. Mildly dilated right ventricle with mildly reduced function. Atypical septal motion noted. -Troponins negative x3. -ECG with no acute ischemic change. -ON asa, statin, BB, imdur, ranexa. -Denies current chest pain. -suspect chest pain related to CHF. -Can consider further titration of anti-anginals if symptoms return after diuresis. Qualifiers: Chest pain type: unspecified Qualified Code(s): R07.9 - Chest pain, unspecified (3) Atrial fibrillation Current Visit: No Status: Chronic Per cardiology: -Known A.fib. -Hr controlled. -ON BB and coumadin for anticoagulation. -Continue to monitor. Qualifiers: Atrial fibrillation type: chronic Qualified Code(s): I48.2 - Chronic atrial fibrillation (4) Chronic kidney disease (CKD) Current Visit: No Status: Chronic Per cardiology: -Known CKD. -Monitor renal function closely with diuresis. Qualifiers: Chronic kidney disease stage: unspecified stage Qualified Code(s): N18.9 - Chronic kidney disease, unspecified Discussion w patient/family: The assessment and plan as outlined above was discussed with the patient and/or family members who expressed understanding and agreement. All questions were answered. Thank you for involving us in the care of your patient. Please call with any questions. Discussed and reviewed with Dr.John Soto. History of Present Illness Consult date: 03/26/18 Requesting physician: Maren Alves Consult reason: chest pain Chief complaint: shortness of breath History of present illness: Mr. 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 Patient reports symptoms started a few days ago. Reports orthopnea. Regarding chest heaviness, denies exertional component. States different from previous angina. Denies current chest heaviness. Past Med Surg Social Fam HX - Past Medical History Attestation: Yes The following information was validated with the patient. Source: patient, old records reviewed, obtained from family Medical history: arthritis, atrial fibrillation, cancer, cardiomyopathy, CHF, co ronary artery disease, diabetes, GERD, hyperlipidemia, hypertension, myocardial infarction, renal disease, thyroid disease, TIA, other Additional medical history: colon cancer. Type II Diabetic. Hyperthyroidism Psychiatric history: no psych history - Past Surgical History Surgical History: angioplasty/stent, appendectomy, cholecystectomy, colostomy, coronary bypass (CABG), herniorrhaphy, pacemaker/AICD Additional surgical history: MAZE procedure, left atrial appendage stapling, SBO surgery, 2 cardiac stents, colostomy. - Social History Smoking Status: Never smoker Smokeless Tobacco Status: No Alcohol use: none Drug use: none - Family History Father Family Member Ethnicity: Non- Living Status: Hx Family Cardiac Disorders: Yes Mother Adopted: No Family Member Ethnicity: Non- Living Status: Hx Family Cardiac Disorders: Yes Hx Family Respiratory Disorders: Yes Hx Family Cancer: No Hx Family GI Disorders: Yes Hx Family Endocrine Disorder: Yes Medications and Allergies RX: Aspirin 81 mg PO [facility] 10/08/17 [History] RX: Atorvastatin [Lipitor] 40 mg PO 10/08/17 [History] RX: Budesonide/Formoterol 80/4.5 [Symbicort 80/4.5] 2 puff IH BIDR 10/08/17 [History] RX: Carvedilol [Coreg] 50 mg PO BID 10/08/17 [History] RX: Cholecalciferol (D-3) [Vitamin D] 3,000 unit PO QAM 10/08/17 [History] RX: Glucosamine/D3/Boswellia Ele [Osteo Bi-Flex Tablet] 1 tab PO BID 10/08/17 [History] RX: Hydrocodone/Acetaminophen [Hydrocodone-Acetamin 5-300 mg] 1 tab PO Q6HR PRN 10/08/17 [History] RX: Insulin Glargine [Lantus] 52 unit SQ BID 10/08/17 [History] RX: Insulin LISPRO [Humalog] 10 - 18 unit SQ TIDWM 10/08/17 [History] RX: Isosorbide MONOnitrate (24 HR) [Imdur] 120 mg PO DAILY 10/08/17 [History] RX: Levothyroxine [Synthroid] 25 mcg PO 0630 10/08/17 [History] RX: Montelukast [Singulair] 10 mg PO DAILY 10/08/17 [History] RX: Multivitamin/Iron/Folic Acid [Centrum Complete Multivit Tab] 1 tab PO QAM 10/08/17 [History] RX: Niacin [Plain Niacin] 500 mg PO DAILY 10/08/17 [History] RX: [place]-3/Dha/Epa/Fish Oil [Fish Oil 1,000 mg Softgel] 1,000 mg PO QAM 10/08/17 [History] RX: Omeprazole [PriLOSEC] 40 mg PO DAILY 10/08/17 [History] RX: Ondansetron [Zofran ODT] 8 mg SL Q8H PRN 10/08/17 [History] RX: Warfarin [Coumadin] 5 mg PO SUMOWETHFR 10/08/17 [History] RX: traZODone [TraZODone] 50 mg PO HS 10/08/17 [History] RX: Furosemide [Lasix] 20 mg PO QAM 10/09/17 [History] RX: Magnesium Oxide [Magnesium] 400 mg PO BID 10/09/17 [History] RX: Nitroglycerin [Nitrostat] 0.4 mg SL Q5M PRN 10/09/17 [History] RX: Ranolazine [Ranexa] 500 mg PO BID #60 tab.er.12h 10/09/17 [Rx] RX: Warfarin [Coumadin] 7.5 mg PO TUSA 10/09/17 [History] Oxybutynin [Ditropan] 5 mg PO BID 03/26/18 [History] RX: Furosemide [Lasix] 40 mg PO QPM 03/26/18 [History] RX: Losartan [Cozaar] 12.5 mg PO DAILY 03/26/18 [History] RX: raNITIdine HCl [Ranitidine HCl] 150 mg PO BID 03/26/18 [History] Allergy/AdvReac Type Severity Reaction Status Date / Time codeine Allergy Difficulty Verified 10/09/17 11:42 Breathing promethazine [From Phenergan] Allergy Dizziness Verified 10/09/17 11:42 ibuprofen AdvReac Nausea Verified 10/09/17 11:42 All Systems Review: The remainder of the systems were reviewed and are negative - Cardiovascular Cardiovascular: as per HPI, chest pain at rest, dyspnea at rest, orthopnea Physical Examination Vital Signs, Last 4 Hours Temp Pulse Resp BP Pulse Ox 03/27/18 08:13 16 97 03/27/18 07:37 97.6 F 65 16 127/75 98 General: Conversant, No Apparent Distress HEENT: Atraumatic, Normocephaly, Mucus Membranes Moist Neck: No JVD, Normal carotid pulses Cardiac: Normal S1 and S2, No Murmur, Other (Irregularly irregular) Lungs: Other (Lung sounds diminished to bilateral lung bases. ) Neuro: Alert and responsive, No focal deficits noted Abdomen: Soft, Non-Tender Skin: No rashes noted on visualized skin Musculoskeletal: No Chest Wall Tenderness Extremities: No Clubbing, No Cyanosis, No Edema, Normal Pulses Results 03/27/18 02:51 03/27/18 02:51 Lab Results Impressions Chest X-Ray 03/26/18 12:07 IMPRESSION: Moderate cardiomegaly with associated small right pleural effusion and moderate-sized left pleural effusion. These changes may represent mild CHF. Examination is largely stable. D/ / 03/26/2018 12:59:20 Alfa Montiel MD / [place] Interpreting Provider: Alfa Montiel MD Echocardiogram 03/26/18 14:30 Impressions: LVEF 20%. Global LV systolic dysfunction with regional variations. Mildly dilated left ventricle. Indeterminate diastolic function. There is no LV thrombus. Definity echo contrast was used. RV is normal in size. Grossly, function appears mildly reduced but is not well visualized in all available windows. Mild mitral regurgitation. Mild tricuspid regurgitation. No pulmonary hypertension based on TR signal obtained. Active Medications Acetaminophen (Tylenol) 650 mg PO Q6HR PRN PRN Reason: Mild Pain/Fever Stop: 09/25/18 14:23 Last Admin: 03/27/18 10:51 Dose: 650 mg Hydrocodone Bitart/Acetaminophen ([place] 5-325 Mg) 1 tab PO Q6HR PRN PRN Reason: Pain Aspirin (Aspirin) 81 mg PO QAM [facility] Stop: 09/26/18 09:01 Last Admin: 03/27/18 08:59 Dose: 81 mg Atorvastatin Calcium (Lipitor) 40 mg PO HS [facility] Stop: 09/25/18 21:01 Last Admin: 03/26/18 21:31 Dose: 40 mg Budesonide/Formoterol Fumarate (Symbicort) 2 puff IH BIDR [facility]; Protocol Stop: 09/25/18 22:01 Last Admin: 03/27/18 08:13 Dose: 2 puff Carvedilol (Coreg) 50 mg PO BIDWM [facility]; Protocol Stop: 09/25/18 21:01 Last Admin: 03/27/18 08:59 Dose: 50 mg Dextrose/Water (Dextrose 50% (Syg)) 25 ml IVP AD PRN PRN Reason: Hypoglycemia Stop: 09/25/18 15:18 Famotidine (Pepcid) 20 mg PO BIDAC [facility] Stop: 09/25/18 21:01 Last Admin: 03/27/18 06:11 Dose: 20 mg Furosemide (Lasix) 40 mg IVP BID [facility] Stop: 09/26/18 11:31 Glucose (Gluctose) 15 gm PO ONCE PRN PRN Reason: Hypoglycemia Stop: 09/25/18 15:18 Glucose (Gluctose) 30 gm PO ONCE PRN PRN Reason: Hypoglycemia Stop: 09/25/18 15:18 Dextrose (Dextrose 5%) 1,000 mls @ 100 mls/hr IVC .Q10H PRN PRN Reason: HYPOGLYCEMIA Stop: 09/25/18 15:18 Insulin Detemir (Levemir) 52 unit SQ BID [facility] Stop: 09/25/18 21:16 Last Admin: 03/27/18 08:59 Dose: 52 unit Insulin Human Lispro (Humalog) 0 units SQ HS [facility]; Protocol Stop: 09/25/18 21:01 Last Admin: 03/26/18 21:34 Dose: 4 units Insulin Human Lispro (Humalog) 0 units SQ TIDAC [facility]; Protocol Stop: 09/25/18 16:31 Last Admin: 03/27/18 08:59 Dose: 4 units Isosorbide Mononitrate (Imdur) 120 mg PO DAILY [facility] Stop: 09/26/18 09:01 Last Admin: 03/27/18 08:59 Dose: 120 mg Levothyroxine Sodium (Synthroid) 25 mcg PO 0630 [facility] Stop: 09/26/18 06:31 Last Admin: 03/27/18 06:11 Dose: 25 mcg Losartan Potassium (Cozaar) 12.5 mg PO DAILY [facility]; Protocol Stop: 09/26/18 09:01 Last Admin: 03/27/18 08:58 Dose: 12.5 mg Magnesium Oxide (Mag-Ox) 400 mg PO BID [facility] Stop: 09/25/18 21:01 Last Admin: 03/27/18 08:58 Dose: 400 mg Montelukast Sodium (Singulair) 10 mg PO QPM [facility] Stop: 09/26/18 18:01 Multivitamins/Calcium (Thera M Plus) 1 tab PO QAM [facility] Stop: 09/26/18 09:01 Last Admin: 03/27/18 08:59 Dose: 1 tab Naloxone HCl (Narcan) 0.4 mg IVP Q2MIN PRN PRN Reason: SEE COMMENTS Stop: 09/25/18 14:23 Niacin (Niaspan) 500 mg PO DAILY [facility] Stop: 09/26/18 09:01 Last Admin: 03/27/18 08:59 Dose: 500 mg Nitroglycerin (Nitroglycerin) 0.4 mg SL Q5MIN PRN PRN Reason: Chest Pain Stop: 09/25/18 12:08 Omeprazole (Prilosec) 40 mg PO 0630 [facility] Stop: 09/26/18 06:31 Last Admin: 03/27/18 06:11 Dose: 40 mg Ondansetron HCl (Zofran Odt) 8 mg SL Q8H PRN PRN Reason: Nausea Oxybutynin Chloride (Ditropan) 5 mg PO BID [facility]; Protocol Stop: 09/25/18 21:01 Last Admin: 03/27/18 08:59 Dose: 5 mg Pharmacy Profile Note (Patient Taking Own Medication) 1 each PO BID [facility] Stop: 09/25/18 21:01 Last Admin: 03/27/18 09:00 Dose: Not Given Pharmacy Profile Note (Patient Taking Own Medication) 1 each PO QAM [facility] Stop: 09/26/18 09:01 Last Admin: 03/27/18 09:00 Dose: Not Given Ranolazine (Ranexa) 500 mg PO BID [facility] Stop: 09/25/18 21:01 Last Admin: 03/27/18 08:58 Dose: 500 mg Trazodone HCl (Trazodone) 50 mg PO HS [facility] Stop: 09/25/18 21:01 Last Admin: 03/26/18 21:30 Dose: 50 mg Vitamin D (Vitamin D) 1,000 unit PO QAM [facility] Stop: 09/26/18 09:01 Last Admin: 03/27/18 08:58 Dose: 1,000 unit Warfarin Sodium (Coumadin) 7.5 mg PO TuSa [facility] Stop: 09/26/18 18:01 Warfarin Sodium (Coumadin) 5 mg PO SuMoWeThFr [facility] Stop: 09/25/18 18:01 Last Admin: 03/26/18 18:24 Dose: 5 mg Laboratory Tests 10/08/17 01/14/18 03/26/18 02:35 09:12 12:18 Hgb Creatinine 2.30 H 2.38 H 2.30 H Troponin I < 0.03 B-Natriuretic Peptide 03/26/18 03/26/18 03/27/18 15:04 21:00 02:51 Hgb 13.1 D Creatinine Troponin I < 0.03 < 0.03 B-Natriuretic Peptide 03/27/18 03/27/18 02:51 02:51 Hgb Creatinine 2.29 H Troponin I B-Natriuretic Peptide 247 H - Imaging and Cardiology Chest Xray: report reviewed Stress Test: report reviewed Echo: report reviewed Cardiac cath: report reviewed - EKG Interpretation EKG results cardiology: personally reviewed (ECG with paced rhythm, HR 60.), other (Telemetry reviewed with average HR previous 12 hours noted to be 64, paced rhythm, underlying a.fib. PVCs noted.) Consult Discharge Plan - Plan Referrals: Latosha Mitchell MD [Primary Care Provider] - <Roman Soto Cooper - Last Filed: 03/27/18 11:47> - Attending Attestation I have personally performed a face to face evaluation on this patient. I have reviewed and agree with the care plan. History and Exam by me shows: Known severe cardiomyopathy. Presents with SOB, CP. Fluid overload vs. angina. Will try more aggressive diuresis and antianginals. Assessment and Plan Discussion w patient/family: The assessment and plan as outlined above was discussed with the patient and/or family members who expressed understanding and agreement. All questions were answered. Thank you for involving us in the care of your patient. Please call with any questions. History of Present Illness History of present illness: Mr. Ellis is a 72 year old male All Systems Review: The remainder of the systems were reviewed and are negative Physical Examination Vital Signs, Last 4 Hours Temp Pulse Resp BP Pulse Ox 03/27/18 11:28 97.9 F 60 16 131/73 97 03/27/18 08:13 16 97 Results 03/27/18 02:51 03/27/18 02:51 Lab Results 03/26/18 03/26/18 03/26/18 12:18 12:18 12:18 WBC 8.9 Hgb 14.6 Hct 45.5 Plt Count 152 INR 2.5 Sodium 135 L Potassium 4.3 Chloride 99 Carbon Dioxide 28 BUN 52 H Creatinine 2.30 H Glucose 256 H Calcium 9.5 Total Bilirubin 0.8 AST 22 ALT 19 Alkaline Phosphatase 57 Troponin I < 0.03 B-Natriuretic Peptide 03/26/18 03/26/18 03/27/18 15:04 21:00 02:51 WBC 7.2 Hgb 13.1 D Hct 40.1 Plt Count 164 INR Sodium Potassium Chloride Carbon Dioxide BUN Creatinine Glucose Calcium Total Bilirubin AST ALT Alkaline Phosphatase Troponin I < 0.03 < 0.03 B-Natriuretic Peptide 03/27/18 03/27/18 03/27/18 02:51 02:51 02:51 WBC Hgb Hct Plt Count INR 2.3 Sodium 135 L Potassium 3.9 Chloride 100 Carbon Dioxide 26 BUN 55 H Creatinine 2.29 H Glucose 197 H Calcium 8.9 Total Bilirubin AST ALT Alkaline Phosphatase Troponin I B-Natriuretic Peptide 247 H
--- NOTE | 2018-03-27 15:01 | Internal Med Progress Note ---
Hospitalist Progress Note - Encounter Date of Encounter: 03/27/18 Time of Encounter: 14:20 - Subjective Interval History: Mr. Ellis is a 72 year old male with past medical history of CAD s/p PCI and CABG, ICM s/p AICD, chronic a.fib on Coumadin for anti coag, DM, HTN, HLD, CKD - 3, TIA, TR on CPAP who presented to ER for worsening shortness of breah and chest heaviness. He denied any CP. He does have PND and HANNA. - Exam Vitals: Temp Pulse Resp BP Pulse Ox 97.9 F 60 16 131/73 97 03/27/18 11:28 03/27/18 11:28 03/27/18 11:28 03/27/18 11:28 03/27/18 11:28 Exam: Gen: Alert, awake, Oriented to time,place and person Chest: Diminished breath sounds B/L, No wheezing, No crackles, No rales Heart: S1S2+ Afib No murmurs Abd: Soft, NT, BS +, No organomegaly Ext: Trace edema, pulses are palpable, No calf tenderness Neuro : Benign findings Skin: No rash. - Assessment and Plan (1) Acute on chronic systolic (congestive) heart failure Current Visit: Yes Status: Acute Assessment and Plan: He does have mild exacerbation agree with continuing IV lasix for now resumed other home meds ASA + Statin + BB + Losartan Will get 2 D Echo (2) Chest pain, rule out acute myocardial infarction Current Visit: Yes Status: Acute Assessment and Plan: More like CHF exacerbation So far negative Trop EKG did not show any acute issue changes had stress test in October 2017 which showed atypical ramiro lateral infarct with trivial periinfarct ischemia, fixed mild inferior defect with mild hypokinesis may be artifact. LVEF 34% no further work up needed cont Lasix IV resumed other home meds (3) Chronic renal failure Current Visit: No Status: Chronic Assessment and Plan: Cr at baseline, monitor. (4) Cardiomyopathy, ischemic Current Visit: No Status: Chronic Assessment and Plan: resumed home meds (5) Hypertension Current Visit: No Status: Chronic Assessment and Plan: stable with current meds (6) Dyslipidemia Current Visit: No Status: Chronic Assessment and Plan: continue home meds. (7) Atrial fibrillation Current Visit: No Status: Chronic Assessment and Plan: Rate controlled with BB On coumadin for anti coag (8) CAD (coronary artery disease) Current Visit: No Status: Chronic Assessment and Plan: resumed home meds (9) DVT prophylaxis Current Visit: Yes Status: Acute Assessment and Plan: continue home coumadin. (10) Colon cancer Current Visit: No Status: Chronic Assessment and Plan: stable. (11) Hx of CABG Current Visit: No Status: Chronic Assessment and Plan: - same as above. (12) Pacemaker Current Visit: No Status: Chronic Assessment and Plan: - same as above. (13) Type II diabetes mellitus Current Visit: No Status: Chronic Assessment and Plan: Continue home insulin, started on insulin sliding scale. - Time Spent with Patient Total time spent is greater than 50% in coordination of care (as documented) at patient's floor/unit and/or counseling patient: Internal Medicine: Result - Labs CBC & Chem 7: 03/27/18 02:51 03/27/18 02:51 Labs: Short CBC 03/27/18 Range/Units 02:51 WBC 7.2 (4.3-11.1) K/mcL Hgb 13.1 D (12.9-16.9) g/dL Hct 40.1 (37.5-50.1) % Plt Count 164 (140-400) K/mcL Neutrophils # 4.9 (1.6-8.9) K/mcL BMP 03/27/18 02:51 Sodium 135 L Potassium 3.9 Chloride 100 Carbon Dioxide 26 BUN 55 H Creatinine 2.29 H Glucose 197 H Calcium 8.9 Cardiac Enzymes 03/26/18 03/26/18 Range/Units 15:04 21:00 Troponin I < 0.03 < 0.03 (< 0.04) ng/mL - ABG Interpretation ABG results: PT/INR, D-dimer PT 26.2 Seconds (9.4-12.1) H 03/27/18 02:51 - Impressions Impressions Echocardiogram 03/26/18 14:30 Impressions: LVEF 20%. Global LV systolic dysfunction with regional variations. Mildly dilated left ventricle. Indeterminate diastolic function. There is no LV thrombus. Definity echo contrast was used. RV is normal in size. Grossly, function appears mildly reduced but is not well visualized in all available windows. Mild mitral regurgitation. Mild tricuspid regurgitation. No pulmonary hypertension based on TR signal obtained. Consult Discharge Plan - Plan Referrals: Latosha Mitchell MD [Primary Care Provider] - (3) Chronic renal failure Qualifiers: Chronic kidney disease stage: stage 4 (severe) Qualified Code(s): N18.4 - Chronic kidney disease, stage 4 (severe) (5) Hypertension Qualifiers: Hypertension type: essential hypertension Qualified Code(s): I10 - Essential (primary) hypertension (7) Atrial fibrillation Qualifiers: Atrial fibrillation type: chronic Qualified Code(s): I48.2 - Chronic atrial fibrillation (8) CAD (coronary artery disease) Qualifiers: Coronary Disease-Associated Artery/Lesion type: bypass graft [place] vs. transplanted heart: teller heart Associated angina: with stable angina Qualified Code(s): I25.708 - Atherosclerosis of coronary artery bypass graft(s), unspecified, with other forms of angina pectoris (10) Colon cancer Qualifiers: Colon location: unspecified part of colon Qualified Code(s): C18.9 - Malignant neoplasm of colon, unspecified (13) Type II diabetes mellitus Qualifiers: Diabetes mellitus senior living insulin use: with senior living use Diabetes mellitus complication status: with unspecified complications Qualified Code(s): E11.8 - Type 2 diabetes mellitus with unspecified complications; 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
[2018-03-27] MEDS: Furosemide 40 MG/4 ML VIAL IVP SCH (17:19)
[2018-03-27] MEDS ORDERED: Furosemide 40 MG TABLET PO SCH (18:00)
[2018-03-27] MEDS ORDERED: *HR* Warfarin 7.5 MG TABLET PO SCH (18:00)
--- NOTE | 2018-03-27 19:09 | Electrocardiograph Report ---
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
[2018-03-27] MEDS: traZODone 50 MG TABLET PO SCH (21:06)
[2018-03-28] MEDS: Levothyroxine 25 MCG TABLET PO SCH (06:05)
[2018-03-28 07:11] VITALS: BP 131/76
[2018-03-28] MEDS: Isosorbide MONOnitrate (24 HR) 60 MG TAB.ER.24H PO SCH (08:36)
[2018-03-28] MEDS: Magnesium Oxide 400 MG TABLET PO SCH (08:36)
[2018-03-28] MEDS: Niacin (24 HR) 500 MG TAB.ER.24H PO SCH (08:36)
[2018-03-28] MEDS: Multivit/Ca/Min/Fe/FA 1 TAB TABLET PO SCH (08:36)
[2018-03-28] MEDS: Ranolazine 500 MG TAB.ER.12H PO SCH (08:36)
[2018-03-28] MEDS: Famotidine 20 MG TABLET PO SCH (08:37)
[2018-03-28] MEDS: Furosemide 40 MG/4 ML VIAL IVP SCH (08:37)
[2018-03-28] MEDS: Aspirin 81 MG TAB.CHEW PO SCH (08:37)
[2018-03-28] MEDS: Cholecalciferol (D-3) 1,000 UNIT TABLET PO SCH (08:37)
[2018-03-28] MEDS: Insulin LISPRO 300 UNITS/3 ML VIAL SQ SCH (08:37)
[2018-03-28 09:59] LABS: Calcium 8.9 mg/dL (8.6-10.3); Potassium 3.9 mEq/L (3.5-5.1)
--- NOTE | 2018-03-28 10:07 | Discharge Summary ---
- NOTES TO OUTPATIENT PROVIDER Notes to Outpatient Provider: f/u with PCP in one week. f/u with Cardiology in 1-2 weeks. please check daily weight.. If you have SOB and gain more than 2 lbs, take an extra dose of Lasix 40mg tab and call you PCP Date of Encounter: 03/28/18 Time of Encounter: 10:04 - Discharge Diagnosis (1) Acute on chronic systolic (congestive) heart failure Priority: Primary Status: Acute (2) Chest pain, rule out acute myocardial infarction Priority: Primary Status: Acute (3) Chronic renal failure Priority: Secondary Status: Chronic Qualifiers: Chronic kidney disease stage: stage 4 (severe) Qualified Code(s): N18.4 - Chronic kidney disease, stage 4 (severe) (4) Cardiomyopathy, ischemic Priority: Secondary Status: Chronic (5) Hypertension Priority: Secondary Status: Chronic Qualifiers: Hypertension type: essential hypertension Qualified Code(s): I10 - Essential (primary) hypertension (6) Dyslipidemia Priority: Secondary Status: Chronic (7) Atrial fibrillation Priority: Secondary Status: Chronic Qualifiers: Atrial fibrillation type: chronic Qualified Code(s): I48.2 - Chronic atrial fibrillation (8) CAD (coronary artery disease) Priority: Secondary Status: Chronic Qualifiers: Coronary Disease-Associated Artery/Lesion type: bypass graft [place] vs. transplanted heart: [place] heart Associated angina: with stable angina Qualified Code(s): I25.708 - Atherosclerosis of coronary artery bypass graft(s), unspecified, with other forms of angina pectoris (9) DVT prophylaxis Priority: Secondary Status: Acute (10) Colon cancer Priority: Secondary Status: Chronic Qualifiers: Colon location: unspecified part of colon Qualified Code(s): C18.9 - Malignant neoplasm of colon, unspecified (11) Hx of CABG Priority: Secondary Status: Chronic (12) Pacemaker Priority: Secondary Status: Chronic (13) Type II diabetes mellitus Priority: Secondary Status: Chronic Qualifiers: Diabetes mellitus shelter insulin 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 Ellis is a 72 year old male with past medical history of CAD s/p PCI and CABG, ICM s/p AICD, chronic a.fib on Coumadin for anti coag, DM, HTN, HLD, CKD - 3 TIA, TR on CPAP who presented to ER for worsening shortness of breath and chest heaviness. He denied any CP. He does have PND and HANNA. He was admitted in the hospital and started him on IV lasix. He does have mild CHF exacerbation. With IV lasix, he felt better, he denied any more SOB. Pt was evaluated by cardiology and recommend to continue Lasix, no further work up needed. Will d.c him home in stable condition today. - Time Spent with Patient Total time spent providing and/or coordinating discharge services: - Discharge Medications Home Medications: Aspirin 81 mg PO QAM 10/08/17 [History] Atorvastatin [Lipitor] 40 mg PO HS 10/08/17 [History] Budesonide/Formoterol 80/4.5 [Symbicort 80/4.5] 2 puff IH BIDR 10/08/17 [History] Carvedilol [Coreg] 50 mg PO BID 10/08/17 [History] Cholecalciferol (D-3) [Vitamin D] 3,000 unit PO QAM 10/08/17 [History] Glucosamine/D3/Boswellia Ele [Osteo Bi-Flex Tablet] 1 tab PO BID 10/08/17 [History] Hydrocodone/Acetaminophen [Hydrocodone-Acetamin 5-300 mg] 1 tab PO Q6HR PRN 10/08/17 [History] Insulin Glargine [Lantus] 52 unit SQ BID 10/08/17 [History] Insulin LISPRO [Humalog] 10 - 18 unit SQ TIDWM 10/08/17 [History] Isosorbide MONOnitrate (24 HR) [Imdur] 120 mg PO DAILY 10/08/17 [History] Levothyroxine [Synthroid] 25 mcg PO 0630 10/08/17 [History] Montelukast [Singulair] 10 mg PO DAILY 10/08/17 [History] Multivitamin/Iron/Folic Acid [Centrum Complete Multivit Tab] 1 tab PO QAM 10/08/17 [History] Niacin [Plain Niacin] 500 mg PO DAILY 10/08/17 [History] [place]-3/Dha/Epa/Fish Oil [Fish Oil 1,000 mg Softgel] 1,000 mg PO QAM 10/08/17 [History] Omeprazole [PriLOSEC] 40 mg PO DAILY 10/08/17 [History] Ondansetron [Zofran ODT] 8 mg SL Q8H PRN 10/08/17 [History] Warfarin [Coumadin] 5 mg PO SUMOWETHFR 10/08/17 [History] traZODone [TraZODone] 50 mg PO HS 10/08/17 [History] Furosemide [Lasix] 20 mg PO QAM 10/09/17 [History] Magnesium Oxide [Magnesium] 400 mg PO BID 10/09/17 [History] Nitroglycerin [Nitrostat] 0.4 mg SL Q5M PRN 10/09/17 [History] Ranolazine [Ranexa] 500 mg PO BID #60 tab.er.12h 10/09/17 [Rx] Warfarin [Coumadin] 7.5 mg PO TUSA 10/09/17 [History] Furosemide [Lasix] 40 mg PO QPM 03/26/18 [History] Losartan [Cozaar] 12.5 mg PO DAILY 03/26/18 [History] Oxybutynin [Ditropan] 5 mg PO BID 03/26/18 [History] raNITIdine HCl [Ranitidine HCl] 150 mg PO BID 03/26/18 [History] Allergies/Adverse Reactions: Allergy/AdvReac Type Severity Reaction Status Date / Time codeine Allergy Difficulty Verified 10/09/17 11:42 Breathing promethazine [From Phenergan] Allergy Dizziness Verified 10/09/17 11:42 ibuprofen AdvReac Nausea Verified 10/09/17 11:42 Date of admission: 03/26/18 13:22 Primary care physician: Latosha Mitchell MD Consults: 03/26/18 15:13 Consult to Cardiology [CONS] Routine Comment: Consulting Provider: Cardiology Patricia Reason for Consult: CP Call Completed: Yes - Constitutional Vitals: Temp Pulse Resp BP Pulse Ox 97.6 F 60 18 131/76 97 03/28/18 07:02 03/28/18 07:02 03/28/18 07:02 03/28/18 07:02 03/28/18 07:02 General appearance: Present: cooperative, A&O X 3, answers questions approp slimetely Exam: Gen: Alert, awake, Oriented to time,place and person Chest: Diminished breath sounds B/L, No wheezing, No crackles, No rales Heart: S1S2+ Afib No murmurs Abd: Soft, NT, BS +, No organomegaly Ext: Trace edema, pulses are palpable, No calf tenderness Neuro : Benign findings Skin: No rash. - Patient Status Disposition: Home, Self-Care Condition: Good Overall status at discharge: patient is back to baseline - Discharge Instructions Instructions: Heart Failure (DC) Follow Up With: Latosha Mitchell MD [Primary Care Provider] - - Diet and Activity Activity: increase activity as tolerated Diet: low salt diet
[2018-03-28] MEDS: Budesonide/Formoterol 80/4.5 MDI IH SCH (10:35)
--- NOTE | 2018-03-28 10:54 | Cardiology Progress Note ---
Date of Encounter: 03/28/18 Time of Encounter: 09:00 Assessment and Plan (1) Systolic CHF Status: Acute Per cardiology: -Acute on chronic systolic CHF. Known ICM, reports NYHA class III symptoms. -Chest x-ray with mild CHf, bilateral pleural effusions. -BNP 247. -Known LVEF 20-25%, currently LVEF 20%. -Reports compliance with diet, fluid restrictions and medications. -On IV lasix, currently net negative 500ml. -Reports symptoms much improved today. -Strict i/os, fluid restrictions, daily weight. -Recommend increased home lasix to 40mg BID. -Cardiology will sign off and will follow in outpatient setting. Follow up set. Qualifiers: Heart failure chronicity: acute on chronic Qualified Code(s): I50.23 - Acute on chronic systolic (congestive) heart failure (2) Chest pain Status: Acute Per cardiology: -REports chest heaviness, atypical and unlike previous angina. -Lexiscan nuclear stress test 10/08/2017: Apical anterolateral infarct with trivial augie-infarct ischemia. Fixed mild inferior defect with mild hypokinesis, may be artifact or hibernating myocardium. Gated EF 34%. -Last LHC 04/2015 with 1/2 patent bypass grafts. SVG to Ramus occluded. -Limited TTE 01/06/2017: EF 15-20%. Mild to moderately dilated LV. Severe global LV systolic dysfunction. Mildly dilated right ventricle with mildly reduced function. Atypical septal motion noted. -Troponins negative x3. -ECG with no acute ischemic change. -ON asa, statin, BB, imdur, ranexa. -Denies current chest pain. -suspect chest pain related to CHF. Qualifiers: Chest pain type: unspecified Qualified Code(s): R07.9 - Chest pain, unspecified (3) Atrial fibrillation Status: Chronic Per cardiology: -Known A.fib. -Hr controlled. -ON BB and coumadin for anticoagulation. -Continue to monitor in oupateint setting. Qualifiers: Atrial fibrillation type: chronic Qualified Code(s): I48.2 - Chronic atrial fibrillation (4) Chronic kidney disease (CKD) Status: Chronic Per cardiology: -Known CKD. -Monitor renal function closely with diuresis. Qualifiers: Chronic kidney disease stage: unspecified stage Qualified Code(s): N18.9 - Chronic kidney disease, unspecified Discussion w patient/family: The assessment and plan as outlined above was discussed with the patient and/or family members who expressed understanding and agreement. All questions were answered. Thank you for involving us in the care of your patient. Please call with any questions. Discussed and reviewed with Dr.John Soto. Subjective Principal diagnosis: CHF Interval history: Patient reports symptoms are much improved. Denies chest pain, or complaints. Objective Vital Signs, Last 4 Hours Temp Pulse Resp BP Pulse Ox 03/28/18 10:36 16 98 03/28/18 07:02 97.6 F 60 18 131/76 97 General: Conversant, No Apparent Distress HEENT: Atraumatic, Normocephaly, Mucus Membranes Moist Neck: No JVD, Normal carotid pulses Cardiac: Normal S1 and S2, No Murmur, Other (Irregularly irregular ) Lungs: Normal Breath Sounds, No Wheeze, Rales, Rhonchi Neuro: Alert and responsive, No focal deficits noted Abdomen: Soft, Non-Tender Skin: No rashes noted on visualized skin Musculoskeletal: No Chest Wall Tenderness Extremities: No Clubbing, No Cyanosis, No Edema, Normal Pulses Results 03/27/18 02:51 03/28/18 09:26 Lab Results Active Medications Furosemide (Lasix) 40 mg PO BIDDIURETIC SRIRAM Stop: 09/27/18 17:01 Laboratory Tests 03/26/18 03/27/18 03/28/18 12:18 02:51 09:26 Creatinine 2.30 H 2.29 H 2.35 H - Imaging and Cardiology Chest Xray: report reviewed Echo: report reviewed - EKG Interpretation EKG results cardiology: other (Telemetry reviewed with average HR previous 12 hours noted to be 64, a.fib. Intermittent paced rhythm noted. PVCs noted.) Consult Discharge Plan - Plan Instructions: Heart Failure (DC) Referrals: Latosha Mitchell MD [Primary Care Provider] -
[2018-03-28] MEDS ORDERED: Furosemide 40 MG TABLET PO SCH (17:00)
== END 2018-03-28 10:40 | disposition home or self-care (01) ==
LOC: EMEROOARM 11:52 → 3BNU 11:52
PROVIDERS: ADMIT Internal Medicine; ATTEND Internal Medicine